=== PATIENT | female | born 1935 | race Caucasian/White ===

== ENCOUNTER 2016-05-07 09:40 | Outpatient (CLI) ==
[2012-09-27 08:19] VITALS: TEMP 97.2
[2016-03-22 15:18] VITALS: BMI 41.0
[2016-05-07 12:30] LABS: BASOPHILS % (AUTO) 0.7 % (0.0-3.0); EOSINOPHILS # (AUTO) 0.4 K/ul (0.0-0.7); EOSINOPHILS % (AUTO) 7.9 % (0.0-7.0); HEMATOCRIT 33.8 % (37.0-47.0); HEMOGLOBIN 10.6 g/dl (12.0-16.0); IMMATURE GRANULOCYTE % (AUTO) 0.4 % (0.0-5.0); LYMPHOCYTES # (AUTO) 1.4 K/uL (0.60-3.4); LYMPHOCYTES % (AUTO) 31.3 (10.0-50.0); MEAN CORPUSCULAR HEMOGLOBIN 28.8 pg (27.0-31.0); MEAN CORPUSCULAR HGB CONC 31.4 (31.8-35.4); MEAN CORPUSCULAR VOLUME 91.8 fl (81.0-99.0); MONOCYTES # (AUTO) 0.5 K/uL (0.4-2.0); MONOCYTES % (AUTO) 9.8 (0-10); NEUTROPHILS # (AUTO) 2.3 K/ul (2.0-6.9); NEUTROPHILS % (AUTO) 49.9; PLATELET COUNT 134 10^3/uL (140-440); RED BLOOD COUNT 3.68 10^6/ul (4.20-5.40); WHITE BLOOD COUNT 4.57 K/ul (4.6-10.2)
[2016-05-07 12:43] LABS: BILIRUBIN,URINE Negative (NEGATIVE); KETONES,URINE Negative (NEGATIVE); LEUKOCYTE ESTERASE ,URINE Trace (NEGATIVE); NITRITE,URINE Negative (NEGATIVE); PROTEIN,URINE 1+ (NEGATIVE)
[2016-05-07 12:47] LABS: ADD URINE MICROSCOPIC YES
[2016-05-07 12:51] LABS: URINE, BLOOD NEGATIVE (NEGATIVE)
[2016-05-07 13:46] LABS: ALBUMIN 3.7 g/dL (3.4-5.0); ALBUMIN/GLOBULIN RATIO 1.06; ANION GAP 13.6; BILIRUBIN,TOTAL 0.52 mg/dL (0.00-1.20); BUN/CREATININE RATIO 19.86; CALCIUM 9.1 mg/dL (8.2-10.2); CHOL/HDL RATIO 2.4 (4.5-5.5); CREATININE 1.46 mg/dL (0.60-1.30); POTASSIUM 4.6 mmol/L (3.5-5.10); TOTAL PROTEIN 7.2 g/dL (5.8-8.1)
== END 2016-05-07 09:41 | disposition home or self-care (01) ==
LOC: LAB 09:40
PROVIDERS: ATTEND General Practice
DX: E11.9 Type 2 diabetes mellitus without complications (principal); E61.1 Iron deficiency; N18.3 Chronic kidney disease, stage 3 (moderate); I95.1 Orthostatic hypotension; I10 Essential (primary) hypertension; I50.9 Heart failure, unspecified; I48.0 Paroxysmal atrial fibrillation; Z79.899 Other long term (current) drug therapy
CPT/HCPCS: 36415; 80053; 80061; 81001; 83036; 85025

== ENCOUNTER 2016-05-15 06:32 | Outpatient (CLI) ==
[2012-09-27 08:19] VITALS: TEMP 97.2
[2016-03-22 15:18] VITALS: BMI 41.0
--- NOTE | 2016-05-17 09:28 | ECHO2D ---
Date of Exam: 05/15/16 [facility] Reason for Echo: ATRIAL FIBRILLATION, SOB M-Mode Normal Adult Results LV Dimensions Normal Adult Results AoV Opening excursions >1.6 >1.6 LVEDD-base- 3.5-5.8 3.8 Ao root dimensions 2.0-3.7 3.0 LVESD-base- 3.1-4.6 L. Atrium dimensions 1.9-3.8 4.6 Post. Wall thickness 0.8-1.1 1.2 IV septum (thickness) 0.7-1.2 1.2 Post. Wall excursion 0.72-1.3 NORMAL Septal motion 0.8 Systolic motion R. Ventricular cavity 1.5-2.0 NORMAL LVEF 60% 68% Paradoxical septal wall motion NORMAL 2-D :ENLARGED LEFT ATRIAL CAVITY--NORMAL LEFT VENTRICLE CAVITY--NORMAL VALVES-- NORMAL VALVES--CALCIFIC MITRAL VALVE ANNULUS, NORMAL LEFT VENTRICULAR CONTRACTILITY M-MODE: MV: CALCIFIC MITRAL VALVE ANNULUS AV: NORMAL TV: NORMAL PV: CHAMBER SIZE: ENLARGED LEFT ATRIAL CAVITY WALL MOTION: NORMAL PERICARDIUM: NORMAL INTERPRETATION: 1. LEFT VENTRICULAR HYPERTROPHY WITH ENLARGED LEFT ATRIAL CAVITY 2. NORMAL LEFT VENTRICULAR CONTRACTILITY--LEFT VENTRICULAR EJECTION FRACTION 68% 3. NORMAL VALVES 4. CALCIFIC MITRAL VALVE ANNULUS MTDD
== END 2016-05-15 06:33 | disposition home or self-care (01) ==
LOC: CAR 06:32
PROVIDERS: ATTEND General Practice
DX: I48.0 Paroxysmal atrial fibrillation (principal); I50.9 Heart failure, unspecified; R06.02 Shortness of breath

== ENCOUNTER 2016-06-07 11:28 | Outpatient (CLI) | payer OTHER ==
[2012-09-27 08:19] VITALS: TEMP 97.2
[2016-03-22 15:18] VITALS: BMI 41.0
[2016-06-07 13:12] LABS: ALBUMIN 3.7 g/dL (3.4-5.0); ANION GAP 14.7; BUN/CREATININE RATIO 18.18; CALCIUM 9.3 mg/dL (8.2-10.2); CREATININE 1.43 mg/dL (0.60-1.30); POTASSIUM 4.7 mmol/L (3.5-5.10)
== END 2016-06-07 11:29 | disposition home or self-care (01) ==
LOC: LAB 11:28
PROVIDERS: ATTEND General Practice
DX: I50.9 Heart failure, unspecified (principal)
CPT/HCPCS: 36415; 80069; 83880

== ENCOUNTER 2016-06-24 15:12 | Outpatient (CLI) ==
[2012-09-27 08:19] VITALS: TEMP 97.2
[2016-03-22 15:18] VITALS: BMI 41.0
--- NOTE | 2016-06-24 15:58 | DI ---
EXAM: Two views of the chest. History: Cough. Comparison: Chest radiograph 03/26/2016 Findings: Heart is enlarged. No focal consolidation. No appreciable pleural fluid and no pneumoth orax. Atherosclerotic vascular calcifications. No acute osseous abnormalities. Impression: Cardiomegaly without acute disease in the chest.
--- NOTE | 2016-06-24 16:01 | DI ---
EXAM: Four views of the mandible. History: Jaw pain. Findings: Evaluation is difficult due to overlapping osseous and soft tissue structures. Incidenta l hyperostosis frontalis. No grossly displaced fractures identified. There may be mucosal thickeni ng within the bilateral maxillary sinuses. Impression: 1. No acute fractures. 2. Suspect bilateral maxillary sinus disease.
[2016-06-24 16:45] LABS: ERYTHROCYTE SEDIMENTATION RATE 27 mm/hr (0-20); ESR INTERNAL QC INTERNAL QC VALID
== END 2016-06-24 15:13 | disposition home or self-care (01) ==
LOC: RAD 15:12
PROVIDERS: ATTEND General Practice
DX: R68.84 Jaw pain (principal); R05 Cough; I50.22 Chronic systolic (congestive) heart failure
CPT/HCPCS: 36415; 83880; 84145; 85651

== ENCOUNTER 2016-07-30 10:27 | Outpatient (CLI) ==
[2012-09-27 08:19] VITALS: TEMP 97.2
[2016-03-22 15:18] VITALS: BMI 41.0
--- NOTE | 2016-07-30 10:49 | DI ---
EXAM: Two views of the chest. History: Cough. Comparison: Chest radiograph 06/24/2016 Findings: Heart is enlarged. No focal consolidation. No appreciable pleural fluid and no pneumoth orax. No acute osseous abnormalities. Atherosclerotic vascular calcifications. Impression: Cardiomegaly without acute disease in the chest. No change compared to the prior study .
[2016-07-30 10:54] LABS: BASOPHILS % (AUTO) 0.6 % (0.0-3.0); EOSINOPHILS # (AUTO) 0.3 K/ul (0.0-0.7); EOSINOPHILS % (AUTO) 6.5 % (0.0-7.0); HEMATOCRIT 35.4 % (37.0-47.0); HEMOGLOBIN 11.8 g/dl (12.0-16.0); IMMATURE GRANULOCYTE % (AUTO) 0.4 % (0.0-5.0); LYMPHOCYTES # (AUTO) 0.6 K/uL (0.60-3.4); LYMPHOCYTES % (AUTO) 10.6 (10.0-50.0); MEAN CORPUSCULAR HEMOGLOBIN 28.2 pg (27.0-31.0); MEAN CORPUSCULAR HGB CONC 33.3 (31.8-35.4); MEAN CORPUSCULAR VOLUME 84.7 fl (81.0-99.0); MONOCYTES # (AUTO) 0.4 K/uL (0.4-2.0); MONOCYTES % (AUTO) 7.8 (0-10); NEUTROPHILS # (AUTO) 3.9 K/ul (2.0-6.9); NEUTROPHILS % (AUTO) 74.1; PLATELET COUNT 125 10^3/uL (140-440); RED BLOOD COUNT 4.18 10^6/ul (4.20-5.40); WHITE BLOOD COUNT 5.27 K/ul (4.6-10.2)
[2016-07-30 11:13] LABS: ALBUMIN 3.7 g/dL (3.4-5.0); ANION GAP 12.8; BUN/CREATININE RATIO 16.8; CALCIUM 8.9 mg/dL (8.2-10.2); CREATININE 1.19 mg/dL (0.60-1.30); PHOSPHORUS 3.7 mg/dL (2.8-4.1); POTASSIUM 4.8 mmol/L (3.5-5.10)
== END 2016-07-30 10:28 | disposition home or self-care (01) ==
LOC: LAB 10:27
PROVIDERS: ATTEND General Practice
DX: R05 Cough (principal); R06.02 Shortness of breath
CPT/HCPCS: 36415; 80069; 83880; 85025

== ENCOUNTER 2016-10-03 13:00 | Inpatient (IN) ==
--- NOTE | 2016-10-03 14:19 | CT ---
EXAM: CT scan of the abdomen and pelvis without contrast HISTORY: Pain TECHNIQUE: Imaging of the abdomen and pelvis was performed without contrast. 5 mm thin axial image s and coronal and sagittal reconstructions were provided for interpretation. Comparison none. FINDINGS: The liver, spleen, pancreas, adrenal glands appear normal. The patient has had previous cholecystectomy. There is atrophy of the left kidney. The small bowel loops caliber. There is m ild dilatation of the ascending colon, transverse colon and descending colon by fecal material. The re is no free air. No acute abnormalities are seen within the anterior abdominal wall. The helical images obtained through the pelvis demonstrate a normal appearance of the rectum, urinar y bladder. There is no free fluid seen within the pelvis. The appendix appears normal. Lung bases are clear. No lytic or blastic lesions are seen within the osseous structures. IMPRESSION: There is no bowel obstruction or acute inflammatory change seen within the abdomen and pelvis. There is no ureteral obstruction. There is mild dilatation of the colon by fecal material suggesting a degree of constipation. There has been previous cholecystectomy.
--- NOTE | 2016-10-03 14:25 | CT ---
EXAM: CT lumbar spine without contrast HISTORY: Pain, weakness in both legs COMPARISON: 01/01/2015 TECHNIQUE: CT lumbar spine performed without intravenous contrast. Coronal and sagittal reformatte d images obtained. FINDINGS: Bones appear demineralized. Mild leftward curvature lumbar spine. Vertebral bodies janel l height. Multilevel marginal osteophyte formation. Multilevel intervertebral disc space narrowing with severe intervertebral disc space narrowing T12-L1, L1-L2, L5-S1. 2 mm retrolisthesis L1 on L2 and 2 mm anterolisthesis of L4 on L5. Multilevel facet arthrosis. No fracture. Sacroiliac joints i ntact with mild degenerative change. Aorta normal in caliber. Extensive atherosclerosis. Mild pos terior the subcutaneous edema. T11-T12: Posterior disc osteophyte complex causing mild central canal canal and mild bilateral neur al foraminal narrowing. T12-L1: Posterior disc osteophyte complex causing mild central canal narrowing. L1-L2: Posterior disc osteophyte complex and facet arthrosis causing mild to moderate central canal , severe right and mild to moderate left neural foraminal narrowing. L2-L3: Posterior disc osteophyte complex and facet arthrosis causing causing mild central canal cady rowing and mild bilateral neural foraminal narrowing. L3-L4: Posterior disc osteophyte complex and facet arthrosis causing moderate central canal narrowi ng and moderate to severe bilateral neural foraminal narrowing. L4-L5: Posterior disc osteophyte complex and facet arthrosis and anterolisthesis causing severe blanche tral canal narrowing and severe bilateral neural foraminal narrowing. L5-S1: Posterior disc osteophyte complex and facet arthrosis causing severe bilateral neural forami nal narrowing IMPRESSION: 1. No fracture. 2. Advanced chronic discogenic degenerative disease. Please see segmental analysis, noting severe areas of central canal and neural foraminal narrowing, greatest L4-L5, L5-S1. MRI can be performed f or further evaluation. 3. Bones appear demineralized
[2016-10-03 14:29] LABS: BASOPHILS % (AUTO) 0.5 % (0.0-3.0); EOSINOPHILS # (AUTO) 0.4 K/ul (0.0-0.7); EOSINOPHILS % (AUTO) 5.5 % (0.0-7.0); HEMATOCRIT 31.4 % (37.0-47.0); HEMOGLOBIN 10.8 g/dl (12.0-16.0); IMMATURE GRANULOCYTE % (AUTO) 0.5 % (0.0-5.0); LYMPHOCYTES # (AUTO) 1.8 K/uL (0.60-3.4); LYMPHOCYTES % (AUTO) 27.8 (10.0-50.0); MEAN CORPUSCULAR HGB CONC 34.4 (31.8-35.4); MEAN CORPUSCULAR VOLUME 84.4 fl (81.0-99.0); MONOCYTES # (AUTO) 0.6 K/uL (0.4-2.0); MONOCYTES % (AUTO) 9.3 (0-10); NEUTROPHILS # (AUTO) 3.6 K/ul (2.0-6.9); NEUTROPHILS % (AUTO) 56.4; PLATELET COUNT 145 10^3/uL (140-440); RED BLOOD COUNT 3.72 10^6/ul (4.20-5.40); WHITE BLOOD COUNT 6.34 K/ul (4.6-10.2)
[2016-10-03 14:48] LABS: ALANINE AMINOTRANSFERASE 22 U/L (12-78); ALBUMIN 3.9 g/dL (3.4-5.0); ALBUMIN/GLOBULIN RATIO 1.26; ALKALINE PHOSPHATASE 80 U/L (53-141); ANION GAP 17.2; ASPARTATE AMINO TRANSFERASE 22 U/L (15-37); BILIRUBIN,TOTAL 0.58 mg/dL (0.00-1.20); BLOOD UREA NITROGEN 51 mg/dL (7-18); BUN/CREATININE RATIO 21.25; CALCIUM 8.6 mg/dL (8.2-10.2); CARBON DIOXIDE 23 mmol/L (23-31); CHLORIDE 94 mmol/L (98-107); CREATINE KINASE 84 U/L; GLUCOSE 120 mg/dL (82-115); POTASSIUM 4.2 mmol/L (3.5-5.10); SODIUM 130 mmol/L (136-145)
--- NOTE | 2016-10-03 15:24 | ED.PDOC ---
General ED Provider: Dr. GOMEZ RONDON Chief Complaint: Weakness Stated Complaint: weakness unable to walk Time Seen by Physician: 13:00 (seen with staffat all times) Mode of Arrival: Wheelchair Information Source: Patient Exam Limitations: No limitations [facility] Nursing and Triage Documentation Reviewed and Agree: Yes Neurological Complaint Exam - Weakness Complaint/Exam Last Known Well: 2 days ago Onset: Gradual Duration: 2 days today worse cant ambulate very weak legs give out per pt Symptoms Are: Still present Timing: Constant Episodes Lasting: Hours Initial Severity: Moderate Current Severity: Moderate Character: Reports: Lightheaded, Weak Aggravating: Reports: None Alleviating: Reports: None Associated Signs and Symptoms: Denies: Nausea, Vomiting, Diaphoresis, Tinnitus, Chest pain, Short of air, Palpitations, Unsteady gait, GI blood loss, Visual changes, Decreased oral intake, Change in medication, Change in diet, OTC meds, Loss of balance Cardiac Risk Factors: Reports: Hypertension CVA Risk Factors: Reports: Hypertension Related Surgical History: Reports: None JVD Present: No Carotid Bruit Present: No Rectal Heme Positive: No Glascow Coma Scale (see protocol): 15 Nystagmus Present: No Gag Reflex Present: Yes Meningeal Signs Positive: No Focal Weakness: Present: None Focal Sensory Loss: Present: None Gait: Unable Babinski Sign: Negative Right, Negative Left Differential Diagnoses: Dysrhythmia, Hypovolemia, Metabolic abnormalities, Vasovagal reaction Quality Indicators for Cardiac Chest Pain: EKG in 10min. Quality Indicators for AMI: EKG in 10min. Quality Indicator For Non-Traumatic Chest Pain/Syncope: EKG Performed Review of Systems - Review Of Systems Constitutional: Reports: Malaise, Weakness Eyes: Reports: No symptoms Ears, Nose, Mouth, Throat: Reports: No symptoms Respiratory: Reports: No symptoms Cardiac: Reports: No symptoms GI: Reports: No symptoms : Reports: No symptoms Musculoskeletal: Reports: No symptoms Skin: Reports: No symptoms Neurological: Reports: No symptoms Endocrine: Reports: No symptoms Hematologic/Lymphatic: Reports: No symptoms All Other Systems: Reviewed and Negative Past Medical History - Past Medical History Previously Healthy: Yes Endocrine: Reports: DM 2 Cardiovascular: Reports: Hypertension Respiratory: Reports: None Hematological: Reports: None Gastrointestinal: Reports: Unknown Genitourinary: Reports: Unknown Neuro/Psych: Reports: Unknown Musculoskeletal: Reports: Arthritis Cancer: Reports: Unknown Last Menstrual Period: N/A Other Pertinent Past Medical History: bilat. knee replacement. [ End ]htn dm - Surgical History General Surgical History: Reports: Cholecystectomy, Orthopedic ( knee replacement bilat.), Other (mastoid surgeries x2, carpal tunnel) - Family History Family History: Reports: Unknown - Social History Smoking Status: Former smoker Hx Substance Use: No Alcohol Screening: None - Immunizations Tetanus Shot up to Date: Yes Physical Exam - Physical Exam Appearance: Ill-appearing, Thin Pain Distress: Moderate Eyes: ALEJANDRO, EOMI, Conjunctiva clear ENT: Ears normal, Nose normal, Oropharynx normal Respiratory: Airway patent, Breath sounds clear, Breath sounds equal, Respirations nonlabored Cardiovascular: RRR, Pulses normal, No rub, No murmur GI/: Soft, Nontender, No masses, Bowel sounds normal, No Organomegaly Musculoskeletal: Normal strength, ROM intact, No edema, No calf tenderness Skin: Warm, Dry, Normal color Neurological: Sensation intact, Motor intact, Reflexes intact, Cranial nerves intact, Alert, Oriented Psychiatric: Affect appropriate, Mood appropriate Interpretation - Radiology Interpretation Radiology Interpretation By: Radiologist Radiology Results: No acute changes Physician Notification - Case Discussed Physician Notified: pmd Time of Notification: 15:25 Critical Care Note - Critical Care Note Total Time (mins): 0 Course - Course Hematology/Chemistry: 10/03/16 14:15 10/03/16 14:15 Orders, Labs, Meds: Lab Review 10/03/16 14:15 WBC 6.34 RBC 3.72 L Hgb 10.8 L Hct 31.4 L MCV 84.4 MCH 29.0 MCHC 34.4 RDW Coeff of Danae 16.8 H Plt Count 145 Immature Gran % (Auto) 0.5 Neut % (Auto) 56.4 Lymph % (Auto) 27.8 [place] % (Auto) 9.3 Eos % (Auto) 5.5 Baso % (Auto) 0.5 Immature Gran # (Auto) 0.0 Neut # 3.6 Lymph # 1.8 [place] # 0.6 Eos # 0.4 Baso # 0.0 Sodium 130 L Potassium 4.2 Chloride 94 L Carbon Dioxide 23 Anion Gap 17.2 BUN 51 H Creatinine 2.40 H Estimated GFR (MDRD) 19.00 BUN/Creatinine Ratio 21.25 Glucose 120 H Lactic Acid 8.4 Calcium 8.6 Total Bilirubin 0.58 AST 22 ALT 22 Alkaline Phosphatase 80 Total Creatine Kinase 84 Troponin I < 0.0100 Total Protein 7.0 Albumin 3.9 Globulin 3.1 Albumin/Globulin Ratio 1.26 Procalcitonin 0.32 Orders Category Date Time Status EKG-(ED ONLY) Stat CARDIO 10/03/16 13:40 Completed BLOOD CULTURE Stat LAB 10/03/16 14:15 Received CBC W/ AUTO DIFF Stat LAB 10/03/16 14:15 Completed COMPREHENSIVE METABOLIC PANEL Stat LAB 10/03/16 14:15 Completed CREATINE KINASE Stat LAB 10/03/16 14:15 Completed LACTIC ACID Stat LAB 10/03/16 14:15 Completed PROCALCITONIN Stat LAB 10/03/16 14:15 Completed TROPONIN I Stat LAB 10/03/16 14:15 Completed URINALYSIS C & S IF INDICATED Stat LAB 10/03/16 13:[address] ABDOMEN/PELVIS WO CONTRAST Stat RADS 10/03/16 13:[address] LUMBAR SPINE W/O CONTRAST Stat RADS 10/03/16 13:39 Completed Vital Signs: Temp Pulse Resp BP Pulse Ox 10/03/16 13:00 98 F 64 22 154/80 H 98 Departure - Departure Time of Disposition: 15:25 Disposition: ADMITTED INPATIENT Discharge Problem: Acute on chronic renal failure Qualifiers: Acute renal failure type: unspecified Chronic kidney disease stage: stage 4 ( severe) Qualifier Code: (N17.9) Acute kidney failure, unspecified Instructions: Chronic Kidney Disease (ED) Condition: Good Pt referred to PMD for follow-up: Yes Additional Instructions: Please call your Family Physician as soon as possible to schedule a follow-up appointment. Allergies/Adverse Reactions: Allergies quinine Allergy (Unverified 08/07/16 10:57) BEEN SO LONG AGO, CANT REMEMBER REACTION Home Medications: Ambulatory Orders Carvedilol 25 mg PO BID 09/27/12 Aspirin [Aspir 81] 81 mg PO DAILY tab-cap 06/07/15 Disposition Discussed With: Patient, Family
[2016-10-03] MEDS ORDERED: SODIUM CHLORIDE 1,000 ML IV SCH (16:30)
[2016-10-03 16:59] LABS: BILIRUBIN,URINE Negative (NEGATIVE); KETONES,URINE Negative (NEGATIVE); LEUKOCYTE ESTERASE ,URINE 1+ (NEGATIVE); NITRITE,URINE Negative (NEGATIVE); PH,URINE 5.5 (5-9); PROTEIN,URINE Negative (NEGATIVE); URINE, BLOOD Negative (NEGATIVE)
[2016-10-03 17:03] LABS: ADD URINE MICROSCOPIC YES
[2016-10-03 18:04] VITALS: BMI 40.1
[2016-10-03] MEDS: PEPCID PO SCH (18:36)
[2016-10-03] MEDS: COREG PO SCH (18:36)
[2016-10-03] MEDS ORDERED: NON-FORMULARY MEDICATION (Oxcarbazepine 150 MG) PO SCH ×2 (20:30→21:00)
[2016-10-03] MEDS ORDERED: INFUVITE ADULT IV ONE (20:51)
[2016-10-03] MEDS ORDERED: NON-FORMULARY MEDICATION (Carvedilol [Carvedilol] 25 MG) PO SCH ×22 (21:00)
[2016-10-03] MEDS ORDERED: NON-FORMULARY MEDICATION (Losartan Potassium [Losartan Potassium] 50 MG) PO SCH (21:00)
[2016-10-03] MEDS ORDERED: NON-FORMULARY MEDICATION (Ferrous Sulfate [Ferrous Sulfate] 325 MG) PO SCH ×22 (21:00)
[2016-10-03] MEDS: INFUVITE ADULT 10 ML in D5%-1/2NS-KCL 20 MEQ/L IV SOL 1,000 ML IV SCH (21:19)
--- NOTE | 2016-10-03 21:32 | CT ---
EXAM: CT of the head without contrast. HISTORY: Weakness.. COMPARISON: CT of the head dated 06/16/2014 TECHNIQUE: Contiguous axial images at 5 mm intervals were obtained from the base of the skull to th e vertex the calvarium. No contrast was given. FINDINGS: The CSF containing spaces are diffusely enlarged consistent with atrophy. There are no e xtraaxial fluid collections. There is no evidence of an acute intracranial hemorrhage. There are n o masses or mass effect. Hypodensities are seen in the periventricular white matter consistent with chronic ischemic changes from small vessel disease. Asymmetric hypodensity is seen in the left fro ntal lobe comparison to the right side. There is no significant mass effect. Carotid artery and ve rtebral artery calcifications are seen. The osseous structures are normal. The extracranial soft tissues are otherwise unremarkable. IMPRESSION: 1. No acute intracranial hemorrhage. 2. Asymmetric hypodensity in the left lobe which has appearance of ischemic infarct. No significan t mass effect is seen. Correlate with history and symptoms. Acute infarct cannot be excluded. Corre late with symptoms and history.
[2016-10-03] MEDS: SYMBICORT 80-4.5 MCG INHALER IH SCH (21:34)
--- NOTE | 2016-10-03 21:34 | DI ---
EXAM: Two-view chest. HISTORY: Weakness and cough. COMPARISON: 07/30/2016 FINDINGS: Frontal and lateral views of the chest. The lung volumes are lower than on the prior s tudy. There is no lobar consolidation or effusion. The heart is enlarged. Pulmonary vasculature i s normal. There are no suspicious pulmonary nodules. The pulmonary interstitium is normal. The aorta is tortuous and calcified. The osseous structures show mild degenerative changes consistent w ith age. IMPRESSION: No acute pulmonary disease.
[2016-10-03] MEDS: LIPITOR PO SCH (21:35)
[2016-10-03] MEDS: COZAAR PO SCH (21:35)
[2016-10-03] MEDS: FERROUS SULFATE PO SCH (21:41)
[2016-10-03 22:49] LABS: TROPONIN I 0.015 ng/ml (0.0000-0.4000)
[2016-10-04] MEDS: XANAX PO PRN ×2 (01:25→09:56)
[2016-10-04] MEDS: LASIX TAB PO SCH (05:31)
[2016-10-04] MEDS: PEPCID PO SCH ×2 (05:31→17:09)
[2016-10-04 07:26] LABS: BASOPHILS % (AUTO) 0.5 % (0.0-3.0); EOSINOPHILS # (AUTO) 0.2 K/ul (0.0-0.7); EOSINOPHILS % (AUTO) 3.7 % (0.0-7.0); HEMATOCRIT 31.2 % (37.0-47.0); HEMOGLOBIN 10.7 g/dl (12.0-16.0); IMMATURE GRANULOCYTE % (AUTO) 0.5 % (0.0-5.0); LYMPHOCYTES # (AUTO) 1.5 K/uL (0.60-3.4); LYMPHOCYTES % (AUTO) 26.5 (10.0-50.0); MEAN CORPUSCULAR HEMOGLOBIN 28.8 pg (27.0-31.0); MEAN CORPUSCULAR HGB CONC 34.3 (31.8-35.4); MEAN CORPUSCULAR VOLUME 84.1 fl (81.0-99.0); MONOCYTES # (AUTO) 0.7 K/uL (0.4-2.0); NEUTROPHILS # (AUTO) 3.2 K/ul (2.0-6.9); NEUTROPHILS % (AUTO) 56.8; PLATELET COUNT 143 10^3/uL (140-440); RED BLOOD COUNT 3.71 10^6/ul (4.20-5.40); WHITE BLOOD COUNT 5.66 K/ul (4.6-10.2)
[2016-10-04 07:42] LABS: ANION GAP 16.3; BUN/CREATININE RATIO 21.46; CALCIUM 8.7 mg/dL (8.2-10.2); CREATININE 2.05 mg/dL (0.60-1.30); POTASSIUM 4.3 mmol/L (3.5-5.10)
[2016-10-04 07:49] LABS: TROPONIN I 0.015 ng/ml (0.0000-0.4000)
[2016-10-04] MEDS ORDERED: NON-FORMULARY MEDICATION (Oxcarbazepine 150 MG) PO SCH ×2 (09:00)
[2016-10-04] MEDS ORDERED: NON-FORMULARY MEDICATION (Amlodipine Besylate [Amlodipine Besylate] 2.5 MG) PO SCH ×22 (09:00)
[2016-10-04] MEDS: INFUVITE ADULT 10 ML in D5%-1/2NS-KCL 20 MEQ/L IV SOL 1,000 ML IV SCH (09:38)
[2016-10-04] MEDS: COREG PO SCH ×2 (09:48→17:09)
[2016-10-04] MEDS: FERROUS SULFATE PO SCH ×2 (09:48→22:23)
[2016-10-04] MEDS: NORVASC PO SCH (09:49)
[2016-10-04] MEDS: COZAAR PO SCH ×2 (09:50→22:23)
[2016-10-04] MEDS: SYMBICORT 80-4.5 MCG INHALER IH SCH ×2 (09:50→22:24)
[2016-10-04] MEDS: CORDARONE PO SCH (09:50)
[2016-10-04] MEDS: ASPIRIN EC PO SCH (09:50)
[2016-10-04] MEDS ORDERED: TRILEPTAL PO SCH (12:00)
--- NOTE | 2016-10-04 14:53 | US ---
Exam: García-scale and color Doppler ultrasonographic evaluation of the carotid arteries. Comparison: 06/24/2014. Reason for exam: Weakness right upper extremity more than left. FINDINGS: There is a moderate amount of heterogeneous and dense plaque in the proximal portion of t he right internal carotid artery. The right external carotid artery measures 150 cm/sec. The right common carotid artery measures 80 / 10 cm/sec. The right internal carotid artery peak systolic velocity measures 140 cm/sec. The right internal carotid artery/CCA PSV ratio was 1.8. The right internal carotid artery end-diastolic velocity measures 20 cm/sec. There is normal antegrade right vertebral artery flow. There is a moderate amount of dense plaque seen in the proximal left internal carotid artery. There is shadowing in the left internal carotid artery at the level of the bulb which limits evaluation o f the plaque burden in this region. The left external carotid artery measures 130 cm/sec. The left common carotid artery measures 120 / 10 cm/sec. The left internal carotid artery peak systolic velocity measures 120 cm/sec. The left internal carotid artery/CCA PSV ratio was 1.0. The left internal carotid artery end-diastolic velocity measures 10 cm/sec. The left vertebral artery was not visualized on today's exam. Technologist note reports tortuosity of the vessels bilaterally. Impression: 1. The right internal carotid artery peak systolic velocity suggests moderate (50 - 69%) stenotic d isease. 2. The left internal carotid artery peak systolic velocity suggests no significant stenosis. Evalu ation of the left internal carotid artery level of the bulb is limited by shadowing artifact. 3. The left vertebral artery was not seen.
--- NOTE | 2016-10-04 17:34 | MRI ---
EXAM: Brain MRI without contrast. HISTORY: Right upper and lower extremity weakness. COMPARISON: Head CT 10/03/2016, brain MRI 06/27/2014 and cervical spine MRI 03/02/2008. TECHNIQUE: Multiplanar, multisequence MR images were acquired of the brain without contrast. FINDINGS: The midline structures are central and there is no cerebellar tonsillar ectopia. There i s mild prominence of the lateral ventricle and some sulci which is considered within normal variatio n for the patient's age. There are no abnormal extra-axial fluid collections. The brain parenchyma has no diffusion restriction to suggest acute hypoperfusion or infarction. The re is a thin rim of periventricular T2 hyperintensity and small patchy T2 hyperintensities are prese nt in the supratentorial white matter compatible with mild leukomalacia. There is a prominent sulcu s in the anterior superior left frontal lobe with faint hyperintense FLAIR signal and this may repre sent small chronic peripheral left frontal lobe infarct or volume averaging artifact. Pulsation art ifact is noted in the posterior fossa. There is a punctate old lacuna or artifact in the right para midline zuleika. The corpus callosum has a normal configuration. The pituitary gland is unremarkable. There are no intraorbital masses. Hyperostosis frontalis interna is present. Mild mucosal thickening and a small effusion is present in the sphenoid sinus. There is mild rightw jeyson nasal septal deviation. Mild mucosal thickening is present. The left maxillary sinus. Middle ears and mastoids are unremarkable. Flow voids are present in the major intracranial arteries and dural venous sinuses. There is pannus formation at the transverse ligament which was present on the previous cervical spin e MRI. This effaces the anterior subarachnoid space and causes mild spinal stenosis at the C1-2 lev el. AP diameter of the thecal sac is 7.7 mm. There is irregularity and sclerosis of the odontoid p rocess with a linear T1 hypointensity that extends from the anterior cortex to the posterior cortex. This may represent chronic fracture or volume averaging artifact. Cervical spine CT is advised to better define the anatomy. There is hypertrophic facet arthropathy in the upper cervical spine and mild to moderate spinal stenosis at C2-3. AP diameter of the thecal sac is 6 mm. IMPRESSION: 1. No intracranial mass or acute cerebral infarct. 2. Mild chronic ischemic small vessel disease. 3. There is irregularity and sclerosis of the odontoid process with a linear T1 hypointensity that may represent volume averaging artifact or a sclerotic fracture. Cervical spine CT is advised to fu rther define the anatomy. 4. Mild spinal stenosis C1-2 and mild to moderate stenosis C2-3. Gregory nurse caring for the patient was telephoned with these results at 5:27 p.m
--- NOTE | 2016-10-04 21:02 | CT ---
EXAM: CT of the cervical spine without contrast. HISTORY: Follow-up abnormal MRI. MRI of the brain from the same date demonstrated possible healing fracture of the odontoid process. COMPARISON: MRI dated 10/04/[address] of the cervical spine dated 11/06/2009 TECHNIQUE: Contiguous axial images were obtained from the base of skull to the upper chest. Sagitt al and coronal reformats reviewed. FINDINGS: There is sclerosis of the tip of the odontoid process which is similar to the previous st udy. This likely corresponds to the MRI findings. No significant change is seen in comparison to t he previous study. No definite acute fractures identified. There is slight anterolisthesis of C2 a nd C3, measuring approximately 2.5 mm. There is straightening of the normal lordosis. The vertebral heights are well maintained. C2-3: Disc narrowing. Posterior osteophytes. Bilateral facet hypertrophy. Bilateral neural alexis en narrowing. C3-4: Disc narrowing. Posterior osteophytes. Bilateral neural foramen narrowing. Uncovertebral h ypertrophy, right greater than left. C4-5: Severe disc narrowing. Posterior osteophytes. Bilateral neural foramen narrowing and spinal canal narrowing. Spinal canal measures approximately 8 mm. C5-6: Disc narrowing. Posterior osteophyte disc complex. Bilateral uncovertebral hypertrophy. Bi lateral neural foramen narrowing and spinal canal narrowing. C6-7: Disc narrowing. Post osteophytes. Severe right neural foramen narrowing. Moderate spinal c anal narrowing. IMPRESSION: 1. Sclerosis of the tip of the odontoid is stable in comparison to the prior study . No significan t change. No acute fractures identified. 2. Severe degenerative disc disease of the cervical spine and extensive facet hypertrophy. Spinal canal and neural foramen narrowing is seen, most pronounced at C4-5 and C5-6.
[2016-10-04] MEDS: REQUIP PO SCH ×2 (22:22→22:24)
[2016-10-04] MEDS: LIPITOR PO SCH (22:22)
[2016-10-04] MEDS: TRILEPTAL PO SCH (22:23)
[2016-10-05] MEDS ORDERED: INFUVITE ADULT IV ONE ×2 (00:51→14:51)
[2016-10-05] MEDS ORDERED: POTASSIUM CHLORIDE 10 MEQ VIAL-ADDITIVE ONLY IV ONE (01:00)
[2016-10-05] MEDS: INFUVITE ADULT 10 ML in D5%-1/2NS-KCL 20 MEQ/L IV SOL 1,000 ML IV SCH ×3 (01:23→15:16)
[2016-10-05 04:25] LABS: BASOPHILS % (AUTO) 0.5 % (0.0-3.0); EOSINOPHILS # (AUTO) 0.2 K/ul (0.0-0.7); EOSINOPHILS % (AUTO) 3.8 % (0.0-7.0); HEMATOCRIT 30.6 % (37.0-47.0); HEMOGLOBIN 10.4 g/dl (12.0-16.0); IMMATURE GRANULOCYTE % (AUTO) 0.5 % (0.0-5.0); LYMPHOCYTES # (AUTO) 1.6 K/uL (0.60-3.4); LYMPHOCYTES % (AUTO) 25.5 (10.0-50.0); MEAN CORPUSCULAR HEMOGLOBIN 28.7 pg (27.0-31.0); MEAN CORPUSCULAR VOLUME 84.5 fl (81.0-99.0); MONOCYTES # (AUTO) 0.7 K/uL (0.4-2.0); MONOCYTES % (AUTO) 10.8 (0-10); NEUTROPHILS # (AUTO) 3.6 K/ul (2.0-6.9); NEUTROPHILS % (AUTO) 58.9; PLATELET COUNT 144 10^3/uL (140-440); RED BLOOD COUNT 3.62 10^6/ul (4.20-5.40); WHITE BLOOD COUNT 6.12 K/ul (4.6-10.2)
[2016-10-05 04:46] LABS: ANION GAP 14.5; BUN/CREATININE RATIO 22.97; CALCIUM 8.7 mg/dL (8.2-10.2); CREATININE 1.48 mg/dL (0.60-1.30); POTASSIUM 4.5 mmol/L (3.5-5.10)
[2016-10-05] MEDS ORDERED: TYLENOL PO PRN (05:37)
[2016-10-05] MEDS: PEPCID PO SCH ×2 (05:49→16:38)
[2016-10-05] MEDS: LASIX TAB PO SCH (05:50)
[2016-10-05] MEDS: COREG PO SCH ×2 (08:35→16:38)
[2016-10-05] MEDS: ASPIRIN EC PO SCH (08:35)
[2016-10-05] MEDS: ALDACTONE PO SCH (08:35)
[2016-10-05] MEDS: COZAAR PO SCH ×2 (08:35→21:39)
[2016-10-05] MEDS: CORDARONE PO SCH (08:36)
[2016-10-05] MEDS: NORVASC PO SCH (08:36)
[2016-10-05] MEDS: TRILEPTAL PO SCH ×3 (08:36→21:38)
[2016-10-05] MEDS: FERROUS SULFATE PO SCH ×2 (08:36→21:39)
[2016-10-05] MEDS: REQUIP PO SCH ×2 (08:40→21:38)
[2016-10-05] MEDS: XANAX PO PRN (08:42)
[2016-10-05] MEDS: SYMBICORT 80-4.5 MCG INHALER IH SCH ×2 (10:09→21:38)
[2016-10-05] MEDS ORDERED: LOVENOX SUBCUT SCH (19:00)
[2016-10-05] MEDS: LIPITOR PO SCH (21:39)
[2016-10-06] MEDS ORDERED: LOVENOX ONE (00:43)
[2016-10-06] MEDS ORDERED: INFUVITE ADULT IV ONE (02:32)
[2016-10-06] MEDS: INFUVITE ADULT 10 ML in D5%-1/2NS-KCL 20 MEQ/L IV SOL 1,000 ML IV SCH ×2 (02:44→14:08)
[2016-10-06 04:19] LABS: BASOPHILS % (AUTO) 0.6 % (0.0-3.0); EOSINOPHILS # (AUTO) 0.2 K/ul (0.0-0.7); EOSINOPHILS % (AUTO) 2.6 % (0.0-7.0); HEMATOCRIT 32.4 % (37.0-47.0); HEMOGLOBIN 10.9 g/dl (12.0-16.0); IMMATURE GRANULOCYTE % (AUTO) 0.6 % (0.0-5.0); LYMPHOCYTES # (AUTO) 1.6 K/uL (0.60-3.4); LYMPHOCYTES % (AUTO) 24.6 (10.0-50.0); MEAN CORPUSCULAR HEMOGLOBIN 28.6 pg (27.0-31.0); MEAN CORPUSCULAR HGB CONC 33.6 (31.8-35.4); MONOCYTES # (AUTO) 0.8 K/uL (0.4-2.0); MONOCYTES % (AUTO) 11.8 (0-10); NEUTROPHILS # (AUTO) 3.9 K/ul (2.0-6.9); NEUTROPHILS % (AUTO) 59.8; PLATELET COUNT 148 10^3/uL (140-440); RED BLOOD COUNT 3.81 10^6/ul (4.20-5.40)
[2016-10-06 04:40] LABS: ANION GAP 14.7; BUN/CREATININE RATIO 18.36; CALCIUM 8.8 mg/dL (8.2-10.2); CREATININE 1.47 mg/dL (0.60-1.30); POTASSIUM 4.7 mmol/L (3.5-5.10)
[2016-10-06] MEDS: PEPCID PO SCH ×2 (05:48→16:38)
[2016-10-06] MEDS: LASIX TAB PO SCH (05:49)
[2016-10-06] MEDS: CORDARONE PO SCH (08:54)
[2016-10-06] MEDS: ASPIRIN EC PO SCH (08:54)
[2016-10-06] MEDS: COZAAR PO SCH ×2 (08:54→21:49)
[2016-10-06] MEDS: COREG PO SCH ×2 (08:54→16:38)
[2016-10-06] MEDS: REQUIP PO SCH ×2 (08:55→21:49)
[2016-10-06] MEDS: TRILEPTAL PO SCH ×3 (08:55→21:49)
[2016-10-06] MEDS: SYMBICORT 80-4.5 MCG INHALER IH SCH ×2 (08:55→21:48)
[2016-10-06] MEDS: FERROUS SULFATE PO SCH ×2 (08:55→21:49)
[2016-10-06] MEDS: NORVASC PO SCH (08:55)
[2016-10-06] MEDS: INFUVITE ADULT IV ONE ×2 (14:08→14:10)
[2016-10-06] MEDS: LIPITOR PO SCH (21:49)
[2016-10-06] MEDS: LOVENOX SUBCUT SCH (21:50)
[2016-10-06] MEDS: XANAX PO PRN (23:07)
[2016-10-07] MEDS ORDERED: INFUVITE ADULT IV ONE ×2 (00:27→10:32)
[2016-10-07] MEDS: INFUVITE ADULT 10 ML in D5%-1/2NS-KCL 20 MEQ/L IV SOL 1,000 ML IV SCH ×2 (00:37→12:44)
[2016-10-07] MEDS ORDERED: COREG PO ONE (05:22)
[2016-10-07 05:38] LABS: BASOPHILS % (AUTO) 0.5 % (0.0-3.0); EOSINOPHILS # (AUTO) 0.1 K/ul (0.0-0.7); EOSINOPHILS % (AUTO) 1.7 % (0.0-7.0); HEMATOCRIT 33.1 % (37.0-47.0); HEMOGLOBIN 11.3 g/dl (12.0-16.0); IMMATURE GRANULOCYTE % (AUTO) 0.9 % (0.0-5.0); LYMPHOCYTES # (AUTO) 1.9 K/uL (0.60-3.4); LYMPHOCYTES % (AUTO) 24.9 (10.0-50.0); MEAN CORPUSCULAR HEMOGLOBIN 28.6 pg (27.0-31.0); MEAN CORPUSCULAR HGB CONC 34.1 (31.8-35.4); MEAN CORPUSCULAR VOLUME 83.8 fl (81.0-99.0); MONOCYTES # (AUTO) 0.9 K/uL (0.4-2.0); MONOCYTES % (AUTO) 11.7 (0-10); NEUTROPHILS # (AUTO) 4.6 K/ul (2.0-6.9); NEUTROPHILS % (AUTO) 60.3; PLATELET COUNT 174 10^3/uL (140-440); RED BLOOD COUNT 3.95 10^6/ul (4.20-5.40); WHITE BLOOD COUNT 7.66 K/ul (4.6-10.2)
[2016-10-07 06:03] LABS: ANION GAP 15.4; BUN/CREATININE RATIO 16.54; CALCIUM 9.4 mg/dL (8.2-10.2); CREATININE 1.33 mg/dL (0.60-1.30); POTASSIUM 4.4 mmol/L (3.5-5.10)
[2016-10-07] MEDS: LASIX TAB PO SCH (06:06)
[2016-10-07] MEDS: PEPCID PO SCH ×2 (06:07→16:34)
[2016-10-07] MEDS: TRILEPTAL PO SCH ×3 (08:15→20:19)
[2016-10-07] MEDS: ASPIRIN EC PO SCH (08:16)
[2016-10-07] MEDS: FERROUS SULFATE PO SCH ×2 (08:16→20:20)
[2016-10-07] MEDS: COZAAR PO SCH ×2 (08:16→20:20)
[2016-10-07] MEDS: NORVASC PO SCH ×2 (08:16→12:51)
[2016-10-07] MEDS: ALDACTONE PO SCH (08:16)
[2016-10-07] MEDS: CORDARONE PO SCH (08:16)
[2016-10-07] MEDS: SYMBICORT 80-4.5 MCG INHALER IH SCH ×2 (08:17→20:19)
[2016-10-07] MEDS: REQUIP PO SCH ×2 (08:17→20:19)
[2016-10-07] MEDS: COREG PO SCH ×2 (08:17→16:34)
[2016-10-07] MEDS: XANAX PO PRN (18:40)
[2016-10-07] MEDS: LIPITOR PO SCH (20:19)
[2016-10-07] MEDS: LOVENOX SUBCUT SCH (20:19)
[2016-10-07] MEDS ORDERED: LASIX IVP STA (21:03)
[2016-10-08 05:00] LABS: BASOPHILS % (AUTO) 0.4 % (0.0-3.0); EOSINOPHILS # (AUTO) 0.1 K/ul (0.0-0.7); EOSINOPHILS % (AUTO) 1.2 % (0.0-7.0); HEMATOCRIT 34.5 % (37.0-47.0); HEMOGLOBIN 12.3 g/dl (12.0-16.0); IMMATURE GRANULOCYTE % (AUTO) 0.8 % (0.0-5.0); LYMPHOCYTES # (AUTO) 1.8 K/uL (0.60-3.4); LYMPHOCYTES % (AUTO) 19.6 (10.0-50.0); MEAN CORPUSCULAR HEMOGLOBIN 29.1 pg (27.0-31.0); MEAN CORPUSCULAR HGB CONC 35.7 (31.8-35.4); MEAN CORPUSCULAR VOLUME 81.6 fl (81.0-99.0); MONOCYTES # (AUTO) 1.1 K/uL (0.4-2.0); MONOCYTES % (AUTO) 11.6 (0-10); NEUTROPHILS # (AUTO) 6.1 K/ul (2.0-6.9); NEUTROPHILS % (AUTO) 66.4; PLATELET COUNT 184 10^3/uL (140-440); RED BLOOD COUNT 4.23 10^6/ul (4.20-5.40)
[2016-10-08 05:13] LABS: BUN/CREATININE RATIO 16.41; CALCIUM 9.7 mg/dL (8.2-10.2); CREATININE 1.34 mg/dL (0.60-1.30)
[2016-10-08] MEDS: PEPCID PO SCH ×2 (06:05→17:28)
[2016-10-08] MEDS: LASIX TAB PO SCH (06:05)
[2016-10-08] MEDS: TRILEPTAL PO SCH ×3 (08:29→20:31)
[2016-10-08] MEDS: SYMBICORT 80-4.5 MCG INHALER IH SCH ×2 (08:29→20:30)
[2016-10-08] MEDS: COZAAR PO SCH ×2 (08:29→20:31)
[2016-10-08] MEDS: COREG PO SCH ×2 (08:30→17:46)
[2016-10-08] MEDS: CORDARONE PO SCH (08:30)
[2016-10-08] MEDS: FERROUS SULFATE PO SCH ×2 (08:30→20:31)
[2016-10-08] MEDS: NORVASC PO SCH (08:30)
[2016-10-08] MEDS: REQUIP PO SCH ×2 (08:30→20:31)
[2016-10-08] MEDS: ASPIRIN EC PO SCH (08:30)
[2016-10-08] MEDS ORDERED: ZOFRAN 4 MG/2 ML IVP STA (15:14)
[2016-10-08 15:28] LABS: OCCULT BLOOD INTERNAL QC 1 INTERNAL QC VALID; OCCULT BLOOD SAMPLE 1 POSITIVE (NEGATIVE)
[2016-10-08] MEDS: XANAX PO PRN ×2 (16:15→20:31)
[2016-10-08] MEDS ORDERED: TORADOL IVP PRN (20:07)
[2016-10-08] MEDS ORDERED: DECADRON 4 MG/ML SDV IM STA (20:09)
[2016-10-08] MEDS ORDERED: SODIUM CHLORIDE 1,000 ML IV SCH (20:30)
[2016-10-09 04:46] LABS: BASOPHILS % (AUTO) 0.4 % (0.0-3.0); EOSINOPHILS # (AUTO) 0.2 K/ul (0.0-0.7); EOSINOPHILS % (AUTO) 1.9 % (0.0-7.0); HEMATOCRIT 31.8 % (37.0-47.0); HEMOGLOBIN 11.1 g/dl (12.0-16.0); IMMATURE GRANULOCYTE % (AUTO) 0.8 % (0.0-5.0); LYMPHOCYTES # (AUTO) 2.2 K/uL (0.60-3.4); LYMPHOCYTES % (AUTO) 21.9 (10.0-50.0); MEAN CORPUSCULAR HEMOGLOBIN 28.8 pg (27.0-31.0); MEAN CORPUSCULAR HGB CONC 34.9 (31.8-35.4); MEAN CORPUSCULAR VOLUME 82.6 fl (81.0-99.0); MONOCYTES # (AUTO) 1.3 K/uL (0.4-2.0); MONOCYTES % (AUTO) 13.2 (0-10); NEUTROPHILS # (AUTO) 6.2 K/ul (2.0-6.9); NEUTROPHILS % (AUTO) 61.8; PLATELET COUNT 165 10^3/uL (140-440); RED BLOOD COUNT 3.85 10^6/ul (4.20-5.40); WHITE BLOOD COUNT 9.97 K/ul (4.6-10.2)
[2016-10-09 05:05] LABS: ALBUMIN 3.5 g/dL (3.4-5.0); ALBUMIN/GLOBULIN RATIO 1.09; ANION GAP 17.1; BILIRUBIN,TOTAL 0.89 mg/dL (0.00-1.20); BUN/CREATININE RATIO 17.17; CALCIUM 9.1 mg/dL (8.2-10.2); CREATININE 2.62 mg/dL (0.60-1.30); POTASSIUM 4.1 mmol/L (3.5-5.10); TOTAL PROTEIN 6.7 g/dL (5.8-8.1)
[2016-10-09] MEDS: LASIX TAB PO SCH (05:52)
[2016-10-09] MEDS: PEPCID PO SCH ×2 (05:52→17:32)
[2016-10-09] MEDS: PROTONIX IV IVP SCH (05:52)
[2016-10-09] MEDS: ASPIRIN EC PO SCH (09:19)
[2016-10-09] MEDS: CORDARONE PO SCH (09:20)
[2016-10-09] MEDS: COREG PO SCH ×3 (09:20→17:32)
[2016-10-09] MEDS: COZAAR PO SCH ×3 (09:21→20:36)
[2016-10-09] MEDS: FERROUS SULFATE PO SCH ×2 (09:21→20:36)
[2016-10-09] MEDS: NORVASC PO SCH ×3 (09:21→17:31)
[2016-10-09] MEDS: REQUIP PO SCH ×2 (09:21→20:36)
[2016-10-09] MEDS: SYNTHROID PO SCH (09:22)
[2016-10-09] MEDS: TRILEPTAL PO SCH ×3 (09:22→20:36)
[2016-10-09] MEDS: SYMBICORT 80-4.5 MCG INHALER IH SCH ×2 (09:23→20:35)
--- NOTE | 2016-10-09 10:10 | PCM.CONS ---
CONSULTING PROVIDER: Dr. PAU WILSON ATTENDING PROVIDER: Dr. ALESHA [facility] DATE OF SERVICE: 10/09/16 SUBJECTIVE: This 81 year old WHITE/ F was hospitalized 10/03/16. The patient was seen in consultation because of labile blood pressure problems fluctuating from hypotension to hypertension. The patient had dry heaves yesterday for 12 hours , which has subsided. The patient is resting and in no distress. She has no complaints. REVIEW OF SYSTEMS: CONSTITUTIONAL: Sleepiness. No night sweats. No fatigue, malaise, lethargy. No fever or chills. HEENT: Eyes: No visual changes. No eye pain. No eye discharge. ENT: No runny nose. No epistaxis. No sinus pain. No odynophagia. No congestion. RESPIRATORY: No cough, no congestion. No hemoptysis. CARDIOVASCULAR: No angina symptoms. No CHF symptoms. No atypical chest pain for CAD. No palpitations. No shortness of breath. GASTROINTESTINAL: No abdominal pain. No nausea or vomiting. No diarrhea or constipation. No hematemesis. No hematochezia. GENITOURINARY: No urgency. No frequency. No dysuria. No hematuria. No obstructive symptoms. No discharge. No pain. No significant abnormal bleeding. MUSCULOSKELETAL: No musculoskeletal pain; no joint swelling. NEUROLOGICAL: Sleepy, alert, oriented to person. No headache. No neck pain. No syncope. No seizures. No dizziness. PSYCHIATRIC: Not anxious. No depression. No suicidal thoughts. No homicidal thoughts. SKIN: No rash. No lesions. No wounds. ENDOCRINE: No unexplained weight loss. No weight gain. HEMATOLOGIC/LYMPHATIC: No anemia. No purpura. No petechiae. No prolonged or excessive bleeding. No palpable lymph nodes. PHYSICAL EXAMINATION: GENERAL: The patient is awake, alert and oriented, lying/sitting in bed in no distress. VITAL SIGNS: Temperature 97.5 F, Pulse 70, Respiratory Rate 16, BP 102/58, Pulse Ox 94% HEENT: Head normocephalic, atraumatic. Eyes: Extraocular muscles are intact. Pupils are equal, round and reactive to light and accommodation. Ears: No lesions. Nose appeared normal. Throat: No exudate or erythema. NECK: Supple. No JVD, no carotid bruit. No lymphadenopathy or thyromegaly. LUNGS: Decreased breath sounds. Clear to auscultation. Percussion note normal. Chest symmetrical. HEART: S1, S2, no S3. No murmurs. No cyanosis or clubbing. No ascites. Pulses: Dorsalis pedis and posterior tibial pulses +1 to +2 both sides. ABDOMEN: Soft. Non-tender. Bowel sounds active. No CVA tenderness. No mass felt. EXTREMITIES: No edema. Full range of motion of all extremities, equal. NEUROLOGIC: No focal deficit. Cranial nerves II through XII are grossly intact. No headache, no double vision or headache. SKIN: Not dry. Intact. Turgor-normal. LYMPHATIC: No palpable lymph nodes/no lymphedema. MUSCULOSKELETAL: Normal joints with no swelling. Muscle tone is normal. LAB REVIEW: 10/09/16 04:40 10/09/16 04:40 10/09/16 04:40: WBC 9.97, RBC 3.85 L, Hgb 11.1 L, Hct 31.8 L, MCV 82.6, MCH 28.8 , MCHC 34.9, RDW Coeff of Danae 16.4 H, Plt Count 165, Immature Gran % (Auto) 0.8 , Neut % (Auto) 61.8, Lymph % (Auto) 21.9, Rogers % (Auto) 13.2 H, Eos % (Auto) 1.9, Baso % (Auto) 0.4, Immature Gran # (Auto) 0.1, Neut # 6.2, Lymph # 2.2, Rogers # 1.3, Eos # 0.2, Baso # 0.0, Sodium 122 L, Potassium 4.1, Chloride 86 L, Carbon Dioxide 23, Anion Gap 17.1, BUN 45 H, Creatinine 2.62 H D, Estimated GFR (MDRD) 18.00, BUN/Creatinine Ratio 17.17, Glucose 114, Calcium 9.1, Total Bilirubin 0.89, AST 17, ALT 14, Alkaline Phosphatase 65, B-Natriuretic Peptide 81, Total Protein 6.7, Albumin 3.5, Globulin 3.2, Albumin/Globulin Ratio 1.09, TSH 20.546 H 10/08/16 15:15: Stl Occult Blood (IFOB) Positive, Stool Occult Blood #2 Not Reportable, Stool Occult Blood #3 Not Reportable ASSESSMENT: 1. Dry heaves/gastritis, etiology unknown. 2. Labile blood pressure problems could be from medical conditions; could be normal for her for the timebeing, will monitor blood pressure. 3. History of cardiac arrhythmias on Amiodarone. 4. CHF. 5. Hypothyroidism, TSH 20. 6. Hypertension. 7. Hyponatremia. 8. Chronic kidney disease with renal azotemia. RECOMMENDATIONS/PLAN: 1. IV fluids with Normal Saline. 2. Start Synthroid. 3. Monitor CBC and CMP. 4. Continue Protonix. 5. Cardiovascular status seems to be stable. No evidence of CHF or coronary insufficiency at the present time. 6. I will review last echo report from May. Plan and coordination of the patient's care discussed in the presence of Foundry Patternmaker and Nurse. CONDITION: Stable SCRIBED BY: DIXON DEL VALLE, Crm Specialist scribed while in presence of service performed by Dr. PAU WILSON on 10/09/16 (0802)
[2016-10-09] MEDS: SODIUM CHLORIDE 1,000 ML IV SCH ×2 (12:29→16:03)
[2016-10-09 13:54] LABS: OCCULT BLOOD INTERNAL QC 1 INTERNAL QC VALID; OCCULT BLOOD SAMPLE 1 POSITIVE (NEGATIVE)
[2016-10-10 04:47] LABS: BASOPHILS % (AUTO) 0.5 % (0.0-3.0); EOSINOPHILS # (AUTO) 0.3 K/ul (0.0-0.7); EOSINOPHILS % (AUTO) 3.5 % (0.0-7.0); HEMATOCRIT 31.7 % (37.0-47.0); HEMOGLOBIN 11.3 g/dl (12.0-16.0); LYMPHOCYTES # (AUTO) 1.5 K/uL (0.60-3.4); MEAN CORPUSCULAR HEMOGLOBIN 29.2 pg (27.0-31.0); MEAN CORPUSCULAR HGB CONC 35.6 (31.8-35.4); MEAN CORPUSCULAR VOLUME 81.9 fl (81.0-99.0); MONOCYTES % (AUTO) 11.3 (0-10); NEUTROPHILS # (AUTO) 5.9 K/ul (2.0-6.9); NEUTROPHILS % (AUTO) 66.7; PLATELET COUNT 162 10^3/uL (140-440); RED BLOOD COUNT 3.87 10^6/ul (4.20-5.40); WHITE BLOOD COUNT 8.82 K/ul (4.6-10.2)
[2016-10-10] MEDS: PEPCID PO SCH ×2 (05:58→17:47)
[2016-10-10] MEDS: LASIX TAB PO SCH (05:58)
[2016-10-10] MEDS: PROTONIX IV IVP SCH (05:58)
[2016-10-10] MEDS: SYNTHROID PO SCH (05:58)
[2016-10-10] MEDS: SODIUM CHLORIDE 1,000 ML IV SCH ×2 (05:59→18:08)
[2016-10-10] MEDS: REQUIP PO SCH ×3 (07:13→20:17)
[2016-10-10 08:11] LABS: ALBUMIN 3.5 g/dL (3.4-5.0); ALBUMIN/GLOBULIN RATIO 1.09; ANION GAP 16.8; BILIRUBIN,TOTAL 0.93 mg/dL (0.00-1.20); BUN/CREATININE RATIO 21.69; CALCIUM 8.7 mg/dL (8.2-10.2); CREATININE 1.89 mg/dL (0.60-1.30); POTASSIUM 3.8 mmol/L (3.5-5.10); TOTAL PROTEIN 6.7 g/dL (5.8-8.1)
--- NOTE | 2016-10-10 08:21 | CONS ---
DATE OF CONSULTATION: 10/08/16 REASON FOR CONSULTATION: Labile blood pressure with periods of hypertension HISTORY OF PRESENT ILLNESS: The patient is an 81 year old white female hospitalized on 10/03/16 with weakness and dehydration with renal azotemia. The patient's creatinine was 2.4 and BUN 51. The patient's kidney functions have improved but today the patient has been having nausea with dry heaves and feeling weak. REVIEW OF SYSTEMS: CONSTITUTIONAL: No night sweats. Weakness and fatigue but feels better than before. No fever or chills. HEENT: Eyes: No visual changes. No eye pain. No eye discharge. ENT: No runny nose. No epistaxis. No sinus pain. No sore throat. No odynophagia. No ear pain. No congestion. RESPIRATORY: No cough, no congestion. No hemoptysis. CARDIOVASCULAR: No angina symptoms. No CHF symptoms. No atypical chest pain for CAD. No palpitations. Mild shortness of breath. No PND. No Orthopnea. GASTROINTESTINAL: No abdominal pain. No diarrhea or constipation. No hematemesis. No hematochezia. Nausea with dry heaves. No Melena. GENITOURINARY: No urgency. No frequency. No dysuria. No hematuria. No obstructive symptoms. No discharge. No pain. No significant abnormal bleeding. MUSCULOSKELETAL: No musculoskeletal pain. No joint swelling. Weakness. NEUROLOGICAL: No headache. No neck pain. No syncope. No seizures. No dizziness. PSYCHIATRIC: Not anxious. No depression. No suicidal thoughts. No homicidal thoughts. SKIN: No rash. No lesions. No wounds. ENDOCRINE: No unexplained weight loss. No weight gain. HEMATOLOGIC/LYMPHATIC: No anemia. No purpura. No petechiae. No prolonged or excessive bleeding. No palpable lymph nodes. MEDICATIONS: Xanax 0.25mg three times a day Amiodarone 200mg PO Daily Amlodipine 5mg PO daily Aspirin 81mg PO daily Atorvastatin 10mg PO at bedtime Symbicort 80-4.5mcg inhaler one puff twice a day Carvedilol 25mg PO twice a day Pepcid 20mg PO daily Ferrous Sulfate 325mg PO twice a day Lasix 40mg PO daily Losartan 50mg PO twice a day Zofran 4mg IV Trileptal 50mg three times day Requip 1mg Po twice a day Spironolactone 25mg every other day ALLERGIES: Quinine PAST MEDICAL HISTORY/SURGICAL HISTORY: History of cardiac arrhythmias Hypertension Dyslipidemia Chronic lung disease Anemia Chronic kidney disease SOCIAL/PERSONAL/FAMILY HISTORY: The patient is . Non-smoker and no alcohol abuse. Family history is significant for cardiac disorders, diabetes and stomach cancer. PHYSICAL EXAMINATION: GENERAL: The patient is oriented to time, place and person. VITAL SIGNS: Temperature 97.9, pulse 70, respiratory rate 18, blood pressure 120 /60 and pulse ox 96%. HEENT: Head normocephalic, atraumatic. Eyes: Extraocular muscles are intact. Pupils are equal, round and reactive to light and accommodation. Ears: No lesions. Nose appeared normal. Throat: No exudate or erythema. Looks somewhat pale. NECK: Supple. No JVP, no carotid bruit. No lymphadenopathy or thyromegaly. LUNGS: Clear to auscultation. Percussion note normal. Chest symmetrical. HEART: S1, S2, no S3. No murmurs. No cyanosis or clubbing. No ascites. Pulses: Dorsalis pedis and posterior tibial pulses +1 bilaterally. ABDOMEN: Soft. Nontender. Bowel sounds active. No CVA tenderness. No mass felt. EXTREMITIES: No edema. Full range of motion of all extremities, equal. NEUROLOGIC: No focal deficit. Cranial nerves II through XII are grossly intact. No headache, no double vision or headache. SKIN: Not dry. Intact. Turgor - normal. LYMPHATIC: No palpable lymph nodes/no lymphedema. MUSCULOSKELETAL: Normal joints with no swelling. Muscle tone is normal. LABS: Hgb 12.3, hct 34, WBC 9,200 normal differential, creatinine 1.3, BUN 22, potassium 4. Telemetry sinus rhythm no acute changes. ASSESSMENT: 1. Labile hypertension 2. Chronic kidney disease 3. History of renal failure 4. Dry Heaves with nausea could be gastritis 5. Dyslipidemia 6. History of hypertension 7. Chronic lung disease RECOMMENDATIONS: 1. 1cc Decadron today 2. Protonix 40mg IV daily 3. Continue Zofran for dry heaves 4. Toradol 30mg IV now for pain 5 BNP tomorrow morning 6. 1,000cc normal saline 50cc an hour for hyponatremia and dehydration 7. Hold Lipitor 8. Echocardiogram 2D Mode to evaluate LV function 9. Daily CBC and CMP Thanks for referral will follow. [facility]
[2016-10-10] MEDS: FERROUS SULFATE PO SCH ×2 (08:32→20:17)
[2016-10-10] MEDS: TRILEPTAL PO SCH ×3 (08:32→20:16)
[2016-10-10] MEDS: COZAAR PO SCH ×2 (08:32→20:17)
[2016-10-10] MEDS: ASPIRIN EC PO SCH (08:32)
[2016-10-10] MEDS: SYMBICORT 80-4.5 MCG INHALER IH SCH ×2 (08:32→20:16)
[2016-10-10] MEDS: COREG PO SCH ×2 (08:32→17:47)
[2016-10-10] MEDS: CORDARONE PO SCH (08:33)
--- NOTE | 2016-10-10 08:56 | HP ---
CHIEF COMPLAINT: Weakness, more of lower extremity and more right. HISTORY OF PRESENT ILLNESS: The patient was noted to have weakness this morning , more on the right side than the left. It was also more on the lower extremities. The patient was taken for a ride by her daughter to get her out of the house and hopefully she would improve. However, upon coming back the patient was unable to get her back to the house because of inability to stand with her walker because of progressive weakness. The patient was then brought to the emergency room. The patient did not complain of any pain. The patient had a CT scan of the abdomen and pelvis 10/03/16 while in the emergency room and CT of the lumbar spine because of weakness of both lower extremities. CT of the lumbar spine showed no fracture, advanced chronic discogenic degenerative disease. Some central canal and neural foraminal stenosis. The bones appeared demineralized. Abdomen and pelvis CT with no contrast showed no bowel obstruction or acute inflammation. No ureteral obstruction. Mild dilation of the colon with fecal material and previous cholecystectomy. The patient was admitted with acute renal failure superimposed on a chronic kidney disease. PAST PERSONAL HISTORY: Hypertension, diabetes mellitus, congestive heart failure , osteoarthritis, coronary artery disease. The patient had carpal tunnel surgery, cholecystectomy and bilateral knee replacements and mastoid surgery times two. TIA 09/27/2014. History of deep vein thrombosis 2009. Previous pneumonia six months ago. Previous tubal ligation. FAMILY HISTORY: Father had heart disease, mother was hypertensive with diabetes. Brother had carcinoma of the stomach and sister had heart disease. SOCIAL HISTORY: The patient is a and retired from working in a alf. All of her children are grown. She did smoke years ago, light and had stopped some years ago. No alcoholic beverages. MEDICATIONS: At home prior to this admission. Carvedilol 25 mg twice daily Alprazolam 0.25 mg three times a day Aspirin 81 mg daily Ferrous sulfate 325 mg twice a day Symbicort 80/4.5, one inhalation twice a day Pepcid 20 mg twice a day Amiodarone 200 mg daily Lasix 40 mg daily Aldactone 25 mg every other day Amlodipine 2.5 mg daily Pregabalin 100 mg daily Ropinirole 1 mg twice a day Losartan 50 mg twice a day Lipitor 10 mg daily Trileptal 150 mg three times a day ALLERGIES: Quinine. REVIEW OF SYSTEMS: CONSTITUTIONAL: The patient had no chills and no fever, but is fatigued and in fact drowsy. SITE SAFETY COORDINATOR: The patient seemed to be drowsy and has weakness on lower extremities, as well as the upper, but more right. Speech was not clear at the beginning. VISUAL: The patient denies any blurred vision, double vision or transient loss of vision. AUDITORY: The patient's hearing is decreased. She denies any pain or tinnitus or drainage. RESPIRATORY: No significant cough and no history of hemoptysis. CARDIOVASCULAR: Denies any chest pain or oppression. GASTROINTESTINAL: The patient had no abdominal pain, no nausea or diarrhea or vomiting. GENITOURINARY: Denies any pain on urination. The patient is incontinent of urine. MUSCULOSKELETAL: The patient did have some weakness of the upper extremities, a bit more on the right. She is also unable to stand up, weakness of both lower extremities, right slightly more. INTEGUMENT: No rash or pruritus. ENDOCRINE: Negative. HEMATOLOGIC: No history of prolonged bleeding. PSYCHIATRIC: The patient appears to be somewhat lethargic and affect is down. PHYSICAL EXAMINATION: GENERAL: 81 year old female admitted to the hospital 10/03/16 because of weakness of the extremities or generalized weakness slightly more on the right. The patient is unable to stand up even with assistance. VITAL SIGNS: Temperature 96.8, pulse 64, blood pressure 119/70, respiratory rate 20, oxygen saturation 94 on room air. HEAD: Unremarkable. FACE: Symmetrical and equal with no facial weakness and no significant tenderness to palpation in the frontal or maxillary sinus areas. EYES: Pupils equal/reactive to light. Conjunctivae slightly pale. Sclerae not icteric. MOUTH: Unremarkable. THROAT: No inflammation, tumors or exudate. NECK: No masses. No bruit. No tenderness. No rigidity. CHEST: Essentially symmetrical and equal with good expansion. LUNGS: Breath sounds are heard in both sides, diminished with rales at both bases and no wheezing. HEART: Audible and regular with good tones. No murmurs. ABDOMEN: Protuberant, soft with no remarkable tenderness. No guarding. Bowel sounds are active. No masses palpable. EXTERNAL GENITALIA: Not examined. PELVIC AND RECTAL: Not performed. LOWER EXTREMITIES: Edematous leg and ankle. UPPER EXTREMITIES: Symmetrical and equal. The hand marine transport professionals at the time of examination in the room was essentially symmetrical and equal. The patient also is able to move the right and left legs and able to raise her right leg above the mattress. ASSESSMENT: 1. GENERALIZED WEAKNESS, SLIGHTLY MORE ON THE RIGHT 2. LETHARGY 3. HISTORY OF HYPERTENSION 4. HISTORY OF CONGESTIVE HEART FAILURE, REDUCED EJECTION FRACTION 5. HISTORY OF ANEMIA 6. HISTORY OF LEFT CAROTID BRUIT 7. HISTORY OF HEARING LOSS 8. HISTORY OF DIABETIC NEUROPATHY 9. TYPE II DIABETES MELLITUS 10. PERIPHERAL ARTERIAL DISEASE 11. CHRONIC KIDNEY DISEASE STAGE III MTDD
--- NOTE | 2016-10-10 09:09 | PN ---
DATE OF VISIT: 10/05/16 The patient is alert feeling better. She denies any pain and much more awake and responsive and oriented. She has good movement of all extremities and no weakness. Her MRI done 10/04/2016 showed no acute intracranial mass or acute cerebral infarct. Mild chronic ischemic small vessel disease. Irregularity and sclerosis of the odontoid process with a linear T1 hypointensity that may represent volume averaging artifact or sclerotic fracture. was noted and the radiologist recommended a Ct of the cervical spine which will be accomplished. Mild spinal s stenosis C1-2 and mild to moderate stenosis C2-3. Cervical spine CT was performed 10/04/2016 which showed sclerosis of the tip of the odontoid process is stable in comparison to prior study and no significant change. No fractures identified. Severe degenerative disc disease of the cervical spine and narrowing of the foramen, more so at C4-C5 and C5-C6. Caroid studies done yesterday, 10/04/2016, showed right internal carotid artery velocity suggest moderate stenosis between 50-69%. The left has no significant stenosis. The left vertebral artery was not visible. I had discussed this with the patient, as well as relative. I did tell them that from these studies done, I do not have any explanation of what happened. The patient is now able to get to the bathroom with help. VITAL SIGNS: 10/05/16 at 5:44 p.m. showed a temperature of 97.8, pulse 67, blood pressure is rising to 174/68, respiratory rate 16, oxygen saturation 96 at room air. LUNGS: Clear. HEART: Normal sinus rhythm. The speech is clear and no weakness of either left or right upper or lower extremities. She has no significant headaches and no visual disturbances. CONDITION: Stable. This patient probably will be referred as an outpatient to a neurologist for further examination. DIANA
--- NOTE | 2016-10-10 09:17 | PN ---
DATE OF VISIT: 10/06/16 The patient is alert, responsive and cheerful today without any distress and her color is good. Her blood pressure seemed to have risen more so in the early childhood hours. VITAL SIGNS: The patient at 5:31 p.m. 10/06/2016 showed a temperature of 98.2, pulse 73, blood pressure 158/69, respiratory rate 20, oxygen saturation 99. LUNGS: Still has some rales, but no wheezing. Breath sounds are diminished moderately. HEART: Audible with good tones. ABDOMEN: Unremarkable. MUSCULOSKELETAL: The patient does have back pain. Her daughter was in the room. I did try again to explain that I could not find any explanation for what we have done to this day. The MRI of the brain does not indicate any acute infarct and the carotid is narrow on the right side, but not very significant. If it was the right side that had compromised her problem that she would be weaker on the left rather than the right. The Pregabalin had been discontinued. I don't think I would reintroduce Pregabalin. This patient also has chronic kidney disease stage III and she will be referred to a urologist. I had discussed that with the patient in the presence of her daughter. I also advised them that I would ask for a physical therapy evaluation to see if she would qualify for home physical therapy. She already has a home health nurse. The home health could possibly provide the physical therapy that the patient would need if indeed she does it after evaluation tomorrow. DIANA
--- NOTE | 2016-10-10 09:27 | PN ---
DATE OF VISIT: 10/07/2016 The patient's blood pressure had been spiking in the early childhood director hours and reading of 200/82 and 200/80. No changes of medications were given or made during this hospital stay. Blood pressure at 9:51 a.m. is 133/66 and by 1:34 p.m. the blood pressure did start to rise to 155/68. It continued to rise and again in the late evening hours the blood pressure was 200/100. Amlodipine was increased to 5 mg and given at 1 p.m. 10/07/2016. The patient's hypertension maybe secondary to hypovolemia. The patient is alert with no distress and denies any significant headaches or any visual disturbances. Her blood pressure had been rising. I did take the blood pressure on the right side manually and indeed it is about the same as what the nurses had told me. NECK: The neck has a bruit on the right side and none on the left. LUNGS: There are some rales scattered, but few and no wheezing. Breath sounds are diminished. HEART: Audible and regular with good tones. ABDOMEN: Soft and nontender. LOWER EXTREMITIES: No significant edema. Pedal pulses are present. PLAN: 1. We will discontinue IV. The patient may be overloaded somewhat with fluids. 2. She will be given Lasix 40 mg IV and see if this would decrease the blood pressure. Once the blood pressure has returned towards normal or near normal that this patient will be discharged. 3. BNP was requested. 4. She will be referred to a neurologist and because of the questionable history of right sided weakness and weakness of both lower extremities that the patient was unable to stand. There was some question about speech problems also. I know that when I first saw the patient that the patient was more or less drowsy or lethargic. She had been alert since the second hospital day. The two daughters are present. DIANA
--- NOTE | 2016-10-10 09:36 | PN ---
DATE OF VISIT: 10/03/16 Initial examination The patient was examined after admission to the floor. The patient appears to lethargic, but responsive. The hand concrete curer has more or less symmetrical strength and the patient is able to raise her legs above the mattress. ABDOMEN: No remarkable tenderness. Because of the history of weakness of the right upper extremity and both lower extremities, CT scan of the head was ordered and also a chest x-ray because of history of congestive heart failure with rales. This patient had a previous MRI /MRA on June 27, 2014. DIANA
--- NOTE | 2016-10-10 09:55 | PN ---
DATE OF VISIT: 10/04/16 The patient, today, is much more alert than yesterday. VITAL SIGNS: At 6 p.m. 10/04/2016 showed a temperature of 97, pulse 66, blood pressure 112/70, respiratory rate 18, oxygen saturation 98 on room air. She had good movement of both upper and lower extremities. Chest x-ray last night showed no acute pulmonary disease. Head CT showed no acute intracranial hemorrhage. Asymmetric hypodensity in the left lobe which has an appearance of ischemic infarct. No significant mass effect is seen. We will order carotid Doppler studies, as well as MRI to categorize better the findings. CEDD
--- NOTE | 2016-10-10 10:36 | PN ---
DATE OF VISIT: 10/08/16 The patient's blood pressure is now down in the sugar boiler at 8 o'clock 10/08 at 106/53. Before that the blood pressures were ranging up to 200 systolic and diastolic at high as100. The patient had lunch and had asked the nurse to take her blood pressure after she is done eating in sitting posture and then try to ambulate after that to see what the blood pressure is. The blood pressure was below 100 systolic and after walking the blood pressure did rise to 128 systolic. The patient, however, had vomited after coming back to the room and had dry heaves. She was then given Zofran and instead of discharging the patient, she was kept in the hospital for further observation. A referral to a shirt trimmer for general screening because of the fluctuations of blood pressure, as well as the right transient hemiparesis. The patient's blood pressure throughout 10/08/2016 seemed to be maintained at good control between 113 systolic to 122. Respiratory rate 16, oxygen saturation 94 at room air. LUNGS: Still has rales, but less. No wheezing. This patient was given Decadron 4 mg at the order of Dr. Bustos, the consulting shirt trimmer. DIANA
--- NOTE | 2016-10-10 10:45 | PN ---
DATE OF VISIT: 10/09/16 The patient, today, is alert, oriented times four, not dyspneic, nor tachypneic. VITAL SIGNS: Blood pressure is fluctuating between 102 to 127. At 5:23 p.m., the vital signs are temperature 97.3, pulse 70, blood pressure 127/53, respiratory rate 24, oxygen saturation 94 at room air. I am not sure about the respiratory rate. This patient did eat 75% of her meals. She did have an echocardiogram done by the consulting associate consulting engineer today. CBC showed moderate anemia 11.1 grams hemoglobin, 31.8 hematocrit, RDW elevated and always had been 16.4. Electrolytes showed sodium as lower at 121 and chloride is at 86, potassium 4.1. The creatinine has risen to 2.62 and the BUN at 45, GFR is now 18. This is secondary to dehydration. We will probably have to discontinue the Lasix. MTDD
[2016-10-10] MEDS: NORVASC PO SCH (17:47)
[2016-10-10] MEDS ORDERED: LIPITOR ONE (20:09)
[2016-10-11 04:59] LABS: BASOPHILS % (AUTO) 0.3 % (0.0-3.0); EOSINOPHILS # (AUTO) 0.3 K/ul (0.0-0.7); EOSINOPHILS % (AUTO) 2.6 % (0.0-7.0); HEMATOCRIT 31.1 % (37.0-47.0); HEMOGLOBIN 11.1 g/dl (12.0-16.0); IMMATURE GRANULOCYTE % (AUTO) 0.5 % (0.0-5.0); LYMPHOCYTES # (AUTO) 1.5 K/uL (0.60-3.4); LYMPHOCYTES % (AUTO) 14.2 (10.0-50.0); MEAN CORPUSCULAR HEMOGLOBIN 29.3 pg (27.0-31.0); MEAN CORPUSCULAR HGB CONC 35.7 (31.8-35.4); MEAN CORPUSCULAR VOLUME 82.1 fl (81.0-99.0); MONOCYTES % (AUTO) 9.1 (0-10); NEUTROPHILS # (AUTO) 7.8 K/ul (2.0-6.9); NEUTROPHILS % (AUTO) 73.3; PLATELET COUNT 182 10^3/uL (140-440); RED BLOOD COUNT 3.79 10^6/ul (4.20-5.40); WHITE BLOOD COUNT 10.59 K/ul (4.6-10.2)
[2016-10-11 05:25] LABS: ALBUMIN 3.6 g/dL (3.4-5.0); ALBUMIN/GLOBULIN RATIO 1.13; ANION GAP 17.6; BILIRUBIN,TOTAL 0.82 mg/dL (0.00-1.20); BUN/CREATININE RATIO 25.3; CREATININE 1.66 mg/dL (0.60-1.30); POTASSIUM 3.6 mmol/L (3.5-5.10); TOTAL PROTEIN 6.8 g/dL (5.8-8.1)
[2016-10-11] MEDS: LASIX TAB PO SCH (05:36)
[2016-10-11] MEDS: PEPCID PO SCH ×2 (05:36→16:28)
[2016-10-11] MEDS: SYNTHROID PO SCH (05:36)
[2016-10-11] MEDS: PROTONIX IV IVP SCH (07:00)
[2016-10-11] MEDS ORDERED: PROTONIX PO STA (07:43)
--- NOTE | 2016-10-11 07:48 | ECHO2D ---
Date of Exam: 10/09/16 [facility] Reason for Echo: TIA'S, HYPERTENSION, RIGHT SIDE WEAKNESS, CARDIAC ARRHYTHMIA M-Mode Normal Adult Results LV Dimensions Normal Adult Results AoV Opening excursions >1.6 >1.6 LVEDD-base- 3.5-5.8 4.2 Ao root dimensions 2.0-3.7 3.3 LVESD-base- 3.1-4.6 L. Atrium dimensions 1.9-3.8 4.1 Post. Wall thickness 0.8-1.1 1.3 IV septum (thickness) 0.7-1.2 1.4 Post. Wall excursion 0.72-1.3 NORMAL Septal motion NORMAL Systolic motion R. Ventricular cavity 1.5-2.0 NORMAL LVEF 60% 71% Paradoxical septal wall motion NORMAL 2-D : 2-D M Mode Echocardiogram was performed using apical four chamber and left parasternal long and short axis views. Mitral, tricuspid and aortic valves appear to be normal. Contractility of the left ventricle seems to be normal, so is the cavity size. ENLARGED LEFT ATRIAL CAVITY. Aortic root appears to be normal. There is no pericardial effusion. There is no thrombus noted in the left ventricular or left aortic cavity. No mitral valve prolapse noted. CALCIFIC MITRAL VALVE ANNULUS. M-MODE: MV: CALCIFIC MITRAL VALVE ANNULUS AV: NORMAL TV: NORMAL PV: CHAMBER SIZE: ENLARGED LEFT ATRIAL CAVITY WALL MOTION: NORMAL PERICARDIUM: NORMAL INTERPRETATION: 1. LEFT VENTRICULAR HYPERTROPHY WITH ENLARGED LEFT ATRIAL CAVITY 2. CALCIFIC MITRAL VALVE ANNULUS 3. NORMAL LEFT VENTRICULAR CONTRACTILITY MTDD
[2016-10-11] MEDS: COREG PO SCH ×2 (08:33→16:30)
[2016-10-11] MEDS: TRILEPTAL PO SCH ×2 (08:33→15:35)
[2016-10-11] MEDS: REQUIP PO SCH (08:33)
[2016-10-11] MEDS: COZAAR PO SCH (08:33)
[2016-10-11] MEDS: FERROUS SULFATE PO SCH (08:33)
[2016-10-11] MEDS: CORDARONE PO SCH (08:33)
[2016-10-11] MEDS: ASPIRIN EC PO SCH (08:33)
[2016-10-11] MEDS: SYMBICORT 80-4.5 MCG INHALER IH SCH (08:36)
--- NOTE | 2016-10-11 09:39 | CONS ---
DATE OF SERVICE: 10/10/16 CONSULT FOLLOWUP SUBJECTIVE: The patient is an 81 year old white female seen general evaluation especially fluctuations of the blood pressure and weakness of the right upper and lower extremity on admission. The patient does not have any neurological deficit. She is feeling much better. The extreme weakness has subsided and her blood pressures seems to be under control. Her kidney functions continue to be upper level. REVIEW OF SYSTEMS: CONSTITUTIONAL: No night sweats. No fatigue, malaise, lethargy. No fever or chills. HEENT: Eyes: No visual changes. No eye pain. No eye discharge. ENT: No runny nose. No epistaxis. No sinus pain. No sore throat. No odynophagia. No ear pain. No congestion. RESPIRATORY: No cough, no congestion. No hemoptysis. CARDIOVASCULAR: No angina symptoms. No CHF symptoms. No atypical chest pain for CAD. No palpitations. No shortness of breath. No PND. No Orthopnea. GASTROINTESTINAL: No abdominal pain. No nausea or vomiting. No diarrhea or constipation. No hematemesis. No hematochezia. Appetite is improving. GENITOURINARY: No urgency. No frequency. No dysuria. No hematuria. No obstructive symptoms. No discharge. No pain. No significant abnormal bleeding. MUSCULOSKELETAL: No musculoskeletal pain. No joint swelling. No arthritis. NEUROLOGICAL: No headache. No neck pain. No syncope. No seizures. No dizziness. PSYCHIATRIC: Not anxious. No depression. No suicidal thoughts. No homicidal thoughts. SKIN: No rash. No lesions. No wounds. ENDOCRINE: No unexplained weight loss. No weight gain. HEMATOLOGIC/LYMPHATIC: No anemia. No purpura. No petechiae. No prolonged or excessive bleeding. No palpable lymph nodes. PHYSICAL EXAMINATION: GENERAL: The patient is oriented to place and person. VITAL SIGNS: Temperature 98.5, pulse 80, respiratory rate 15, blood pressure 110 /70 and pulse 96%. HEENT: Head normocephalic, atraumatic. Eyes: Extraocular muscles are intact. Pupils are equal, round and reactive to light and accommodation. Ears: No lesions. Nose appeared normal. Throat: No exudate or erythema. NECK: Supple. No JVD, no carotid bruit. No lymphadenopathy or thyromegaly. LUNGS: Decreased breath sounds but clear to auscultation. Percussion note normal. Chest symmetrical. HEART: S1, S2, no S3. No murmurs. No cyanosis or clubbing. No ascites. Pulses: Dorsalis pedis and posterior tibial pulses +1 to +2 both sides. ABDOMEN: Soft. Nontender. Bowel sounds active. No CVA tenderness. No mass felt. EXTREMITIES: No edema. Full range of motion of all extremities, equal. NEUROLOGIC: No focal deficit. Cranial nerves II through XII are grossly intact. No headache, no double vision or headache. SKIN: Not dry. Intact. Turgor - normal. LYMPHATIC: No palpable lymph nodes/no lymphedema. MUSCULOSKELETAL: Normal joints with no swelling. Muscle tone is normal. ASSESSMENT: 1. Weakness, no evidence of neurological deficit or speech problem 2. Hyponatremia 3. Chronic kidney disease 4. Hypothyroidism 5. Neuropathy 6. Dyslipidemia RECOMMENDATION: 1.The patient was already started on Synthroid 50mcg PO daily which was increased to 75mcg daily after three days. 2.Hyponatremia seems to be better today with sodium of 126. Kidney functions needs to be monitored. Aldactone was taken off because with the higher kidney function with low GFR Aldactone is not going to work and it may contribute towards Hyponatremia. 3.The patient's cardiovascular status is stable. Already discussed the case with Dr. Aiken yesterday. DIANA
--- NOTE | 2016-10-11 09:40 | CONS ---
The patient was seen on consultation three times 10/08/16: Initial Level 5 10/09/16: Intermediate 10/10/16: Intermediate MTDD
[2016-10-11 15:03] VITALS: BP 154/59; TEMP 97.7
[2016-10-11] MEDS: NORVASC PO SCH (16:28)
[2016-10-12] MEDS ORDERED: SYNTHROID PO SCH (06:30)
--- NOTE | 2016-10-16 15:28 | DS ---
PATIENT IDENTIFICATION: 81 year old female admitted to the hospital via the emergency room because of weakness of the right upper extremity and then increasing weakness of both lower extremities that the patient was not able to stand even with assistance. The patient was previously able to be self sufficient and able to get up from a sitting position to the walker. She did have some lumbar pain. 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 She also had good strength of both lower extremities. The patient at the emergency room had a CT scan of the lumbar spine because of the pain in the back and also abdomen and pelvis, which was done because of the weakness of the lower extremities but without any fever. There were no findings to explain the weakness. CT scan of the abdomen and pelvis because of some pain showed no remarkable abnormalities. This patient had some weakness of the right upper extremity, as well as some speech problems, which had resolved. I do believe that the patient had a TIA. Other studies were done after admission consisting of CT of the head showing no acute intracranial hemorrhage, asymmetric hypodensity in the left lobe which has an appearance of ischemia infarct. No significant mass effect is seen. Correlate with history and symptoms. Acute infarct cannot be excluded. These findings seem to explain the right sided weakness and so further studies consisting of an MRI of the brain was requested to hopefully clarify the problem. The MRI was read as no intracranial mass or acute cerebral infarct. Mild chronic ischemic small vessel disease. There is irregularity and sclerosis of the odontoid process which is linear T1 hypodensity that may represent volume averaging artifact or sclerotic fracture. Cervical CT was recommended for further clarification. Mild spinal stenosis. No mention of an infarct in the left side of the brain. CT of the cervical spine showed no fracture of the odontoid process. Severe degenerative disc disease of the cervical spine and extensive facet hypertrophy. Chest x-ray showed no acute pulmonary disease. The patient had gradually regained strength and was able to walk with a walker with assistance. Physical and Rehab department was requested to evaluate the patient's strength and possible PT, as well as Occupational Therapy. 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 Blood pressure during the day goes down to normal. Amlodipine was changed to 5 mg and given at 11 o'clock and the blood pressure seemed to respond to the medication. The blood pressure beginning 10/08/2016 had returned to normal with occasional spike of about 160. The patient was feeling much better by early afternoon on 10/08/16 and the patient had an episode of vomiting after lunch and walking. As a result, the patient was then kept in the hospital instead of discharged. Cardiology consultation was requested and the patient was seen by Dr. Bustos, Senior Compensation Consultant. The patient's TSH on 10/09/2016 was 20.546. The patient was initiated with Levothyroxine 50 mg daily 10/09, 10/10 and 10/11. This would be increased to 75 by 10/12/16. The patient, the day before discharge was feeling better and has no specific complaints. She denied any weakness of either the upper or lower extremities and had been walking with a walker without any assistance, but the nurses are just following her. Today the patient is alert, oriented times four, not dyspneic, nor tachypneic and claims that she is ready to go home. She has no specific complaints. LUNGS: The lungs has a few rales of the left base. No wheezing. HEART: Audible and regular. ABDOMEN: Protuberant and nontender. Bowel sounds are active. LOWER EXTREMITIES: No significant edema and no tenderness in the calf muscles. The patient was advised that she would have one added medication for her thyroid. She has to take her blood pressure medication of Amlodipine 200 mg in the evening. She is further instructed to see me this coming Friday or at the office and referral to a neurologist will be initiated then. This patient had an MRI/MRA 2014 which showed nonvisualization of the anterior and posterior communicating. FINAL DIAGNOSES: 1. TIA WITH RIGHT HEMIPARESIS RESOLVED-SHORT DURATION 2. HYPERTENSION, UNCONTROLLED 3. HYPOTHYROIDISM, NEW DIAGNOSIS 4. RESTLESS LEG SYNDROME 5. HISTORY OF HYPERTENSION 6. HISTORY OF CONGESTIVE HEART FAILURE WITH REDUCED EJECTION FRACTION 7. HISTORY OF ANEMIA 8. HISTORY OF LEFT CAROTID STENOSIS 50 TO 69% 9. HEARING LOSS, BILATERAL 10. DIABETIC NEUROPATHY 11. TYPE II DIABETES MELLITUS 12. PERIPHERAL ARTERIAL DISEASE 13. CHRONIC KIDNEY DISEASE STAGE III 14. LETHARGY ON ADMISSION PROGNOSIS: Guarded. This patient will be referred to a neurologist when she comes to the office this coming Friday or . DIANA
== END 2016-10-11 18:20 | disposition home or self-care (01) | DRG 69 ==
LOC: ED 13:00 → MEDSURG A 16:50
PROVIDERS: ADMIT General Practice; ATTEND General Practice
DX: G45.9 Transient cerebral ischemic attack, unspecified (principal); N17.9 Acute kidney failure, unspecified; N18.4 Chronic kidney disease, stage 4 (severe); E87.1 Hypo-osmolality and hyponatremia; I51.7 Cardiomegaly; I50.9 Heart failure, unspecified; E11.40 Type 2 diabetes mellitus with diabetic neuropathy, unspecified; I12.9 Hypertensive chronic kidney disease with stage 1 through stage 4 chronic kidney disease, or unspecified chronic kidney disease; E11.22 Type 2 diabetes mellitus with diabetic chronic kidney disease; I10 Essential (primary) hypertension; M62.81 Muscle weakness (generalized); R32 Unspecified urinary incontinence; R53.83 Other fatigue; E03.9 Hypothyroidism, unspecified; D64.9 Anemia, unspecified; I73.9 Peripheral vascular disease, unspecified; G25.81 Restless legs syndrome; R11.10 Vomiting, unspecified; M48.02 Spinal stenosis, cervical region; I95.9 Hypotension, unspecified; Z96.653 Presence of artificial knee joint, bilateral; Z79.82 Long term (current) use of aspirin; Z79.899 Other long term (current) drug therapy
CPT/HCPCS: 36415; 80048; 80053; 81001; 82272; 82550; 83525; 83605; 83880; 84145; 84436; 84443; 84484; 85025; 87040; 87086; 93005; 93010; 99284

== ENCOUNTER 2016-11-13 10:42 | Inpatient (IN) ==
[2016-11-13] MEDS ORDERED: SODIUM CHLORIDE 300 ML IV STA (10:52)
[2016-11-13] MEDS ORDERED: SODIUM CHLORIDE 1,000 ML IV STA (10:57)
[2016-11-13 11:11] LABS: ABG BASE EXCESS 2 (-2.0-2.0); ABG HCO3 26.8 (22.0-26.0); ABG PCO2 43.3 mmHg (35-45); ABG TCO2 28 (22.0-28.0)
--- NOTE | 2016-11-13 11:18 | ED.PDOC ---
General ED Provider: Dr. CIERRA CASTELLANOS JR Chief Complaint: Non-specific Complaint Stated Complaint: ok this AM, became pale, lethargic 45 min ago, unable to get her blood pressure, fell yesterday but able to walk after fall. Struck back of head on foot of bed. last week fell struck her head[ End ]cpr only 98.0 62 20 97% 162/84 04/16 Time Seen by Physician: 11:18 Mode of Arrival: Ambulance Information Source: Family Exam Limitations: No limitations [facility] T[facility] Documentation Reviewed and Agree: No Review of Systems - Review Of Systems Constitutional: Reports: Malaise, Weakness Eyes: Reports: No symptoms Ears, Nose, Mouth, Throat: Reports: No symptoms Respiratory: Reports: No symptoms Cardiac: Reports: Lightheadedness, Syncope GI: Reports: No symptoms : Reports: No symptoms Musculoskeletal: Reports: Muscle pain (left hip). Denies: Neck pain (back of head painful) Neurological: Reports: Other Endocrine: Reports: No symptoms Hematologic/Lymphatic: Reports: Other All Other Systems: Other Past Medical History - Past Medical History Previously Healthy: Yes Endocrine: Reports: DM 2, Hypothyroid (meds) Cardiovascular: Reports: CAD, Hypertension, CHF Respiratory: Reports: None Hematological: Reports: None Gastrointestinal: Reports: GERD (meds) Genitourinary: Reports: CKD Neuro/Psych: Reports: Unknown Musculoskeletal: Reports: Arthritis Cancer: Reports: Unknown Last Menstrual Period: unknown - Surgical History General Surgical History: Reports: Cholecystectomy, Orthopedic ( knee replacement bilateral; carpal tunnel ), Other (mastoid surgeries x2, carpal tunnel) - Family History Family History: Reports: Unknown - Social History Smoking Status: Former smoker Hx Substance Use: No Alcohol Screening: None Physical Exam - Physical Exam Appearance: Ill-appearing, Obese Ill-appearing: Mild Pain Distress: Mild Eyes: ALEJANDRO, EOMI, Conjunctiva clear ENT: Ears normal, Nose normal, Oropharynx normal Neck: Supple Respiratory: Airway patent Cardiovascular: RRR GI/: Soft, Nontender Musculoskeletal: Normal strength (tender left hip) Skin: Pale Neurological: Alert to verbal Critical Care Note - Critical Care Note Total Time (mins): 15 Course - Course Hematology/Chemistry: 11/13/16 11:15 11/13/16 11:15 Orders, Labs, Meds: Lab Review 11/13/16 11/13/16 10:52 11:15 WBC 5.62 RBC 3.30 L Hgb 10.0 L Hct 27.5 L MCV 83.3 MCH 30.3 MCHC 36.4 H RDW Coeff of Danae 14.8 Plt Count 128 L Immature Gran % (Auto) 0.7 Neut % (Auto) 63.8 Lymph % (Auto) 23.3 [place] % (Auto) 8.9 Eos % (Auto) 2.8 Baso % (Auto) 0.5 Immature Gran # (Auto) 0.0 Neut # 3.6 Lymph # 1.3 [place] # 0.5 Eos # 0.2 Baso # 0.0 D-Dimer (Manual) 856.36 Puncture Site Rr O2 Saturation 96.0 ABG pH 7.400 ABG pCO2 43.3 ABG pO2 82.0 L ABG HCO3 26.8 H ABG Total CO2 28 ABG Base Excess 2 Jimi Test + FiO2 % 21.0 Sodium 118 L* Potassium 4.7 Chloride 80 L Carbon Dioxide 26 Anion Gap 16.7 BUN 23 H Creatinine 1.43 H Estimated GFR (MDRD) 35.00 BUN/Creatinine Ratio 16.08 Glucose 137 H Lactic Acid 8.0 Calcium 8.8 Total Bilirubin 0.71 AST 17 ALT 18 Alkaline Phosphatase 78 Total Creatine Kinase 77 Troponin I 0.0150 B-Natriuretic Peptide 183 H Total Protein 6.8 Albumin 3.9 Globulin 2.9 Albumin/Globulin Ratio 1.34 Procalcitonin < 0.05 Orders Category Date Time Status ABG DRAW REQUEST Stat CARDIO 11/13/16 10:52 Completed EKG-(ED ONLY) Stat CARDIO 11/13/16 10:52 Completed NPO REMINDER: IMAGING ONCE CARE 11/13/16 12:47 Completed ED IMPLEMENTATION ARCHITECT APPLIED .ONCE EMERGENCY 11/13/16 10:52 Active ED IV/MEDIPORT/POWERPORT .ONCE EMERGENCY 11/13/16 10:52 Active ABG Stat LAB 11/13/16 10:52 Completed B-TYPE NATRIURETIC PEPTIDE Stat LAB 11/13/16 11:15 Completed BLOOD CULTURE Stat LAB 11/13/16 11:15 Received CBC W/ AUTO DIFF Stat LAB 11/13/16 11:15 Completed COMPREHENSIVE METABOLIC PANEL Stat LAB 11/13/16 11:15 Completed CREATINE KINASE Stat LAB 11/13/16 11:15 Completed D-DIMER Stat LAB 11/13/16 11:15 Completed LACTIC ACID Stat LAB 11/13/16 11:15 Completed PROCALCITONIN Stat LAB 11/13/16 11:15 Completed TROPONIN I Stat LAB 11/13/16 11:15 Completed 0.9 % Sodium Chloride [Saline Flush] MEDS 11/13/16 10:52 Active 1 syr IVF PRN PRN Sodium Chloride 0.9% [Sodium Chloride] 1,000 ml MEDS 11/13/16 10:57 Active IV BOLUS Sodium Chloride 0.9% [Sodium Chloride] 300 ml MEDS 11/13/16 10:52 Discontinued IV BOLUS CHEST, 1V AP ONLY Stat RADS 11/13/16 10:[address] CHEST PE PROTOCOL Stat RADS 11/13/16 12:[address] HEAD W/O CONTRAST Stat RADS 11/13/16 10:[address] HIP LEFT WITHOUT CONTRAST Stat RADS 11/13/16 12:46 Completed HIP, LEFT 2 VIEWS Stat RADS 11/13/16 10:54 Completed PELVIS 1 OR 2 VIEWS Stat RADS 11/13/16 10:54 Completed Medications Generic Name Dose Route Start Last Admin Trade Name Freq PRN Reason Stop Dose Admin Sodium Chloride 1,000 mls @ 75 mls/hr 11/13/16 10:57 11/13/16 11:24 Sodium Chloride IV 11/14/16 00:11 75 mls/hr BOLUS STA Administration Sodium Chloride 1 syr 11/13/16 10:52 Saline Flush IVF PRN PRN To flush IV Discontinued Medications Generic Name Dose Route Start Last Admin Trade Name Freq PRN Reason Stop Dose Admin Sodium Chloride 300 mls @ 1,000 mls/hr 11/13/16 10:52 Sodium Chloride IV 11/13/16 11:09 BOLUS STA Vital Signs: Temp Pulse Resp BP Pulse Ox 11/13/16 12:50 64 20 120/74 97 11/13/16 10:42 98.0 F 62 20 162/84 H 97 Departure - Departure Time of Disposition: 13:51 Disposition: HOME SELF-CARE Discharge Problem: Hyponatremia Head injury due to trauma Qualifiers: Encounter type: initial encounter Qualifier Code: (S09.90XA) Unspecified injury of head, initial encounter Condition: Fair Pt referred to PMD for follow-up: Yes Allergies/Adverse Reactions: Allergies quinine Allergy (Verified 11/13/16 11:06) BEEN SO LONG AGO, CANT REMEMBER REACTION Home Medications: Ambulatory Orders Aspirin [Aspir 81] 81 mg PO DAILY tab-cap 06/07/15 Oxcarbazepine [Trileptal] 150 mg PO DAILY 10/03/16 Levothyroxine Sodium [Levo-T] 75 mcg PO QDAC #30 tablet 10/11/16 Ropinirole HCl [Requip] 1 mg PO BID #30 tablet 10/11/16 Losartan Potassium 25 mg PO BID #60 tab-cap 10/22/16 Oxcarbazepine [Trileptal] 300 mg PO BEDTIME 11/13/16
[2016-11-13 11:39] LABS: BASOPHILS % (AUTO) 0.5 % (0.0-3.0); EOSINOPHILS # (AUTO) 0.2 K/ul (0.0-0.7); EOSINOPHILS % (AUTO) 2.8 % (0.0-7.0); HEMATOCRIT 27.5 % (37.0-47.0); IMMATURE GRANULOCYTE % (AUTO) 0.7 % (0.0-5.0); LYMPHOCYTES # (AUTO) 1.3 K/uL (0.60-3.4); LYMPHOCYTES % (AUTO) 23.3 (10.0-50.0); MEAN CORPUSCULAR HEMOGLOBIN 30.3 pg (27.0-31.0); MEAN CORPUSCULAR HGB CONC 36.4 (31.8-35.4); MEAN CORPUSCULAR VOLUME 83.3 fl (81.0-99.0); MONOCYTES # (AUTO) 0.5 K/uL (0.4-2.0); MONOCYTES % (AUTO) 8.9 (0-10); NEUTROPHILS # (AUTO) 3.6 K/ul (2.0-6.9); NEUTROPHILS % (AUTO) 63.8; PLATELET COUNT 128 10^3/uL (140-440); WHITE BLOOD COUNT 5.62 K/ul (4.6-10.2)
[2016-11-13 11:52] LABS: ALBUMIN 3.9 g/dL (3.4-5.0); ALBUMIN/GLOBULIN RATIO 1.34; ANION GAP 16.7; BILIRUBIN,TOTAL 0.71 mg/dL (0.00-1.20); BUN/CREATININE RATIO 16.08; CALCIUM 8.8 mg/dL (8.2-10.2); CREATININE 1.43 mg/dL (0.60-1.30); POTASSIUM 4.7 mmol/L (3.5-5.10); TOTAL PROTEIN 6.8 g/dL (5.8-8.1); TROPONIN I 0.015 ng/ml (0.0000-0.4000)
--- NOTE | 2016-11-13 12:26 | DI ---
EXAM: CHEST FRONTAL VIEW HISTORY: Chest pain. COMPARISON: 10/03/2016 FINDINGS: Mild cardiac enlargement is stable. Moderate atherosclerotic disease is again suggested. No acute infiltrates are seen. No vascular congestion. There is no consolidation, visible pleural fluid or pneumothorax. Bones reveal no acute fracture. IMPRESSION: No acute cardiopulmonary process.
--- NOTE | 2016-11-13 12:30 | DI ---
EXAM: Pelvis AP view HISTORY: Fall, left hip pain FINDINGS: Bones appear demineralized. Moderate osteoarthritis of the left hip, mild of the right. No displaced fracture or joint dislocation is identified. Sacroiliac joints are intact. IMPRESSION: No fracture or dislocation. Osteoarthritis.
--- NOTE | 2016-11-13 12:32 | CT ---
EXAM: CT Head HISTORY: Fall, struck fossa foot COMPARISON: 10/03/2016 TECHNIQUE: CT head performed without contrast FINDINGS: There is no mass effect, midline shift, or intracranial hemmorhage. Marie white different iation is preserved. There is no extra-axial collection. The ventricles, sulci, and basal cisterns are patent and symmetric. There is chronic ischemic disease of the white matter and cerebral volum e loss. There is no depressed calvarial fracture. Hyperostosis frontalis internus. Themastoid proc ess air cells are either poorly formed or sclerotic from previous inflammation or surgery. The visua lized paranasal sinuses are clear. There are intracranial atherosclerotic calcifications. Small left frontal scalp hematoma. IMPRESSION: 1. No acute intracranial abnormality. 2. Small frontal scalp hematoma. No depressed calvarial fracture. 3. Chronic ischemic disease of the white matter and cerebral volume loss.
--- NOTE | 2016-11-13 12:38 | DI ---
EXAM: Radiographs, left hip HISTORY: Initial presentation for left hip injury due to a fall. COMPARISON: None available. TECHNIQUE: Two views. FINDINGS: Bone mineralization is decreased. There is no fracture or dislocation. Moderate to juancarlos re left hip osteoarthritis noted. No focal soft tissue abnormality is seen. Atherosclerotic calcifi cations are present. IMPRESSION: No fracture or dislocation.
--- NOTE | 2016-11-13 13:38 | CT ---
EXAM: CT left hip without contrast HISTORY: Left hip pain following a fall. Negative radiographs. COMPARISON: Radiographs earlier the same day. TECHNIQUE: Multiple axial images of the left hip were obtained without intravenous contrast. Image s were reformatted in the sagittal and coronal planes. FINDINGS: Bone mineralization is decreased. There is no fracture or dislocation. Moderate to juancarlos re joint space narrowing with subchondral sclerosis and marginal osteophyte formation noted in the l eft hip. No erosive changes are seen. Lateral subcutaneous edema seen in the left thigh. Atherosc lerotic calcifications are present. IMPRESSION: No fracture or dislocation.
--- NOTE | 2016-11-13 13:43 | CT ---
EXAM: CTA CHEST (PE PROTOCOL) HISTORY: Syncope, positive D-dimer TECHNIQUE: CTA with intravenous contrast. Multiplanar images were provided with 3-D reconstruction s. 100 ml Visipaque 320 COMPARISON: 03/21/2016 FINDINGS: No obvious pulmonary arterial filling defect which would be suggestive of acute thromboembolism. He art size upper limit normal. No pericardial effusion. There is mild to moderate atherosclerotic di sease. There is mild discoid opacity above the right hemidiaphragm suggesting atelectasis. Correlate clini celena for any evidence of less likely pneumonia. There is no vascular congestion or central interst itial edema. No pleural fluid or pneumothorax. The bones again demonstrate multilevel severe degenerative disc and facet disease with endplate scle rosis, similar to that seen previously for the most part. Of note, at T12/L1 there is mild endplate erosion which is new since the 2015 exam. This may be related to the longstanding degenerative dis c disease. This appearance can also be seen in disc space infection/osteomyelitis and careful patie nt history and physical exam is recommended. If indicated, MRI or other procedural follow-up can be then initiated. No acute fracture is obvious. Slightly nodular appearing thyroid gland. There is a 2.2 cm fatty left adrenal nodule most consistent with a benign adenoma, stable. IMPRESSION: 1. No pulmonary arterial thromboembolism is identified. 2. Severe degenerative changes of the bones with new endplate erosions at T12/L1, see above for dif ferential diagnosis and recommendations. 3. Mild to moderate atherosclerotic disease.
[2016-11-13] MEDS ORDERED: NON-FORMULARY MEDICATION (Pregabalin [Lyrica] 100 MG) PO SCH (15:00)
[2016-11-13 16:15] VITALS: BMI 40.8
[2016-11-13] MEDS: PEPCID PO SCH (19:09)
[2016-11-13] MEDS: COREG PO SCH (19:10)
[2016-11-13] MEDS: LYRICA PO SCH ×2 (19:12→20:45)
[2016-11-13] MEDS: SODIUM CHLORIDE 1,000 ML IV SCH (19:15)
[2016-11-13 20:22] LABS: TROPONIN I 0.012 ng/ml (0.0000-0.4000)
[2016-11-13] MEDS: SYMBICORT 80-4.5 MCG INHALER IH SCH (20:45)
[2016-11-13] MEDS: COZAAR PO SCH (20:45)
[2016-11-13] MEDS: LIPITOR PO SCH (20:46)
[2016-11-13] MEDS: REQUIP PO SCH (20:46)
[2016-11-13] MEDS: TRILEPTAL PO SCH (20:46)
[2016-11-13] MEDS: FERROUS SULFATE PO SCH (20:46)
[2016-11-13] MEDS: XANAX PO PRN (20:47)
[2016-11-13] MEDS ORDERED: NON-FORMULARY MEDICATION (Carvedilol [Coreg] 25 MG) PO SCH ×22 (21:00)
[2016-11-13] MEDS ORDERED: NON-FORMULARY MEDICATION (Oxcarbazepine 300 MG) PO SCH (21:00)
[2016-11-13] MEDS ORDERED: NON-FORMULARY MEDICATION (Ferrous Sulfate [Ferrous Sulfate] 325 MG) PO SCH ×22 (21:00)
[2016-11-14 04:41] LABS: BASOPHILS % (AUTO) 0.4 % (0.0-3.0); EOSINOPHILS # (AUTO) 0.1 K/ul (0.0-0.7); EOSINOPHILS % (AUTO) 1.8 % (0.0-7.0); HEMATOCRIT 25.5 % (37.0-47.0); IMMATURE GRANULOCYTE % (AUTO) 0.5 % (0.0-5.0); LYMPHOCYTES # (AUTO) 1.4 K/uL (0.60-3.4); LYMPHOCYTES % (AUTO) 25.3 (10.0-50.0); MEAN CORPUSCULAR HEMOGLOBIN 29.8 pg (27.0-31.0); MEAN CORPUSCULAR HGB CONC 35.3 (31.8-35.4); MEAN CORPUSCULAR VOLUME 84.4 fl (81.0-99.0); MONOCYTES # (AUTO) 0.6 K/uL (0.4-2.0); NEUTROPHILS # (AUTO) 3.5 K/ul (2.0-6.9); PLATELET COUNT 130 10^3/uL (140-440); RED BLOOD COUNT 3.02 10^6/ul (4.20-5.40); WHITE BLOOD COUNT 5.66 K/ul (4.6-10.2)
[2016-11-14 04:59] LABS: ALBUMIN 3.3 g/dL (3.4-5.0); ALBUMIN/GLOBULIN RATIO 1.27; BILIRUBIN,TOTAL 0.46 mg/dL (0.00-1.20); BUN/CREATININE RATIO 21.05; CALCIUM 8.5 mg/dL (8.2-10.2); CREATININE 1.33 mg/dL (0.60-1.30); TOTAL PROTEIN 5.9 g/dL (5.8-8.1)
[2016-11-14 05:09] LABS: TROPONIN I 0.011 ng/ml (0.0000-0.4000)
[2016-11-14] MEDS: PEPCID PO SCH ×2 (05:29→16:19)
[2016-11-14] MEDS: LASIX TAB PO SCH (05:29)
[2016-11-14] MEDS ORDERED: SYNTHROID PO SCH (06:30)
[2016-11-14] MEDS ORDERED: NON-FORMULARY MEDICATION (Oxcarbazepine 150 MG) PO SCH (09:00)
[2016-11-14] MEDS ORDERED: NORVASC PO SCH (09:00)
[2016-11-14] MEDS ORDERED: NON-FORMULARY MEDICATION (Amlodipine Besylate [Amlodipine Besylate] 2.5 MG) PO SCH ×22 (09:00)
[2016-11-14] MEDS: ASPIRIN EC PO SCH (09:02)
[2016-11-14] MEDS: SODIUM CHLORIDE 1,000 ML IV SCH ×2 (09:02→21:29)
[2016-11-14] MEDS: TRILEPTAL PO SCH ×2 (09:02→21:30)
[2016-11-14] MEDS: REQUIP PO SCH ×2 (09:03→21:30)
[2016-11-14] MEDS: COZAAR PO SCH ×2 (09:03→21:30)
[2016-11-14] MEDS: COREG PO SCH ×2 (09:03→16:30)
[2016-11-14] MEDS: CORDARONE PO SCH (09:04)
[2016-11-14] MEDS: SYMBICORT 80-4.5 MCG INHALER IH SCH ×2 (09:04→21:29)
[2016-11-14] MEDS: FERROUS SULFATE PO SCH ×2 (09:04→21:30)
[2016-11-14] MEDS: LYRICA PO SCH ×3 (09:07→21:29)
[2016-11-14 10:37] LABS: OCCULT BLOOD INTERNAL QC 1 INTERNAL QC VALID; OCCULT BLOOD INTERNAL QC 2 INTERNAL QC VALID; OCCULT BLOOD INTERNAL QC 3 INTERNAL QC VALID; OCCULT BLOOD SAMPLE 1 NEGATIVE (NEGATIVE); OCCULT BLOOD SAMPLE 2 NO SPECIMEN RECEIVED (NEGATIVE); OCCULT BLOOD SAMPLE 3 NO SPECIMEN RECEIVED (NEGATIVE)
[2016-11-14 13:25] LABS: IMMATURE RETIC FRACTION 8.8; RETICULOCYTE % 3.27 %
[2016-11-14 14:55] LABS: FERRITIN 395.37 ng/mL (4.63-204.00); FOLATE 15.9 ng/mL (3.1-20.5)
[2016-11-14] MEDS: XANAX PO PRN (21:29)
[2016-11-14] MEDS: LIPITOR PO SCH (21:30)
[2016-11-15 04:42] LABS: BASOPHILS % (AUTO) 0.4 % (0.0-3.0); EOSINOPHILS # (AUTO) 0.1 K/ul (0.0-0.7); EOSINOPHILS % (AUTO) 1.8 % (0.0-7.0); HEMATOCRIT 26.4 % (37.0-47.0); HEMOGLOBIN 9.3 g/dl (12.0-16.0); IMMATURE GRANULOCYTE % (AUTO) 0.4 % (0.0-5.0); LYMPHOCYTES # (AUTO) 1.2 K/uL (0.60-3.4); LYMPHOCYTES % (AUTO) 15.7 (10.0-50.0); MEAN CORPUSCULAR HEMOGLOBIN 30.2 pg (27.0-31.0); MEAN CORPUSCULAR HGB CONC 35.2 (31.8-35.4); MEAN CORPUSCULAR VOLUME 85.7 fl (81.0-99.0); MONOCYTES # (AUTO) 0.6 K/uL (0.4-2.0); MONOCYTES % (AUTO) 8.2 (0-10); NEUTROPHILS # (AUTO) 5.4 K/ul (2.0-6.9); NEUTROPHILS % (AUTO) 73.5; PLATELET COUNT 131 10^3/uL (140-440); RED BLOOD COUNT 3.08 10^6/ul (4.20-5.40); WHITE BLOOD COUNT 7.33 K/ul (4.6-10.2)
[2016-11-15 05:25] LABS: ALBUMIN 3.5 g/dL (3.4-5.0); ALBUMIN/GLOBULIN RATIO 1.46; ANION GAP 12.1; BILIRUBIN,TOTAL 0.45 mg/dL (0.00-1.20); BUN/CREATININE RATIO 21.25; CALCIUM 8.6 mg/dL (8.2-10.2); CREATININE 1.27 mg/dL (0.60-1.30); POTASSIUM 4.1 mmol/L (3.5-5.10); TOTAL PROTEIN 5.9 g/dL (5.8-8.1)
[2016-11-15] MEDS: SODIUM CHLORIDE 1,000 ML IV SCH (05:51)
[2016-11-15] MEDS: PEPCID PO SCH ×2 (05:51→16:31)
[2016-11-15] MEDS: LASIX TAB PO SCH (05:52)
[2016-11-15] MEDS: SYNTHROID PO SCH (05:52)
[2016-11-15] MEDS ORDERED: VITAMIN B-12 IM STA (08:40)
[2016-11-15] MEDS: TRILEPTAL PO SCH ×2 (08:58→20:23)
[2016-11-15] MEDS: REQUIP PO SCH ×2 (08:58→20:23)
[2016-11-15] MEDS: SYMBICORT 80-4.5 MCG INHALER IH SCH ×2 (08:58→20:22)
[2016-11-15] MEDS: LYRICA PO SCH ×3 (08:58→20:23)
[2016-11-15] MEDS: COREG PO SCH ×2 (08:59→16:31)
[2016-11-15] MEDS: COZAAR PO SCH ×2 (08:59→20:23)
[2016-11-15] MEDS: ASPIRIN EC PO SCH (08:59)
[2016-11-15] MEDS: CORDARONE PO SCH (08:59)
[2016-11-15] MEDS: FERROUS SULFATE PO SCH ×2 (09:00→20:23)
[2016-11-15] MEDS: ALDACTONE PO SCH (09:00)
[2016-11-15] MEDS ORDERED: TYLENOL PO STA (09:47)
[2016-11-15] MEDS: XANAX PO PRN (09:53)
--- NOTE | 2016-11-15 11:35 | PCM.CONS ---
CONSULTING PROVIDER: Dr. PAU WILSON -- CONSULTATION FOLLOWUP ATTENDING PROVIDER: Dr. ALESHA [facility]SUNA-[facility] DATE OF SERVICE: 11/15/16 SUBJECTIVE: This 81 year old WHITE/ F was hospitalized 11/13/16. The patient is seen in general evaluation as the patient has ataxia with frequent falls, fatigue and weakness, multifactorial coming from aging process, anemia, morbid obesity, CAD and CHF. The patient's labs are reviewed - low B12 level and will give 2 cc B12 IM. No symptoms of congestive heart failure or coronary insufficiency. CT scan of head is negative. REVIEW OF SYSTEMS: CONSTITUTIONAL: No night sweats. No fatigue, malaise, lethargy. No fever or chills. HEENT: Eyes: No visual changes. No eye pain. No eye discharge. ENT: No runny nose. No epistaxis. No sinus pain. No odynophagia. No congestion. RESPIRATORY: No cough, no congestion. No hemoptysis. CARDIOVASCULAR: No angina symptoms. No CHF symptoms. No atypical chest pain for CAD. No palpitations. No shortness of breath. GASTROINTESTINAL: No abdominal pain. No nausea or vomiting. No diarrhea or constipation. No hematemesis. No hematochezia. GENITOURINARY: No urgency. No frequency. No dysuria. No hematuria. No obstructive symptoms. No discharge. No pain. No significant abnormal bleeding. MUSCULOSKELETAL: No musculoskeletal pain; no joint swelling. NEUROLOGICAL: Awake, alert, oriented to time, place and person. No headache. No neck pain. No syncope. No seizures. No dizziness. PSYCHIATRIC: Not anxious. No depression. No suicidal thoughts. No homicidal thoughts. SKIN: No rash. No lesions. No wounds. ENDOCRINE: No unexplained weight loss. No weight gain. HEMATOLOGIC/LYMPHATIC: No anemia. No purpura. No petechiae. No prolonged or excessive bleeding. No palpable lymph nodes. PHYSICAL EXAMINATION: GENERAL: The patient is awake, alert and oriented, lying in bed in no distress. VITAL SIGNS: Temperature 98.0 F, Pulse 68, Respiratory Rate 19, BP 153/76, Pulse Ox 98% HEENT: Head normocephalic, atraumatic. Eyes: Extraocular muscles are intact. Pupils are equal, round and reactive to light and accommodation. Ears: No lesions. Nose appeared normal. Throat: No exudate or erythema. NECK: Supple. No JVD, no carotid bruit. No lymphadenopathy or thyromegaly. LUNGS: Decreased breath sounds. Clear to auscultation. Percussion note normal. Chest symmetrical. HEART: S1, S2, no S3. No murmurs. No cyanosis or clubbing. No ascites. Pulses: Dorsalis pedis and posterior tibial pulses +1 to +2 both sides. ABDOMEN: Soft. Non-tender. Bowel sounds active. No CVA tenderness. No mass felt. EXTREMITIES: No edema. Full range of motion of all extremities, equal. NEUROLOGIC: No focal deficit. Cranial nerves II through XII are grossly intact. No headache, no double vision or headache. SKIN: Not dry. Intact. Turgor-normal. LYMPHATIC: No palpable lymph nodes/no lymphedema. MUSCULOSKELETAL: Normal joints with no swelling. Muscle tone is normal. LAB REVIEW: 11/15/16 04:35 11/15/16 04:35 11/15/16 04:35: WBC 7.33, RBC 3.08 L, Hgb 9.3 L, Hct 26.4 L, MCV 85.7, MCH 30.2 , MCHC 35.2, RDW Coeff of Danae 15.4 H, Plt Count 131 L, Immature Gran % (Auto) 0.4, Neut % (Auto) 73.5, Lymph % (Auto) 15.7, Fannin % (Auto) 8.2, Eos % (Auto) 1.8, Baso % (Auto) 0.4, Immature Gran # (Auto) 0.0, Neut # 5.4, Lymph # 1.2, Fannin # 0.6, Eos # 0.1, Baso # 0.0, Sodium 130 L, Potassium 4.1, Chloride 95 L, Carbon Dioxide 27, Anion Gap 12.1, BUN 27 H, Creatinine 1.27, Estimated GFR ( MDRD) 40.00, BUN/Creatinine Ratio 21.25, Glucose 91, Calcium 8.6, Total Bilirubin 0.45, AST 15, ALT 15, Alkaline Phosphatase 64, Total Protein 5.9, Albumin 3.5, Globulin 2.4, Albumin/Globulin Ratio 1.46 11/14/16 06:00: Stl Occult Blood (IFOB) Negative, Stool Occult Blood #2 No specimen received, Stool Occult Blood #3 No specimen received 08/10/17 04:15: Reticulocyte % (Auto) 3.27, Absolute Retic 0.0988, Retic Hgb Equivalent 34.5, Iron 86, TIBC 267, % Saturation 32, Unsat Iron Binding 181, Ferritin 395.37 H, Vitamin B12 170 L, Folate 15.9 ASSESSMENT: 1. Ataxia with history of frequent falls, multifactorial, as mentioned above 2. CAD 3. Morbid obesity 4. History of CHF 5. Anemia 6. Renal insufficiency 7. Hypothyroidism 8. B12 deficiency 9. Neurological status is stable with no new findings. No symptoms of CVS or RS problems. RECOMMENDATIONS/PLAN: 1. Synthroid dose has already been increased. 2. I agree with the present management. Plan and coordination of the patient's care discussed in the presence of Straightener Hand and Nurse. CONDITION: Stable SCRIBED BY: DIXON DEL VALLE Television Inspector scribed while in presence of service performed by Dr. PAU WILSON on 11/15/16 ([id number])
--- NOTE | 2016-11-15 11:58 | RS.PTINEVL ---
Subjective - Patient information Date of Evaluation: 11/15/16 Usual Living Arrangement: Daughter Living Arrangement Comments: Patient states she is at home alone when her daughter works. Medical History: Diabetes Medical History Comments:: Anxiety/Depression Surgical History: Cholecystectomy Surgical History Comments:: Bilateral TKA Subjective Information/ Patient Comments:: Patient states she is very weak. States prior to this hospitalization she was walking by herself with a rolling walker. States she knows she needs to get stronger before she goes home. Reports stiffness in her knees. States she is a little dizzy when first standing up. - Level of function Prior to this admission, the patient could do the following:: Independent Ambulation Current Level of Function: Partially Dependent Current Equipment Used at Home: Standard Walker, Rolling Walker; Bedside Commode ; Quad Cane Interventions - Objective Patient Orientation: Person, Place, Time, Situation Current Interventions: IV's, Oxygen, Telemetry Range of Motion - ROM Right Upper Extremity AROM: WFL's Left Upper Extremity AROM: WFL's Right Lower Extremity AROM: WFL's Left Lower Extremity AROM: WFL's Muscle Strength - Muscle Strength Comments:: LE strength generally 4/5. Balance - Sitting Balance and Reactions Static Sitting Balance: Good Dynamic Sitting Balance: Good - Standing Balance and Reactions Static Standing Balance: Fair Dynamic Standing Balance: Fair Functional Mobility - Transfers Sit to Stand: Min Assist, 1 person assist, Verbal Cues, Tactile Cues Stand to Sit: Min Assist, 1 person assist, Verbal Cues, Tactile Cues Stand Pivot Transfers: Min Assist, 1 person assist, Verbal Cues, Tactile Cues Comments:: Pt needs verbal cues to use UE's to push from chair, instead of pulling herself up with the walker. - Safety Awareness Safety Awareness: Fair Ambulation - Ambulation Weight Bearing Status: FWB Assistive Device Used: Rolling Walker Distance: 20 feet total Assistance needed with Ambulation: CGA, Min Assist, 1 person assist, Verbal Cues , Tactile Cues Gait Deviations: Narrow Based gait, Shuffling gait, Forward posture, Short stride, Lacks step continuity Factors Affecting Ambulation: Decreased Balance, Weakness, Limited Endurance Treatment time - Time with patient Total treatment time: 22 (mins) Assessment - Assessment Problem List:: Decreased level of function, Requires training/education, Decreased safety/Risk of falls, Weakness Rehab Potential: Good Further Therapy Indicated?: Yes Comments: Patient demonstrates need for strengthening and training to decrease her risk for falls before returning home. She appears to be a good candidate for Swing Bed. Short Term Goals GOAL #1: Pt will consistent use UE's to push from chair/bed for sit to stand. Goal to be met by: 11/18/16 GOAL #2: Sit to stand/stand to sit transfers with CGA X 1. Goal to be met by: 11/18/16 GOAL #3: Amb. with RW with CGA of one 80 feet with good base of support. Goal to be met by: 11/19/16 Long-Term Goals GOAL #1: All bed mobility independent. Goal to be met by: 11/22/16 GOAL #2: All transfers independent with good safety. Goal to be met by: 11/22/16 GOAL #3: Amb. with RW household distances with good safety. Goal to be met by: 11/22/16 Plan Plan of Care: Therapeutic EX, Neuromuscular Re-Educ, Therapeutic Activity, Self- Care/Home Management Frequency of Treatment: 1-2 X day, as tolerated Duration of Treatment: 1 Week Anticipated Discharge Destination: Home
--- NOTE | 2016-11-15 12:44 | CONS ---
DATE OF CONSULTATION: 11/14/16 REASON FOR CONSULTATION: General evaluation as patient is falling weak. HISTORY OF PRESENT ILLNESS: The patient is an 81 year old white female was brought to the emergency room on 11/13/16 as she has fallen twice in past two weeks. The patient on the morning of bringing her down to the emergency room became place, lethargic and blood pressure was also low according to the daughter. He struck the back of her head on the foot end of the bed. The patient was seen and examined in the emergency room by ER attending. Initial work up with CT of the chest, head and hip were all negative with no acute findings. Her cardiac work with Troponin was negative. The labs showed a hgb of 9 with hct 25 and the other problem was sodium of 120. According to the daughter the patient was advised to drink a lot water which he kept on doing it and very likely low sodium could be from excessive water drinking. The sodium is 125. REVIEW OF SYSTEMS: CONSTITUTIONAL: No night sweats. Weakness and fatigue. No fever or chills. HEENT: Eyes: No visual changes. No eye pain. No eye discharge. ENT: No runny nose. No epistaxis. No sinus pain. No sore throat. No odynophagia. No ear pain. No congestion. RESPIRATORY: Occasional mild cough, no congestion. No hemoptysis. CARDIOVASCULAR: No angina symptoms. No CHF symptoms. No atypical chest pain for CAD. No palpitations. Shortness of breath on exertion. No PND. No orthopnea. GASTROINTESTINAL: No abdominal pain. Occasional nausea. No vomiting. No diarrhea or constipation. No hematemesis. No hematochezia. Poor appetite. GENITOURINARY: No urgency. No frequency. No dysuria. No hematuria. No obstructive symptoms. No discharge. No pain. No significant abnormal bleeding. MUSCULOSKELETAL: No musculoskeletal pain. No joint swelling. Weakness. Joint aches at times. NEUROLOGICAL: No headache. No neck pain. No syncope. No seizures. No dizziness. PSYCHIATRIC: Not anxious. No depression. No suicidal thoughts. No homicidal thoughts. SKIN: No rash. No lesions. No wounds. ENDOCRINE: No unexplained weight loss. No weight gain. HEMATOLOGIC/LYMPHATIC: No anemia. No purpura. No petechiae. No prolonged or excessive bleeding. No palpable lymph nodes. MEDICATIONS: Amlodipine Amiodarone 200mg PO daily Aspirin one a day Atorvastatin 10mg Po daily Symbicort 80-4.5 twice a day Coreg 25 mg twice a day Pepcid 20mg PO daily Lasix 40mg PO daily Levothyroxine 75mcg PO daily Cozaar 25mg twice a day Trileptal 300mg PO daily Lyrica 100mg PO three times a day Requip 1mg PO twice a day Aldactone 25mg every other day Xanax 0.25mg three times a day ALLERGIES: Quinine PAST MEDICAL HISTORY/PAST SURGICAL HISTORY: Cholecystectomy Orthopedic surgery with bilateral knee replacement Carpal tunnel syndrome repair Mastoid surgeries Hypothyroidism History of coronary artery disease Hypertension Congestive heart failure Morbid obesity Anemia Chronic kidney disease SOCIAL/PERSONAL/FAMILY HISTORY: The patient lives with the daughter. Non-smoker and no alcohol abuse. . She does usual require help for most of the activity of daily living. PHYSICAL EXAMINATION: GENERAL: The patient is oriented to time,place and person sitting up in the chair and the daughter is present. VITAL SIGNS: Temperature 97.8, pulse 72, respiratory rate 22, blood pressure 120 /64 and pulse ox 95%. HEENT: Head normocephalic, atraumatic. Eyes: Extraocular muscles are intact. Pupils are equal, round and reactive to light and accommodation. Ears: No lesions. Nose appeared normal. Throat: No exudate or erythema. NECK: Supple. No JVP, no carotid bruit. No lymphadenopathy or thyromegaly. LUNGS: Decreased breath sounds but clear to auscultation. Percussion note normal. Chest symmetrical. HEART: S1, S2, no S3. No murmurs. No cyanosis or clubbing. No ascites. Pulses: Dorsalis pedis and posterior tibial pulses +1 to +2 both sides. ABDOMEN: Protuberant. Soft. Nontender. Bowel sounds active. No CVA tenderness. No mass felt. EXTREMITIES: +1 pitting edema. Full range of motion of all extremities, equal. NEUROLOGIC: No focal deficit. Cranial nerves II through XII are grossly intact. No headache, no double vision or headache. SKIN: Not dry. Intact. Turgor - normal. LYMPHATIC: No palpable lymph nodes/no lymphedema. MUSCULOSKELETAL: Normal joints with no swelling. Muscle tone is normal. LABS: hgb 9, hct 25, WBC 5,600 normal differential, creatinine 1.3, BUN 28, potassium 4, glucose 96, BNP 183 and TSH 8.4. EKG sinus rhythm old intraseptal wall FL. The other x-ray findings reviewed they are not significant. ASSESSMENT: 1. Fatigue/shortness of breath/lethargy could be combination of inactivity, morbid obesity, coronary artery disease, history of CHF with likely stage 3 and adding anemia to it. 2. History of coronary artery disease 3. CHF 4. Anemia 5. Chronic kidney disease 6. Frequent falls with ataxia likely combination of medical conditions that some are mentioned above. RECOMMENDATION: 1. Increase the thyroid dose to 75mcg PO daily 2. Will do anemia profile 3. Telemetry with sinus rhythm, no elier arrhythmias of any significance noted so far 4. The patient's combination of medications seem to be working well so we will not change anything for now. 5. Echocardiogram if not done in past 6 months to evaluate LV function 6. Agreed with sodium chloride 1,000cc normal saline with lower rate 7. Advised not to drink water for now. Thanks very much for referral, will follow CONDITION: Stable, case discussed with attending. DIANA
[2016-11-15] MEDS: LIPITOR PO SCH (20:23)
[2016-11-16] MEDS: SODIUM CHLORIDE 1,000 ML IV SCH (03:45)
[2016-11-16 05:16] LABS: BASOPHILS % (AUTO) 0.4 % (0.0-3.0); EOSINOPHILS # (AUTO) 0.3 K/ul (0.0-0.7); EOSINOPHILS % (AUTO) 3.4 % (0.0-7.0); HEMATOCRIT 26.8 % (37.0-47.0); HEMOGLOBIN 9.2 g/dl (12.0-16.0); IMMATURE GRANULOCYTE % (AUTO) 0.4 % (0.0-5.0); LYMPHOCYTES # (AUTO) 1.3 K/uL (0.60-3.4); LYMPHOCYTES % (AUTO) 16.5 (10.0-50.0); MEAN CORPUSCULAR HEMOGLOBIN 29.7 pg (27.0-31.0); MEAN CORPUSCULAR HGB CONC 34.3 (31.8-35.4); MEAN CORPUSCULAR VOLUME 86.5 fl (81.0-99.0); MONOCYTES # (AUTO) 0.7 K/uL (0.4-2.0); MONOCYTES % (AUTO) 8.7 (0-10); NEUTROPHILS # (AUTO) 5.5 K/ul (2.0-6.9); NEUTROPHILS % (AUTO) 70.6; PLATELET COUNT 134 10^3/uL (140-440); WHITE BLOOD COUNT 7.72 K/ul (4.6-10.2)
[2016-11-16] MEDS ORDERED: SYNTHROID ONE (05:28)
[2016-11-16] MEDS: PEPCID PO SCH ×2 (05:30→17:20)
[2016-11-16] MEDS: SYNTHROID PO SCH (05:30)
[2016-11-16] MEDS: LASIX TAB PO SCH (05:30)
[2016-11-16 05:36] LABS: ALBUMIN 3.5 g/dL (3.4-5.0); ALBUMIN/GLOBULIN RATIO 1.52; ANION GAP 16.3; BILIRUBIN,TOTAL 0.53 mg/dL (0.00-1.20); BUN/CREATININE RATIO 20.66; CALCIUM 8.9 mg/dL (8.2-10.2); CREATININE 1.21 mg/dL (0.60-1.30); POTASSIUM 4.3 mmol/L (3.5-5.10); TOTAL PROTEIN 5.8 g/dL (5.8-8.1)
[2016-11-16] MEDS: REQUIP PO SCH ×2 (09:12→21:45)
[2016-11-16] MEDS: SYMBICORT 80-4.5 MCG INHALER IH SCH ×2 (09:12→21:45)
[2016-11-16] MEDS: TRILEPTAL PO SCH ×2 (09:12→21:45)
[2016-11-16] MEDS: ASPIRIN EC PO SCH (09:12)
[2016-11-16] MEDS: LYRICA PO SCH ×3 (09:13→21:45)
[2016-11-16] MEDS: CORDARONE PO SCH (09:13)
[2016-11-16] MEDS: COREG PO SCH ×2 (09:13→17:21)
[2016-11-16] MEDS: FERROUS SULFATE PO SCH ×2 (09:13→21:45)
[2016-11-16] MEDS: COZAAR PO SCH ×2 (09:14→21:45)
[2016-11-16] MEDS: LIPITOR PO SCH (21:45)
[2016-11-17 04:57] LABS: BASOPHILS % (AUTO) 0.5 % (0.0-3.0); EOSINOPHILS # (AUTO) 0.3 K/ul (0.0-0.7); EOSINOPHILS % (AUTO) 4.2 % (0.0-7.0); HEMATOCRIT 26.5 % (37.0-47.0); HEMOGLOBIN 9.2 g/dl (12.0-16.0); IMMATURE GRANULOCYTE % (AUTO) 0.4 % (0.0-5.0); LYMPHOCYTES # (AUTO) 1.4 K/uL (0.60-3.4); LYMPHOCYTES % (AUTO) 19.1 (10.0-50.0); MEAN CORPUSCULAR HEMOGLOBIN 30.3 pg (27.0-31.0); MEAN CORPUSCULAR HGB CONC 34.7 (31.8-35.4); MEAN CORPUSCULAR VOLUME 87.2 fl (81.0-99.0); MONOCYTES # (AUTO) 0.6 K/uL (0.4-2.0); MONOCYTES % (AUTO) 8.3 (0-10); NEUTROPHILS % (AUTO) 67.5; PLATELET COUNT 124 10^3/uL (140-440); RED BLOOD COUNT 3.04 10^6/ul (4.20-5.40); WHITE BLOOD COUNT 7.37 K/ul (4.6-10.2)
[2016-11-17 05:26] LABS: ALBUMIN 3.4 g/dL (3.4-5.0); ALBUMIN/GLOBULIN RATIO 1.17; ANION GAP 15.4; BILIRUBIN,TOTAL 0.46 mg/dL (0.00-1.20); BUN/CREATININE RATIO 20.47; CALCIUM 8.8 mg/dL (8.2-10.2); CREATININE 1.27 mg/dL (0.60-1.30); POTASSIUM 4.4 mmol/L (3.5-5.10); TOTAL PROTEIN 6.3 g/dL (5.8-8.1)
[2016-11-17] MEDS: PEPCID PO SCH ×2 (05:33→17:25)
[2016-11-17] MEDS: LASIX TAB PO SCH (05:33)
[2016-11-17] MEDS ORDERED: SYNTHROID ONE (05:37)
[2016-11-17] MEDS: SYNTHROID PO SCH (05:38)
[2016-11-17] MEDS: FERROUS SULFATE PO SCH ×2 (08:18→20:39)
[2016-11-17] MEDS: SYMBICORT 80-4.5 MCG INHALER IH SCH ×2 (08:18→20:37)
[2016-11-17] MEDS: LYRICA PO SCH ×3 (08:18→20:39)
[2016-11-17] MEDS: REQUIP PO SCH ×2 (08:18→20:39)
[2016-11-17] MEDS: ASPIRIN EC PO SCH (08:19)
[2016-11-17] MEDS: TRILEPTAL PO SCH ×2 (08:19→20:39)
[2016-11-17] MEDS: ALDACTONE PO SCH (08:19)
[2016-11-17] MEDS: COREG PO SCH ×2 (08:19→17:25)
[2016-11-17] MEDS: CORDARONE PO SCH (08:19)
[2016-11-17] MEDS: COZAAR PO SCH ×2 (08:20→20:39)
[2016-11-17] MEDS: XANAX PO PRN (20:39)
[2016-11-17] MEDS: LIPITOR PO SCH (20:40)
[2016-11-18] MEDS: LASIX TAB PO SCH (05:57)
[2016-11-18] MEDS: PEPCID PO SCH (05:58)
[2016-11-18] MEDS ORDERED: SYNTHROID PO SCH (06:30)
[2016-11-18] MEDS: SYMBICORT 80-4.5 MCG INHALER IH SCH (08:10)
[2016-11-18] MEDS: REQUIP PO SCH (08:11)
[2016-11-18] MEDS: ASPIRIN EC PO SCH (08:11)
[2016-11-18] MEDS: FERROUS SULFATE PO SCH (08:11)
[2016-11-18] MEDS: LYRICA PO SCH (08:11)
[2016-11-18] MEDS: COZAAR PO SCH (08:11)
[2016-11-18] MEDS: CORDARONE PO SCH (08:11)
[2016-11-18] MEDS: COREG PO SCH (08:11)
[2016-11-18] MEDS: TRILEPTAL PO SCH (08:11)
[2016-11-18 09:50] VITALS: TEMP 98
[2016-11-18 11:34] VITALS: BP 102/50
--- NOTE | 2016-11-18 13:04 | HP ---
CHIEF COMPLAINT: Pallor, lethargy, not obtainable blood pressure by her daughter at home, inability to get up and had two falls in the last week. HISTORY OF PRESENT ILLNESS: The patient had a sudden episode of pallor and lethargy about 45 minutes prior to the emergency room visit. Daughter who is CLASP MACHINE OPERATOR was unable to get the blood pressure and the patient is no longer able to stand up even with assistance. The patient was brought to the emergency room because of the above. The patient had also fallen twice in the last week and the most recent was yesterday with a Hematoma on the left posterior parietal. The patient was evaluated in the emergency including a CAT scan of the head showing no acute intracranial abnormalities and no cranial fracture. The D-dimer was elevated and so a CTA was done showing no pulmonary emboli. The patient was admitted because of the lethargy, increased weakness and inability to stand up. PAST PERSONAL HISTORY: Hypertension Diabetes Mellitus Congestive heart failure by history Chronic kidney disease, stage 3 Coronary artery disease Osteoarthritis Carpal tunnel syndrome, operated Mastoiditis, operated times 2 Cholecystectomy Bilateral knee replacement History of TIA History of restless leg syndrome History of DVT, 2009 Tubal ligation Mammogram 2013 Pap smear 2013 FAMILY HISTORY: Sister had heart disease Brother had gastric carcinoma Mother was hypertensive with diabetes mellitus Father had cardiac disease SOCIAL HISTORY: The patient is a and retired from work for several years. She now resides with her daughter. She never did smoke and no alcoholic beverages. MEDICATIONS: Xanax 0.25 three times a day as needed Aspirin 81 mg daily Symbicort 80-4.5mcg one inhalation twice a day Lasix 40mg daily Aldactone 25mg every other day Amlodipine 2.5mg daily Lyrica 100mg three times a day Lipitor 10mg near bedtime Trileptal 150mg tablet daily Levothyroxine 75mcg tablet daily Ropinirole 1mg tablet twice a day Losartan 25mg twice a day Pepcid 20mg twice a day Amiodarone 200mg tablet daily Carvedilol 25mg twice a day Ferrous sulfate 325mg twice a day Trileptal 300mg near bedtime. ALLERGIES: Quinine REVIEW OF SYSTEMS: CONSTITUTIONAL: The patient has no fever or chills but has extreme weakness. No longer able to stand on her own and need one on each side to prop her up. DRUG AND ALCOHOL TREATMENT SPECIALIST: The patient became lethargic. No loss of consciousness. No seizures. VISUAL: Denies any blurred vision, double vision or transient loss of vision. AUDITORY: Hearing is decreased. She denies any tinnitus, ringing and no drainage. The patient had previous mastoidectomy times two. RESPIRATORY: No cough and no significant shortness of breath with just usual exertion. The patient however has a hard time getting out of bed with the hospital bed. No history of hemoptysis. She does use an inhaler, Symbicort 80- 4.5 one puff twice a day. The patient has never been a smoker. CARDIOVASCULAR: The patient denies any chest pain or chest tightness. GENITOURINARY: The patient denies any burning on urination. She has have incontinence intermittently MUSCULOSKELETAL: The patient had severe osteoarthritis in both knees and bilateral total knee replacement. She had some osteoarthritis in the fingers. ENDOCRINE: The patient has no polyuria or polydipsia. Does have hyperthyroidism and is partial replaced. She is taking Levothyroxine 75mcg. TSH was elevated and repeat showed still some elevation and not quite two normal target for replacement bringing the TSH to normal target for replacement may trigger some tachycardia or some arrhythmia. The patient at this time does not have any significant problem with regards to arrhythmia. This patient was on medication, antiarrhythmic. HEMATOLOGIC: No history of prolonged bleeding. PSYCHIATRIC: Affect is normal. PHYSICAL EXAMINATION: GENERAL: The patient is an 81 year old female admitted to the hospital from the emergency room because of sudden pallor, lethargy, hypertension, blood pressure not obtainable by her daughter who does her blood pressure measurements at home. VITAL SIGNS: Temperature 98, pulse 62, blood pressure 162/84, respiratory rate 20 and oxygen saturation 97% on 2 liters of oxygen. 5'1 weighting 216 pounds on the floor BMI 40.8 with the scale at the emergency room was 223 pounds 2.72 ounces. HEAD: Unremarkable FACE: Symmetrical and equal with no facial weakness and no significant tenderness in the front maxillary sinus areas to palpation under pressure. EYES: Pupils equal/reactive to light. Conjunctivae pale. Sclerae icteric. 3mm in size. MOUTH: Unremarkable. THROAT: No inflammation, tumors or exudate. NECK: No masses. No bruit. No tenderness. No rigidity. CHEST: Symmetrical and equal with good expansion with no significant tenderness. Small ecchymosis above the midthoracic area in the spine. There is no hematoma. LUNGS: Breath sounds are diminished in both sides with basal rales no wheezing HEART: Audible and regular with good tones. No murmurs. ABDOMEN: Protuberant. Soft with no remarkable tenderness. No guarding. Bowel sounds are active. No masses palpable. EXTERNAL GENITALIA: Not examined RECTAL: Not performed LOWER EXTREMITIES: Symmetrical and equal with leg and ankle edema. UPPER EXTREMITIES: Symmetrical and equal ASSESSMENT: 1. Hypertension, symptomatic cause undetermined 2. Posterior parietal hematoma secondary to fall 3. Moderate to severe anemia 4. History of cardiac arrhythmia, on medication 5. History of congestive heart failure 6. History of restless leg syndrome 7. History of DVT, 2009 8. Bilateral total knee replacement 9. Tubal ligation 10. Cholecystectomy 11. Carpal tunnel syndrome surgery MTDD
--- NOTE | 2016-11-18 14:29 | CONS ---
DATE OF SERVICE: 11/16/16 - GENERAL EVALUATION CONSULT FOLLOWUP SUBJECTIVE: 81-year-old white female was hospitalized with ataxia imbalance, frequent falls. The patient's condition seems to have improved some. She is still somewhat sleepy, gets short of breath on minimal exertion because of I think sedentary lifestyle and also multiple medical problems. REVIEW OF SYSTEMS: CONSTITUTIONAL: Weakness and fatigue. No night sweats. No fever or chills. HEENT: Eyes: No visual changes. No eye pain. No eye discharge. ENT: No runny nose. No epistaxis. No sinus pain. No sore throat. No odynophagia. No ear pain. No congestion. RESPIRATORY: No cough, no congestion. No hemoptysis. CARDIOVASCULAR: No angina symptoms. No CHF symptoms. No atypical chest pain for CAD. No palpitations. No shortness of breath. GASTROINTESTINAL: No abdominal pain. No nausea or vomiting. No diarrhea or constipation. No hematemesis. No hematochezia. GENITOURINARY: No urgency. No frequency. No dysuria. No hematuria. No obstructive symptoms. No discharge. No pain. No significant abnormal bleeding. MUSCULOSKELETAL: No musculoskeletal pain. No joint swelling. No arthritis. NEUROLOGICAL: No headache. No neck pain. No syncope. No seizures. No dizziness. PSYCHIATRIC: Not anxious. No depression. No suicidal thoughts. No homicidal thoughts. SKIN: No rash. No lesions. No wounds. ENDOCRINE: No unexplained weight loss. No weight gain. HEMATOLOGIC/LYMPHATIC: No anemia. No purpura. No petechiae. No prolonged or excessive bleeding. No palpable lymph nodes. PHYSICAL EXAMINATION: GENERAL: Seems to be oriented to oriented to person and place. VITAL SIGNS: Temperature 97.9, pulse 80, respiratory rate 18, BP 113/70, pulse ox 99%. HEENT: Head normocephalic, atraumatic. Eyes: Extraocular muscles are intact. Pupils are equal, round and reactive to light and accommodation. Ears: No lesions. Nose appeared normal. Throat: No exudate or erythema. NECK: Supple. No JVD, no carotid bruit. No lymphadenopathy or thyromegaly. LUNGS: Decreased breath sounds. Clear to auscultation. Percussion note normal. Chest symmetrical. HEART: S1, S2, no S3. No murmurs. No cyanosis or clubbing. No ascites. Pulses: Dorsalis pedis and posterior tibial pulses +1 to +2 both sides. ABDOMEN: Soft. Nontender. Bowel sounds active. No CVA tenderness. No mass felt. EXTREMITIES: No edema. Full range of motion of all extremities, equal. NEUROLOGIC: No focal deficit. Cranial nerves II through XII are grossly intact. No headache, no double vision or headache. SKIN: Not dry. Intact. Turgor - normal. LYMPHATIC: No palpable lymph nodes/no lymphedema. MUSCULOSKELETAL: Normal joints with no swelling. Muscle tone is normal. LABS: Hemoglobin 9.2, hematocrit 26, WBC 7,700, normal differential. Creatinine 1.2, BUN 25, potassium 4.3. TSH borderline high with mild hypothyroidism. The patient Singulair dose has been increased by 25 mcg. ASSESSMENT: 1. CORONARY ARTERY DISEASE 2. CHF 3. MORBID OBESITY 4. ANEMIA 5. CHRONIC KIDNEY DISEASE 6. HYPOTHYROIDISM PLAN: 1. Continue same treatment with low dose statin, Amiodarone, Cozaar, Trileptal , Lasix, Coreg. CONDITION: Stable MTDD
--- NOTE | 2016-11-18 14:32 | PN ---
The patient, Constanza Hernandez was seen on: 11/14/16 and 11/16/16 LEVEL 5 11/15/16 INTERMEDIATE 11/16/16 INTERMEDIATE MTDD
--- NOTE | 2016-11-21 08:18 | PN ---
DATE OF VISIT: 11/14/16 SUBJECTIVE: The patient is feeling better. Had clarified the history of this patient. The daughter was the one that clarified the history. The patient never did loose consciousness. The patient fell while trying to get to the bed. She miss calculated her distant and so she sat on the end of the bed and fell towards the right side. At that time she fell was she was getting to bed and trying to get to the kitchen. She was trying to hold onto something and missed and again made her fall. She never did loose any consciousness. The patient this morning early became pale and lethargic about 4-5 minutes prior to the emergency room visit. Daughter was unable to get the blood pressure and so she was brought to the emergency room. She was not able to ambulate after the fall the other day. She does have a hematoma in the posterior left parietal. The CT scan however does not indicate any skull fractures or any other abnormality in the brain. The patient's sodium was low as well as chloride in the emergency room. The reason for this is because the daughter is not giving her any sodium at all. She uses potassium chloride or sodium substitute for salt. Her medication Trileptal also causes sodium reduction as well as weight increase. This patient had been gaining weight instead of losing. BMI is 40.8. She is alert and oriented times four, not dyspneic or tachypneic with no cyanosis with two liters of nasal oxygen. HEART: Normal sinus rhythm LUNGS: Has rales in the bases a bit more on the left. No wheezing ABDOMEN: No tenderness PROGNOSIS: Guarded. MTDD
--- NOTE | 2016-11-21 08:28 | PN ---
DATE OF VISIT: 11/16/16 SUBJECTIVE: The patient is alert and responsive and oriented. She claims that she is sleepy all the time. She does that at home and also at the hospital. This patient had not had any sleep studies and will proceed with one. The patient's BMI is elevated 40.8. This patient needs to loose weight in order for her probably to be able to ambulate. I asked the nurse to ambulate her around the bed and asked somebody to help her most likely she would need two individuals to walk her around. EGF has improved and it is now at 43, admission 35, three or four days ago. TSH is down to 5.928 from 8.448. This patient is not placed on any replacement hormone and will not be. The patient had some cardiac arrhythmia and replacement therapy may aggravate the cardiac arrhythmia. At this time the numbers also does not require replacement therapy. The patient does not have any temperature recorded and the last blood pressure recorded is 06:10 this morning 113/70. No other vital reports. LUNGS: Few rales of the basis but no wheezing. Breath sounds are diminished HEART: Normal sinus rhythm LOWER EXTREMITIES: Some edema but no tenderness. CBC remained essentially the same since 11/14/16. Sodium is now 133, chloride 95 , potassium 2.3, BUN 25, creatinine 1.21, EGFR 43, BNP slightly higher from admission now 231 from 183. Stool specimen negative for blood. The IV had been discontinued since yesterday and placed on Hep Lock. The patient needs to be ambulated and she also needs to lose weight. The sugars have been normal with Accu-check. This had been discontinued. Accu-check once and before breakfast will be kept in place. I need to talk to the doctor who prescribed the Trileptal for the reason on why since I believe this may have contributed to the lower sodium as well as the weight increase. CEDD
--- NOTE | 2016-11-21 08:30 | PN ---
DATE OF VISIT: 11/15/16 The patient, today, is alert, oriented times four, not dyspneic, nor tachypneic. She has a hard time getting to the bedside commode even with two assists. VITAL SIGNS: At 6 p.m. showed a temperature of 97.6, pulse 62, blood pressure 131/68, respiratory rate 16, oxygen saturation 98 with 2 liters. LUNGS: Has a bit more rales today in the left lower half. Less on the right. HEART: Normal sinus rhythm. The IV of normal saline is discontinued and the patient is placed on Heparin lock. Her diet is reduced to 1500 calorie regular diet with no added salt. This patient is undergoing physical therapy and will continue and probably should go to the care home for continued physical therapy. I will try to get in touch with the doctor who has prescribed Trileptal initially. Labs today showed hemoglobin 9.3, sodium now 130 from 118 on admission, chloride 95 from 80. GFR is 40, BUN 27, creatinine 1.27. The anemia maybe mixed origin, plus chronic kidney disease. I has talked to her daughter. I told her that the sodium was low, as well as chlorides and could be due to the medications and she also told me that she had not been giving her any sodium at home. This patient probably should eat a regular diet with no added salt at home. This patient needs to lose weight. The patient is undergoing strengthening with physical therapy and hopefully she would be able to get up and move. These maneuvers would be much easier if she is able to lose weight. PLAN: Today, again has more rales and we will get a BNP tonight. Her TSH on admission was 8.448. The patient is not on any thyroid replacement and we will not initiate until the TSH gets to 10. This will be repeated tomorrow. MTDD
--- NOTE | 2016-11-21 08:37 | PN ---
DATE OF VISIT: 11/17/16 SUBJECTIVE: I saw the patient about 8:30pm. The patient was alert and oriented, not dyspneic or tachypneic without any cyanosis. The daughter was in the room. The daughter was wanting to know whether she will be changed to transition care at this hospital. I told her that I do not know and I will check with the clinically nurse whether she is qualified for transitional care and that depends mainly upon the recommendation of the physical therapist. We will know that by tomorrow. VITALS: Temperature 97.5, pulse 74, blood pressure 140/52, respiratory rate 16 and oxygen saturation 94% at room air. The patient had been ambulated with a help around the room. She had tolerated this very well. This patient again was advised that she needs to move as much as possible and as frequently as possible. It is also mandatory that she loses weight in order to make it easier for her to move. LUNGS: Still has slightly diminished breaths sounds with bilateral basal rales but no wheezing. HEART: Audible with good tones ABDOMEN: Protuberant and soft with no remarkable tenderness. Bowel sounds active LOWER EXTREMITIES: No tenderness to palpation in the calf muscles. CONDITION: Stable and improved The reason for the pallor and no obtainable blood pressure at home is still undetermined and I do believe that it is secondary to Orthostatic hypertension however that had not been documented while in the hospital with blood pressure supine and standing. MTDD
--- NOTE | 2016-11-21 13:32 | DS ---
PATIENT IDENTIFICATION: 89 year old female admitted to the hospital via the emergency room because of sudden pallor, lethargy, hypotension, blood pressure not obtainable by her daughter, who is a RETAIL WIRELESS ASSOCIATE. It is not hypertension, it is hypotension. HOSPITAL COURSE: The patient had fallen twice in the last week. CT scan of the head showed no acute intracranial processes and no skull fracture. She does have a hematoma on the posterior left parietal. The pupils were equal and reactive. The conjunctivae is pale. She has movement of all extremities and the strength is symmetrical and equal. Neck with no bruit. Breath sounds are diminished with bilateral basal rales. Her heart is audible and regular. Abdomen protuberant. Lower extremities edematous ankle and legs. She has hypotension and the blood pressure is not obtainable, etiology undetermined. Hematoma left posterior parietal. Moderate to severe anemia. Cardiac arrhythmia on medication, history of congestive heart failure. The patient was seen by Dr. Bustos, [employer], for further determination of any cardiac processed contributing to her sudden pallor and hypotension and generalized weakness. This patient had the following radiological studies; CT scan of the hip because of the fall, no fractures. CT scan of the chest- no pulmonary emboli because of elevated D Dimer. X-ray of pelvis, x-ray of hips, CT scan of the head because of the hematoma and fall and chest x-ray. The patient had no acute processes in all of these radiological studies. The patient was evaluated by Physical Therapy to determine the need for rehabilitation. The Physical Therapist felt that this patient would benefit from further rehabilitation. The patient had several CBC's showing normal WBC, persistent severe anemia at 9.2 grams of hemoglobin, hematocrit 26.5, RDW above 14.8, platelet count slightly lower ranging from 124 to 134. Reticulocyte count percent is 3.27, absolute reticulocyte 0.0988. D Dimer was 856.36. Arterial blood gases showed mild hypoxemia with a PO2 of 82, pH 7.400. Sodium and chlorides were low on admission 118 and 80 respectively. The sodium and chlorides have returned to normal. The chlorides and sodium 136, the day before discharge and chlorides 97. The serum ferritin level is elevated 395.37 and the transferrin is 222. Occult blood stool negative. The TSH on 11/13/16 was 8.448 and repeat was 5.928 on 11/16/16. This patient was on Levothyroxine 75 mcg daily. The mission manager, Dr. Bustos, recommended that the Levothyroxine be increased to 75 and she is already on 75. I felt that this patient should be on 75 rather than increasing the dose. I also told the daughter that the Trileptal should probably be decreased, if not discontinued. I don't know who prescribed this medication initially. I suspect it was initiated in [place], the reason I don' t know exactly. Trileptal can decrease the sodium, as well as can increase her weight. This probably was given as an anticonvulsant. I had not known that she had had a seizure at home or in the hospital at [facility]. Amlodipine for blood pressure was already discontinued during this hospitalization. The patient at the time of discharge was alert and oriented times four with movement of all extremities. She was able to move around with one assistant foreman. She is able to get to the bathroom and back to the chair with one nurse assisting her. She is discharged today to be admitted to Transitional Care to continue rehabilitation and occupational therapy. I did explain to her that hopefully that this would improve things, but she could not just lie down at home. She needed to exercise her upper, as well as lower extremities. No necessarily walking or standing, but lifting weights in a sitting posture or moving her legs in a sitting posture with a bungee cord. She also needs to lose weight in order to probably facilitate movement. She is 5'1" and 216 pounds. She is twice the expected weight. Her BMI is 40.8. FINAL DIAGNOSES: 1. SUDDEN EPISODE OF HYPOTENSION WITH LETHARGY, ETIOLOGY UNDETERMINED 2. RECURRENT FALLS WITH NO LOSS OF CONSCIOUSNESS 3. LEFT POSTERIOR PARIETAL HEMATOMA, SECONDARY TO FALL 4. SEVERE ANEMIA 5. HISTORY OF CARDIAC ARRHYTHMIA ON MEDICATION 6. HISTORY OF CONGESTIVE HEART FAILURE 7. HISTORY OF RESTLESS LEG SYNDROME 8. HISTORY OF DVT 2009 9. HISTORY OF BILATERAL TOTAL KNEE REPLACEMENT 10. HISTORY OF TUBAL LIGATION 11. HISTORY OF CHOLECYSTECTOMY 12. HISTORY OF CARPAL TUNNEL SYNDROME SURGERY 13. HYPOTHYROIDISM ON REPLACEMENT THERAPY 14. ELEVATED BMI, SEVERE 15. GENERALIZED WEAKNESS, CAUSE UNDETERMINED PROGNOSIS: Guarded. MTDD
== END 2016-11-18 10:15 | disposition swing bed (61) | DRG 315 ==
LOC: ED 10:42 → SCU 14:42
PROVIDERS: ADMIT General Practice; ATTEND General Practice
DX: I95.89 Other hypotension (principal); E87.1 Hypo-osmolality and hyponatremia; R27.0 Ataxia, unspecified; R53.83 Other fatigue; Z68.41 Body mass index [BMI] 40.0-44.9, adult; S00.03XA Contusion of scalp, initial encounter; R29.6 Repeated falls; D64.9 Anemia, unspecified; I50.9 Heart failure, unspecified; I49.9 Cardiac arrhythmia, unspecified; G25.81 Restless legs syndrome; E03.9 Hypothyroidism, unspecified; R53.1 Weakness; E53.8 Deficiency of other specified B group vitamins; E66.01 Morbid (severe) obesity due to excess calories; R55 Syncope and collapse; I10 Essential (primary) hypertension; S09.90XA Unspecified injury of head, initial encounter; S76.092A Other specified injury of muscle, fascia and tendon of left hip, initial encounter; S19.9XXA Unspecified injury of neck, initial encounter; W06.XXXA Fall from bed, initial encounter; Z79.899 Other long term (current) drug therapy; Z86.73 Personal history of transient ischemic attack (TIA), and cerebral infarction without residual deficits; Z86.718 Personal history of other venous thrombosis and embolism; Z91.81 History of falling
CPT/HCPCS: 36415; 80053; 82272; 82550; 82607; 82728; 82746; 82803; 82962; 83540; 83550; 83605; 83880; 83935; 84145; 84300; 84443; 84466; 84484; 85025; 85045; 85379; 87040; 93005; 93010; 96360; 96361; 97802; 99284

== ENCOUNTER 2016-11-28 12:27 | Outpatient (CLI) | payer OTHER ==
[2012-09-27 08:19] VITALS: TEMP 97.2
[2016-11-28 12:58] LABS: ALBUMIN 4.1 g/dL (3.4-5.0); ALBUMIN/GLOBULIN RATIO 1.52; ANION GAP 19.2; BILIRUBIN,TOTAL 0.74 mg/dL (0.00-1.20); BUN/CREATININE RATIO 25.85; CALCIUM 9.7 mg/dL (8.2-10.2); CREATININE 2.05 mg/dL (0.60-1.30); POTASSIUM 4.2 mmol/L (3.5-5.10); TOTAL PROTEIN 6.8 g/dL (5.8-8.1)
== END 2016-11-28 12:28 | disposition home or self-care (01) ==
LOC: NONPT 12:27
PROVIDERS: ATTEND Family Medicine
DX: E87.1 Hypo-osmolality and hyponatremia (principal)
CPT/HCPCS: 80053

== ENCOUNTER 2016-12-01 10:23 | Inpatient (IN) ==
--- NOTE | 2016-12-01 10:31 | ED.PDOC ---
General ED Provider: Dr. CIERRA CASTELLANOS JR Chief Complaint: Weakness Stated Complaint: weak pattyi feels like she is in a tunnel decreased hearing;. resident at [facility]--told ems that she became weak and felt like she was in a tunnel--"might pass out" [facility] staff reported that she was lethargic with slurred speech--on arrival has saline lock in left antecubit -keeps eyes closed but is able to converse when spoken to--sl pale--able to follow simple commands[End] 97.2 73 16 96% 176/82 Time Seen by Physician: 11:12 Mode of Arrival: Ambulance Information Source: [facility] Exam Limitations: Clinical condition, Language barrier (NIKOLSKI) [facility] Nursing and Triage Documentation Reviewed and Agree: No Review of Systems - Review Of Systems Constitutional: Reports: Malaise, Weakness Eyes: Reports: Vision change Ears, Nose, Mouth, Throat: Reports: No symptoms Respiratory: Reports: No symptoms Cardiac: Reports: Lightheadedness GI: Reports: No symptoms : Reports: No symptoms Musculoskeletal: Reports: No symptoms Skin: Reports: No symptoms Neurological: Reports: Weakness Endocrine: Reports: No symptoms Hematologic/Lymphatic: Reports: No symptoms All Other Systems: Other Past Medical History - Past Medical History Previously Healthy: Yes Endocrine: Reports: DM 2, Hypothyroid (meds) Cardiovascular: Reports: CAD, Hypertension, CHF Respiratory: Reports: None Hematological: Reports: None Gastrointestinal: Reports: GERD (meds) Genitourinary: Reports: CKD Neuro/Psych: Reports: Unknown Musculoskeletal: Reports: Arthritis Cancer: Reports: Unknown - Surgical History General Surgical History: Reports: Cholecystectomy, Orthopedic ( knee replacement bilateral; carpal tunnel ), Other (mastoid surgeries x2) - Family History Family History: Reports: Unknown - Social History Smoking Status: Never smoker Hx Substance Use: No Alcohol Screening: None Physical Exam - Physical Exam Appearance: Well-appearing, Obese Eyes: ALEJANDRO, EOMI, Conjunctiva clear ENT: Ears normal, Nose normal, Oropharynx normal Neck: Supple Respiratory: Airway patent, Breath sounds clear, Breath sounds equal, Respirations nonlabored Cardiovascular: RRR, Pulses normal, No rub, No murmur GI/: Soft, Nontender, No masses, Bowel sounds normal, No Organomegaly Musculoskeletal: ROM intact, Limited strength Skin: Warm, Dry, Normal color Neurological: Sensation intact, Motor intact, Reflexes intact, Cranial nerves intact, Alert, Disoriented (TO TIME) Psychiatric: Affect appropriate, Mood appropriate Critical Care Note - Critical Care Note Total Time (mins): 0 Course - Course Hematology/Chemistry: 12/01/16 10:48 12/01/16 10:48 Departure - Departure Time of Disposition: 12:16 Disposition: ADMITTED INPATIENT Discharge Problem: TIA (transient ischemic attack) Qualifiers: Transient cerebral ischemia type: unspecified Qualifier Code: (G45.9) Transient cerebral ischemic attack, unspecified Condition: Stable Pt referred to PMD for follow-up: No (HOSPITALIST) Allergies/Adverse Reactions: Allergies quinine Allergy (Verified 12/01/16 10:40) BEEN SO LONG AGO, CANT REMEMBER REACTION Home Medications: Ambulatory Orders Aspirin [Aspir 81] 81 mg PO DAILY tab-cap 06/07/15 Oxcarbazepine [Trileptal] 150 mg PO DAILY 10/03/16 Ropinirole HCl [Requip] 1 mg PO BID #30 tablet 10/11/16 Losartan Potassium 25 mg PO BID #60 tab-cap 10/22/16 Oxcarbazepine [Trileptal] 300 mg PO BEDTIME 11/13/16 Alprazolam [Xanax] 0.25 mg PO BID #60 tablet 11/25/16 Levothyroxine Sodium [Synthroid] 100 mcg PO QDAC #30 tablet 11/25/16
[2016-12-01 10:53] LABS: BASOPHILS % (AUTO) 0.6 % (0.0-3.0); EOSINOPHILS # (AUTO) 0.4 K/ul (0.0-0.7); EOSINOPHILS % (AUTO) 7.7 % (0.0-7.0); HEMATOCRIT 28.6 % (37.0-47.0); HEMOGLOBIN 9.9 g/dl (12.0-16.0); IMMATURE GRANULOCYTE % (AUTO) 0.4 % (0.0-5.0); LYMPHOCYTES # (AUTO) 1.3 K/uL (0.60-3.4); LYMPHOCYTES % (AUTO) 25.8 (10.0-50.0); MEAN CORPUSCULAR HEMOGLOBIN 30.7 pg (27.0-31.0); MEAN CORPUSCULAR HGB CONC 34.6 (31.8-35.4); MEAN CORPUSCULAR VOLUME 88.5 fl (81.0-99.0); MONOCYTES # (AUTO) 0.4 K/uL (0.4-2.0); MONOCYTES % (AUTO) 7.9 (0-10); NEUTROPHILS # (AUTO) 2.9 K/ul (2.0-6.9); NEUTROPHILS % (AUTO) 57.6; PLATELET COUNT 137 10^3/uL (140-440); RED BLOOD COUNT 3.23 10^6/ul (4.20-5.40); WHITE BLOOD COUNT 5.04 K/ul (4.6-10.2)
--- NOTE | 2016-12-01 10:57 | CT ---
EXAM: CT head without contrast HISTORY: Weakness and malaise COMPARISON: CT head 11/20/2016 and MRI brain 11/21/2016 with multiple priors. TECHNIQUE: Serial axial images of the brain were obtained from the skull base to the vertex without IV contrast. FINDINGS: The ventricles, cisterns and sulci demonstrate generalized volume loss. The ng-white m atter junction is maintained. There is scattered low attenuation in the periventricular white matte r.No midline shift or mass is identified. There is no abnormal intra or extra-axial fluid collectio n. The paranasal sinuses demonstrate chronic sphenoid sinus disease. The mastoid air cells are monserrat ar. The osseous calvarium is intact. There is hyperostosis frontalis. IMPRESSION: 1. No acute intracranial abnormality or hemorrhage. 2. Mild scattered microangiopathy and generalized volume loss. 3. Chronic sphenoid sinusitis. 4. Hyperostosis frontalis interna.
[2016-12-01 11:18] LABS: ALBUMIN 3.9 g/dL (3.4-5.0); ALBUMIN/GLOBULIN RATIO 1.26; ANION GAP 16.2; BILIRUBIN,TOTAL 0.67 mg/dL (0.00-1.20); BUN/CREATININE RATIO 23.29; CALCIUM 9.5 mg/dL (8.2-10.2); CREATININE 1.76 mg/dL (0.60-1.30); POTASSIUM 4.2 mmol/L (3.5-5.10); TROPONIN I 0.032 ng/ml (0.0000-0.4000)
[2016-12-01] MEDS ORDERED: SODIUM CHLORIDE 1,000 ML IV SCH (12:30)
[2016-12-01 14:04] VITALS: BMI 47.2
[2016-12-01] MEDS: SODIUM CHLORIDE 1,000 ML IV SCH (14:36)
[2016-12-01] MEDS ORDERED: LYRICA ONE ×2 (15:27→20:38)
[2016-12-01] MEDS: NON-FORMULARY MEDICATION (Pregabalin [Lyrica] 100 MG) PO SCH ×2 (15:29→20:51)
[2016-12-01 18:31] LABS: TROPONIN I 0.015 ng/ml (0.0000-0.4000)
[2016-12-01] MEDS ORDERED: COZAAR PO ONE (20:17)
[2016-12-01] MEDS ORDERED: FERROUS SULFATE ONE (20:38)
[2016-12-01] MEDS ORDERED: COREG ONE (20:46)
[2016-12-01] MEDS: LIPITOR PO SCH (20:49)
[2016-12-01] MEDS: REQUIP PO SCH (20:49)
[2016-12-01] MEDS: XANAX PO SCH (20:50)
[2016-12-01] MEDS: COZAAR PO SCH (20:50)
[2016-12-01] MEDS: PEPCID PO SCH (20:50)
[2016-12-01] MEDS: SYMBICORT 80-4.5 MCG INHALER IH SCH (20:51)
[2016-12-01] MEDS ORDERED: NON-FORMULARY MEDICATION (Oxcarbazepine 300 MG) PO SCH (21:00)
[2016-12-01] MEDS ORDERED: NON-FORMULARY MEDICATION (Ferrous Sulfate [Ferrous Sulfate] 325 MG) PO SCH ×22 (21:00)
[2016-12-01] MEDS ORDERED: NON-FORMULARY MEDICATION (Carvedilol [Coreg] 25 MG) PO SCH ×22 (21:00)
[2016-12-02 02:16] LABS: BASOPHILS % (AUTO) 0.6 % (0.0-3.0); EOSINOPHILS # (AUTO) 0.4 K/ul (0.0-0.7); HEMATOCRIT 26.5 % (37.0-47.0); HEMOGLOBIN 9.2 g/dl (12.0-16.0); IMMATURE GRANULOCYTE % (AUTO) 0.4 % (0.0-5.0); LYMPHOCYTES # (AUTO) 1.5 K/uL (0.60-3.4); LYMPHOCYTES % (AUTO) 28.4 (10.0-50.0); MEAN CORPUSCULAR HEMOGLOBIN 30.6 pg (27.0-31.0); MEAN CORPUSCULAR HGB CONC 34.7 (31.8-35.4); MONOCYTES # (AUTO) 0.6 K/uL (0.4-2.0); MONOCYTES % (AUTO) 10.4 (0-10); NEUTROPHILS # (AUTO) 2.8 K/ul (2.0-6.9); NEUTROPHILS % (AUTO) 53.2; PLATELET COUNT 121 10^3/uL (140-440); RED BLOOD COUNT 3.01 10^6/ul (4.20-5.40); WHITE BLOOD COUNT 5.29 K/ul (4.6-10.2)
[2016-12-02 02:36] LABS: ALBUMIN 3.5 g/dL (3.4-5.0); ALBUMIN/GLOBULIN RATIO 1.35; ANION GAP 15.1; BILIRUBIN,TOTAL 0.65 mg/dL (0.00-1.20); BUN/CREATININE RATIO 23.89; CALCIUM 8.7 mg/dL (8.2-10.2); CREATININE 1.59 mg/dL (0.60-1.30); POTASSIUM 4.1 mmol/L (3.5-5.10); TOTAL PROTEIN 6.1 g/dL (5.8-8.1)
[2016-12-02 02:42] LABS: TROPONIN I 0.01 ng/ml (0.0000-0.4000)
[2016-12-02] MEDS: SYNTHROID PO SCH (06:28)
[2016-12-02] MEDS ORDERED: NON-FORMULARY MEDICATION (Oxcarbazepine 150 MG) PO SCH (09:00)
[2016-12-02] MEDS: ASPIRIN EC PO SCH (09:08)
[2016-12-02] MEDS: PEPCID PO SCH ×2 (09:09→21:21)
[2016-12-02] MEDS: CORDARONE PO SCH (09:09)
[2016-12-02] MEDS: XANAX PO SCH ×2 (09:09→21:29)
[2016-12-02] MEDS: LYRICA PO SCH ×3 (09:09→21:29)
[2016-12-02] MEDS: COZAAR PO SCH ×2 (09:09→21:21)
[2016-12-02] MEDS: REQUIP PO SCH ×2 (09:09→21:21)
[2016-12-02] MEDS: LASIX TAB PO SCH (09:09)
[2016-12-02] MEDS: FERROUS SULFATE PO SCH ×2 (09:09→21:21)
[2016-12-02] MEDS: COREG PO SCH ×2 (09:10→18:25)
[2016-12-02] MEDS: TRILEPTAL PO SCH ×2 (09:10→21:20)
[2016-12-02] MEDS: SYMBICORT 80-4.5 MCG INHALER IH SCH ×2 (09:10→21:20)
[2016-12-02] MEDS: PLAVIX PO SCH (09:40)
[2016-12-02] MEDS: NORVASC PO SCH (12:45)
--- NOTE | 2016-12-02 15:19 | PN ---
DATE OF SERVICE: 12/01/16 CHIEF COMPLAINT: Near syncope, tunnel visioning. This is an 81 year old female who was recently discharged from the hospital after having extensive stay and was here for the frequent falls and correcting balance. She was seen by Dr. Aiken and Dr. Bustos on consultation. As the patient had a near syncope, tunnel vision and questionable TIA, the patient was sent from the long-term again. Ct of the head is negative for the stroke. In view of her risk factors for the stroke, the patient is admitted for the observation. REVIEW OF SYSTEMS: Weakness, tiredness. CONSTITUTIONAL: No fever, no chills. HEENT: Tunnel vision. ENDOCRINE: No weight gain, no weight loss. CVS: No angina symptoms. No CHF symptoms. No palpitations. No atypical chest pain for CAD. No shortness of breath. No PND, no orthopnea. RESPIRATORY: No cough, no hemoptysis. GI: No nausea, no vomiting. No abdominal pain. : No hematuria. No polyuria. MUSCULOSKELETAL:. No joint swelling. PSYCHIATRIC: Not anxious. No depression. No suicidal thoughts. No homicidal thoughts. SKIN: Intact. No rash. PHYSICAL EXAMINATION: V/S: Blood pressure is 176/82, respiratory rate 16, heart rate 72, temperature 97.2. HEENT: Normocephalic, atraumatic. Mucosa dry. Pallor positive. NECK: Supple. No JVD, no carotid bruit. No lymphadenopathy. LUNGS: Clear to auscultation. No rales or rhonchi. HEART: S1, S2 normal. No S3. No murmur, gallop or regurgitation. ABDOMEN: Soft, nontender. Bowel sounds active. No rigidity. No rebound or guarding. No CVA tenderness. EXTREMITIES: No clubbing, cyanosis or pedal edema. MUSCULOSKELETAL: No joint swelling. Grossly intact. NEUROLOGIC: Awake, alert, oriented times three. No focal deficit. Normal, except for weakness. LYMPHATIC: No lymph nodes palpable. SKIN: Intact. LABS: White count is 5.04, hemoglobin 9.9, hematocrit 28.6, platelet count 137. Sodium 134, potassium 4.2, chloride 93, bicarb 29, BUN 41, creatinine 1.76. ASSESSMENT: 1. NEAR SYNCOPE, QUESTIONABLE TIA. 2. HYPERTENSION UNCONTROLLED 3. CHRONIC KIDNEY DISEASE 4. ANEMIA 5. HYPERTENSION 6. DYSLIPIDEMIA 7. CONGESTIVE HEART FAILURE 8. ATRIAL FIBRILLATION 9. HISTORY OF DVT 2009. PLAN: 1. Admit the patient to observation. 2. Telemetry monitoring. 3. Three sets of cardiac enzymes. 4. Daily I & O's. 5. Will follow up with the patient in daily rounds. TIME SPENT: More than 30 minutes MTDD
[2016-12-02] MEDS: LIPITOR PO SCH (21:21)
[2016-12-03 05:05] LABS: BASOPHILS % (AUTO) 0.7 % (0.0-3.0); EOSINOPHILS # (AUTO) 0.4 K/ul (0.0-0.7); HEMATOCRIT 25.6 % (37.0-47.0); HEMOGLOBIN 8.8 g/dl (12.0-16.0); IMMATURE GRANULOCYTE % (AUTO) 0.5 % (0.0-5.0); LYMPHOCYTES # (AUTO) 1.6 K/uL (0.60-3.4); LYMPHOCYTES % (AUTO) 36.9 (10.0-50.0); MEAN CORPUSCULAR HEMOGLOBIN 30.3 pg (27.0-31.0); MEAN CORPUSCULAR HGB CONC 34.4 (31.8-35.4); MEAN CORPUSCULAR VOLUME 88.3 fl (81.0-99.0); MONOCYTES # (AUTO) 0.4 K/uL (0.4-2.0); MONOCYTES % (AUTO) 9.7 (0-10); NEUTROPHILS # (AUTO) 1.9 K/ul (2.0-6.9); NEUTROPHILS % (AUTO) 43.2; PLATELET COUNT 134 10^3/uL (140-440); WHITE BLOOD COUNT 4.34 K/ul (4.6-10.2)
[2016-12-03 05:32] LABS: ALBUMIN 3.3 g/dL (3.4-5.0); ALBUMIN/GLOBULIN RATIO 1.27; BILIRUBIN,TOTAL 0.53 mg/dL (0.00-1.20); BUN/CREATININE RATIO 21.21; CALCIUM 8.7 mg/dL (8.2-10.2); CREATININE 1.65 mg/dL (0.60-1.30); TOTAL PROTEIN 5.9 g/dL (5.8-8.1)
[2016-12-03] MEDS: SYNTHROID PO SCH (05:54)
[2016-12-03] MEDS: LASIX TAB PO SCH (05:54)
[2016-12-03] MEDS: SODIUM CHLORIDE 1,000 ML IV SCH (07:04)
[2016-12-03] MEDS: TRILEPTAL PO SCH ×2 (08:27→20:31)
[2016-12-03] MEDS: REQUIP PO SCH ×2 (08:27→20:32)
[2016-12-03] MEDS: COREG PO SCH ×2 (08:27→17:35)
[2016-12-03] MEDS: FERROUS SULFATE PO SCH ×2 (08:28→20:32)
[2016-12-03] MEDS: COZAAR PO SCH ×2 (08:28→20:32)
[2016-12-03] MEDS: ASPIRIN EC PO SCH (08:28)
[2016-12-03] MEDS: CORDARONE PO SCH (08:28)
[2016-12-03] MEDS: XANAX PO SCH ×2 (08:28→20:32)
[2016-12-03] MEDS: PLAVIX PO SCH (08:28)
[2016-12-03] MEDS: PEPCID PO SCH ×2 (08:28→20:32)
[2016-12-03] MEDS: NORVASC PO SCH (08:29)
[2016-12-03] MEDS: SYMBICORT 80-4.5 MCG INHALER IH SCH ×2 (08:32→20:31)
[2016-12-03] MEDS: LYRICA PO SCH ×3 (08:33→20:31)
[2016-12-03] MEDS ORDERED: ALDACTONE PO SCH (09:00)
--- NOTE | 2016-12-03 09:22 | HOLTER ---
PATIENT INFORMATION AND COMMENTS Indications: RECURRING NEUROLOGIC SYMPTOMS __ Patient Medications: SYMBICORT, ALDACTONE, TRILEPTAL, REQUIP, LYRICA, SYNTHROID , FUROSEMIDE, FERROUS SULFATE, FAMOTIDINE, COREG, ATORVASTATIN, ASA, AMIODARONE , XANAX __ Pre-procedure Summary: Protocol: Standard Heart Rate Started: 12/01/16 1342 Minimum: 58 BPM Weight: 221 LBS Ended: 12/02/16 1316 Maximum: 200 BPM Height: 61" Duration: 23 HRS 24 MIN Average: 67 BPM _ INTERPRETATIONS/OBSERVATIONS: 1. BASIC RHYTHM: SINUS, RATE 60 BPM TO 100 BPM, AVERAGE 70 BPM 2. INFREQUENT TO RARE PAC'S AND PVC'S 3. NO ST-T WAVE CHANGES FROM BASELINE 4. NO CORRELATION WITH ACTIVITY LOG MTDD
--- NOTE | 2016-12-03 11:07 | HOLTER ---
PATIENT INFORMATION AND COMMENTS Attending Physician: HOSPITALIST--ALESHA OSUNA Indications: PALPITATIONS __ Patient Medications: BLLALAL __ Pre-procedure Summary: Protocol: Standard Heart Rate Started: Minimum: Weight: Ended: Maximum: Height: Duration: Average: _ INTERPRETATIONS/OBSERVATIONS: 1. 2. 3. MTDD
[2016-12-03] MEDS: LIPITOR PO SCH (20:32)
[2016-12-04 05:14] LABS: BASOPHILS % (AUTO) 0.7 % (0.0-3.0); EOSINOPHILS # (AUTO) 0.4 K/ul (0.0-0.7); EOSINOPHILS % (AUTO) 7.2 % (0.0-7.0); HEMATOCRIT 26.1 % (37.0-47.0); IMMATURE GRANULOCYTE % (AUTO) 0.4 % (0.0-5.0); LYMPHOCYTES # (AUTO) 1.7 K/uL (0.60-3.4); LYMPHOCYTES % (AUTO) 31.7 (10.0-50.0); MEAN CORPUSCULAR HEMOGLOBIN 30.6 pg (27.0-31.0); MEAN CORPUSCULAR HGB CONC 34.5 (31.8-35.4); MEAN CORPUSCULAR VOLUME 88.8 fl (81.0-99.0); MONOCYTES # (AUTO) 0.5 K/uL (0.4-2.0); MONOCYTES % (AUTO) 9.6 (0-10); NEUTROPHILS # (AUTO) 2.7 K/ul (2.0-6.9); NEUTROPHILS % (AUTO) 50.4; PLATELET COUNT 140 10^3/uL (140-440); RED BLOOD COUNT 2.94 10^6/ul (4.20-5.40)
[2016-12-04 05:38] LABS: ALBUMIN 3.4 g/dL (3.4-5.0); ALBUMIN/GLOBULIN RATIO 1.26; BILIRUBIN,TOTAL 0.59 mg/dL (0.00-1.20); BUN/CREATININE RATIO 18.96; CALCIUM 8.8 mg/dL (8.2-10.2); CREATININE 1.74 mg/dL (0.60-1.30); TOTAL PROTEIN 6.1 g/dL (5.8-8.1)
[2016-12-04] MEDS: SYNTHROID PO SCH (05:43)
[2016-12-04] MEDS: LASIX TAB PO SCH (05:43)
[2016-12-04] MEDS: SYMBICORT 80-4.5 MCG INHALER IH SCH (08:22)
[2016-12-04] MEDS: XANAX PO SCH (08:22)
[2016-12-04] MEDS: REQUIP PO SCH (08:22)
[2016-12-04] MEDS: LYRICA PO SCH (08:22)
[2016-12-04] MEDS: COREG PO SCH (08:23)
[2016-12-04] MEDS: COZAAR PO SCH (08:23)
[2016-12-04] MEDS: PLAVIX PO SCH (08:23)
[2016-12-04] MEDS: NORVASC PO SCH (08:23)
[2016-12-04] MEDS: CORDARONE PO SCH (08:23)
[2016-12-04] MEDS: FERROUS SULFATE PO SCH (08:23)
[2016-12-04] MEDS: PEPCID PO SCH (08:23)
[2016-12-04] MEDS: TRILEPTAL PO SCH (08:23)
[2016-12-04] MEDS: ASPIRIN EC PO SCH (08:24)
[2016-12-04 09:42] VITALS: BP 115/60; TEMP 97.8
--- NOTE | 2016-12-17 09:36 | PN ---
DATE OF SERVICE: 12/02/16 SUBJECTIVE: The patient was admitted with tunnel vision and syncopal episode. The patient complains that the patient's blood pressure is up and down all of the time. Whenever the blood pressure goes up she feels like that. Otherwise, the carotid ultrasound did show 60 to 70% on the right side and left side was fine last time when she was admitted here. The patient's daughter is in the room. All of the findings were discussed. REVIEW OF SYSTEMS: CONSTITUTIONAL: No fever, no chills. HEENT: Normal. ENDOCRINE: No weight gain, no weight loss. CVS: No angina symptoms. No CHF symptoms. No palpitations. No atypical chest pain for CAD. No shortness of breath. No PND, no orthopnea. RESPIRATORY: No cough, no hemoptysis. GI: No nausea, no vomiting. No abdominal pain. : No hematuria. No polyuria. MUSCULOSKELETAL:. No joint swelling. PSYCHIATRIC: Not anxious. No depression. No suicidal thoughts. No homicidal thoughts. SKIN: Intact. No rash. PHYSICAL EXAMINATION: V/S: Blood pressure 140/65, respiratory rate 20, heart rate 69, temperature 97.0. HEENT: Normocephalic, atraumatic. Mucosa dry. Pallor positive. No icterus. NECK: Supple. No JVD, no carotid bruit. No lymphadenopathy. LUNGS: Decreased and clear. No rales or rhonchi. HEART: S1, S2 normal. No S3. No murmur, gallop or regurgitation. ABDOMEN: Soft, nontender. Bowel sounds active. No rigidity. No rebound or guarding. No CVA tenderness. EXTREMITIES: No clubbing, cyanosis or pedal edema. MUSCULOSKELETAL: No joint swelling. NEUROLOGIC: Awake, alert, oriented times three. No focal deficit. LYMPHATIC: No lymph nodes palpable. SKIN: Intact. LABS: White count 5.29, hemoglobin 9.2, hematocrit 26.5, platelet count 121, sodium 132, potassium 4.1, chloride 95, bicarb 27, BUN 39, creatinine 1.5. ASSESSMENT: 1. SYNCOPE, QUESTIONABLE TIA 2. CAROTID STENOSIS 3. HYPERTENSION 4. CHRONIC KIDNEY DISEASE 5. ANEMIA 6. DYSLIPIDEMIA PLAN: 1. Norvasc 5 mg p.o. daily. 2. Daily I & O's. 3. Keep the legs elevated. 4. IV fluids at 40 ml per hour. 5. Will follow up with the patient in daily rounds. TIME SPENT: More than 30 minutes DIANA
--- NOTE | 2016-12-17 09:44 | PN ---
DATE OF SERVICE: 12/03/16 SUBJECTIVE: The patient was admitted with near syncope and questionable TIA. CT scan did not show any stroke. Hemoglobin is steady and BUN and creatinine is stable. Blood pressure is better with Amlodipine. REVIEW OF SYSTEMS: CONSTITUTIONAL: No fever, no chills. HEENT: Normal. ENDOCRINE: No weight gain, no weight loss. CVS: No angina symptoms. No CHF symptoms. No palpitations. No atypical chest pain for CAD. No shortness of breath. No PND, no orthopnea. RESPIRATORY: No cough, no hemoptysis. GI: No nausea, no vomiting. No abdominal pain. : No hematuria. No polyuria. MUSCULOSKELETAL:. No joint swelling. PSYCHIATRIC: Not anxious. No depression. No suicidal thoughts. No homicidal thoughts. SKIN: Intact. No rash. PHYSICAL EXAMINATION: V/S: Blood pressure 115/71, respiratory rate 20, heart rate 71, temperature 97.7. HEENT: Normocephalic, atraumatic. Mucosa dry. Pallor positive. No icterus. NECK: Supple. No JVD, no carotid bruit. No lymphadenopathy. LUNGS: Decreased and clear. No rales or rhonchi. HEART: S1, S2 normal. No S3. No murmur, gallop or regurgitation. ABDOMEN: Soft, nontender. Bowel sounds active. No rigidity. No rebound or guarding. No CVA tenderness. EXTREMITIES: 1+ edema. No clubbing, cyanosis or pedal edema. MUSCULOSKELETAL: No joint swelling. NEUROLOGIC: Awake, alert, oriented times three. No focal deficit. LYMPHATIC: No lymph nodes palpable. SKIN: Intact. LABS: Sodium 134, potassium 4.0, chloride 94, bicarb 27, BUN 35, creatinine 1.65, glucose 99, white count 4.34, hemoglobin 8.8, hematocrit 25.6, platelet count 134. ASSESSMENT: 1. TIA 2. CAROTID STENOSIS, RIGHT INTERNAL CAROTID ARTERY 50-69% PER CAROTID ULTRASOUND 10/04/2016 3. CHRONIC KIDNEY DISEASE 4. ANEMIA 5. HYPERTENSION, LABILE 6. CONGESTIVE HEART FAILURE, STABLE 7. HISTORY OF DVT IN 2009 PLAN: 1. Out of bed to chair with help. 2. Activity. 3. Keep legs elevated. 4. Daily I & O's. 5. Will follow up with the patient in daily rounds. TIME SPENT: More than 30 minutes MTDD
--- NOTE | 2016-12-23 08:36 | DS ---
DATE OF SERVICE: 12/04/16 FINAL DIAGNOSIS: 1. Change in the mental status, most likely from TIA 2. Chronic kidney disease 3. Anemia 4. Hypertension 5. Diabetes 6. CHF 7. Osteoarthritis 8. Coronary artery disease 9. Dyslipidemia 10.Hypothyroidism 11.Restless leg syndrome 12.Right internal carotid artery moderate stenosis 13.Cholecystectomy 14.Bilateral knee replacement DISCHARGE INSTRUCTIONS: Discharge the patient back to the Nurse Home. Orthostatic blood pressure and pulse ever shift for one week then Q weekly. CBC and CMP in one week. Continue the rest of the home medication. Dr. Aiken to see the patient in the Long-Term rounds. MEDICATIONS AT DISCHARGE: Xanax Amiodarone Norvasc Atorvastatin Symbicort Coreg Plavix Famotidine Ferrous Sulfate Lasix Synthroid Losartan Trileptal Lyrica Aldactone Requip NEW PRESCRIPTIONS: Norvasc 5mg daily Plavix 75mg daily STOP ASPIRIN. DIET INSTRUCTIONS: Cardiac and Healthy diet ACTIVITY: Can participate in the Nurse Home activity. Up and about to the meals. May resume physical and occupational therapy SMOKING: Non-smoker DISEASE SPECIFIC EDUCATION: Carotid stenosis Risk of stroke Chronic kidney disease Been discussed. HOSPITAL COURSE: Seancampos Constanza who is an 81 year old female who was recently discharge from the hospital under the care of Dr. Aiken. The patient was in the Long-Term feeling funny and not by herself and almost passing out. She was brought back to the Emergency Room and was evaluated in the Emergency Room the patient was more awake and alert. CT scan was negative for the stroke. The patient did have a slight worsening of the kidney function and amenia which has been stable. Neurologically the patient was more awake and alert. CT head did not show any acute findings. Holter monitoring was ordered. Carotid ultrasound was done on recent admission showed the monitor internal carotid stenosis. In review of carotid stenosis and recurrent TIA's I stopped the aspirin and started the patient on the Plavix. She did fine. Blood pressure been high, Amlodipine 10mg been started. BUN and creatinine was gradually a little bit better from 41 BUN to 35 and creatinine 1.76 to 1.59. Hgb was steady 9.9 and 9.0. Gradually the patient was more awake and alert and did not have any more episode during the hospital stay. At that time she was discharged back to the Long-Term. TIME SPENT: MORE THAN 35 MINUTES MTDD
--- NOTE | 2016-12-23 09:04 | HP ---
DATE OF SERVICE: 11/18/16 CHIEF COMPLAINT: Confusion and weakness HISTORY OF PRESENT ILLNESS: This is an 81 year old female who was recently discharged to the Detention under the care of Dr. Aiken. The Detention nurse found that the she became weak and felt like she was in a tunnel,might pass out. She was lethargic, slurry speech. In the Emergency Room the patient was swaying towards to the left side, keeps eye closed and able to open and talk. She was seen by ER physician. CT of the head was negative for the stroke. In review of her age and history of stroke the patient was admitted to the hospital was TIA and change in mental status. REVIEW OF SYSTEMS: CONSTITUTIONAL: No fever, no chills. Weakness and tiredness. HEENT: Normal. ENDOCRINE: No weight gain; no weight loss. CVS: No chest pain. No PND, no orthopnea. No shortness of breath. No PND, no orthopnea. RESPIRATORY: No cough, no congestion. No hemoptysis. GI: No nausea, no vomiting. No abdominal pain. No melena. : No hematuria. No polyuria. MUSCULOSKELETAL: No joint swelling. Some aches and pains. PSYCHIATRIC: Not anxious. No depression. No suicidal thoughts. No homicidal thoughts. Change in mental status. SKIN: Intact, no open lesions. PAST MEDICAL HISTORY: Coronary artery disease Congestive heart failure Peripheral vascular disease Atrial fibrillation Hypertension DVT, 2002 History of TIA Restless leg syndrome History of pneumonia GERD Osteoarthritis Diabetes Depression Anxiety PAST SURGICAL HISTORY: Bilateral knee replacement Tubal ligation Gallbladder repair CTA Carpal tunnel surgery As a child mastoidectomy Cataract surgery PERSONAL HISTORY: Detention resident partially dependant upon the ADL's. No alcohol and no drugs. Family history is positive for the stomach cancer and diabetes MEDICATIONS: Aspirin Symbicort Spirolactone Lyrica Atorvastatin Trileptal Requip Losartan Famotidine Amiodarone Coreg Ferrous Sulfate Trileptal Xanax Synthroid Furosemide ALLERGIES: Quinine PHYSICAL EXAMINATION: V/S: Blood pressure 176/82, respiratory rate 16, heart rate 73, temperature 97.2. HEENT: Atraumatic, normocephalic. No scleral icterus. Pallor positive. Mucosa dry. NECK: Supple. No JVD, no bruit. No lymphadenopathy. No thyromegaly. HEART: S1, S2 normal. No murmur. No cyanosis or clubbing. No ascites. LUNGS: Decreased and clear to auscultation. No rales or rhonchi. ABDOMEN: Soft, nontender. Bowel sounds are active. No CVA tenderness. No rigidity or guarding. EXTREMITIES: No cyanosis, clubbing or pedal edema. MUSCULOSKELETAL: Normal joints, no swelling. NEUROLOGIC: The patient is awake and alert with some confusion but motor is normal. SKIN: Intact; no open lesions. LYMPHATIC: No lymph nodes palpable. LABS: WBC 5.04, hgb 9.9, hct 28.6, plt count 137, sodium 134, potassium 4.2, chloride 93, bicarb 29, BUN 14, creatinine 1.76, glucose 181. ASSESSMENT: 1. Change in mental status, rule out stroke 2. History of Anemia 3. Chronic kidney disease 4. Atrial fibrillation 5. Hypertension 6. Dyslipidemia 7. Osteoarthritis 8. DJD spine PLAN: 1. Admit patient to the regular floor 2. Neuro checks 3. Continue home medications 4. IV fluids 75ml per hour 5. Daily I&O's 6. Fall precaution 7. DNR Will follow the patient in daily rounds. TIME SPENT: MORE THAN 70 minutes [facility]
== END 2016-12-04 13:35 | DRG 948 ==
LOC: ED 10:23 → MEDSURG A 12:37
PROVIDERS: ADMIT Emergency Medicine; ATTEND Emergency Medicine
DX: R41.82 Altered mental status, unspecified (principal); I65.21 Occlusion and stenosis of right carotid artery; R53.1 Weakness; R47.81 Slurred speech; R42 Dizziness and giddiness; H53.489 Generalized contraction of visual field, unspecified eye; I12.9 Hypertensive chronic kidney disease with stage 1 through stage 4 chronic kidney disease, or unspecified chronic kidney disease; E11.22 Type 2 diabetes mellitus with diabetic chronic kidney disease; N18.9 Chronic kidney disease, unspecified; D64.9 Anemia, unspecified; I10 Essential (primary) hypertension; I50.9 Heart failure, unspecified; I25.10 Atherosclerotic heart disease of native coronary artery without angina pectoris; M19.90 Unspecified osteoarthritis, unspecified site; E78.5 Hyperlipidemia, unspecified; E03.9 Hypothyroidism, unspecified; G25.81 Restless legs syndrome; Z79.899 Other long term (current) drug therapy; Z86.73 Personal history of transient ischemic attack (TIA), and cerebral infarction without residual deficits; Z86.718 Personal history of other venous thrombosis and embolism
CPT/HCPCS: 36415; 80053; 82550; 82962; 84443; 84484; 85025; 87081; 93005; 93010; 93227; 99284

== ENCOUNTER 2017-01-04 10:48 | Emergency (ER) | payer OTHER ==
[2017-01-04 10:55] VITALS: BP 159/68; TEMP 98.7; BMI 37.4
--- NOTE | 2017-01-04 11:04 | ED.PDOC ---
General ED Provider: Dr. GEOFF RAMIREZ Chief Complaint: Cough Stated Complaint: Cough productive of greenish-yellow phlegm x 1 week. Cough is almost constant, keeps her awake at night. Time Seen by Physician: 10:57 Mode of Arrival: Walk-In Information Source: Patient Primary Care [facility] T[facility] Documentation Reviewed and Agree: Yes Respiratory Complaint Exam - Respiratory Complaint/Exam Onset/Duration: 1 week Symptoms Are: Still present Timing: Constant Initial Severity: Mild Current Severity: Severe Location: Throat, Chest Character: Reports: Productive cough (yellow-green sptum) Aggravating: Reports: None Alleviating: Reports: None Associated Signs and Symptoms: Reports: Dyspnea (occasional SOB with cough) History of Healthcare-Acquired Pneumonia: No Review of Systems - Review Of Systems Constitutional: Reports: Chills Eyes: Reports: No symptoms Ears, Nose, Mouth, Throat: Reports: No symptoms Respiratory: Reports: Cough (productive of yellow-green sputum) Cardiac: Reports: No symptoms GI: Reports: No symptoms : Reports: No symptoms Musculoskeletal: Reports: No symptoms Skin: Reports: No symptoms Neurological: Reports: No symptoms All Other Systems: Reviewed and Negative Past Medical History - Past Medical History Previously Healthy: Yes Endocrine: Reports: DM 2, Hypothyroid (meds) Cardiovascular: Reports: CAD, Hypertension, CHF Respiratory: Reports: None Hematological: Reports: None Gastrointestinal: Reports: GERD (meds) Genitourinary: Reports: CKD Neuro/Psych: Reports: CVA Musculoskeletal: Reports: Arthritis Cancer: Reports: None Last Menstrual Period: N/A Other Pertinent Past Medical History: bilat. knee replacement. [ End ]htn dm - Surgical History General Surgical History: Reports: Cholecystectomy, Orthopedic ( knee replacement bilateral; carpal tunnel ), Other (mastoid surgeries x2) - Family History Family History: Reports: Unknown - Social History Smoking Status: Never smoker Hx Substance Use: No Alcohol Screening: None Lives: Alone - Immunizations Tetanus Shot up to Date: No Influenza Vaccine within 12 Months: No Pneumococcal Vaccine up to Date: No Physical Exam - Physical Exam Appearance: Ill-appearing, Well-nourished, Obese Ill-appearing: Mild Pain Distress: None Eyes: ALEJANDRO, EOMI, Conjunctiva clear ENT: Nose normal, Oropharynx normal, TMs Occluded (TMs roa and dull) Neck: Supple Respiratory: Airway patent, Breath sounds equal, Respirations nonlabored, Rhonchi (scattered rhonchi in AF) Cardiovascular: RRR, Pulses normal, No rub, No murmur GI/: Soft, Nontender, No masses, Bowel sounds normal, No Organomegaly Musculoskeletal: Normal strength, ROM intact, No edema, No calf tenderness Skin: Warm, Dry, Normal color Neurological: Sensation intact, Motor intact, Reflexes intact, Cranial nerves intact, Alert, Oriented Psychiatric: Affect appropriate, Mood appropriate Re-Evaluation - Re-Evaluation Time of Re-Evaluation: 12:31 Status: Improved Vital Signs Stable: Yes Pain Level: 5/10 headache Appearance: NAD Lungs: Clear Skin: Warm and Dry Neuro: Alert and Oriented X3 CV: RRR Additional Comments: Patient notes she is breathing easier/coughing less frequently after neb Critical Care Note - Critical Care Note Total Time (mins): 0 Course - Course Hematology/Chemistry: 01/04/17 11:25 01/04/17 11:25 Orders, Labs, Meds: Lab Review 01/04/17 01/04/17 01/04/17 11:25 11:25 11:25 WBC 8.80 RBC 3.21 L Hgb 9.8 L Hct 28.3 L MCV 88.2 MCH 30.5 MCHC 34.6 RDW Coeff of Danae 13.5 Plt Count 161 Immature Gran % (Auto) 0.7 Neut % (Auto) 72.1 Lymph % (Auto) 14.8 Aurora % (Auto) 10.5 H Eos % (Auto) 1.6 Baso % (Auto) 0.3 Immature Gran # (Auto) 0.1 Neut # 6.4 Lymph # 1.3 Aurora # 0.9 Eos # 0.1 Baso # 0.0 Sodium 131 L Potassium 3.5 Chloride 92 L Carbon Dioxide 25 Anion Gap 17.5 BUN 25 H Creatinine 1.38 H Estimated GFR (MDRD) 37.00 BUN/Creatinine Ratio 18.11 Glucose 128 H Calcium 8.9 Total Bilirubin 0.64 AST 14 L ALT 15 Alkaline Phosphatase 74 B-Natriuretic Peptide 269 H Total Protein 6.9 Albumin 3.3 L Globulin 3.6 Albumin/Globulin Ratio 0.92 Procalcitonin 01/04/17 11:25 WBC RBC Hgb Hct MCV MCH MCHC RDW Coeff of Danae Plt Count Immature Gran % (Auto) Neut % (Auto) Lymph % (Auto) Aurora % (Auto) Eos % (Auto) Baso % (Auto) Immature Gran # (Auto) Neut # Lymph # Aurora # Eos # Baso # Sodium Potassium Chloride Carbon Dioxide Anion Gap BUN Creatinine Estimated GFR (MDRD) BUN/Creatinine Ratio Glucose Calcium Total Bilirubin AST ALT Alkaline Phosphatase B-Natriuretic Peptide Total Protein Albumin Globulin Albumin/Globulin Ratio Procalcitonin < 0.05 Orders Category Date Time Status NEBULIZER TREATMENT Stat CARDIO 01/04/17 11:05 Completed BNP [B-TYPE NATRIURETIC PEPTIDE] Stat LAB 01/04/17 11:25 Completed CBC W/ AUTO DIFF Stat LAB 01/04/17 11:25 Completed COMPREHENSIVE METABOLIC PANEL Stat LAB 01/04/17 11:25 Completed PROCALCITONIN Stat LAB 01/04/17 11:25 Completed SPUTUM CULTURE Stat LAB 01/04/17 11:30 Received URINALYSIS C & S IF INDICATED Stat LAB 01/04/17 11:05 Uncollected Albuterol Sulfate 0.083% Neb [Albuterol 0.083% Neb] MEDS 01/04/17 11:05 Discontinued 1 vial NEB ONCE STA Guaifenesin/Codeine Phosphate [Robitussin AC Syrup] MEDS 01/04/17 12:31 Discontinued 5 ml PO ONCE STA CHEST, 2 VIEWS PA & LAT Stat RADS 01/04/17 11:05 Taken Medications Discontinued Medications Generic Name Dose Route Start Last Admin Trade Name Freq PRN Reason Stop Dose Admin Albuterol Sulfate 1 vial 01/04/17 11:05 01/04/17 11:20 Albuterol 0.083% Neb NEB 01/04/17 11:06 1 vial ONCE STA Administration Guaifenesin/Codeine Phosphate 5 ml 01/04/17 12:31 01/04/17 12:35 Robitussin Ac Syrup PO 01/04/17 12:32 5 ml ONCE STA Administration Vital Signs: Temp Pulse Resp BP Pulse Ox 01/04/17 10:49 98.7 F 86 22 159/68 H 94 L Departure - Departure Time of Disposition: 13:08 Disposition: HOME SELF-CARE Discharge Problem: Asthmatic bronchitis Instructions: Acute Bronchitis (ED) Condition: Good Pt referred to PMD for follow-up: No (See doctor if worsens or no better in 3 days) Allergies/Adverse Reactions: Allergies quinine Allergy (Verified 12/01/16 10:40) BEEN SO LONG AGO, CANT REMEMBER REACTION Home Medications: Ambulatory Orders Oxcarbazepine [Trileptal] 150 mg PO DAILY 10/03/16 Ropinirole HCl [Requip] 1 mg PO BID #30 tablet 10/11/16 Losartan Potassium 25 mg PO BID #60 tab-cap 10/22/16 Oxcarbazepine [Trileptal] 300 mg PO BEDTIME 11/13/16 Alprazolam [Xanax] 0.25 mg PO BID #60 tablet 11/25/16 Levothyroxine Sodium [Synthroid] 100 mcg PO QDAC #30 tablet 11/25/16 Amlodipine Besylate 5 mg PO DAILY #30 tablet 12/04/16 Clopidogrel Bisulfate [Plavix] 75 mg PO DAILY #30 tablet 12/04/16 Acetaminophen with Codeine [Tylenol #3 Tab] 1 tab PO Q4H PRN #20 tablet Albuterol Sulfate [Proair Hfa] 2 puff IH Q4H PRN #1 inhaler 01/04/17 Amoxicillin/Potassium Clav [Augmentin 875-125 mg Tab] 1 tab PO BID #20 tablet Guaifenesin/Pseudoephedrne HCl [Mucinex D ER 1,200-120 mg Tab] 1 tab PO DAILY Disposition Discussed With: Patient
[2017-01-04] MEDS ORDERED: ALBUTEROL 0.083% NEB NEB STA (11:05)
[2017-01-04 11:31] LABS: BASOPHILS % (AUTO) 0.3 % (0.0-3.0); EOSINOPHILS # (AUTO) 0.1 K/ul (0.0-0.7); EOSINOPHILS % (AUTO) 1.6 % (0.0-7.0); HEMATOCRIT 28.3 % (37.0-47.0); HEMOGLOBIN 9.8 g/dl (12.0-16.0); IMMATURE GRANULOCYTE % (AUTO) 0.7 % (0.0-5.0); LYMPHOCYTES # (AUTO) 1.3 K/uL (0.60-3.4); LYMPHOCYTES % (AUTO) 14.8 (10.0-50.0); MEAN CORPUSCULAR HEMOGLOBIN 30.5 pg (27.0-31.0); MEAN CORPUSCULAR HGB CONC 34.6 (31.8-35.4); MEAN CORPUSCULAR VOLUME 88.2 fl (81.0-99.0); MONOCYTES # (AUTO) 0.9 K/uL (0.4-2.0); MONOCYTES % (AUTO) 10.5 (0-10); NEUTROPHILS # (AUTO) 6.4 K/ul (2.0-6.9); NEUTROPHILS % (AUTO) 72.1; PLATELET COUNT 161 10^3/uL (140-440); RED BLOOD COUNT 3.21 10^6/ul (4.20-5.40)
[2017-01-04 11:51] LABS: ALBUMIN 3.3 g/dL (3.4-5.0); ALBUMIN/GLOBULIN RATIO 0.92; ANION GAP 17.5; BILIRUBIN,TOTAL 0.64 mg/dL (0.00-1.20); BUN/CREATININE RATIO 18.11; CALCIUM 8.9 mg/dL (8.2-10.2); CREATININE 1.38 mg/dL (0.60-1.30); POTASSIUM 3.5 mmol/L (3.5-5.10); TOTAL PROTEIN 6.9 g/dL (5.8-8.1)
[2017-01-04] MEDS ORDERED: ROBITUSSIN AC SYRUP PO STA (12:31)
--- NOTE | 2017-01-04 14:52 | DI ---
EXAM: Chest two view. HISTORY: Cough COMPARISON: 11/13/2016 FINDINGS: There is minimal cardiac enlargement and aortic atherosclerosis without congestive heart f ailure. Some peribronchial thickening is seen in the lung bases. There is a small area of pulmonary opacity medially in the left lower lobe. Impression 1. Mild cardiomegaly without congestive heart failure. 2. Lungs are hyperinflated, probable chronic obstructive pulmonary disease. . 3. Mild peribronchial thickening, possible bronchitis. Small band of dense atelectasis or mild pneu monia medially left lower lobe.
== END 2017-01-04 13:10 | disposition home or self-care (01) ==
LOC: ED 10:48
DX: J45.909 Unspecified asthma, uncomplicated (principal); R06.02 Shortness of breath; R51 Headache; E11.9 Type 2 diabetes mellitus without complications; N18.9 Chronic kidney disease, unspecified; I10 Essential (primary) hypertension; I25.10 Atherosclerotic heart disease of native coronary artery without angina pectoris; E03.9 Hypothyroidism, unspecified; I50.9 Heart failure, unspecified; Z79.899 Other long term (current) drug therapy
CPT/HCPCS: 36415; 80053; 83880; 84145; 85025; 87070; 87077; 87186; 94640; 99283

== ENCOUNTER 2017-01-12 12:41 | Inpatient (IN) ==
[2017-01-12] MEDS ORDERED: ZOSYN 2.25 GM 2.25 GM in SODIUM CHLORIDE 100 ML IV STA (12:46)
[2017-01-12 13:10] LABS: BASOPHILS % (AUTO) 0.5 % (0.0-3.0); EOSINOPHILS # (AUTO) 0.2 K/ul (0.0-0.7); EOSINOPHILS % (AUTO) 3.6 % (0.0-7.0); IMMATURE GRANULOCYTE % (AUTO) 3.1 % (0.0-5.0); LYMPHOCYTES # (AUTO) 1.2 K/uL (0.60-3.4); LYMPHOCYTES % (AUTO) 21.2 (10.0-50.0); MEAN CORPUSCULAR HEMOGLOBIN 30.2 pg (27.0-31.0); MEAN CORPUSCULAR HGB CONC 35.7 (31.8-35.4); MEAN CORPUSCULAR VOLUME 84.6 fl (81.0-99.0); MONOCYTES # (AUTO) 0.4 K/uL (0.4-2.0); MONOCYTES % (AUTO) 7.4 (0-10); NEUTROPHILS # (AUTO) 3.8 K/ul (2.0-6.9); NEUTROPHILS % (AUTO) 64.2; PLATELET COUNT 207 10^3/uL (140-440); RED BLOOD COUNT 3.31 10^6/ul (4.20-5.40); WHITE BLOOD COUNT 5.84 K/ul (4.6-10.2)
[2017-01-12 13:13] LABS: ABG BASE EXCESS 5 (-2.0-2.0); ABG HCO3 29.4 (22.0-26.0); ABG PCO2 43.6 mmHg (35-45); ABG PH 7.447 (7.35-7.45); ABG TCO2 31 (22.0-28.0)
--- NOTE | 2017-01-12 13:36 | CT ---
EXAM: CT of the chest without contrast History: Cough. Comparison: Chest radiograph 01/04/2017, chest CT 11/13/2016 Technique: Multiplanar CT images through the thorax were obtained without the administration of IV c ontrast Findings: Heart is enlarged. Coronary calcifications and valvular calcifications of the heart. Grea t vessels are unremarkable on this noncontrast study. No pathologically enlarged axillary, mediastin al or hilar lymph nodes. No pneumothorax and no pleural fluid. No suspicious lung masses or lung nodules. Calcified granulom as again seen within the thorax. Mild left greater than right bibasilar lung infiltrates. Within the visualized upper abdomen, left kidney is atrophic. Stable benign appearing left adrenal n odule. Status post cholecystectomy. The visualized osseous structures unchanged with severe degener ative changes of the spine again noted. Impression: 1. Mild left greater than right bibasilar lung infiltrates suspicious for pneumonia. 2. Cardiomegaly and coronary artery disease.
[2017-01-12 13:40] LABS: FLU INTERNAL QC INTERNAL QC VALID; RAPID FLU A NEGATIVE (NEGATIVE); RAPID FLU B NEGATIVE (NEGATIVE)
[2017-01-12 13:41] LABS: ALANINE AMINOTRANSFERASE 16 U/L (12-78); ALBUMIN 3.3 g/dL (3.4-5.0); ALBUMIN/GLOBULIN RATIO 0.89; ALKALINE PHOSPHATASE 65 U/L (53-141); ANION GAP 15.6; ASPARTATE AMINO TRANSFERASE 19 U/L (15-37); BILIRUBIN,TOTAL 0.39 mg/dL (0.00-1.20); BLOOD UREA NITROGEN 30 mg/dL (7-18); BUN/CREATININE RATIO 20.97; CALCIUM 9.1 mg/dL (8.2-10.2); CARBON DIOXIDE 28 mmol/L (23-31); CHLORIDE 80 mmol/L (98-107); CREATINE KINASE 99 U/L; CREATININE 1.43 mg/dL (0.60-1.30); GLUCOSE 135 mg/dL (82-115); POTASSIUM 4.6 mmol/L (3.5-5.10)
[2017-01-12 13:45] LABS: SODIUM 119 mmol/L (136-145)
--- NOTE | 2017-01-12 14:19 | ED.PDOC ---
General ED Provider: Dr. OSMIN WALKER-ER Chief Complaint: Respiratory Complaint Stated Complaint: she has been coughing up green--yellow sputum and has been on augmentin and not getting better Time Seen by Physician: 13:10 Mode of Arrival: Walk-In Information Source: Patient, Snf, EMT Exam Limitations: No limitations Primary Care Provider[facility] Nursing and Triage Documentation Reviewed and Agree: Yes Respiratory Complaint Exam - Respiratory Complaint/Exam Onset/Duration: several days Symptoms Are: Still present Timing: Constant Initial Severity: Mild Current Severity: Moderate Location: Chest Character: Reports: Productive cough Aggravating: Reports: URI Alleviating: Reports: None Associated Signs and Symptoms: Reports: Dyspnea, URI, Decreased oral intake. Denies: Rapid breathing, Fever, Chills, Chest pain, Pleuritic chest pain, Wheezing, Hemoptysis, Dizziness, Calf pain, Calf swelling, Edema, Nasal congestion, Hoarseness, Sinus discomfort, Vomiting, Sore throat, Weight loss, Increased thirst, Increased appetite, Increased urination Related History: Reports: Similar episode History of Healthcare-Acquired Pneumonia: Lives at shelter Home Oxygen Use: No Recent Stress Test: No Recent Echo/LV Function: No Current Antibiotic Use: Yes Current Asthma Medication Use: No Respiratory Distress: None Inadequate Respiratory Effort: No Dysphagia Present: No Stridor Present: No JVD Present: No Accessory Muscle Use: No Retractions: Not Present Diminished Breath Sounds: No Prolonged Respiration: Inspiratory phase Sinus Tenderness: None Grunting Respirations: No Kussmaul Respirations: No Differential Diagnoses: Pneumonia, Bronchitis, Aspiration Non-Traumatic Chest Pain Syncope: EKG Performed Review of Systems - Review Of Systems Constitutional: Reports: No symptoms Eyes: Reports: No symptoms Ears, Nose, Mouth, Throat: Reports: No symptoms Respiratory: Reports: Cough Cardiac: Reports: No symptoms GI: Reports: No symptoms : Reports: No symptoms Musculoskeletal: Reports: No symptoms Skin: Reports: No symptoms Neurological: Reports: No symptoms Endocrine: Reports: No symptoms Hematologic/Lymphatic: Reports: No symptoms All Other Systems: Reviewed and Negative Past Medical History - Past Medical History Previously Healthy: Yes Endocrine: Reports: DM 2, Hypothyroid (meds) Cardiovascular: Reports: CAD, Hypertension, CHF Respiratory: Reports: None Hematological: Reports: None Gastrointestinal: Reports: GERD (meds) Genitourinary: Reports: CKD Neuro/Psych: Reports: CVA Musculoskeletal: Reports: Arthritis Cancer: Reports: None Last Menstrual Period: N/A Other Pertinent Past Medical History: bilat. knee replacement. [ End ]htn dm - Surgical History General Surgical History: Reports: Cholecystectomy, Orthopedic ( knee replacement bilateral; carpal tunnel ), Other (mastoid surgeries x2) - Family History Family History: Reports: Unknown - Social History Smoking Status: Never smoker Hx Substance Use: No Alcohol Screening: None Lives: In [place] - Immunizations Tetanus Shot up to Date: No Influenza Vaccine within 12 Months: No Pneumococcal Vaccine up to Date: No Physical Exam - Physical Exam Appearance: Ill-appearing Ill-appearing: Mild Eyes: ALEJANDRO ENT: Ears normal, Nose normal, Oropharynx normal Neck: Supple Respiratory: Crackles Cardiovascular: RRR GI/: Soft Musculoskeletal: Normal strength, ROM intact, No edema, No calf tenderness Skin: Warm, Dry, Normal color Neurological: Sensation intact, Motor intact, Reflexes intact, Cranial nerves intact, Alert, Oriented Psychiatric: Affect appropriate, Mood appropriate Interpretation - Radiology Interpretation Radiology Interpretation By: Radiologist Radiology Results: Positive Exam Interpreted: CT Scan - EKG Interpretation Time of EKG #1: 14:20 Rate: Normal Rhythm: Sinus Ectopy: None [place]: NL ST Segment: Normal Physician Notification - Case Discussed Physician Notified: we paged dr bianchi but he did not return cvall--so we called dr rao Time of Notification: 14:51 Critical Care Note - Critical Care Note Total Time (mins): 15 Course - Course Hematology/Chemistry: 01/12/17 12:50 01/12/17 12:50 Orders, Labs, Meds: Lab Review 01/12/17 01/12/17 01/12/17 12:43 12:50 12:50 WBC 5.84 RBC 3.31 L Hgb 10.0 L Hct 28.0 L MCV 84.6 MCH 30.2 MCHC 35.7 H RDW Coeff of Danae 13.2 Plt Count 207 Immature Gran % (Auto) 3.1 Neut % (Auto) 64.2 Lymph % (Auto) 21.2 [place] % (Auto) 7.4 Eos % (Auto) 3.6 Baso % (Auto) 0.5 Immature Gran # (Auto) 0.2 Neut # 3.8 Lymph # 1.2 [place] # 0.4 Eos # 0.2 Baso # 0.0 Puncture Site Rr O2 Saturation 93.0 L ABG pH 7.447 ABG pCO2 43.6 ABG pO2 65.0 L ABG HCO3 29.4 H ABG Total CO2 31 H ABG Base Excess 5 H Jimi Test + FiO2 % 21.0 Sodium Potassium Chloride Carbon Dioxide Anion Gap BUN Creatinine Estimated GFR (MDRD) BUN/Creatinine Ratio Glucose Lactic Acid 6.0 Calcium Total Bilirubin AST ALT Alkaline Phosphatase Total Creatine Kinase Troponin I B-Natriuretic Peptide Total Protein Albumin Globulin Albumin/Globulin Ratio Procalcitonin Influenza A (Rapid) Influenza B (Rapid) 01/12/17 01/12/17 01/12/17 12:50 12:50 12:50 WBC RBC Hgb Hct MCV MCH MCHC RDW Coeff of Danae Plt Count Immature Gran % (Auto) Neut % (Auto) Lymph % (Auto) [place] % (Auto) Eos % (Auto) Baso % (Auto) Immature Gran # (Auto) Neut # Lymph # [place] # Eos # Baso # Puncture Site O2 Saturation ABG pH ABG pCO2 ABG pO2 ABG HCO3 ABG Total CO2 ABG Base Excess Jimi Test FiO2 % Sodium 119 L* Potassium 4.6 Chloride 80 L Carbon Dioxide 28 Anion Gap 15.6 BUN 30 H Creatinine 1.43 H Estimated GFR (MDRD) 35.00 BUN/Creatinine Ratio 20.97 Glucose 135 H Lactic Acid Calcium 9.1 Total Bilirubin 0.39 AST 19 ALT 16 Alkaline Phosphatase 65 Total Creatine Kinase 99 Troponin I < 0.0100 B-Natriuretic Peptide 206 H Total Protein 7.0 Albumin 3.3 L Globulin 3.7 Albumin/Globulin Ratio 0.89 Procalcitonin < 0.05 Influenza A (Rapid) Influenza B (Rapid) 01/12/17 13:17 WBC RBC Hgb Hct MCV MCH MCHC RDW Coeff of Danae Plt Count Immature Gran % (Auto) Neut % (Auto) Lymph % (Auto) [place] % (Auto) Eos % (Auto) Baso % (Auto) Immature Gran # (Auto) Neut # Lymph # [place] # Eos # Baso # Puncture Site O2 Saturation ABG pH ABG pCO2 ABG pO2 ABG HCO3 ABG Total CO2 ABG Base Excess Jimi Test FiO2 % Sodium Potassium Chloride Carbon Dioxide Anion Gap BUN Creatinine Estimated GFR (MDRD) BUN/Creatinine Ratio Glucose Lactic Acid Calcium Total Bilirubin AST ALT Alkaline Phosphatase Total Creatine Kinase Troponin I B-Natriuretic Peptide Total Protein Albumin Globulin Albumin/Globulin Ratio Procalcitonin Influenza A (Rapid) Negative Influenza B (Rapid) Negative Orders Category Date Time Status ABG DRAW REQUEST Stat CARDIO 01/12/17 12:43 Completed EKG-(ED ONLY) Stat CARDIO 01/12/17 12:43 Completed IV [ED IV/MEDIPORT/POWERPORT] .ONCE EMERGENCY 01/12/17 12:45 Active ABG Stat LAB 01/12/17 12:43 Completed BLOOD CULTURE Stat LAB 01/12/17 12:50 Stop Req BLOOD CULTURE Stat LAB 01/12/17 13:00 Received BNP [B-TYPE NATRIURETIC PEPTIDE] Stat LAB 01/12/17 12:50 Completed CBC W/ AUTO DIFF Stat LAB 01/12/17 12:50 Completed COMPREHENSIVE METABOLIC PANEL Stat LAB 01/12/17 12:50 Completed CREATINE KINASE Stat LAB 01/12/17 12:50 Completed LACTIC ACID Stat LAB 01/12/17 12:50 Completed PROCALCITONIN Stat LAB 01/12/17 12:50 Completed RAPID FLU A/B Stat LAB 01/12/17 13:17 Completed TROPONIN I Stat LAB 01/12/17 12:50 Completed 0.9 % Sodium Chloride [Saline Flush] MEDS 01/12/17 12:45 Ordered 1 syr IVF PRN PRN Piperacillin Sodium/Tazobactam [Zosyn 2.25 gm] 2.25 gm MEDS 01/12/17 12:46 Discontinued 0.9 % Sodium Chloride [Sodium Chloride] [address] CHEST W/O CONTRAST Stat RADS 01/12/17 12:45 Completed Medications Generic Name Dose Route Start Last Admin Trade Name Freq PRN Reason Stop Dose Admin Sodium Chloride 1 syr 01/12/17 12:45 Saline Flush IVF PRN PRN To flush IV Discontinued Medications Generic Name Dose Route Start Last Admin Trade Name Freq PRN Reason Stop Dose Admin Piperacillin Sod/Tazobactam 100 mls @ 100 mls/hr 01/12/17 12:46 01/12/17 13: 52 Sod 2.25 gm/ Sodium Chloride IV 01/12/17 13:45 100 mls/hr ONCE STA Administration Vital Signs: Temp Pulse Resp BP Pulse Ox 01/12/17 13:06 98.6 F 72 22 131/111 H 96 Departure - Departure Time of Disposition: 14:51 Disposition: ADMITTED INPATIENT Discharge Problem: Hyponatremia Pneumonia Qualifiers: Pneumonia type: due to unspecified organism Laterality: bilateral Lung location : lower lobe of lung Qualified Code(s): J18.9 - Pneumonia, unspecified organism Acute respiratory failure Qualifiers: Respiratory failure complication: hypoxia Qualified Code(s): J96.01 - Acute respiratory failure with hypoxia Instructions: Pneumonitis (ED) Condition: Stable Pt referred to PMD for follow-up: Yes Allergies/Adverse Reactions: Allergies quinine Allergy (Verified 01/12/17 13:13) BEEN SO LONG AGO, CANT REMEMBER REACTION Home Medications: Ambulatory Orders Oxcarbazepine [Trileptal] 150 mg PO DAILY 10/03/16 Ropinirole HCl [Requip] 1 mg PO BID #30 tablet 10/11/16 Losartan Potassium 25 mg PO BID #60 tab-cap 10/22/16 Oxcarbazepine [Trileptal] 300 mg PO BEDTIME 11/13/16 Alprazolam [Xanax] 0.25 mg PO BID #60 tablet 11/25/16 Levothyroxine Sodium [Synthroid] 100 mcg PO QDAC #30 tablet 11/25/16 Amlodipine Besylate 5 mg PO DAILY #30 tablet 12/04/16 Clopidogrel Bisulfate [Plavix] 75 mg PO DAILY #30 tablet 12/04/16 Acetaminophen with Codeine [Tylenol #3 Tab] 1 tab PO Q4H PRN #20 tablet Albuterol Sulfate [Proair Hfa] 2 puff IH Q4H PRN #1 inhaler 01/04/17 Amoxicillin/Potassium Clav [Augmentin 875-125 mg Tab] 1 tab PO BID #20 tablet Disposition Discussed With: Patient, Family
[2017-01-12] MEDS ORDERED: BUMEX IVP STA (14:54)
[2017-01-12] MEDS ORDERED: PROAIR HFA IH PRN (14:55)
[2017-01-12] MEDS ORDERED: TYLENOL #3 TAB PO PRN (14:55)
[2017-01-12] MEDS ORDERED: LYRICA ONE ×2 (17:52→21:26)
[2017-01-12] MEDS: NON-FORMULARY MEDICATION (Pregabalin [Lyrica] 100 MG) PO SCH ×2 (18:10→21:38)
[2017-01-12 19:25] VITALS: BMI 41.4
[2017-01-12] MEDS ORDERED: NON-FORMULARY MEDICATION (Carvedilol [Coreg] 25 MG) PO SCH ×22 (21:00)
[2017-01-12] MEDS ORDERED: NON-FORMULARY MEDICATION (Ferrous Sulfate [Ferrous Sulfate] 325 MG) PO SCH ×22 (21:00)
[2017-01-12] MEDS ORDERED: NON-FORMULARY MEDICATION (Oxcarbazepine 300 MG) PO SCH (21:00)
[2017-01-12] MEDS ORDERED: ZOSYN 3.375 GM 3.375 GM in SODIUM CHLORIDE 100 ML IV SCH (21:00)
[2017-01-12] MEDS ORDERED: PEPCID PO SCH (21:00)
[2017-01-12] MEDS ORDERED: FERROUS SULFATE ONE (21:25)
[2017-01-12] MEDS ORDERED: COREG ONE (21:25)
[2017-01-12] MEDS: XANAX PO SCH (21:34)
[2017-01-12] MEDS: REQUIP PO SCH (21:34)
[2017-01-12] MEDS: COZAAR PO SCH (21:34)
[2017-01-12] MEDS: SYMBICORT 80-4.5 MCG INHALER IH SCH (21:34)
[2017-01-12] MEDS: LIPITOR PO SCH (21:34)
[2017-01-12] MEDS: XOPENEX 0.63 MG NEB SCH (22:45)
[2017-01-13 05:06] LABS: BASOPHILS % (AUTO) 0.5 % (0.0-3.0); EOSINOPHILS # (AUTO) 0.2 K/ul (0.0-0.7); EOSINOPHILS % (AUTO) 3.4 % (0.0-7.0); HEMATOCRIT 28.2 % (37.0-47.0); IMMATURE GRANULOCYTE % (AUTO) 2.4 % (0.0-5.0); LYMPHOCYTES # (AUTO) 1.3 K/uL (0.60-3.4); LYMPHOCYTES % (AUTO) 20.6 (10.0-50.0); MEAN CORPUSCULAR HEMOGLOBIN 29.9 pg (27.0-31.0); MEAN CORPUSCULAR HGB CONC 35.5 (31.8-35.4); MEAN CORPUSCULAR VOLUME 84.4 fl (81.0-99.0); MONOCYTES # (AUTO) 0.6 K/uL (0.4-2.0); MONOCYTES % (AUTO) 9.2 (0-10); NEUTROPHILS % (AUTO) 63.9; PLATELET COUNT 197 10^3/uL (140-440); RED BLOOD COUNT 3.34 10^6/ul (4.20-5.40); WHITE BLOOD COUNT 6.22 K/ul (4.6-10.2)
[2017-01-13] MEDS: XOPENEX 0.63 MG NEB SCH ×3 (05:09→22:51)
[2017-01-13 05:38] LABS: ALBUMIN 3.3 g/dL (3.4-5.0); ALBUMIN/GLOBULIN RATIO 0.94; ANION GAP 14.1; BILIRUBIN,TOTAL 0.41 mg/dL (0.00-1.20); BUN/CREATININE RATIO 19.69; CREATININE 1.32 mg/dL (0.60-1.30); POTASSIUM 4.1 mmol/L (3.5-5.10); TOTAL PROTEIN 6.8 g/dL (5.8-8.1)
[2017-01-13] MEDS: SYNTHROID PO SCH (06:15)
[2017-01-13] MEDS: SYMBICORT 80-4.5 MCG INHALER IH SCH ×2 (08:29→20:41)
[2017-01-13] MEDS: TRILEPTAL PO SCH ×2 (08:30→20:39)
[2017-01-13] MEDS: COREG PO SCH ×2 (08:30→16:49)
[2017-01-13] MEDS: NORVASC PO SCH (08:30)
[2017-01-13] MEDS: CORDARONE PO SCH (08:30)
[2017-01-13] MEDS: FERROUS SULFATE PO SCH ×2 (08:30→20:39)
[2017-01-13] MEDS: PLAVIX PO SCH (08:30)
[2017-01-13] MEDS: REQUIP PO SCH ×2 (08:30→20:39)
[2017-01-13] MEDS: COZAAR PO SCH ×2 (08:30→20:39)
[2017-01-13] MEDS: LYRICA PO SCH ×3 (08:42→20:37)
[2017-01-13] MEDS: XANAX PO SCH ×2 (08:42→20:39)
[2017-01-13] MEDS ORDERED: VANCOMYCIN 1 GM in SODIUM CHLORIDE 250 ML IV SCH (09:00)
[2017-01-13] MEDS ORDERED: LOVENOX SUBCUT SCH (09:00)
[2017-01-13] MEDS ORDERED: NON-FORMULARY MEDICATION (Oxcarbazepine 150 MG) PO SCH (09:00)
[2017-01-13] MEDS: DOXY-100 100 MG in SODIUM CHLORIDE 250 ML IV SCH ×2 (13:00→22:11)
[2017-01-13] MEDS: MUCINEX PO SCH ×2 (14:44→20:41)
[2017-01-13] MEDS: LIPITOR PO SCH (20:37)
[2017-01-13] MEDS: ROCEPHIN 1 GM in SODIUM CHLORIDE 50 ML IV SCH (20:41)
[2017-01-14 05:07] LABS: BASOPHILS % (AUTO) 0.4 % (0.0-3.0); EOSINOPHILS # (AUTO) 0.2 K/ul (0.0-0.7); EOSINOPHILS % (AUTO) 3.7 % (0.0-7.0); HEMATOCRIT 25.2 % (37.0-47.0); HEMOGLOBIN 8.7 g/dl (12.0-16.0); IMMATURE GRANULOCYTE % (AUTO) 2.6 % (0.0-5.0); LYMPHOCYTES # (AUTO) 1.4 K/uL (0.60-3.4); LYMPHOCYTES % (AUTO) 29.8 (10.0-50.0); MEAN CORPUSCULAR HEMOGLOBIN 29.9 pg (27.0-31.0); MEAN CORPUSCULAR HGB CONC 34.5 (31.8-35.4); MEAN CORPUSCULAR VOLUME 86.6 fl (81.0-99.0); MONOCYTES # (AUTO) 0.4 K/uL (0.4-2.0); MONOCYTES % (AUTO) 9.6 (0-10); NEUTROPHILS # (AUTO) 2.5 K/ul (2.0-6.9); NEUTROPHILS % (AUTO) 53.9; PLATELET COUNT 158 10^3/uL (140-440); RED BLOOD COUNT 2.91 10^6/ul (4.20-5.40); WHITE BLOOD COUNT 4.59 K/ul (4.6-10.2)
[2017-01-14] MEDS: XOPENEX 0.63 MG NEB SCH ×3 (05:30→22:43)
[2017-01-14 05:36] LABS: ALBUMIN 2.9 g/dL (3.4-5.0); ALBUMIN/GLOBULIN RATIO 0.97; ANION GAP 13.1; BILIRUBIN,TOTAL 0.25 mg/dL (0.00-1.20); BUN/CREATININE RATIO 21.55; CALCIUM 8.5 mg/dL (8.2-10.2); CREATININE 1.16 mg/dL (0.60-1.30); POTASSIUM 4.1 mmol/L (3.5-5.10); TOTAL PROTEIN 5.9 g/dL (5.8-8.1)
[2017-01-14] MEDS: SYNTHROID PO SCH (05:39)
[2017-01-14] MEDS: COREG PO SCH ×2 (08:33→17:12)
[2017-01-14] MEDS: PLAVIX PO SCH (08:33)
[2017-01-14] MEDS: REQUIP PO SCH ×2 (08:33→20:39)
[2017-01-14] MEDS: TRILEPTAL PO SCH ×2 (08:33→20:39)
[2017-01-14] MEDS: DOXY-100 100 MG in SODIUM CHLORIDE 250 ML IV SCH ×2 (08:33→21:28)
[2017-01-14] MEDS: FERROUS SULFATE PO SCH ×2 (08:33→20:40)
[2017-01-14] MEDS: MUCINEX PO SCH ×2 (08:33→20:39)
[2017-01-14] MEDS: XANAX PO SCH ×2 (08:33→20:39)
[2017-01-14] MEDS: LYRICA PO SCH ×3 (08:34→20:40)
[2017-01-14] MEDS: COZAAR PO SCH ×2 (08:34→20:40)
[2017-01-14] MEDS: NORVASC PO SCH (08:34)
[2017-01-14] MEDS: CORDARONE PO SCH (08:34)
[2017-01-14] MEDS: SYMBICORT 80-4.5 MCG INHALER IH SCH ×2 (08:37→20:40)
[2017-01-14] MEDS ORDERED: ALDACTONE PO SCH (09:00)
--- NOTE | 2017-01-14 13:08 | HP ---
CHIEF COMPLAINT: Cough persistent HISTORY OF PRESENT ILLNESS: The patient had been coughing but no chills or fever. The cough is productive and was seen at the emergency room 01/04/17 and was prescribed Augmentin twice a day. The daughter claimed that the patient is not any better although she was no cyanotic and brought the daughter to the emergency room. She was evaluated by Dr. Saul and the patient was subsequently admitted with the diagnosis of pneumonia. Her diagnosis was based upon the CT scan of the chest without contrast showing mild left greater than right bibasilar lung infiltrate suspicious of pneumonia. This patient had not felt chills or fever. The patient has cardiomegaly. Blood culture was obtained but no sputum culture. The patient received Vancomycin 1 gram in the emergency room as well as Zosyn. Both of these medications were ordered to continue. Initial CBC showed normal WBC of 5, 840, hgb 10, hct 28 and the atrial blood gasses at room air FiO2 21, oxygen saturation 93, pH 7.447, pCO2 43.6. pO2 65, bicarb 29.4 upper normal 26, sodium 119, chloride 80, potassium normal 4.6. BUN 30, creatinine 1.43 and EGFR 35. Blood sugar 135, lactic acid 6.0 and troponin normal. BNP slightly elevated 206 , procalcitonin less than 0.005. Influenza A rapid is negative and B negative. PAST PERSONAL HISTORY: The patient has mastoid surgery and has hearing loss. 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 History of restless leg syndrome. History of congestive heart failure and cardiomegaly. History of DVT. History of cholecystectomy and tubal ligation. History of osteoarthritis involving hands and knees. The patient also has hypothyroidism, cardiac arrhythmia on medication , carpel tunnel surgery bilateral, surgery to the knees bilateral. FAMILY HISTORY: Sister has heart disease Brother had gastric carcinoma Mother was hypertensive Father had heart disease SOCIAL HISTORY: The patient is and resides now at [facility]. She was residing with her daughter and she decided to stay in the residential after she was there for rehabilitation. She never did smoke and she does not drink any alcoholic beverages. MEDICATIONS: Symbicort 84/4.5 one puff twice a day Aldactone 25mg every other day Lyrica 100 mg capsule three times a day Lipitor 10mg tablet near bedtime Trileptal 150mg tablet daily Ropinirole 1mg PO twice a day Losartan 25mg twice a day Pepcid 20mg twice a day Amiodarone 200mg tablet daily Carvedilol 25mg twice a day Ferrous Sulfate 325mg twice a day Trileptal 300mg at bedtime Xanax 25mg twice a day Levothyroxine 100mcg daily Lasix 40mg daily Plavix 75mg daily Amlodipine 5mg tablet daily Amoxicillin/Potassium Clavulanate twice a day #20 Tylenol #3 one Q 4 hours for pain Albuterol hfa two puffs every four hours as needed ALLERGIES: Quinine REVIEW OF SYSTEMS: CONSTITUTIONAL: The patient is alert. No chills and no fever. Some fatigue. 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 No syncopal episode VISUAL: Denies any diplopia, blurred vision or transient loss of vision. AUDITORY: The patient is hard of hearing and had previous mastoid surgery when she was a child. RESPIRATORY: The patient has cough non-productive but no tachypnea or dyspnea and no cyanosis. CARDIOVASCULAR: Denies any chest pain or chest oppression. GASTROINTESTINAL: The patient has no nausea, anorexia or diarrhea. GENITOURINARY: The patient denies any burning on urination but does have incontinence MUSCULOSKELETAL: The patient does have pain but tolerable in the knees ENDOCRINE: The patient has hypothyroidism on replacement therapy INTEGUMENT: Denies any rash or pleuritis HEMATOLOGIC: No history of prolonged bleeding or easy bruising. PSYCHIATRIC: Affect is normal. PHYSICAL EXAMINATION: GENERAL: The patient is an 81 year old female admitted to the hospital because of cough that is persistent and productive in spite of Augmentin for the last week. CT scan of the chest without contrast showed some infiltrates less on the left than the right, possible pneumonia. The patient had never had a fever and no chills. CBC showed normal WBC and differential. HEAD: Unremarkable FACE: Symmetrical and equal with no facial weakness in the redness and no cyanosis. No tenderness in the frontal maxillary sinus areas to palpation under pressure. EYES: Pupils equal/reactive to light. Conjunctivae not pale. Sclerae not icteric. MOUTH: Unremarkable THROAT: No inflammation, tumors or exudate. NECK: No masses. No bruit. No tenderness. No rigidity. CHEST: Essentially symmetrical and equal with good expansion. LUNGS: Breath sounds are diminished on both sides. The patient has more on right compared to the left. HEART: Audible and regular with good tones. No murmurs. ABDOMEN: Protuberant, soft with no remarkable tenderness. No guarding. Bowel sounds are active and no masses palpable. EXTERNAL GENITALIA: Not examined RECTAL: Not performed LOWER EXTREMITIES: Essentially symmetrical and equal. Edematous UPPER EXTREMITIES: Symmetrical and equal. ASSESSMENT: 1. Pneumonitis, probably atypical 2. Chronic kidney disease stage 3 3. Moderate anemia 4. Cardiac arrhythmia on medication 5. Hypertension 6. History of restless leg syndrome 7. History of anxiety 8. Elevated BMI 41.5 9. Hypernatremia 10.Hyperchloremia PLAN: 1. Discontinue Zosyn. We will review the Vancomycin tomorrow and probably discontinue. Combination of Vancomycin plus Zosyn has increased incidence of acute kidney injury but this combination. 2. This patient could be given medications consisting of Avelox or Zithromax because of the arrhythmias in the presence of antiarrhythmic medication. 3. Another antibiotic will be considered tomorrow. MTDD
--- NOTE | 2017-01-14 13:29 | RS.PTINEVL ---
Subjective - Patient information Date of Evaluation: 01/14/17 Date of Arrival on Unit: 01/12/17 Admitted From:: Residential Usual Living Arrangement: Residential Living Arrangement Comments: pt currently in [place] for therapy. pt states she is staying at [place] for the winter and hopes in spring she will be strong enough to go home. Medical History: Hypertension, CVA/TIA, Diabetes, CHF, Arthritis Medical History Comments:: hypothyroid, CAD, Chronic kidney disease, LATEX ALLERGY?: No Surgical History: Knee Replacement Subjective Information/ Patient Comments:: pt states she is worried she won't be able to walk. pt states we should bring w/c behind him. - Level of function Prior to this admission, the patient could do the following:: Partially Dependent Ambulation Abilities prior to this admission: pt amb with assist at the detention with PT. Current Level of Function: Partially Dependent Current Equipment Used at Home: pt amb with rwx in the detention,also has w/c Interventions - Objective Patient Orientation: Person, Place, Time, Situation Current Interventions: IV's, Oxygen, Telemetry Range of Motion - ROM Right Upper Extremity AROM: WFL's Left Upper Extremity AROM: WFL's Right Lower Extremity AROM: WFL's Left Lower Extremity AROM: WFL's Muscle Strength - Muscle Strength Right Upper Extremity Strength: Mild Weakness (RUE shld flex 3+/5, elbow flex/ ext 4-/5) Left Upper Extremity Strength: Mild Weakness (shld flex 3+/5, elbow flex/ext 4-/ 5) Right Lower Extremity Strength: Mild Weakness (RLE hip flex 3+/5, knee flex/ext 4-/5, ankle DF/PF 4-/5) Left Lower Extremity Strength: Mild Weakness (hip flex 3+/5, knee flex/ext 4-/5 , ankle DF/PF 4-/5) Sensation - Sensation Right Upper Extremity Sensation: Intact/Normal Left Upper Extremity Sensation: Intact/Normal Right Lower Extremity Sensation: Intact/Normal Left Lower Extremity Sensation: Intact/Normal Balance - Sitting Balance and Reactions Static Sitting Balance: Good Dynamic Sitting Balance: Fair Sitting Equilibrium Reactions: Delayed Left, Delayed Right Sitting Protective Reactions: Delayed Left, Delayed Right - Standing Balance and Reactions Static Standing Balance: Fair Dynamic Standing Balance: Poor Standing Equilibrium Reactions: Delayed Left, Delayed Right Standing Protective Reactions: Delayed Left, Delayed Right - Comments Balance Assessment Comments: TUG > 50 secs Functional Mobility - Bed Mobility Comments:: pt seen up in recliner did not wish to go back to bed. - Transfers Sit to Stand: Min Assist Stand to Sit: Min Assist - Safety Awareness Safety Awareness: Fair Ambulation - Ambulation Assistive Device Used: Rolling Walker Orthotic/Prosthetic Device: No Distance: 25ft Assistance needed with Ambulation: Min Assist Gait Deviations: Forward posture, Short stride Ambulation Comments: pt amb with flexed posture, decreased step length Factors Affecting Ambulation: Decreased Balance, Weakness, Decreased Coordination, Decreased Safety, Limited Endurance Treatment time - Time with patient Total treatment time: 29 Patient Education - Education Patient Education: Home Safety, Education of Plan of Care Teaching Recipient: Patient Teaching Methods: Discussion, Demonstration Comments: Discussion regarding POC as well as fall safety. Assessment - Assessment Problem List:: Decreased level of function, Requires training/education, Decreased safety/Risk of falls, Weakness Rehab Potential: Good Further Therapy Indicated?: Yes Short Term Goals GOAL #1: pt transfer sup to/from sit to/from stand CGA Goal to be met by: 01/16/17 GOAL #2: pt amb with rwx 50ft with CGA with no LOB, with no rest periods. Goal to be met by: 01/16/17 GOAL #3: pt demonstrate ability to reposition self/bed for pressure relief/ comfort Goal to be met by: 01/16/17 Senior Care Goals GOAL #1: pt transfer sup to/from sit to/from stand with SBA Goal to be met by: 01/18/17 GOAL #2: pt amb 100ft with rwx with no LOB with SBA with no rest period. Goal to be met by: 01/18/17 GOAL #3: pt demonstrate improved dyn stand balance as noted by TUG <45 secs Goal to be met by: 01/18/17 Plan Plan of Care: Therapeutic EX, Therapeutic Activity, Self-Care/Home Management Other:: gait training Frequency of Treatment: 1-2 X day, as tolerated Duration of Treatment: 4 days Anticipated Discharge Destination: [facility]
[2017-01-14] MEDS: ROCEPHIN 1 GM in SODIUM CHLORIDE 50 ML IV SCH (20:36)
[2017-01-14] MEDS: LIPITOR PO SCH (20:40)
[2017-01-15] MEDS: XOPENEX 0.63 MG NEB SCH ×2 (05:19→14:06)
[2017-01-15 05:25] LABS: BASOPHILS % (AUTO) 0.4 % (0.0-3.0); EOSINOPHILS # (AUTO) 0.2 K/ul (0.0-0.7); EOSINOPHILS % (AUTO) 2.8 % (0.0-7.0); HEMATOCRIT 26.7 % (37.0-47.0); HEMOGLOBIN 9.2 g/dl (12.0-16.0); IMMATURE GRANULOCYTE % (AUTO) 2.1 % (0.0-5.0); LYMPHOCYTES # (AUTO) 1.2 K/uL (0.60-3.4); LYMPHOCYTES % (AUTO) 21.8 (10.0-50.0); MEAN CORPUSCULAR HEMOGLOBIN 29.7 pg (27.0-31.0); MEAN CORPUSCULAR HGB CONC 34.5 (31.8-35.4); MEAN CORPUSCULAR VOLUME 86.1 fl (81.0-99.0); MONOCYTES # (AUTO) 0.4 K/uL (0.4-2.0); MONOCYTES % (AUTO) 7.3 (0-10); NEUTROPHILS # (AUTO) 3.7 K/ul (2.0-6.9); NEUTROPHILS % (AUTO) 65.6; PLATELET COUNT 177 10^3/uL (140-440); WHITE BLOOD COUNT 5.65 K/ul (4.6-10.2)
[2017-01-15 06:05] LABS: ALBUMIN 2.9 g/dL (3.4-5.0); ALBUMIN/GLOBULIN RATIO 0.94; ANION GAP 13.8; BILIRUBIN,TOTAL 0.21 mg/dL (0.00-1.20); BUN/CREATININE RATIO 19.6; CALCIUM 8.8 mg/dL (8.2-10.2); CREATININE 1.02 mg/dL (0.60-1.30); POTASSIUM 4.8 mmol/L (3.5-5.10)
[2017-01-15] MEDS: SYNTHROID PO SCH (06:07)
[2017-01-15] MEDS: SYMBICORT 80-4.5 MCG INHALER IH SCH (08:53)
[2017-01-15] MEDS: DOXY-100 100 MG in SODIUM CHLORIDE 250 ML IV SCH (08:53)
[2017-01-15] MEDS: COZAAR PO SCH (08:54)
[2017-01-15] MEDS: COREG PO SCH (08:54)
[2017-01-15] MEDS: TRILEPTAL PO SCH (08:54)
[2017-01-15] MEDS: NORVASC PO SCH (08:54)
[2017-01-15] MEDS: CORDARONE PO SCH (08:54)
[2017-01-15] MEDS: FERROUS SULFATE PO SCH (08:54)
[2017-01-15] MEDS: XANAX PO SCH (08:54)
[2017-01-15] MEDS: MUCINEX PO SCH (08:54)
[2017-01-15] MEDS: REQUIP PO SCH (08:55)
[2017-01-15] MEDS: PLAVIX PO SCH (08:55)
[2017-01-15] MEDS: LYRICA PO SCH ×2 (09:04→15:12)
[2017-01-15 09:42] VITALS: TEMP 97.4
--- NOTE | 2017-01-15 09:53 | DI ---
EXAM: CHEST FRONTAL AND LATERAL VIEWS HISTORY: Cough and shortness of breath. COMPARISON: 01/04/2017 FINDINGS: Mild cardiomegaly is stable. Moderate atherosclerotic disease. There is diffuse, chronic appearing interstitial accentuation. No acute infiltrates are seen. No vascular congestion. There is no consolidation, visible pleural fluid or pneumothorax. Bones reveal no acute fracture. IMPRESSION: No acute cardiopulmonary process.
[2017-01-15 14:59] VITALS: BP 135/58
[2017-01-15 19:14] LABS: CHLAMYDIA PNEUMONIAE IGG <1:16 (Neg:<1:16); CHLAMYDIA PNEUMONIAE IGM <1:10 (Neg:<1:10)
--- NOTE | 2017-03-18 13:06 | PN ---
DATE OF SERVICE: 01/13/17 SUBJECTIVE: The patient is still weak and tired with some coughing. Otherwise, no fever, chills, PND or orthopnea. REVIEW OF SYSTEMS: CONSTITUTIONAL: Weak and tired. No fever, no chills. HEENT: Normal. ENDOCRINE: No weight gain, no weight loss. CVS: No angina symptoms. No CHF symptoms. No palpitations. No atypical chest pain for CAD. No shortness of breath. No PND, no orthopnea. RESPIRATORY: Cough, no hemoptysis. GI: No nausea, no vomiting. No abdominal pain. : No hematuria. No polyuria. MUSCULOSKELETAL:. No joint swelling. PSYCHIATRIC: Not anxious. No depression. No suicidal thoughts. No homicidal thoughts. SKIN: Intact. No rash. PHYSICAL EXAMINATION: V/S: Blood pressure 150/71, respiratory rate 20, heart rate 88, temperature is 97.5, saturation 98. HEENT: Normocephalic, atraumatic. Mucosa dry. Pallor positive. No icterus. NECK: Supple. No JVD, no carotid bruit. No lymphadenopathy. LUNGS: Decreased basilar crackles. No rales or rhonchi. HEART: S1, S2 normal. No S3. No murmur, gallop or regurgitation. ABDOMEN: Soft, nontender. Bowel sounds active. No rigidity. No rebound or guarding. No CVA tenderness. EXTREMITIES: No clubbing, cyanosis or 1+ pedal edema. MUSCULOSKELETAL: No joint swelling. NEUROLOGIC: Awake, alert, oriented times three. No focal deficit. LYMPHATIC: No lymph nodes palpable. SKIN: Intact and dry. LABS: White count 6.2, hemoglobin 10.1, hematocrit 28.2, platelet count 197, sodium 121, potassium 4.1, chloride 82, bicarb 29, BUN 26, creatinine 1.32, glucose 108. ASSESSMENT: 1. PNEUMONIA 2. HYPONATREMIA 3. CORONARY ARTERY DISEASE 4. HYPERTENSION 5. CONGESTIVE HEART FAILURE 6. CHRONIC KIDNEY DISEASE 7. ANEMIA 8. HISTORY OF TIA 9. RESTLESS LEG SYNDROME 10. HYPOTHYROIDISM 11. ARTHRITIS 12. BILATERAL TKR PLAN: 1. Continue Vancomycin treatment for the health care facility acquired pneumonia. 2. Xopenex. 3. Fluid restriction. 4. Zosyn. 5. Bumex. 6. Quantitative influenza A and B. Time spent on the patient is more than 35 minutes today. [facility]
--- NOTE | 2017-03-18 13:23 | PN ---
DATE OF SERVICE: 01/14/17 SUBJECTIVE: The patient was admitted with pneumonia and severe hyponatremia mostly from the diuretic use. The patient is weak, tired and coughing. It looks like she is a little bit more weaker than when she came to the hospital. She is still having cough. Sputum cultures have been done. REVIEW OF SYSTEMS: CONSTITUTIONAL: Weak. No fever, no chills. HEENT: Normal. ENDOCRINE: No weight gain, no weight loss. CVS: No angina symptoms. No CHF symptoms. No palpitations. No atypical chest pain for CAD. No shortness of breath. No PND, no orthopnea. RESPIRATORY: NCough, no hemoptysis. GI: No nausea, no vomiting. No abdominal pain. : No hematuria. No polyuria. MUSCULOSKELETAL:. No joint swelling. PSYCHIATRIC: Not anxious. No depression. No suicidal thoughts. No homicidal thoughts. SKIN: Intact. No rash. PHYSICAL EXAMINATION: V/S: Blood pressure 152/74, respiratory rate 17, heart rate 60, temperature 97.4 , saturation 97. HEENT: Normocephalic, atraumatic. Mucosa dry. Pallor positive. No icterus. NECK: Supple. No JVD, no carotid bruit. No lymphadenopathy. LUNGS: Decreased basilar crackles. No rales or rhonchi. HEART: S1, S2 normal. No S3. No murmur, gallop or regurgitation. ABDOMEN: Soft, nontender. Bowel sounds active. No rigidity. No rebound or guarding. No CVA tenderness. EXTREMITIES: No clubbing, cyanosis or pedal edema. MUSCULOSKELETAL: No joint swelling. NEUROLOGIC: Awake, alert, oriented times three. No focal deficit. LYMPHATIC: No lymph nodes palpable. SKIN: Intact. LABS: White count is 4.59, hemoglobin 8.7, hematocrit 25.2, platelet count 158 , sodium 124, potassium 4.1, chloride 85, bicarb 30, BUN 25, creatinine 1.16, glucose 87. ASSESSMENT: 1. HEALTH CARE FACILITY ACQUIRED PNEUMONIA 2. HYPONATREMIA, MOST LIKELY FROM DIURETIC USE. 3. CORONARY ARTERY DISEASE 4. CONGESTIVE HEART FAILURE. 5. CHRONIC KIDNEY DISEASE 6. HISTORY OF TIA 7. RESTLESS LEG SYNDROME 8. HYPOTHYROIDISM 9. BILATERAL TKR PLAN: 1. Continue the Zofran. 2. Zosyn has been stopped and the Rocephin is started. 3. Breathing treatment. 4. IV fluids. 5. Daily I & O's. Time spent on the patient is more than 35 minutes today. MTDD
--- NOTE | 2017-03-18 14:11 | DS ---
DATE OF SERVICE: 01/15/17 FINAL DIAGNOSIS: 1. HEALTH CARE FACILITY ACQUIRED PNEUMONIA 2. CONGESTIVE HEART FAILURE 3. ACUTE ON CHRONIC HEART FAILURE 4. DEPENDENT EDEMA 5. CHRONIC KIDNEY DISEASE 6. CORONARY ARTERY DISEASE 7. HISTORY OF RESTLESS LEG SYNDROME 8. HYPOTHYROIDISM 9. ARTHRITIS 10. BILATERAL TKR 11. HYPONATREMIA FROM THE DIURETICS PLAN: 1. Discharge the patient home. 2. Continue all home medications of Tylenol #3, ProAir, Xanax, Albuterol, Amlodipine,Atorvastatin, Symbicort, Coreg, Plavix, Famotidine, Ferrous Sulfate, Synthroid, Losartan, Trileptal,Lyrica, Aldactone. 3. New medications: Omnicef 300 mg twice a day for five days. Doxycycline 100 mg twice a day for seven days. 4. Continue fluid restriction. 5. Continue with activity as tolerated. Can participate in long-term activities. 6. Follow up with the long-term rounds with Dr. Aiken. 7. Follow up with Dr. Alegria for the out patient follow up. 8. Diet: Cardiac and healthy. DISEASE SPECIFIC EDUCATION: About the diuretic use, hyponatremia, congestive heart failure, chronic kidney disease has been discussed. She verbalized understanding. HOSPITAL COURSE: Constanza Ellison, who is Dr. Aiken's patient, was recently discharged from the hospital after an extensive stay and was under Dr. Aiken and also seen by Dr. Bustos. The patient had a Holter and echocardiograms. The patient went home and started having some coughing and feeling weak, tiredness, coughing and was sent back for evaluation at the emergency room. In the emergency room, the patient's hemoglobin was 10, sodium 119, BUN 30, creatinine 1.43. At that time, the patient is admitted to the hospital with symptomatic hyponatremia, pneumonia-health care facility acquired. She was started on Zosyn , IV fluids and breathing treatments. Gradually, the sodium came up to 119, 121 , 124, 126. Extremity edema was getting better. BUN and creatinine was increasing. BUN came down from 32 to 20. Creatinine came down from the 1.432 to 1.02. She still has some leg edema. Breathing treatments were helping her. BNP was 206. No echocardiogram was done on this admission as the patient recently had an echocardiogram with Dr. Bustos. As the patient was more awake and alert and was not having any problems at the time, the patient is being discharged to home. Time spent on the patient is more than 65 minutes today. DIANA
== END 2017-01-15 14:25 | disposition home or self-care (01) | DRG 193 ==
LOC: ED 12:41 → MEDSURG A 14:56
PROVIDERS: ADMIT General Practice; ATTEND General Practice
DX: J18.9 Pneumonia, unspecified organism (principal); J96.01 Acute respiratory failure with hypoxia; E87.1 Hypo-osmolality and hyponatremia; R06.2 Wheezing; I50.9 Heart failure, unspecified; R60.0 Localized edema; N18.9 Chronic kidney disease, unspecified; I25.10 Atherosclerotic heart disease of native coronary artery without angina pectoris; G25.81 Restless legs syndrome; E03.9 Hypothyroidism, unspecified; M19.90 Unspecified osteoarthritis, unspecified site; Y95 Nosocomial condition; Z79.02 Long term (current) use of antithrombotics/antiplatelets; Z79.899 Other long term (current) drug therapy; Z86.73 Personal history of transient ischemic attack (TIA), and cerebral infarction without residual deficits; Z96.653 Presence of artificial knee joint, bilateral
CPT/HCPCS: 36415; 80053; 82550; 82803; 83605; 83880; 84145; 84443; 84484; 85025; 86631; 86632; 86710; 86738; 87040; 87070; 87804; 93005; 93010; 94640; 96365; 99285

== ENCOUNTER → 2017-01-22 | Outpatient (POV) ==
[2012-09-27 08:19] VITALS: TEMP 97.2
[2017-01-12 19:25] VITALS: BMI 41.4
== END ==
LOC: OUTPT 00:01
PROVIDERS: ATTEND Otolaryngology
DX: H69.90 Unspecified Eustachian tube disorder, unspecified ear (principal)

== ENCOUNTER 2017-02-05 12:30 | Outpatient (CLI) | payer OTHER ==
[2012-09-27 08:19] VITALS: TEMP 97.2
== END 2017-02-05 12:31 | disposition home or self-care (01) ==
LOC: LAB 12:30
PROVIDERS: ATTEND General Practice
DX: L02.511 Cutaneous abscess of right hand (principal)
CPT/HCPCS: 87070

== ENCOUNTER → 2017-02-05 | Outpatient (POV) ==
[2012-09-27 08:19] VITALS: TEMP 97.2
[2017-01-12 19:25] VITALS: BMI 41.4
== END ==
LOC: OUTPT 00:01
PROVIDERS: ATTEND Otolaryngology
DX: H91.90 Unspecified hearing loss, unspecified ear (principal)
CPT/HCPCS: 92552; 92567

== ENCOUNTER 2017-03-18 17:55 | Emergency (ER) ==
[2017-03-18 18:00] VITALS: BP 173/92; TEMP 97.6; BMI 42.1
[2017-03-18 18:25] LABS: BASOPHILS % (AUTO) 0.7 % (0.0-3.0); EOSINOPHILS # (AUTO) 0.3 K/ul (0.0-0.7); EOSINOPHILS % (AUTO) 4.4 % (0.0-7.0); HEMATOCRIT 31.6 % (37.0-47.0); HEMOGLOBIN 10.8 g/dl (12.0-16.0); IMMATURE GRANULOCYTE % (AUTO) 0.7 % (0.0-5.0); LYMPHOCYTES # (AUTO) 1.5 K/uL (0.60-3.4); LYMPHOCYTES % (AUTO) 25.5 (10.0-50.0); MEAN CORPUSCULAR HEMOGLOBIN 29.6 pg (27.0-31.0); MEAN CORPUSCULAR HGB CONC 34.2 (31.8-35.4); MEAN CORPUSCULAR VOLUME 86.6 fl (81.0-99.0); MONOCYTES # (AUTO) 0.7 K/uL (0.4-2.0); MONOCYTES % (AUTO) 11.6 (0-10); NEUTROPHILS # (AUTO) 3.4 K/ul (2.0-6.9); NEUTROPHILS % (AUTO) 57.1; PLATELET COUNT 131 10^3/uL (140-440); RED BLOOD COUNT 3.65 10^6/ul (4.20-5.40); WHITE BLOOD COUNT 5.95 K/ul (4.6-10.2)
--- NOTE | 2017-03-18 18:28 | ED.PDOC ---
General Stated Complaint: cough Time Seen by Physician: 18:00 Mode of Arrival: Wheelchair Information Source: Patient, [facility] Exam Limitations: No limitations Nursing and Triage Documentation Reviewed and Agree: Yes (norespiratory distress ) <GOMEZ RONDON - Last Filed: 03/18/17 18:25> <KIM ARGUETA - Last Filed: 03/18/17 20:22> ED Provider: Dr. KIM ARGUETA Chief Complaint: Respiratory Complaint [facility] Respiratory Complaint Exam - Respiratory Complaint/Exam Onset/Duration: 2 days of cough/congestion Symptoms Are: Resolved Timing: Intermittent Initial Severity: Moderate Current Severity: Mild Location: Throat, Chest Character: Reports: Non-productive cough Aggravating: Reports: None Alleviating: Reports: None Associated Signs and Symptoms: Denies: Rapid breathing, Dyspnea, Fever, Chills, Chest pain, Pleuritic chest pain, Wheezing, Hemoptysis, Dizziness, Calf pain, Calf swelling, Edema, URI, Nasal congestion, Hoarseness, Sinus discomfort, Vomiting, Sore throat, Weight loss, Decreased oral intake, Increased thirst, Increased appetite, Increased urination Related History: Reports: Similar episode History of Healthcare-Acquired Pneumonia: Lives at long term Related Surgical History: Reports: None Pulmonary Embolism Risk Factors: Bedrest Cardiac Risk Factors: Reports: CAD, Hypertension, CHF Pseudomonas Risk Factors: Reports: None Tuberculosis Risk Factors: Reports: Communal living Status Asthmaticus Risk Factors: Reports: None Home Oxygen Use: No Recent Stress Test: No Recent Echo/LV Function: No Current Antibiotic Use: No Current Asthma Medication Use: No Respiratory Distress: None Inadequate Respiratory Effort: No Dysphagia Present: No Stridor Present: No JVD Present: No Accessory Muscle Use: No Retractions: Not Present Diminished Breath Sounds: No Sinus Tenderness: None Grunting Respirations: No Kussmaul Respirations: No Differential Diagnoses: CHF, Pneumonia, Bronchitis, Lower Resp. Infection <GOMEZ RONDON - Last Filed: 03/18/17 18:25> Review of Systems - Review Of Systems Constitutional: Reports: Malaise Eyes: Reports: No symptoms Ears, Nose, Mouth, Throat: Reports: No symptoms Respiratory: Reports: Cough Cardiac: Reports: No symptoms GI: Reports: No symptoms : Reports: No symptoms Musculoskeletal: Reports: No symptoms Skin: Reports: No symptoms Neurological: Reports: No symptoms Endocrine: Reports: No symptoms Hematologic/Lymphatic: Reports: No symptoms All Other Systems: Reviewed and Negative <GOMEZ RONDON - Last Filed: 03/18/17 18:25> Past Medical History - Past Medical History Previously Healthy: Yes Endocrine: Reports: DM 2, Hypothyroid (meds) Cardiovascular: Reports: CAD, Hypertension, CHF Respiratory: Reports: None Hematological: Reports: None Gastrointestinal: Reports: GERD (meds) Genitourinary: Reports: CKD Neuro/Psych: Reports: CVA Musculoskeletal: Reports: Arthritis Cancer: Reports: None Last Menstrual Period: n/a Other Pertinent Past Medical History: bilat. knee replacement. [ End ]htn dm - Surgical History General Surgical History: Reports: Cholecystectomy, Orthopedic ( knee replacement bilateral; carpal tunnel ), Other (mastoid surgeries x2) - Family History Family History: Reports: Unknown - Social History Smoking Status: Former smoker Hx Substance Use: No Alcohol Screening: None - Immunizations Influenza Vaccine within 12 Months: No Pneumococcal Vaccine up to Date: No <GOMEZ RONDON - Last Filed: 03/18/17 18:25> Physical Exam - Physical Exam Appearance: Ill-appearing Ill-appearing: Mild Pain Distress: Mild Eyes: ALEJANDRO, EOMI, Conjunctiva clear ENT: Ears normal, Nose normal, Oropharynx normal Respiratory: Rhonchi Cardiovascular: RRR, Pulses normal, No rub, No murmur GI/: Soft, Nontender, No masses, Bowel sounds normal, No Organomegaly Musculoskeletal: Normal strength, ROM intact, No edema, No calf tenderness Skin: Warm, Dry, Normal color Neurological: Sensation intact, Motor intact, Reflexes intact, Cranial nerves intact, Alert, Oriented Psychiatric: Affect appropriate, Mood appropriate <GOMEZ RONDON - Last Filed: 03/18/17 18:25> Interpretation - Radiology Interpretation Radiology Interpretation By: Radiologist Radiology Results: Positive Exam Interpreted: CT Scan <KIM ARGUETA - Last Filed: 03/18/17 20:22> Critical Care Note - Critical Care Note Total Time (mins): 0 <GOMEZ RONDON - Last Filed: 03/18/17 18:25> Course - Course Hematology/Chemistry: 03/18/17 18:21 03/18/17 18:21 <KIM ARGUETA - Last Filed: 03/18/17 20:22> - Course Orders, Labs, Meds: Lab Review 03/18/17 03/18/17 18:21 18:21 WBC 5.95 RBC 3.65 L Hgb 10.8 L Hct 31.6 L MCV 86.6 MCH 29.6 MCHC 34.2 RDW Coeff of Danae 14.7 Plt Count 131 L Immature Gran % (Auto) 0.7 Neut % (Auto) 57.1 Lymph % (Auto) 25.5 [place] % (Auto) 11.6 H Eos % (Auto) 4.4 Baso % (Auto) 0.7 Immature Gran # (Auto) 0.0 Neut # 3.4 Lymph # 1.5 [place]eman # 0.7 Eos # 0.3 Baso # 0.0 Sodium 129 L Potassium 4.5 Chloride 92 L Carbon Dioxide 25 Anion Gap 16.5 BUN 39 H Creatinine 2.02 H Estimated GFR (MDRD) 24.00 BUN/Creatinine Ratio 19.30 Glucose 108 Calcium 8.8 Total Bilirubin 0.49 AST 16 ALT 16 Alkaline Phosphatase 88 Total Protein 7.7 Albumin 3.8 Globulin 3.9 Albumin/Globulin Ratio 0.97 Orders Category Date Time Status BLOOD CULTURE (ED ONLY) Stat LAB 03/18/17 18:21 Received CBC W/ AUTO DIFF Stat LAB 03/18/17 18:21 Completed COMPREHENSIVE METABOLIC PANEL Stat LAB 03/18/17 18:[address] CHEST W/O CONTRAST Stat RADS 03/18/17 18:06 Completed Vital Signs: Temp Pulse Resp BP Pulse Ox 03/18/17 17:56 97.6 F 69 20 173/92 H 95 Departure - Departure Pt referred to PMD for follow-up: Yes Disposition Discussed With: Patient, Family <GOMEZ RONDON - Last Filed: 03/18/17 18:25> - Departure Time of Disposition: 20:22 <KIM ARGUETA - Last Filed: 03/18/17 20:22> - Departure Disposition: TSF OTHER Discharge Problem: Pneumonitis Instructions: Pneumonitis (ED) Condition: Good Additional Instructions: Please call your Family Physician as soon as possible to schedule a follow-up appointment. Keflex 500 po bid x 7 days Prednisone 10 po bid x 7 days Duonebs tid x 1 month Allergies/Adverse Reactions: Allergies quinine Allergy (Verified 03/18/17 18:06) BEEN SO LONG AGO, CANT REMEMBER REACTION Home Medications: Ambulatory Orders Oxcarbazepine [Trileptal] 150 mg PO DAILY 10/03/16 Ropinirole HCl [Requip] 1 mg PO BID #30 tablet 10/11/16 Losartan Potassium 25 mg PO BID #60 tab-cap 10/22/16 Oxcarbazepine [Trileptal] 300 mg PO BEDTIME 11/13/16 Levothyroxine Sodium [Synthroid] 100 mcg PO QDAC #30 tablet 11/25/16 Amlodipine Besylate 5 mg PO DAILY #30 tablet 12/04/16 Clopidogrel Bisulfate [Plavix] 75 mg PO DAILY #30 tablet 12/04/16 Acetaminophen with Codeine [Tylenol #3 Tab] 1 tab PO Q4H PRN #20 tablet Albuterol Sulfate [Proair Hfa] 2 puff IH Q4H PRN #1 inhaler 01/04/17
[2017-03-18 18:42] LABS: ALBUMIN 3.8 g/dL (3.4-5.0); ALBUMIN/GLOBULIN RATIO 0.97; ANION GAP 16.5; BILIRUBIN,TOTAL 0.49 mg/dL (0.00-1.20); BUN/CREATININE RATIO 19.3; CALCIUM 8.8 mg/dL (8.2-10.2); CREATININE 2.02 mg/dL (0.60-1.30); POTASSIUM 4.5 mmol/L (3.5-5.10); TOTAL PROTEIN 7.7 g/dL (5.8-8.1)
--- NOTE | 2017-03-18 18:59 | CT ---
Exam: CT of the chest without contrast History: Cough Technique: [address] of the chest without intravascular contrast FINDINGS: The lung windows show patchy right upper lobe ground-glass infiltrate. No consolidative o pacities. Atherosclerotic calcification of the aorta without aneurysm. Atherosclerotic calcificatio n of the coronary arteries. No pathologic lymph node enlargement or abundance. No acute findings of the chest wall soft tissues or bony thorax. No acute findings of the upper abdomen. Stable left ad renal nodule compared with 01/12/2017. Impression: 1. Right upper lobe patchy ground-glass infiltrates are nonspecific but most likely represent infect ious pneumonitis. 2. No acute findings of the chest otherwise.
== END 2017-03-18 20:30 | disposition short-term general hospital (02) ==
LOC: ED 17:55
DX: J18.9 Pneumonia, unspecified organism (principal); I10 Essential (primary) hypertension; I25.10 Atherosclerotic heart disease of native coronary artery without angina pectoris; E11.9 Type 2 diabetes mellitus without complications; I50.9 Heart failure, unspecified; E03.9 Hypothyroidism, unspecified; N18.9 Chronic kidney disease, unspecified; K21.9 Gastro-esophageal reflux disease without esophagitis; Z79.899 Other long term (current) drug therapy; Z86.73 Personal history of transient ischemic attack (TIA), and cerebral infarction without residual deficits
CPT/HCPCS: 36415; 80053; 85025; 87040; 99283

== ENCOUNTER 2017-04-01 11:51 | Outpatient (CLI) ==
[2012-09-27 08:19] VITALS: TEMP 97.2
== END 2017-04-01 11:52 | disposition home or self-care (01) ==
LOC: AMBL 11:51
PROVIDERS: ATTEND Internal Medicine
DX: R05 Cough (principal); R09.89 Other specified symptoms and signs involving the circulatory and respiratory systems; J44.9 Chronic obstructive pulmonary disease, unspecified; Z87.01 Personal history of pneumonia (recurrent)

== ENCOUNTER 2017-04-08 17:43 | Outpatient (CLI) ==
[2012-09-27 08:19] VITALS: TEMP 97.2
== END 2017-04-08 17:44 | disposition home or self-care (01) ==
LOC: NONPT 17:43
PROVIDERS: ATTEND General Practice
DX: N39.0 Urinary tract infection, site not specified (principal)
CPT/HCPCS: 81001

== ENCOUNTER 2017-04-29 17:23 | Emergency (ER) ==
[2017-04-29 17:36] VITALS: BP 132/87; TEMP 96.7; BMI 42.7
--- NOTE | 2017-04-29 17:44 | ED.PDOC ---
General ED Provider: Dr. GOMEZ RONDON Chief Complaint: Extremity Swelling/Pain Mode of Arrival: Wheelchair Information Source: Patient, Assisted [facility] Sepsis Protocol: For patient's 13 years and over: Temp is 96.8 and below OR 101 and greater Pulse >90 BPM Resp >20/minute Acutely Altered Mental Status Are patient's symptoms suggestive of a new infection, such as: -Pneumonia -Skin, Soft Tissue -Endocarditis -UTI -Bone, Joint Infection -Implantable Device -Acute Abdominal Infection -Wound Infection -Meningitis -Blood Stream Catheter Infection -Unknown Past Medical History - Past Medical History Previously Healthy: Yes Endocrine: Reports: DM 2, Hypothyroid (meds) Cardiovascular: Reports: CAD, Hypertension, CHF Respiratory: Reports: None Hematological: Reports: None Gastrointestinal: Reports: GERD (meds) Genitourinary: Reports: CKD Neuro/Psych: Reports: CVA Musculoskeletal: Reports: Arthritis Cancer: Reports: None Last Menstrual Period: n/a Other Pertinent Past Medical History: bilat. knee replacement. [ End ]htn dm - Surgical History General Surgical History: Reports: Cholecystectomy, Orthopedic ( knee replacement bilateral; carpal tunnel ), Other (mastoid surgeries x2) - Family History Family History: Reports: Unknown - Social History Smoking Status: Former smoker Hx Substance Use: No Alcohol Screening: None - Immunizations Influenza Vaccine within 12 Months: No Pneumococcal Vaccine up to Date: No Course - Course Vital Signs: Temp Pulse Resp BP Pulse Ox 04/29/17 17:31 96.7 F L 63 20 132/87 94 L Departure - Departure Allergies/Adverse Reactions: Allergies quinine Allergy (Verified 03/18/17 18:06) BEEN SO LONG AGO, CANT REMEMBER REACTION Home Medications: Ambulatory Orders Oxcarbazepine [Trileptal] 150 mg PO DAILY 10/03/16 Ropinirole HCl [Requip] 1 mg PO BID #30 tablet 10/11/16 Losartan Potassium 25 mg PO BID #60 tab-cap 10/22/16 Oxcarbazepine [Trileptal] 300 mg PO BEDTIME 11/13/16 Levothyroxine Sodium [Synthroid] 100 mcg PO QDAC #30 tablet 11/25/16 Amlodipine Besylate 5 mg PO DAILY #30 tablet 12/04/16 Clopidogrel Bisulfate [Plavix] 75 mg PO DAILY #30 tablet 12/04/16 Acetaminophen with Codeine [Tylenol #3 Tab] 1 tab PO Q4H PRN #20 tablet Albuterol Sulfate [Proair Hfa] 2 puff IH Q4H PRN #1 inhaler 01/04/17
--- NOTE | 2017-04-29 18:27 | ED.PDOC ---
General ED Provider: Dr. GOMEZ RONDON Chief Complaint: Extremity Swelling/Pain Stated Complaint: leg edema bilateral Time Seen by Physician: 17:33 ( denied any pain) Mode of Arrival: Wheelchair Information Source: Patient, [facility] Exam Limitations: No limitations [facility] Nursing and Triage Documentation Reviewed and Agree: Yes Reviewed sepsis parameters & appropriate labs ordered?: Yes System Inflammatory Response Syndrome: Not Applicable Sepsis Protocol: For patient's 13 years and over: Temp is 96.8 and below OR 101 and greater Pulse >90 BPM Resp >20/minute Acutely Altered Mental Status Are patient's symptoms suggestive of a new infection, such as: -Pneumonia -Skin, Soft Tissue -Endocarditis -UTI -Bone, Joint Infection -Implantable Device -Acute Abdominal Infection -Wound Infection -Meningitis -Blood Stream Catheter Infection -Unknown System Inflammatory Response Syndrome: Not Applicable Musculoskeletal Complaint Exam - Lower Extremity Complaint/Exam Location of Pain: Reports: Left, Leg Mechanism of Injury: Reports: No known trauma Onset/Duration: chronic issue worse today Symptoms Are: Still present Onset of Pain: Reports: Days Initial Severity: Mild Current Severity: Mild Location: Reports: Discrete Alleviating: Reports: None Aggravating: Reports: None Able to Bear Weight: Yes Associated Signs and Symptoms: Reports: Swelling. Denies: Redness, Bruising, Fever, Weakness, Numbness, Tingling DVT Risk Factors: Reports: Recent bedrest Septic Arthritis Risk Factors: Reports: None Related Surgical History: Reports: None Lower Extremity Findings: Present: Swelling NV Bundle Intact Distal to Injury: No Differential Diagnoses: Arthritis, DVT, Strain, Sprain Review of Systems - Review Of Systems Constitutional: Reports: No symptoms Eyes: Reports: No symptoms Ears, Nose, Mouth, Throat: Reports: No symptoms Respiratory: Reports: No symptoms Cardiac: Reports: No symptoms GI: Reports: No symptoms : Reports: No symptoms Musculoskeletal: Reports: Other (leg edema with out pain) Skin: Reports: No symptoms Neurological: Reports: No symptoms Endocrine: Reports: No symptoms Hematologic/Lymphatic: Reports: No symptoms All Other Systems: Reviewed and Negative Past Medical History - Past Medical History Previously Healthy: Yes Endocrine: Reports: DM 2, Hypothyroid (meds) Cardiovascular: Reports: CAD, Hypertension, CHF Respiratory: Reports: None Hematological: Reports: None Gastrointestinal: Reports: GERD (meds) Genitourinary: Reports: CKD Neuro/Psych: Reports: CVA Musculoskeletal: Reports: Arthritis Cancer: Reports: None Last Menstrual Period: n/a Other Pertinent Past Medical History: bilat. knee replacement. [ End ]htn dm - Surgical History General Surgical History: Reports: Cholecystectomy, Orthopedic ( knee replacement bilateral; carpal tunnel ), Other (mastoid surgeries x2) - Family History Family History: Reports: Unknown - Social History Smoking Status: Former smoker Hx Substance Use: No Alcohol Screening: None - Immunizations Influenza Vaccine within 12 Months: No Pneumococcal Vaccine up to Date: No Physical Exam - Physical Exam Appearance: Well-appearing, No pain distress, Well-nourished Eyes: ALEJANDRO, EOMI, Conjunctiva clear ENT: Ears normal, Nose normal, Oropharynx normal Respiratory: Airway patent, Breath sounds clear, Breath sounds equal, Respirations nonlabored Cardiovascular: RRR, Pulses normal, No rub, No murmur GI/: Soft, Nontender, No masses, Bowel sounds normal, No Organomegaly Musculoskeletal: Edema (bilateral lower leg) Skin: Warm, Dry, Normal color Neurological: Sensation intact, Motor intact, Reflexes intact, Cranial nerves intact, Alert, Oriented Psychiatric: Affect appropriate, Mood appropriate Interpretation - [employer] Rate: Normal Rhythm: Sinus - EKG Interpretation Rate: Normal Rhythm: Sinus Critical Care Note - Critical Care Note Total Time (mins): 0 Course - Course Hematology/Chemistry: 04/29/17 18:10 Orders, Labs, Meds: Lab Review 04/29/17 18:10 WBC 3.95 L RBC 3.64 L Hgb 10.8 L Hct 31.9 L MCV 87.6 MCH 29.7 MCHC 33.9 RDW Coeff of Danae 16.3 H Plt Count 138 L Immature Gran % (Auto) 0.8 Neut % (Auto) 48.8 Lymph % (Auto) 33.9 [place] % (Auto) 13.2 H Eos % (Auto) 2.5 Baso % (Auto) 0.8 Immature Gran # (Auto) 0.0 Neut # 1.9 L Lymph # 1.3 [place] # 0.5 Eos # 0.1 Baso # 0.0 Orders Category Date Time Status EKG-(ED ONLY) Stat CARDIO 04/29/17 17:56 Ordered CBC W/ AUTO DIFF Stat LAB 04/29/17 18:10 Completed COMPREHENSIVE METABOLIC PANEL Stat LAB 01/23/18 18:10 Received CREATINE KINASE Stat LAB 04/29/17 18:10 Received FREE T4 (FREE THYROXINE) Stat LAB 04/29/17 18:10 Received THYROID STIMULATING HORMONE Stat LAB 04/29/17 18:10 Received TROPONIN I Stat LAB 04/29/17 18:10 Received Vital Signs: Temp Pulse Resp BP Pulse Ox 04/29/17 17:31 96.7 F L 63 20 132/87 94 L Departure - Departure Time of Disposition: 19:00 (will under go venous [place] in am of lower legs ) Disposition: HOME SELF-CARE Discharge Problem: Edema of lower extremity Instructions: Leg Edema (ED) Condition: Good Pt referred to PMD for follow-up: Yes IPMP verified?: Yes Additional Instructions: Please call your Family Physician as soon as possible to schedule a follow-up appointment. Allergies/Adverse Reactions: Allergies quinine Allergy (Verified 03/18/17 18:06) BEEN SO LONG AGO, CANT REMEMBER REACTION Home Medications: Ambulatory Orders Levothyroxine Sodium [Synthroid] 100 mcg PO QDAC #30 tablet 11/25/16 Acetaminophen [Pain & Fever] 650 mg PO Q4HR PRN 04/29/17 Amlodipine Besylate 10 mg PO DAILY 04/29/17 Aspirin 81 mg PO DAILY 04/29/17 Budesonide/Formoterol Fumarate [Symbicort 80-4.5 Mcg Inhaler] 1 puff IH BID Calcium Carbonate/Vitamin D3 [Calcium 500-Vit D3 200 Tablet] 1 each PO BID 04/29 Docusate Sodium [Colace] 100 mg PO BID 04/29/17 Ergocalciferol (Vitamin D2) [Vitamin D2] 50,000 unit PO DAILY 04/29/17 Hydrocodone/Acetaminophen [Hydrocodon-Acetaminophen 5-325] 1 each PO Q8H PRN Magnesium Hydroxide [Milk of Magnesia] 30 ml PO DAILY 04/29/17 Metformin HCl 500 mg PO BID 04/29/17 Oxcarbazepine [Trileptal] 150 mg PO BEDTIME 04/29/17 Pregabalin [Lyrica] 50 mg PO BID 04/29/17 Ropinirole HCl [Requip] 1 mg PO BEDTIME 04/29/17 Sacubitril/Valsartan [Entresto 24 mg-26 mg Tablet] 1 each PO BID 04/29/17 Sitagliptin Phosphate [Januvia] 50 mg PO DAILY 04/29/17 Disposition Discussed With: Patient
== END 2017-04-29 19:41 | disposition home or self-care (01) ==
LOC: ED 17:23
DX: R60.0 Localized edema (principal); E11.9 Type 2 diabetes mellitus without complications; E03.9 Hypothyroidism, unspecified; I25.10 Atherosclerotic heart disease of native coronary artery without angina pectoris; I10 Essential (primary) hypertension; I50.9 Heart failure, unspecified; N18.9 Chronic kidney disease, unspecified; M19.90 Unspecified osteoarthritis, unspecified site; Z79.899 Other long term (current) drug therapy; Z86.73 Personal history of transient ischemic attack (TIA), and cerebral infarction without residual deficits; Z96.653 Presence of artificial knee joint, bilateral
CPT/HCPCS: 36415; 80053; 82550; 84439; 84443; 84484; 85025; 93005; 93010; 99283

== ENCOUNTER 2017-04-30 12:52 | Outpatient (CLI) ==
[2012-09-27 08:19] VITALS: TEMP 97.2
[2017-04-29 17:36] VITALS: BMI 42.7
--- NOTE | 2017-04-30 14:16 | US ---
EXAM: ULTRASOUND LOWER EXTREMITY VENOUS DOPPLER EXAM HISTORY: Bilateral leg swelling. FINDINGS: Bilateral lower extremity venous Doppler exam. Real time ng-scale, Doppler spectral anal ysis and color-flow Doppler imaging performed. The veins targeted for evaluation include the common femoral, greater saphenous, profundus, femoral, popliteal, peroneal, anterior tibial and posterior ti bial. The evaluated veins demonstrated normal spontaneous flow and compression without evidence of thrombosis. There is subcutaneous edema noted at the level of the legs. IMPRESSION: No venous thrombosis identified within the areas evaluated.
== END 2017-04-30 12:53 | disposition home or self-care (01) ==
LOC: RAD 12:52
PROVIDERS: ATTEND General Practice
DX: R60.0 Localized edema (principal)

== ENCOUNTER 2017-05-29 15:59 | Outpatient (CLI) ==
[2012-09-27 08:19] VITALS: TEMP 97.2
--- NOTE | 2017-05-29 16:38 | DI ---
Exam: Chest two-view. HISTORY: Cough. Comparison: 01/15/2017. Findings: Anterior lateral images of the chest are submitted, the left costophrenic angle has been e xcluded from the anterior view. The lungs are mildly expanded without pneumothorax, edema or consoli dation. Cardiac silhouette is diffusely enlarged. The thoracic aorta is partially calcified. There are degenerative findings throughout the spine. Impressions: No acute cardiopulmonary disease. Cardiomegaly. Atherosclerosis. Atherosclerosis.
== END 2017-05-29 16:00 | disposition home or self-care (01) ==
LOC: LAB 15:59 → RAD 16:00
PROVIDERS: ATTEND General Practice
DX: R05 Cough (principal); I50.9 Heart failure, unspecified; E11.9 Type 2 diabetes mellitus without complications
CPT/HCPCS: 36415; 80053; 83880; 85025; 86710; 87651; 87804

== ENCOUNTER 2017-06-01 15:59 | Outpatient (CLI) ==
[2012-09-27 08:19] VITALS: TEMP 97.2
== END 2017-06-01 16:00 | disposition home or self-care (01) ==
LOC: NONPT 15:59
PROVIDERS: ATTEND General Practice
DX: R68.89 Other general symptoms and signs (principal)
CPT/HCPCS: 87502

== ENCOUNTER 2017-07-09 12:00 | Outpatient (CLI) | payer OTHER ==
[2012-09-27 08:19] VITALS: TEMP 97.2
== END 2017-07-09 12:01 | disposition home or self-care (01) ==
LOC: NONPT 12:00
PROVIDERS: ATTEND General Practice
DX: J02.9 Acute pharyngitis, unspecified (principal); R05 Cough
CPT/HCPCS: 87651

== ENCOUNTER 2017-07-16 13:35 | Inpatient (IN) | payer OTHER ==
[2017-07-16] MEDS ORDERED: TYLENOL PO PRN (14:02)
[2017-07-16] MEDS ORDERED: MILK OF MAGNESIA PO PRN (14:37)
[2017-07-16] MEDS: DUONEB NEB SCH ×2 (14:52→22:32)
[2017-07-16 15:05] VITALS: BMI 41.7
[2017-07-16] MEDS: REQUIP PO SCH (20:19)
[2017-07-16] MEDS: TRILEPTAL PO SCH (20:19)
[2017-07-16] MEDS: ENTRESTO 24 MG-26 MG TABLET PO SCH (20:19)
[2017-07-16] MEDS: TUSSIONEX PO PRN (20:19)
[2017-07-16] MEDS: LOVENOX SUBCUT SCH (20:19)
[2017-07-16] MEDS: COZAAR PO SCH (20:20)
[2017-07-16] MEDS: LOPRESSOR PO SCH (20:20)
[2017-07-16] MEDS: XANAX PO SCH (20:20)
[2017-07-16] MEDS: MUCINEX PO SCH (20:20)
[2017-07-16] MEDS ORDERED: NON-FORMULARY MEDICATION (Oxcarbazepine 150 MG) PO SCH (21:00)
[2017-07-16] MEDS ORDERED: NON-FORMULARY MEDICATION (Ropinirole Hcl [Requip] 0.5 MG) PO SCH ×2 (21:00)
[2017-07-16] MEDS ORDERED: NON-FORMULARY MEDICATION (Guaifenesin [Mucinex] 1,200 MG) PO SCH (21:00)
[2017-07-17] MEDS: DUONEB NEB SCH ×3 (05:12→13:52)
[2017-07-17] MEDS: SYNTHROID PO SCH (06:17)
[2017-07-17] MEDS: LASIX TAB PO SCH (06:17)
[2017-07-17] MEDS: FLONASE NAS SCH (08:12)
[2017-07-17] MEDS: ASPIRIN CHEWABLE PO SCH (08:12)
[2017-07-17] MEDS: CORDARONE PO SCH (08:12)
[2017-07-17] MEDS: COZAAR PO SCH ×2 (08:12→20:35)
[2017-07-17] MEDS: ENTRESTO 24 MG-26 MG TABLET PO SCH ×2 (08:13→20:34)
[2017-07-17] MEDS: TUSSIONEX PO PRN (08:13)
[2017-07-17] MEDS: ROCEPHIN 2 GM in SODIUM CHLORIDE 50 ML IV SCH (08:13)
[2017-07-17] MEDS: NORVASC PO SCH (08:13)
[2017-07-17] MEDS: MUCINEX PO SCH ×2 (08:13→20:35)
[2017-07-17] MEDS: XANAX PO SCH ×2 (08:15→20:35)
[2017-07-17] MEDS: LOPRESSOR PO SCH ×2 (08:15→20:35)
--- NOTE | 2017-07-17 13:01 | RS.OTINEVL ---
Subjective - Patient information Date of Evaluation: 07/17/17 Date of Arrival on Unit: 07/16/17 Admitted From:: In-House Transfer Usual Living Arrangement: Longterm Living Arrangement Comments: [facility] Medical History: CVA/TIA, CHF, Arthritis Medical History Comments:: Anemia, tobacco use, cough, B TKA, OA, PVD, HTN, deep vein Thrombosis. Surgical History: Knee Replacement, Cholecystectomy Surgical History Comments:: gall bladder, B TKA, Cholecystectomy, Tubal Subjective Information/ Patient Comments:: "I will try." - Level of function Prior to this admission, the patient could do the following:: Partially Dependent Ambulation Abilities prior to this admission: Pt was walking with a rolling walker. Pt requires assist for LE dressing. Pt independent with UB dressing, and self feeding. Current Level of Function: Partially Dependent Current Equipment Used at Home: RW, Shower chair Pain Assessment - Pain Pain Score: 0 Interventions - Objective Patient Orientation: Person, Place, Time, Situation Current Interventions: IV's, Oxygen, Telemetry Observation: Pt coughing and wheezing with activity and self care tasks. Pt fatigues quickly. Interventions - ROM Right Upper Extremity AROM: WFL's Left Upper Extremity AROM: WFL's - Strength Right Upper Extremity Strength: Mild Weakness Left Upper Extremity Strength: Mild Weakness - Sensation Right Upper Extremity Sensation: Intact/Normal Left Upper Extremity Sensation: Intact/Normal Balance - Sitting Balance Static Sitting Balance: Fair Dynamic Sitting Balance: Fair - Standing Balance Static Standing Balance: Poor Dynamic Standing Balance: Poor ADL Skills - Self Feeding Self Feeding: Independent - Bathing Bathing UE: Independent Bathing LE: Min Assist - Dressing Dressing UE: Independent Dressing LE: Max Assist - Toilet Management Toileting Management: Min Assist Functional Mobility - Bed Mobility Rolling R/L: Independent Scooting: Supervision Supine to Sit: Supervision Sit to Supine: Supervision - Transfers Sit to Stand: CGA Stand to Sit: CGA Stand Pivot Transfers: CGA - Ambulation Weight Bearing Status: FWB Assistive Device Used: Rolling Walker Assistance needed with Ambulation: Min Assist, 1 person assist - Safety Awareness Safety Awareness: Good VIN INDEX SCORE: 9 Additional Treatment Performed - Time with patient Total treatment time: 30 Activities Patient Interests:: Reading Books/Magazines, Visiting/Socializing Comments:: Pt found reading her Bible Patient Education Patient Education: Education of diagnosis, Education of Plan of Care Teaching Recipient: Patient Teaching Methods: Discussion Assessment Problem List:: Decreased level of function, Requires training/education, Decreased safety/Risk of falls, Weakness Rehab Potential: Good Further Therapy Indicated?: Yes Evaluation Complexity: HISTORY: Medium, EXAM OF BODY SYSTEMS: Medium, CLINICAL DECISION MAKING: Medium Short Term Goals - Goals GOAL 1: Pt to increase BUE strength to 4/5. Goal to be met by: 07/31/17 Progress towards goal: Progressing GOAL 2: Pt to increase toilet transfer to [place] Goal to be met by: 07/31/17 Progress towards goal: Progressing GOAL 3: Pt to tolerate sink level ADLS for 15 minutes with rests PRN. 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 Goal to be met by: 07/29/17 Progress towards goal: Progressing GOAL 2: Pt to increase toilet transfer to [place] Goal to be met by: 07/29/17 Progress towards goal: Progressing GOAL 3: Pt to tolerate sink level ADLS for 15 minutes with rests PRN. Goal to be met by: 07/29/17 Progress towards goal: Progressing Plan Plan of Care: Therapeutic EX, Neuromuscular Re-Educ, Therapeutic Activity, Self- Care/Home Management Frequency of Treatment: 1-2 X day, as tolerated Duration of Treatment: 2 Weeks Anticipated [facility]charge Dest[facility] Has the Physician been added for Co-signature?: Yes
--- NOTE | 2017-07-17 15:28 | RS.PTINEVL ---
Subjective - Patient information Date of Evaluation: 07/17/17 Date of Arrival on Unit: 07/16/17 Admitted From:: In-House Transfer (transfer to swing bed) Diagnosis: pneumonia Usual Living Arrangement: Intermediate Living Arrangement Comments: [place] Home Environment: Level/No stairs Medical History: Hypertension, Diabetes, CHF Medical History Comments:: chronic kidney disease, RLS, anemia LATEX ALLERGY?: No Surgical History: Knee Replacement (bilateral), Cholecystectomy Medications: see chart Subjective Information/ Patient Comments:: pt states she is doing better today - Level of function Prior to this admission, the patient could do the following:: Partially Dependent Ambulation Current Level of Function: Partially Dependent Current Equipment Used at Home: rwx Interventions - Objective Patient Orientation: Person, Place, Time, Situation Current Interventions: IV's, Oxygen Observation: pt with non pitting edema BLE Range of Motion - ROM Right Upper Extremity AROM: WFL's Left Upper Extremity AROM: WFL's Right Lower Extremity AROM: WFL's Left Lower Extremity AROM: WFL's Muscle Strength - Muscle Strength Right Upper Extremity Strength: Mild Weakness (grossly 4/5) Left Upper Extremity Strength: Mild Weakness (grossly 4/5) Right Lower Extremity Strength: Mild Weakness (hip flex 4-/5, knee flex/ext 4/5 , ankle DF/PF 4/5) Left Lower Extremity Strength: Mild Weakness (hip flex 4-/5, knee flex/ext 4/5, ankle DF/PF 4/5) Sensation - Sensation Right Upper Extremity Sensation: Intact/Normal Left Upper Extremity Sensation: Intact/Normal Right Lower Extremity Sensation: Intact/Normal Left Lower Extremity Sensation: Impaired (area of n/t L ant lower leg) Palpation Palpation Findings: None/Normal Balance - Sitting Balance and Reactions Static Sitting Balance: Good Dynamic Sitting Balance: Good - Standing Balance and Reactions Static Standing Balance: Fair Dynamic Standing Balance: Poor Standing Equilibrium Reactions: Delayed Left, Delayed Right Standing Protective Reactions: Delayed Left, Delayed Right Functional Mobility - Bed Mobility Comments:: pt seen sitting up in chair - Transfers Sit to Stand: CGA Stand to Sit: CGA - Safety Awareness Safety Awareness: Good VIN INDEX SCORE: 9 Ambulation - Ambulation Assistive Device Used: Rolling Walker Orthotic/Prosthetic Device: No Distance: 50ft x 2 Assistance needed with Ambulation: CGA Gait Deviations: Forward posture, Short stride Ambulation Comments: pt amb with decreased step length, flexed posture, requires cues for PLB. pt amb with O2, O2 sat 98 prior amb, after amb 95% Factors Affecting Ambulation: Decreased Balance, Decreased Safety Treatment time - Time with patient Total treatment time: 30 Patient Education - Education Patient Education: Activity Modification, Education of Plan of Care Teaching Recipient: Patient Teaching Methods: Discussion (discussion/demonstration of PLB, discussion regarding POC and safety with amb), Demonstration Assessment - Assessment Problem List:: Decreased level of function, Requires training/education, Decreased safety/Risk of falls, Weakness Rehab Potential: Good Further Therapy Indicated?: Yes Evaluation Complexity: HISTORY: Medium (CHF, HTN, DM, CKD, OA, SOA), EXAM OF BODY SYSTEMS: Medium (SOA, age, strength, balance, gait), CLINICAL PRESENTATION : Medium (evolving), CLINICAL DECISION MAKING: Medium Short Term Goals GOAL #1: pt transfer sup to/from sit to/from stand CGA Goal to be met by: 07/22/17 GOAL #2: pt amb with rwx 125ft with CGA with no LOB, with no rest periods. Goal to be met by: 07/22/17 GOAL #3: pt demonstrate independence with bed mobility Goal to be met by: 07/22/17 GOAL #4: Improve BLE strength to 4 to 4+/5 Goal to be met by: 07/22/17 Half-Way Goals GOAL #1: pt transfer sup to/from sit to/from stand with SBA Goal to be met by: 07/27/17 GOAL #2: pt amb 150ft with rwx with no LOB with SBA with no rest period. Goal to be met by: 07/27/17 GOAL #3: pt with improved strength BLE 4 to 4+/5 Goal to be met by: 07/27/17 Plan Plan of Care: Therapeutic EX, Neuromuscular Re-Educ, Therapeutic Activity Other:: gait training Frequency of Treatment: 1-2 X day, as tolerated Duration of Treatment: 10 days Anticipated Discharge Destination: [facility] Has the Physician been added for Co-signature?: Yes
[2017-07-17] MEDS: REQUIP PO SCH (20:34)
[2017-07-17] MEDS: TRILEPTAL PO SCH (20:35)
[2017-07-17] MEDS: LOVENOX SUBCUT SCH (20:35)
[2017-07-18] MEDS: DUONEB NEB SCH ×5 (00:58→19:50)
[2017-07-18] MEDS: LASIX TAB PO SCH (05:41)
[2017-07-18] MEDS: SYNTHROID PO SCH (05:41)
[2017-07-18] MEDS: ROCEPHIN 2 GM in SODIUM CHLORIDE 50 ML IV SCH (08:32)
[2017-07-18] MEDS: COZAAR PO SCH ×2 (08:33→20:15)
[2017-07-18] MEDS: FLONASE NAS SCH (08:33)
[2017-07-18] MEDS: CORDARONE PO SCH (08:33)
[2017-07-18] MEDS: XANAX PO SCH ×2 (08:33→20:15)
[2017-07-18] MEDS: NORVASC PO SCH (08:34)
[2017-07-18] MEDS: ASPIRIN CHEWABLE PO SCH (08:34)
[2017-07-18] MEDS: MUCINEX PO SCH ×2 (08:34→20:14)
[2017-07-18] MEDS: LOPRESSOR PO SCH ×2 (08:34→20:15)
[2017-07-18] MEDS: ENTRESTO 24 MG-26 MG TABLET PO SCH ×2 (08:34→20:15)
[2017-07-18] MEDS: REQUIP PO SCH (20:14)
[2017-07-18] MEDS: LOVENOX SUBCUT SCH (20:15)
[2017-07-18] MEDS: TRILEPTAL PO SCH (20:15)
[2017-07-18] MEDS: TUSSIONEX PO PRN (21:45)
[2017-07-19] MEDS: DUONEB NEB SCH ×4 (05:08→19:40)
[2017-07-19] MEDS: SYNTHROID PO SCH (05:38)
[2017-07-19] MEDS: LASIX TAB PO SCH (05:38)
[2017-07-19] MEDS: FLONASE NAS SCH (08:22)
[2017-07-19] MEDS: ASPIRIN CHEWABLE PO SCH (08:22)
[2017-07-19] MEDS: ROCEPHIN 2 GM in SODIUM CHLORIDE 50 ML IV SCH (08:22)
[2017-07-19] MEDS: MUCINEX PO SCH ×2 (08:23→21:00)
[2017-07-19] MEDS: LOPRESSOR PO SCH ×2 (08:23→20:59)
[2017-07-19] MEDS: COZAAR PO SCH ×2 (08:23→20:58)
[2017-07-19] MEDS: XANAX PO SCH ×2 (08:23→20:57)
[2017-07-19] MEDS: ENTRESTO 24 MG-26 MG TABLET PO SCH ×2 (08:23→20:58)
[2017-07-19] MEDS: NORVASC PO SCH (08:23)
[2017-07-19] MEDS: CORDARONE PO SCH (08:23)
[2017-07-19] MEDS: TUSSIONEX PO PRN (20:57)
[2017-07-19] MEDS: LOVENOX SUBCUT SCH (20:57)
[2017-07-19] MEDS: REQUIP PO SCH (21:00)
[2017-07-19] MEDS: TRILEPTAL PO SCH (21:01)
[2017-07-20] MEDS: DUONEB NEB SCH ×4 (04:35→20:28)
[2017-07-20] MEDS: LASIX TAB PO SCH (06:11)
[2017-07-20] MEDS: SYNTHROID PO SCH (06:11)
[2017-07-20] MEDS: FLONASE NAS SCH (09:14)
[2017-07-20] MEDS: ASPIRIN CHEWABLE PO SCH (09:14)
[2017-07-20] MEDS: ROCEPHIN 2 GM in SODIUM CHLORIDE 50 ML IV SCH (09:14)
[2017-07-20] MEDS: NORVASC PO SCH (09:14)
[2017-07-20] MEDS: LOPRESSOR PO SCH ×2 (09:15→20:36)
[2017-07-20] MEDS: XANAX PO SCH ×2 (09:15→20:37)
[2017-07-20] MEDS: ENTRESTO 24 MG-26 MG TABLET PO SCH ×2 (09:15→20:36)
[2017-07-20] MEDS: COZAAR PO SCH ×2 (09:15→20:36)
[2017-07-20] MEDS: MUCINEX PO SCH ×2 (09:15→20:36)
[2017-07-20] MEDS: CORDARONE PO SCH (09:15)
[2017-07-20] MEDS: LOVENOX SUBCUT SCH (20:36)
[2017-07-20] MEDS: TRILEPTAL PO SCH (20:36)
[2017-07-20] MEDS: REQUIP PO SCH (20:36)
[2017-07-20] MEDS: TUSSIONEX PO PRN (20:37)
[2017-07-21] MEDS: DUONEB NEB SCH ×4 (04:38→19:26)
[2017-07-21] MEDS: LASIX TAB PO SCH (06:01)
[2017-07-21] MEDS: SYNTHROID PO SCH (06:01)
[2017-07-21] MEDS: XANAX PO SCH ×2 (08:46→20:36)
[2017-07-21] MEDS: CORDARONE PO SCH (08:46)
[2017-07-21] MEDS: ENTRESTO 24 MG-26 MG TABLET PO SCH ×2 (08:46→20:35)
[2017-07-21] MEDS: ASPIRIN CHEWABLE PO SCH (08:46)
[2017-07-21] MEDS: LOPRESSOR PO SCH ×2 (08:46→20:35)
[2017-07-21] MEDS: COZAAR PO SCH ×2 (08:46→20:35)
[2017-07-21] MEDS: MUCINEX PO SCH ×2 (08:46→20:36)
[2017-07-21] MEDS: FLONASE NAS SCH (08:46)
[2017-07-21] MEDS: NORVASC PO SCH (08:46)
[2017-07-21] MEDS: ROCEPHIN 2 GM in SODIUM CHLORIDE 50 ML IV SCH (08:46)
--- NOTE | 2017-07-21 10:19 | PN ---
DATE OF VISIT: 07/20/17 SUBJECTIVE: The patient is alert, oriented times four. The patient had ambulated in the hallway with the nurse beside her. The patient had tolerated the ambulation. The patient's appetite had been improving and is more or less consuming 100% of snack. OBJECTIVE: V/S: This afternoon 5:36 p.m. showed a temperature 98.1, pulse 78, BP 134/65, respiratory rate 20, oxygen saturation 99% on 2L. Oxygen should be stopped and see how she does tomorrow without oxygen. LUNGS: Coarse breath sounds. No rales now and no wheezing. This is an improvement from yesterday. HEART: Audible and regular with good tones. MTDD
[2017-07-21] MEDS: TRILEPTAL PO SCH (20:35)
[2017-07-21] MEDS: REQUIP PO SCH (20:35)
[2017-07-21] MEDS: LOVENOX SUBCUT SCH (20:36)
[2017-07-22] MEDS: DUONEB NEB SCH ×3 (05:00→14:11)
[2017-07-22 05:03] VITALS: BP 138/67; TEMP 97.8
[2017-07-22] MEDS: SYNTHROID PO SCH (05:33)
[2017-07-22] MEDS: LASIX TAB PO SCH (05:33)
[2017-07-22] MEDS: ASPIRIN CHEWABLE PO SCH (08:21)
[2017-07-22] MEDS: ROCEPHIN 2 GM in SODIUM CHLORIDE 50 ML IV SCH (09:24)
[2017-07-22] MEDS: XANAX PO SCH (09:25)
[2017-07-22] MEDS: ENTRESTO 24 MG-26 MG TABLET PO SCH (09:25)
[2017-07-22] MEDS: MUCINEX PO SCH (09:25)
[2017-07-22] MEDS: FLONASE NAS SCH (09:25)
[2017-07-22] MEDS: NORVASC PO SCH (09:25)
[2017-07-22] MEDS: CORDARONE PO SCH (09:26)
[2017-07-22] MEDS: LOPRESSOR PO SCH (09:26)
[2017-07-22] MEDS: COZAAR PO SCH (09:26)
--- NOTE | 2017-10-09 14:52 | HP ---
DATE OF SERVICE: 07/16/17 - TRANSITIONAL CARE HISTORY OF PRESENT ILLNESS: This patient was admitted to Acute Care on 07/11/17 and was discharged 07/16/17 to Transitional Care. The patient's diagnosis on admission was pneumonitis. The pneumonia is probably viral pneumonia since the Influenza A titer is 1:64 and B is 1:256. The patient had coughed since about one week prior to admission on 09/22 with increasing shortness of breath. The chest CT did show some findings compatible with atelectasis and/or pneumonitis. This patient had been on Rocephin 1 gm intravenously and then admitted to Transitional Care for continued antibiotic therapy. She also developed an increasing BNP which probably is congestive heart failure. This patient is known to have congestive heart failure and is on Sacubitril. The patient was given Lasix intravneously on top of his previous medications. PAST PERSONAL HISTORY: The patient had hearing loss and mastoid surgery years ago. Previous cerebral infarct by MRI, restless leg syndrome, congestive heart failure and cardiomegaly , DVT by history. The patient also had cholecystectomy and tubal ligation. She does have osteoarthritis involving the hands and knees as well as cardiac arrhythmia on medication and hypothyroidism. She did have carpal tunnel surgery in both wrists and surgery to both knees. FAMILY HISTORY: Sister had heart disease, brother had gastric carcinoma, mother was hypertensive , father had heart disease. Mother had diabetes history in the family as well as heart disease. SOCIAL HISTORY: The patient is a and resides at the [facility]. She did reside with her daughter but after she had been in the snf she decided to stay in the snf and had been there for some time. The patient did smoke but had stopped three years ago. No alcoholic beverages. MEDICATIONS: Famotidine 20 mg p.o. b.i.d. Amiodarone 200 mg p.o. daily Coreg 25 mg p.o. b.i.d. Synthroid 100 mcg p.o. q.d a.c. Furosemide 40 mg p.o. daily Alprazolam 0.25 mg p.o. b.i.d. Trileptal 150 mg p.o. bedtime Lyrica 50 mg p.o. b.i.d. Symbicort 80-4.5 mc inhaler one puff IH b.i.d. Calcium/Vitamin D3 one each p.o. b.i.d. Milk of Magnesia 30 mL p.o. daily Metformin 500 mg p.o. b.i.d. Januvia 50 mg p.o. daily Ergocalciferol 50,000 unit p.o. daily Entresto 24 mg - 26 mg one each p.o. b.i.d. Colace 100 mg p.o. b.i.d. Aspirin 81 mg p.o. daily Acetaminophen 650 mg p.o. q.4hr p.r.n. Requip 1 mg p.o. bedtime Amlodipine 10 mg p.o. daily Mucinex 1,200 mg p.o. q.12hr Ropinirole 0.5 mg p.o. daily ALLERGIES: QUININE REVIEW OF SYSTEMS: CONSTITUTIONAL: The patient had no fever or chills. She does have fatigue since she had been coughing, unable to sleep. [employer]: No seizures. No syncopal episode. Denies any headaches. VISUAL: Denies any double vision, blurred vision or transient loss of vision. AUDITORY: The patient is hard of hearing and has a hearing aid. She had previous mastoid surgery as a child. She is being followed by Dr. Alegria. RESPIRATORY: The patient has cough with gurgling, harsh for about one week. She does complain of some shortness of breath. CARDIOVASCULAR: Denies any chest pain or chest tightness. GASTROINTESTINAL: The patient has a fairly good appetite. No abdominal pain. No diarrhea. No nausea. GENITOURINARY: Denies any burning on urination although she is incontinent of urine. MUSCULOSKELETAL: The patient has pain in the knees. She had previous surgery on both knees. She does have osteoarthritis. ENDOCRINE: The patient has hypothyroidism on replacement therapy. The patient at one time had been on Januvia as well as Metformin but her sugar had reverted to normal as well as the A1C. INTEGUMENT: Denies any rash or pruritus. HEMATOLOGIC: No history of prolonged bleeding or easy bruising. PSYCHIATRIC: Affect is normal. PHYSICAL EXAMINATION: GENERAL: 82-year-old female admitted to Transitional Care for continued antibiotic therapy. VITAL SIGNS: Temperature 98, pulse 78, BP 120/60, respiratory rate 20, oxygen saturation 98 on 2L. Height: 5'1"; Weight 221 lbs. HEAD: Unremarkable. Scalp: No active dermatitis. Face symmetrical and equal with no facial weakness. No cyanosis. She denies any tenderness to palpation in the frontal or maxillary sinus areas under pressure. EYES: Pupils equal/reactive to light. Conjunctivae slightly pale. Sclerae not icteric. THROAT: No inflammation, tumors or exudate. NECK: No masses. No bruit. No tenderness. No rigidity. CHEST: Symmetrical and equal with good expansion. LUNGS: Breath sounds are diminished bilaterally. There are coarse breath sounds at the bases with minimal expiratory wheezing. HEART: Audible and regular with good tones. No murmurs. ABDOMEN: Soft with no remarkable tenderness. No guarding. Bowel sounds are active. No masses palpable. EXTERNAL GENITALIA: Not performed. PELVIC/RECTAL: Not performed. LOWER EXTREMITIES: Essentially symmetrical and equal with some edema. Motor function is 5/5 in both lower extremities. UPPER EXTREMITIES: Symmetrical and equal. Motor function 5/5. ASSESSMENT: 1. PNEUMONITIS, PROBABLY VIRAL 2. INFLUENZA A AND B, ANTIBODY TITERS ELEVATED 1:64 AND 1:256 RESPECTIVELY 3. HYPERTENSION 4. CONGESTIVE HEART FAILURE 5. ANEMIA 6. CHRONIC KIDNEY DISEASE, STAGE 3 7. CARDIAC ARRHYTHMIA ON MEDICATION 8. RESTLESS LEG SYNDROME ON MEDICATION 9. ANEMIA 10. HYPOTHYROIDISM ON REPLACEMENT THERAPY 11. ELEVATED BMI 12. HISTORY OF ANXIETY 13. HISTORY OF CARPAL TUNNEL SURGERY 14. HISTORY OF CHOLECYSTECTOMY 15. TUBAL LIGATION 16. HISTORY OF SURGERY TO BOTH KNEES MTDD
--- NOTE | 2017-10-10 11:46 | DS ---
DATE OF SERVICE: 07/22/17 PATIENT IDENTIFICATION: 82 year old female was admitted to the hospital initially because of pneumonitis. She did complain of cough and nasal congestion as well as pulmonary congestion with some purulent sputum. Rapid A and B by nuclear amplification was negative however the quantitative titer were higher; A was 1: 64 and B 1:256. HOSPITAL COURSE: The patient was felt that at time of her discharge to transitional care was pneumonia probably viral. The patient on the second day 07/17/17 was seen by physical therapy as well as occupational therapy. It was felt that the patient needed treatment. The duration that the they projected was two weeks. The patient had been ambulating and seemed to be doing better at least she is stable. She is receiving two grams of Rocephin instead of 1. LUNGS: Still diminished breath sounds with some course breath sounds at the bases with some wheezing, minimal. She did not take any of the snacks today. Her sugar was 167 on Accu-check. Her temperature remained normal and her blood pressure had been controlled better and is now mostly within normal range. Oxygen at room air was anywhere between 93-94. It did get up to 95 at room air. The patient's lungs had cleared fairly well on 07/20/17. She remained much better with lungs better on 07/21/17 as well as 07/22/17 the day of discharge. VITAL SIGNS: Temperature 97.8, pulse 76, blood pressure 138/67, respiratory rate 24 and oxygen saturation 95. The oxygen saturation at 2:00 in the afternoon was 96 and the Vital signs were taken at 5:02 in the morning. The Carvedilol was discontinued since it is nonselective and replaced with Metoprolol. The patient medications at discharge consistent of DUO NEBS twice a day for one week, Losartan was added but discontinued. This patient is already on Entresto. She may need a higher dose if her blood pressure is still elevated. She is already on Amlodipine and the Lopressor maybe increased to 50mg twice a day if the blood pressure is still elevated above 140. FINAL DIAGNOSES: 1. Pneumonitis probably viral, Influenza B likely 2. Elevated Influenza A titer 1:64 and B 1:256 3. Hypoxemia, improved 4. Hypertension, mostly controlled 5. History of congestive heart failure, improved 6. History of restless less syndrome PLAN: 1. Continue Metformin 500mg twice a day and Januvia 50mg daily. This may need to be discontinued when the blood sugar returns to the normal. The blood sugar may have been elevated because of the steroids that had jayce given. 2. The patient is continue physical therapy as well as occupational therapy that needs to evaluated. 3. The patient should have a CBC and CMP and BNP July 28, 2017 4. Vital signs daily for the next week. 5. O2 saturation at room air for one week 6. Oxygen 2 liters per cannula for saturation below 90. PROGNOSIS: Guarded to Poor MTDD
== END 2017-07-22 17:20 | DRG 204 ==
LOC: MEDSURG A 13:35 → UNDOADMIN 13:45 → MEDSURG A 13:45
PROVIDERS: ADMIT General Practice; ATTEND General Practice
DX: R06.02 Shortness of breath (principal); J18.9 Pneumonia, unspecified organism; R53.1 Weakness; R06.2 Wheezing; G25.81 Restless legs syndrome; R76.0 Raised antibody titer; I10 Essential (primary) hypertension; E03.9 Hypothyroidism, unspecified; I50.9 Heart failure, unspecified; I49.9 Cardiac arrhythmia, unspecified; I51.7 Cardiomegaly; M17.0 Bilateral primary osteoarthritis of knee; M19.042 Primary osteoarthritis, left hand; M19.041 Primary osteoarthritis, right hand; E11.9 Type 2 diabetes mellitus without complications; Z87.01 Personal history of pneumonia (recurrent); Z86.718 Personal history of other venous thrombosis and embolism
CPT/HCPCS: 36415; 80053; 82962; 83880; 85025; 94640; 97802

== ENCOUNTER 2017-07-30 14:30 | Outpatient (POV) ==
[2012-09-27 08:19] VITALS: TEMP 97.2
== END 2017-07-30 17:00 ==
LOC: OUTPT 14:30
PROVIDERS: ATTEND Otolaryngology
DX: H91.90 Unspecified hearing loss, unspecified ear (principal)

== ENCOUNTER 2017-07-31 10:38 | Outpatient (CLI) | payer OTHER ==
[2012-09-27 08:19] VITALS: TEMP 97.2
== END 2017-07-31 10:39 | disposition home or self-care (01) ==
LOC: NONPT 10:38
PROVIDERS: ATTEND General Practice
DX: I50.9 Heart failure, unspecified (principal); R63.5 Abnormal weight gain; Z51.81 Encounter for therapeutic drug level monitoring
CPT/HCPCS: 80053; 83880; 84100; 85025

== ENCOUNTER 2017-09-18 09:02 | Outpatient (CLI) ==
[2012-09-27 08:19] VITALS: TEMP 97.2
== END 2017-09-18 09:03 | disposition home or self-care (01) ==
LOC: NONPT 09:02
PROVIDERS: ATTEND General Practice
DX: R30.0 Dysuria (principal); R35.0 Frequency of micturition
CPT/HCPCS: 81001

== ENCOUNTER 2017-09-21 16:32 | Emergency (ER) ==
[2017-09-21 16:36] VITALS: BP 148/89; TEMP 98.2; BMI 42.7
--- NOTE | 2017-09-21 17:22 | CT ---
EXAM: CT chest without contrast TECHNIQUE: Helical axial CT of the chest was performed without contrast with coronal and sagittal rec onstructions. COMPARISON: Chest CT from 07/11/2017 HISTORY: Short of breath FINDINGS: There is no change compared to earlier. Lung parenchyma: There is no mass or nodule or large effusion or infiltrate. There is some minimal at electasis in the lung bases. Mediastinum: No pathologic hilar or mediastinal adenopathy. There are advanced coronary calcification s. There is no pericardial effusion. There is advanced calcification of the aorta. There is no eviden ce for aneurysm. There is old granulomatous disease. Upper Abdomen: No focal or acute abnormality. There is old granulomatous disease. There is a stable left adrenal adenoma. There has been prior cholecystectomy the left kidney is atrophic. Osseous structures: Nothing acute. There is advanced degenerative change in the thoracic spine. Surrounding soft tissues including the thyroid gland are normal. No supraclavicular or axillary adeno osmany. IMPRESSION: 1. No acute intervening abnormality. 2. Minimal atelectasis in the bilateral lung bases. 3. Other miscellaneous nonacute findings as above.
--- NOTE | 2017-09-21 17:58 | ED.PDOC ---
General ED Provider: Dr. GOMEZ RONDON Chief Complaint: Shortness of Air Stated Complaint: SHORTNESS OF BREATH Time Seen by Physician: 16:33 (NO RESP DISTRESS UPON ARRIVAL) Mode of Arrival: Ambulance Information Source: Patient Exam Limitations: No limitations [facility] and Triage Documentation Reviewed and Agree: Yes Reviewed sepsis parameters & appropriate labs ordered?: Yes (SEEN WITH HER NURSING STAFF , DENIED CHEST PAIN ) System Inflammatory Response Syndrome: Not Applicable Sepsis Protocol: For patient's 13 years and over: Temp is 96.8 and below OR 101 and greater Pulse >90 BPM Resp >20/minute Acutely Altered Mental Status Are patient's symptoms suggestive of a new infection, such as: -Pneumonia -Skin, Soft Tissue -Endocarditis -UTI -Bone, Joint Infection -Implantable Device -Acute Abdominal Infection -Wound Infection -Meningitis -Blood Stream Catheter Infection -Unknown Respiratory Complaint Exam - Shortness of Air Complaint/Exam Onset/Duration: 2 DAYS Symptoms Are: Resolved Timing: Intermittent Initial Severity: Mild Current Severity: None Character: Reports: Dyspnea at rest, Dyspnea on exertion, Orthopnea Aggravating: Reports: Recumbent position, URI, Weather Alleviating: Reports: Spontaneous resolution Associated Signs and Symptoms: Reports: Cough. Denies: Wheezing, Chest pain with cough, Chest pain, Fever, Chills, Diaphoresis, Nasal congestion, Dizziness , Calf pain, Calf swelling, Edema, Rapid breathing, Labored breathing, Decreased intake Related History: Reports: Similar episode History of Healthcare-Acquired Pneumonia: Lives at long term Pulmonary Embolism Risk Factors: Reports: Bedrest Cardiac Risk Factors: Reports: CAD, Elevated lipids, Diabetes, Hypertension Pseudomonas Risk Factors: Reports: None Tuberculosis Risk Factors: Reports: Communal living Home Oxygen Use: No Recent Stress Test: No Recent Echo/LV Function: No Respiratory Distress: None Stridor Present: No Tracheal Deviation: No Subcutaneous Emphysema: No Accessory Muscle Use: No Retractions: Not Present Diminished Breath Sounds: No Prolonged Expiratory Phase: No Unable to Speak Full Sentences: No Fatigue: No Leg Swelling: No Nury's Sign Present: No Grunting Respirations: No Kussmaul Respirations: No Differential Diagnoses: CHF, COPD Exacerbation, Pneumonia, Pulmonary Embolism, Bronchitis, URI Quality Indicators for AMI: EKG in 10min. Quality Indicators for Cardiac Chest Pain: EKG in 10min. Quality Indicator For Non-Traumatic Chest Pain/Syncope: EKG Performed Related Surgical History: Reports: None Review of Systems - Review Of Systems Constitutional: Reports: Malaise Eyes: Reports: No symptoms Ears, Nose, Mouth, Throat: Reports: No symptoms Respiratory: Reports: Cough, Short of air Cardiac: Reports: No symptoms GI: Reports: No symptoms : Reports: No symptoms Musculoskeletal: Reports: No symptoms Skin: Reports: No symptoms Neurological: Reports: No symptoms Endocrine: Reports: No symptoms Hematologic/Lymphatic: Reports: No symptoms All Other Systems: Reviewed and Negative Past Medical History - Past Medical History Previously Healthy: Yes Endocrine: Reports: DM 2, Hypothyroid (meds) Cardiovascular: Reports: CAD, Hypertension, CHF Respiratory: Reports: None Hematological: Reports: None Gastrointestinal: Reports: GERD (meds) Genitourinary: Reports: CKD Neuro/Psych: Reports: CVA Musculoskeletal: Reports: Arthritis Cancer: Reports: None Last Menstrual Period: none Other Pertinent Past Medical History: bilat. knee replacement. [ End ]htn dm - Surgical History General Surgical History: Reports: Cholecystectomy, Orthopedic ( knee replacement bilateral; carpal tunnel ), Other (mastoid surgeries x2) - Family History Family History: Reports: Unknown - Social History Smoking Status: Former smoker Hx Substance Use: No Alcohol Screening: None - Immunizations Influenza Vaccine within 12 Months: No Pneumococcal Vaccine up to Date: No Physical Exam - Physical Exam Appearance: Well-appearing, No pain distress, Well-nourished Eyes: ALEJANDRO, EOMI, Conjunctiva clear ENT: Ears normal, Nose normal, Oropharynx normal Respiratory: Rhonchi Cardiovascular: RRR, Pulses normal, No rub, No murmur GI/: Soft, Nontender, No masses, Bowel sounds normal, No Organomegaly Musculoskeletal: Normal strength, ROM intact, No edema, No calf tenderness Skin: Warm, Dry, Normal color Neurological: Sensation intact, Motor intact, Reflexes intact, Cranial nerves intact, Alert, Oriented Psychiatric: Affect appropriate, Mood appropriate Interpretation - Radiology Interpretation Radiology Interpretation By: Radiologist Radiology Results: No acute changes - Sleeve Tailor Rate: Normal Rhythm: Sinus Ectopy: None - EKG Interpretation Rate: Normal Rhythm: Sinus (FIRST DEGREE BLOCK) Critical Care Note - Critical Care Note Total Time (mins): 0 Course - Course Hematology/Chemistry: 09/21/17 17:05 09/21/17 17:05 Orders, Labs, Meds: Lab Review 09/21/17 09/21/17 09/21/17 17:05 17:05 17:05 WBC 7.24 RBC 3.91 L Hgb 11.2 L Hct 34.3 L MCV 87.7 MCH 28.6 MCHC 32.7 RDW Coeff of Danae 16.3 H Plt Count 182 Immature Gran % (Auto) 0.4 Neut % (Auto) 66.5 Lymph % (Auto) 22.8 [place] % (Auto) 8.0 Eos % (Auto) 1.9 Baso % (Auto) 0.4 Immature Gran # (Auto) 0.0 Neut # (Auto) 4.8 Lymph # (Auto) 1.7 [place] # (Auto) 0.6 Eos # (Auto) 0.1 Baso # (Auto) 0.0 D-Dimer (Manual) 1242.32 Puncture Site O2 Saturation ABG pH ABG pCO2 ABG pO2 ABG HCO3 ABG Total CO2 ABG Base Excess Jimi Test FiO2 % Sodium 131 L Potassium 4.7 Chloride 94 L Carbon Dioxide 26 Anion Gap 15.7 BUN 33 H Creatinine 1.48 H Estimated GFR (MDRD) 34.00 BUN/Creatinine Ratio 22.29 Glucose 123 H Calcium 8.8 Total Bilirubin 0.4 AST 32 ALT 31 Alkaline Phosphatase 112 Total Creatine Kinase 54 Troponin I < 0.0100 B-Natriuretic Peptide Total Protein 7.4 Albumin 3.6 Globulin 3.8 Albumin/Globulin Ratio 0.95 09/21/17 09/21/17 17:05 17:10 WBC RBC Hgb Hct MCV MCH MCHC RDW Coeff of Danae Plt Count Immature Gran % (Auto) Neut % (Auto) Lymph % (Auto) [place] % (Auto) Eos % (Auto) Baso % (Auto) Immature Gran # (Auto) Neut # (Auto) Lymph # (Auto) [place] # (Auto) Eos # (Auto) Baso # (Auto) D-Dimer (Manual) Puncture Site R rad O2 Saturation 98.0 ABG pH 7.437 ABG pCO2 37.2 ABG pO2 102.0 H ABG HCO3 25.1 ABG Total CO2 26 ABG Base Excess 1 Jimi Test + FiO2 % 21.0 Sodium Potassium Chloride Carbon Dioxide Anion Gap BUN Creatinine Estimated GFR (MDRD) BUN/Creatinine Ratio Glucose Calcium Total Bilirubin AST ALT Alkaline Phosphatase Total Creatine Kinase Troponin I B-Natriuretic Peptide 280 H Total Protein Albumin Globulin Albumin/Globulin Ratio Orders Category Date Time Status ABG DRAW REQUEST Stat CARDIO 09/21/17 16:47 Completed EKG-(ED ONLY) Stat CARDIO 09/21/17 16:46 Completed NPO REMINDER: IMAGING ONCE CARE 09/21/17 17:56 Completed IV [ED IV/MEDIPORT/POWERPORT] .ONCE EMERGENCY 09/21/17 18:14 Active ABG Stat LAB 09/21/17 17:10 Completed B-TYPE NATRIURETIC PEPTIDE Stat LAB 09/21/17 17:05 Completed CBC W/ AUTO DIFF Stat LAB 09/21/17 17:05 Completed COMPREHENSIVE METABOLIC PANEL Stat LAB 09/21/17 17:05 Completed CREATINE KINASE Stat LAB 09/21/17 17:05 Completed D-DIMER Stat LAB 09/21/17 17:05 Completed TROPONIN I Stat LAB 09/21/17 17:05 Completed 0.9 % Sodium Chloride [Saline Flush] MEDS 09/21/17 18:14 Ordered 1 syr IVF PRN PRN CT CHEST PE PROTOCOL Stat RADS 09/21/17 17:[address] CHEST W/O CONTRAST Stat RADS 09/21/17 16:45 Completed Medications Generic Name Dose Route Start Last Admin Trade Name Freq PRN Reason Stop Dose Admin Sodium Chloride 1 syr 09/21/17 18:14 Saline Flush IVF PRN PRN To flush IV Vital Signs: Temp Pulse Resp BP Pulse Ox 09/21/17 16:33 98.2 F 98 H 20 148/89 H 98 Departure - Departure Time of Disposition: 19:17 Disposition: HOME SELF-CARE Discharge Problem: Anemia Qualifiers: Anemia type: unspecified type Qualified Code(s): D64.9 - Anemia, unspecified Instructions: Anemia (ED) Condition: Good Pt referred to PMD for follow-up: Yes IPMP verified?: No Additional Instructions: Please call your Family Physician as soon as possible to schedule a follow-up appointment. CONTACT YOUR DOCTOR FOR ULTRA SOUND LEGS TOMAKE SURE YOU DO NOT HAVE A BLOOD CLOT OR COME TO ER IN AM WE WILL CHECK IT FOR YOU Allergies/Adverse Reactions: Allergies quinine Allergy (Verified 09/21/17 16:37) BEEN SO LONG AGO, CANT REMEMBER REACTION Home Medications: Ambulatory Orders Levothyroxine Sodium [Synthroid] 100 mcg PO QDAC #30 tablet 11/25/16 Acetaminophen [Pain & Fever] 650 mg PO Q4HR PRN 04/29/17 Amlodipine Besylate 10 mg PO DAILY 04/29/17 Aspirin 81 mg PO DAILY 04/29/17 Budesonide/Formoterol Fumarate [Symbicort 80-4.5 Mcg Inhaler] 2 puff IH BID Calcium Carbonate/Vitamin D3 [Calcium 500-Vit D3 200 Tablet] 1 each PO BID 04/29 Docusate Sodium [Colace] 100 mg PO BID 04/29/17 Magnesium Hydroxide [Milk of Magnesia] 30 ml PO DAILY 04/29/17 Metformin HCl 500 mg PO BID 04/29/17 Oxcarbazepine [Trileptal] 150 mg PO BEDTIME 04/29/17 Pregabalin [Lyrica] 50 mg PO BID 04/29/17 Ropinirole HCl [Requip] 1 mg PO BEDTIME 04/29/17 Sacubitril/Valsartan [Entresto 24 mg-26 mg Tablet] 1 each PO BID 04/29/17 Sitagliptin Phosphate [Januvia] 50 mg PO DAILY 04/29/17 Guaifenesin [Mucinex] 1,200 mg PO Q12HR 07/11/17 Ropinirole HCl [Requip] 0.5 mg PO DAILY 07/11/17 Metoprolol Tartrate [Lopressor] 25 mg PO BID #1 tablet 07/22/17 Ergocalciferol (Vitamin D2) [Vitamin D2] 50,000 unit PO CARR 09/21/17 Sennosides [Senna] 8.6 mg PO BID 09/21/17 Disposition Discussed With: Patient
[2017-09-21] MEDS ORDERED: SODIUM CHLORIDE 500 ML IV STA (18:25)
--- NOTE | 2017-09-21 18:46 | CT ---
EXAM: CTA chest with contrast HISTORY: Short of air TECHNIQUE: Multi-slice transaxial helical PE protocol. Multiplanar MIP and 3-D volume rendered imag es are provided. CONTRAST: Intravenous COMPARISON: CT chest from 09/21/2017 at 16 48 FINDINGS: The pulmonary arteries are poorly opacified. No main pulmonary artery emboli are detected. Lobar to subsegmental emboli cannot be excluded. The heart is mildly enlarged. The aorta has norm al caliber. No suspicious lymphadenopathy is detected. No pericardial or pleural effusions are evid ent. The minimal dependent atelectasis is noted. No pulmonary nodules or masses. There is mild nodular thickening of the left adrenal gland up to 1.5 cm with low attenuation. The so lid organs otherwise normal and the visualized portions of the upper abdomen. The gallbladder surgic ally absent without biliary dilatation. The bones are free of suspicious osteolytic or osteoblastic lesions. IMPRESSION: 1. Poor contrast bolus timing. No main pulmonary emboli. Lobar to subsegmental emboli cannot be ex cluded. 2. Mild cardiomegaly. 3. Dependent atelectasis. 4. Left adrenal adenoma.
== END 2017-09-21 19:30 | disposition home or self-care (01) ==
LOC: ED 16:32
DX: D64.9 Anemia, unspecified (principal); R06.02 Shortness of breath; R05 Cough; I25.10 Atherosclerotic heart disease of native coronary artery without angina pectoris; E78.5 Hyperlipidemia, unspecified; E11.9 Type 2 diabetes mellitus without complications; I10 Essential (primary) hypertension; E03.9 Hypothyroidism, unspecified; I50.9 Heart failure, unspecified; N18.9 Chronic kidney disease, unspecified; K21.9 Gastro-esophageal reflux disease without esophagitis; M19.90 Unspecified osteoarthritis, unspecified site; Z79.899 Other long term (current) drug therapy; Z86.73 Personal history of transient ischemic attack (TIA), and cerebral infarction without residual deficits; R60.0 Localized edema; R68.84 Jaw pain; R53.83 Other fatigue
CPT/HCPCS: 36415; 80053; 82550; 82803; 83880; 84484; 85025; 85379; 93005; 93010; 96360; 99283

== ENCOUNTER 2017-09-22 12:20 | Observation (INO) ==
[2017-09-22 13:01] VITALS: BMI 42.0
[2017-09-22] MEDS ORDERED: TYLENOL PO PRN (15:02)
--- NOTE | 2017-09-22 15:50 | US ---
EXAM: Bilateral lower extremity venous Doppler History: Bilateral lower extremity pain and swelling. Technique: Multiple sonographic images through the bilateral lower extremities were obtained. Color duplex Doppler was used to interrogate vascular flow. Findings: The bilateral common femoral, greater saphenous, profunda, superficial femoral, popliteal, peroneal, posterior tibial and anterior tibial veins demonstrate spontaneous flow with normal compre ssion and normal augmentation. Bilateral lower extremity subcutaneous edema Impression: 1. No sonographic evidence for deep venous thrombosis. 2. Bilateral lower extremity subcutaneous edema
[2017-09-22] MEDS: DEXTROSE 5%-1/2NS IV SOLUTION 1,000 ML IV SCH (17:51)
[2017-09-22] MEDS: GLUCOPHAGE PO SCH (17:58)
[2017-09-22] MEDS: NORCO 5-325 PO SCH (17:58)
--- NOTE | 2017-09-22 19:46 | DI ---
EXAM: PA and lateral views of the chest HISTORY: Short of breath COMPARISON: Chest Xray from 05/29/2017 FINDINGS: There is some patchy increased lung markings in the left base most consistent with atelect asis. There is no large effusion or lobar consolidation. Cardiac and mediastinal silhouettes show n o acute abnormality. There is calcific atherosclerosis. No acute osseous or soft tissue abnormalities . IMPRESSION: Left basilar atelectasis.
[2017-09-22] MEDS ORDERED: NON-FORMULARY MEDICATION (Oxcarbazepine 150 MG) PO SCH (21:00)
[2017-09-22] MEDS ORDERED: REQUIP PO SCH (21:00)
[2017-09-22] MEDS: CALCIUM 500 + VIT D 200 MG TABLET PO SCH (22:51)
[2017-09-22] MEDS: ENTRESTO 24 MG-26 MG TABLET PO SCH (22:52)
[2017-09-22] MEDS: COLACE PO SCH (22:52)
[2017-09-22] MEDS: LOPRESSOR PO SCH (22:53)
[2017-09-22] MEDS: NON-FORMULARY MEDICATION (Guaifenesin [Mucinex] 1,200 MG) PO SCH (22:53)
[2017-09-22] MEDS: LYRICA PO SCH (22:54)
[2017-09-22] MEDS: PEPCID PO SCH (22:55)
[2017-09-22] MEDS: SENNA PO SCH (22:55)
[2017-09-22] MEDS: XANAX PO SCH (22:56)
[2017-09-22] MEDS: SYMBICORT 80-4.5 MCG INHALER IH SCH (22:56)
[2017-09-23] MEDS: DEXTROSE 5%-1/2NS IV SOLUTION 1,000 ML IV SCH (04:59)
[2017-09-23] MEDS: NORCO 5-325 PO SCH ×2 (05:41→11:07)
[2017-09-23] MEDS ORDERED: LASIX TAB PO SCH (06:30)
[2017-09-23] MEDS ORDERED: SYNTHROID PO SCH (06:30)
[2017-09-23] MEDS ORDERED: ASPIRIN CHEWABLE PO SCH (08:00)
[2017-09-23] MEDS ORDERED: NON-FORMULARY MEDICATION (Ropinirole Hcl [Requip] 0.5 MG) PO SCH (09:00)
[2017-09-23] MEDS ORDERED: CORDARONE PO SCH (09:00)
[2017-09-23] MEDS ORDERED: NORVASC PO SCH ×3 (09:00→15:15)
[2017-09-23] MEDS ORDERED: JANUVIA PO SCH (09:00)
[2017-09-23] MEDS ORDERED: MILK OF MAGNESIA PO SCH (09:00)
[2017-09-23] MEDS: ENTRESTO 24 MG-26 MG TABLET PO SCH (09:18)
[2017-09-23] MEDS: NON-FORMULARY MEDICATION (Guaifenesin [Mucinex] 1,200 MG) PO SCH (09:18)
[2017-09-23] MEDS: GLUCOPHAGE PO SCH (09:18)
[2017-09-23] MEDS: LYRICA PO SCH (09:19)
[2017-09-23] MEDS: PEPCID PO SCH (09:19)
[2017-09-23] MEDS: LOPRESSOR PO SCH (09:19)
[2017-09-23] MEDS: XANAX PO SCH (09:20)
[2017-09-23] MEDS: SYMBICORT 80-4.5 MCG INHALER IH SCH (09:20)
[2017-09-23] MEDS: SENNA PO SCH (09:29)
[2017-09-23] MEDS: CALCIUM 500 + VIT D 200 MG TABLET PO SCH (09:29)
[2017-09-23] MEDS: COLACE PO SCH (09:29)
[2017-09-23] MEDS ORDERED: NON-FORMULARY MEDICATION (Amlodipine Besylate [Norvasc] 5 MG) PO SCH (15:30)
[2017-09-23 15:36] VITALS: BP 154/70; TEMP 97.8
[2017-09-23] MEDS ORDERED: NORVASC ONE (15:46)
[2017-09-23] MEDS ORDERED: NORCO 5-325 PO SCH (17:30)
[2017-09-23] MEDS ORDERED: SENNA PO SCH (21:00)
[2017-09-23] MEDS ORDERED: CALCIUM 500 + VIT D 200 MG TABLET PO SCH (21:00)
[2017-09-23] MEDS ORDERED: COLACE PO SCH (21:00)
[2017-09-24] MEDS ORDERED: ASPIRIN CHEWABLE PO SCH (08:00)
[2017-09-24] MEDS ORDERED: MILK OF MAGNESIA PO SCH (09:00)
[2017-09-28] MEDS ORDERED: DRISDOL PO SCH (09:00)
--- NOTE | 2017-10-21 12:05 | SSS ---
DATE OF SERVICE: 09/22/17 (ADMIT) 09/23/17 (DISCHARGE) HISTORY OF PRESENT ILLNESS: The patient was seen at the emergency room at [place] 09/21/17 because of shortness of breath in the last two days. The patient in the emergency room was found to be alert, oriented, not dyspneic or tachypneic. Arterial blood gases showed an oxygen saturation 98, partial pressure oxygen 102 on room air. The patient had a chest CT times two (one without) and later on with contrast. The reading was no main pulmonary emboli noted. Lobar to subsegmental emboli cannot be excluded. Mild cardiomegaly. Dependent atelectasis. Left adrenal adenoma. The comment was made for contrast bolus timing. The patient had chronic kidney disease and none during and post contrast hydration. The patient was seen at the office on 09/22/17 and the daughter was concerned that the patient had gained some more weight. She gained 4 pounds at the care home scale. Electrolytes on the day of contrast study showed essentially unremarkable. The estimated EGFR is 34, BUN 33, creatinine 1.48. The patient on examination at the office was alert, oriented and responsive, follows verbal commands. BP 130/56, oxygen saturation 96 on room air, respiratory rate 16. She still complained of pain and swelling on both legs. PAST PERSONAL HISTORY: The patient had mastoid surgery and has hearing loss. She is very hard of hearing. Previous infarct of the brain based from the MRI findings, history of restless leg syndrome, history of congestive heart failure and cardiomegaly. History of DVT, history of cholecystectomy and tubal ligation. History of osteoarthritis involving both hands and knees. History of hypothyroidism, cardiac arrhythmia on medication. Carpal tunnel surgery bilateral. Surgery to the knees bilaterally. The patient had paroxysmal atrial fibrillation by history , diabetes mellitus type 2, chronic kidney disease, Stage 3. PERSONAL/FAMILY HISTORY/SOCIAL HISTORY: Family History: Sister had heart disease; brother had gastric carcinoma. Mother was hypertensive and father had heart disease. Social History: The patient is and resides now at [facility]. She has good support from her daughter. She decided to stay in the care home after a trial of staying instead of her daughter. Old/present records reviewed Office records reviewed. ALLERGIES: QUININE MEDICATIONS: (prior to this admission) Pepcid 20 mg b.i.d. Amiodarone 200 mg daily Levothyroxine 100 mcg daily Lasix 40 mg daily Alprazolam 0.25 mg twice a day Trileptal 150 mg at bedtime Lyrica 50 mg b.i.d. Symbicort 80/4.5 two puffs twice a day Calcium plus Vitamin D3 500/200 one b.i.d. Magnesium Hydroxide Milk of Magnesia 30 cc at bedtime as needed Metformin 500 mg twice a day Januvia 50 mg tablet daily Entresto one tablet daily Colace 100 mg twice a day Aspirin 81 mg daily Tylenol 650 mg q.4hr p.r.n. pain Ropinirole 1 mg at bedtime Mucinex 1200 mg twice a day Ropinirole 0.5 mg during the day Metoprolol Tartrate 25 mg twice a day Hydrocodone/APAP 5/325 mg one tablet before meals Vitamin D3 50,000 international units monthly Senna twice a day Amlodipine 10 mg daily REVIEW OF SYSTEMS: CONSTITUTIONAL: The patient had no fever, no chills. No significant fatigue. [employer]: Denies any headaches or seizure disorder. No syncopal episode. She has difficulty walking and uses a walker. She denies staggering. VISUAL: Denies any blurred vision, double vision or loss of vision. AUDITORY: The patient is hard of hearing and had previous mastoid surgery on the right when she was a child. RESPIRATORY: The patient has shortness of breath for the last three days or so. She has an occasional cough, nonproductive. No history of hemoptysis. CARDIOVASCULAR: Denies any chest pain or chest oppression, nausea, anorexia, diaphoresis or weakness. GENITALIA: The patient denies any burning on urination. She does have incontinence but no urgency. MUSCULOSKELETAL: The patient has pain in the knees in spite of the bilateral total knee replacement. She has pain in all the joints. There is no swelling and no deformities and no warm sensation. INTEGUMENT: No rash, pruritus or any redness in the skin. ENDOCRINE: No polyuria or polydipsia. The patient has hypothyroidism on replacement therapy. The patient is obese. HEMATOLOGY: Denies any history of prolonged bleeding or easy bruising or ecchymosis, spontaneous. PSYCHIATRIC: The patient denies any depression or some anxiety with minimal medication. Her affect is normal. PHYSICAL EXAMINATION: GENERAL/APPEARANCE/VITALS: 82-year-old female , a resident of [facility], is admitted to the hospital because of: 1) Pain and swelling both legs; 2) History of shortness of breath; 3) Weight gain 4 lbs since yesterday; 4) History of chronic kidney disease, Stage 3 with contrast studies without prior hydration and during the course of this studies as well as after. GENERAL: The patient is alert, without any distress. No cyanosis. V/S: Temperature 98.1, pulse 74, BP 130/68, RR 18, oxygen saturation on room air 94%. HEENT: Head unremarkable. Scalp: No active dermatitis. FACE: Symmetrical and equal with no facial weakness, no redness, no cyanosis. The patient denies any tendernessin the frontal or maxillary sinus areas to palpation and/or pressure. EYES: Pupils are equal and reactive to light, about 3 mm in size and round. Conjunctivae are somewhat pale. Sclerae nonicteric. MOUTH: Unremarkable. THROAT : No inflammation, no exudates, no tumors. NECK: No masses, no remarkable tenderness. No bruit. No rigidity. CHEST: Symmetrical and equal with good expansion. LUNGS: Breath sounds are diminished in both sides. No rales or wheezing. HEART: Audible and regular with good tones. No murmurs. ABDOMEN: Protuberant and soft with no remarkable tenderness. No guarding. Bowel sounds are active. No masses palpable. EXTERNAL GENITALIA: Not examined. RECTAL: Not performed. LOWER EXTREMITIES: Bilaterally edematous but appears to be equal. Some tenderness in the legs to palpation. Nury's sign is negative. PROGRESS NOTES: See EMR DIAGNOSES: 1. SHORTNESS OF BREATH, ETIOLOGY UNDETERMINED 2. WEIGHT GAIN, 4 LBS IN ONE DAY 3. BILATERAL LEG EDEMA AND PAIN, CAUSE UNDETERMINED 4. CHRONIC KIDNEY DISEASE, STAGE 3 WITH CONTRAST INJECTED YESTERDAY, NO PRIOR HYDRATION AND NONE DURING WELL AFTER. 5. TYPE 2 DIABETES MELLITUS. 6. HYPERTENSION. HOSPITAL COURSE: The patient while in the hospital, CBC showing normal WBC, moderate anemia, 10.3 hemoglobin, hematocrit 31.5, RDW 16.4. CMP slightly lower sodium 132, potassium 4.3, chloride 96, c02 25, BUN 30, creatinine 1.38, EGFR 37, blood sugar 114. Albumin 3.3 below normal. The patient was given intravenous Dextrose 5% with 1/2 Saline 1000 cc to run at 83 cc/hr. She was continued on her medications. The patient the next day was alert with movement of all extremities and feeling better. She denies any shortness of breath. Auscultation revealed lungs that are clear although the breath sounds are somewhat diminished, right more than left. Heart is normal sinus rhythm. Pain and swelling both legs showed negative Doppler studies both lower extremities for thrombosis. Chest x-ray showed left basilar atelectasis. This patient had a MRSA positive nasal. Her temperature remained normal. Blood pressure was upper limits of normal or slightly higher. The pulse fluctuated between 73 to 77. Respiratory rate between 18 to 20, oxygen saturation from 94 to 99 on room air. Pro BNP was requested instead of BNP because the patient is on Sacubitril. The Pro BNP is slightly elevated 1,046. Optimal cut off point for this patient for 75 years and above is 1,800 picograms per mL. Exclusion rule of heart failure is independent and is 350 gm and less. Again, diagnosed with heart failure for people or patients 75 years and above is 1,800 picograms per mL. New prescription of Amlodipine 5 mg daily. The patient is to resume her previous medications. The patient should be weighed at the care home the same time of day, same amount of clothes and the same scale. Amlodipine was reduced to 5 hoping to reduce the swelling of the lower extremities. ASSESSMENT: 1. BILATERAL LEG EDEMA, SECONDARY TO DEPENDENCY. 2. HISTORY OF CHRONIC KIDNEY DISEASE, STAGE 3 WITH INTRAVENOUS CONTRAST WITHOUT ANY ADVERSE EFFECTS 3. HISTORY OF CONGESTIVE HEART FAILURE COMPENSATED 4. HISTORY OF DIABETES MELLITUS, CONTROLLED 5. HISTORY OF HYPERTENSION SLIGHTLY UNCONTROLLED 6. ELEVATED BMI PERSISTENT 7. HISTORY OF CARDIAC ARRHYTHMIA ON MEDICATION 8. HISTORY OF RESTLESS LEG SYNDROME 9. DIABETES MELLITUS. TYPE 2 10. HISTORY OF ANXIETY PROGNOSIS: Guarded MTDD
== END 2017-09-23 05:10 ==
LOC: MEDSURG A 12:20
PROVIDERS: ADMIT General Practice; ATTEND General Practice
DX: R60.0 Localized edema (principal); R06.02 Shortness of breath; R63.5 Abnormal weight gain; Z68.41 Body mass index [BMI] 40.0-44.9, adult; N18.3 Chronic kidney disease, stage 3 (moderate); E11.9 Type 2 diabetes mellitus without complications; I10 Essential (primary) hypertension
CPT/HCPCS: 36415; 80053; 84443; 85025; 87081; 96360; 96361

== ENCOUNTER 2018-03-19 10:07 | Inpatient (IN) ==
[2018-03-19 10:09] VITALS: BMI 41.8
[2018-03-19] MEDS ORDERED: SODIUM CHLORIDE 1,000 ML IV STA (10:30)
[2018-03-19] MEDS ORDERED: DUONEB NEB STA (10:31)
[2018-03-19] MEDS ORDERED: ROCEPHIN 1 GM in SODIUM CHLORIDE 50 ML IV STA (10:32)
[2018-03-19] MEDS ORDERED: TYLENOL PO PRN ×3 (10:36→12:40)
--- NOTE | 2018-03-19 10:39 | ED.PDOC ---
General ED Provider: Dr. OSMIN HOLDER Chief Complaint: Respiratory Complaint Stated Complaint: Cough, congestion and fever. Does not feel well. Weak, congested with associated chills.Denies n-v-d. Daughter brings her in from dc Time Seen by Physician: 10:15 Mode of Arrival: Wheelchair Information Source: Patient, Family Exam Limitations: No limitations [facility] Nursing and Triage Documentation Reviewed and Agree: Yes Does patient meet sepsis criteria?: Yes If yes, has appropriate treatment been initiated?: Yes System Inflammatory Response Syndrome: Temp 101F or Greater, Pulse >90 BPM Sepsis Protocol: For patient's 13 years and over: Temp is 96.8 and below OR 101 and greater Pulse >90 BPM Resp >20/minute Acutely Altered Mental Status Are patient's symptoms suggestive of a new infection, such as: -Pneumonia -Skin, Soft Tissue -Endocarditis -UTI -Bone, Joint Infection -Implantable Device -Acute Abdominal Infection -Wound Infection -Meningitis -Blood Stream Catheter Infection -Unknown Respiratory Complaint Exam - Respiratory Complaint/Exam Symptoms Are: Still present Timing: Constant Initial Severity: Moderate Current Severity: Moderate Location: Throat, Chest Character: Reports: Productive cough Aggravating: Reports: None Alleviating: Reports: None Associated Signs and Symptoms: Reports: Dyspnea, Fever, Chills Related History: Denies: Similar episode History of Healthcare-Acquired Pneumonia: [facility] at [facility] Related Surgical History: Reports: None Pulmonary Embolism Risk Factors: None Cardiac Risk Factors: Reports: None Home Oxygen Use: No Recent Stress Test: No Recent Echo/LV Function: No Current Antibiotic Use: No Current Asthma Medication Use: No Respiratory Distress: Mild Inadequate Respiratory Effort: No Dysphagia Present: No Stridor Present: No JVD Present: No Retractions: Not Present Diminished Breath Sounds: No Sinus Tenderness: None Grunting Respirations: No Kussmaul Respirations: No Differential Diagnoses: Pneumonia, URI Quality Indicators For Pneumonia: Blood Cultures-SCU admit, Antibiotics in 6hr- admit, Empiric Antibiotic Rx, Mental status assessed Review of Systems - Review Of Systems Constitutional: Reports: Chills, Fever Eyes: Reports: No symptoms Ears, Nose, Mouth, Throat: Reports: No symptoms Respiratory: Reports: Cough Cardiac: Reports: No symptoms GI: Reports: No symptoms : Reports: No symptoms Musculoskeletal: Reports: No symptoms Skin: Reports: No symptoms Neurological: Reports: No symptoms Endocrine: Reports: No symptoms Hematologic/Lymphatic: Reports: No symptoms All Other Systems: Reviewed and Negative Past Medical History - Past Medical History Previously Healthy: Yes Endocrine: Reports: DM 2, Hypothyroid (meds) Cardiovascular: Reports: CAD, Hypertension, CHF Respiratory: Reports: None Hematological: Reports: None Gastrointestinal: Reports: GERD (meds) Genitourinary: Reports: CKD Neuro/Psych: Reports: CVA Musculoskeletal: Reports: Arthritis Cancer: Reports: None Last Menstrual Period: N/A Other Pertinent Past Medical History: bilat. knee replacement. [ End ]htn dm - Surgical History General Surgical History: Reports: Cholecystectomy, Orthopedic ( knee replacement bilateral; carpal tunnel ), Other (mastoid surgeries x2) - Family History Family History: Reports: Unknown - Social History Smoking Status: Former smoker Hx Substance Use: No Alcohol Screening: None - Immunizations Tetanus Shot up to Date: No Influenza Vaccine within 12 Months: No Pneumococcal Vaccine up to Date: No Physical Exam - Physical Exam Appearance: Ill-appearing, No pain distress, Well-nourished, Obese Ill-appearing: Mild Pain Distress: None Eyes: ALEJANDRO, EOMI, Conjunctiva clear ENT: Ears normal, Nose normal, Oropharynx normal Respiratory: Airway patent, Breath sounds clear, Breath sounds equal, Respirations nonlabored Cardiovascular: RRR, Pulses normal, No rub, No murmur GI/: Soft, Nontender, No masses, Bowel sounds normal, No Organomegaly Musculoskeletal: Normal strength, ROM intact, No edema, No calf tenderness Skin: Warm, Dry, Normal color Neurological: Sensation intact, Motor intact, Reflexes intact, Cranial nerves intact, Alert, Oriented Psychiatric: Affect appropriate, Mood appropriate Interpretation - Radiology Interpretation Radiology Interpretation By: Radiologist Radiology Results: Negative Exam Interpreted: CXR Re-Evaluation - Re-Evaluation Time of Re-Evaluation: 11:55 Status: Unchanged, Improved Appearance: NAD Lungs: Clear Skin: Warm and Dry Neuro: Alert and Oriented X3 CV: RRR Physician Notification - Case Discussed Physician Notified: Dr Aiken Time of Notification: 12:15 (Admit/get Viral Flu quanitative levels) Critical Care Note - Critical Care Note Total Time (mins): 60 Course - Course Orders, Labs, Meds: Orders Category Date Time Status EKG-(ED ONLY) Stat CARDIO 03/19/18 10:28 Ordered NEBULIZER TREATMENT Stat CARDIO 03/19/18 10:31 Ordered OXYGEN Routine CARDIO 03/19/18 10:28 Ordered VITAL SIGNS Q30MIN CARE 03/19/18 10:28 Active IV [ED IV/MEDIPORT/POWERPORT] .ONCE EMERGENCY 03/19/18 10:28 Active BLOOD CULTURE (ED ONLY) Stat LAB 03/19/18 10:29 Ordered CBC W/ AUTO DIFF Stat LAB 03/19/18 10:29 Ordered CMP [COMPREHENSIVE METABOLIC PANEL] Stat LAB 03/19/18 10:29 Ordered FLU A & B MOLECULAR [FLU A/B MOLECULAR] Stat LAB 03/19/18 10:47 Ordered LACTIC ACID Stat LAB 03/19/18 10:29 Ordered MAGNESIUM Stat LAB 03/19/18 10:29 Ordered NT-PROBNP Stat LAB 03/19/18 10:30 Ordered PT WITH INR Stat LAB 03/19/18 10:30 Ordered RAPID STREP SCREEN [MOLECULAR GROUP A STREP] Stat LAB 03/19/18 10:47 Ordered SPUTUM CULTURE Stat LAB 03/19/18 10:29 Uncollected TROPONIN I Stat LAB 03/19/18 10:29 Ordered URIC ACID Stat LAB 03/19/18 10:29 Ordered 0.9 % Sodium Chloride [Saline Flush] MEDS 03/19/18 10:28 Active 1 syr IVF PRN PRN Acetaminophen [Tylenol] MEDS 03/19/18 10:36 Active 650 mg PO Q4H PRN Ceftriaxone Sodium [Rocephin] 1 gm MEDS 03/19/18 10:32 Active 0.9 % Sodium Chloride [Sodium Chloride] 50 ml IV ONCE Ipratropium/Albuterol Neb [Duoneb] MEDS 03/19/18 10:31 Discontinued 1 vial NEB ONCE STA Sodium Chloride 0.9% [Sodium Chloride] 1,000 ml MEDS 03/19/18 10:30 Active IV BOLUS RESUSCITATION STATUS Routine OTHERS 03/19/18 10:28 Ordered CHEST, 1V AP ONLY Stat RADS 03/19/18 10:28 Ordered Medications Generic Name Dose Route Start Last Admin Trade Name Freq PRN Reason Stop Dose Admin Acetaminophen 650 mg 03/19/18 10:36 Tylenol PO Q4H PRN Temperature greater than 101 Sodium Chloride 1,000 mls @ 1,000 mls/hr 03/19/18 10:30 Sodium Chloride IV 03/19/18 11:29 BOLUS STA Ceftriaxone Sodium 1 gm/ 50 mls @ 75 mls/hr 03/19/18 10:32 Sodium Chloride IV 03/19/18 11:11 ONCE STA Sodium Chloride 1 syr 03/19/18 10:28 Saline Flush IVF PRN PRN To flush IV Discontinued Medications Generic Name Dose Route Start Last Admin Trade Name Shubham PRN Reason Stop Dose Admin Albuterol/Ipratropium 1 vial 03/19/18 10:31 Duoneb NEB 03/19/18 10:32 ONCE STA Vital Signs: Temp Pulse Resp BP Pulse Ox 03/19/18 10:07 102.8 F H 105 H 18 171/83 H 94 L Departure - Departure Time of Disposition: 12:15 (discussed with Dr Aiken/ admit for definitive therapy) Disposition: PLACED OBSERVATION Discharge Problem: Febrile illness, acute, Viral upper respiratory infection, CHF, chronic, Hyponatremia syndrome Condition: Stable Pt referred to PMD for follow-up: Yes (PCP) IPMP verified?: No Allergies/Adverse Reactions: Allergies quinine Allergy (Verified 03/19/18 10:09) BEEN SO LONG AGO, CANT REMEMBER REACTION Home Medications: Ambulatory Orders Levothyroxine Sodium [Synthroid] 100 mcg PO QDAC #30 tablet 11/25/16 Acetaminophen [Pain & Fever] 650 mg PO Q4HR PRN 04/29/17 Aspirin 81 mg PO DAILY 04/29/17 Budesonide/Formoterol Fumarate [Symbicort 80-4.5 Mcg Inhaler] 2 puff IH BID Calcium Carbonate/Vitamin D3 [Calcium 500-Vit D3 200 Tablet] 1 each PO BID 04/29 Docusate Sodium [Colace] 100 mg PO BID 04/29/17 Magnesium Hydroxide [Milk of Magnesia] 30 ml PO DAILY 04/29/17 Metformin HCl 500 mg PO BID 04/29/17 Oxcarbazepine [Trileptal] 150 mg PO BEDTIME 04/29/17 Pregabalin [Lyrica] 50 mg PO BID 04/29/17 Ropinirole HCl [Requip] 1 mg PO BEDTIME 04/29/17 Sacubitril/Valsartan [Entresto 24 mg-26 mg Tablet] 1 each PO BID 04/29/17 Sitagliptin Phosphate [Januvia] 50 mg PO DAILY 04/29/17 Guaifenesin [Mucinex] 1,200 mg PO Q12HR 07/11/17 Ropinirole HCl [Requip] 0.5 mg PO DAILY 07/11/17 Metoprolol Tartrate [Lopressor] 25 mg PO BID #1 tablet 07/22/17 Ergocalciferol (Vitamin D2) [Vitamin D2] 50,000 unit PO CARR 09/21/17 Sennosides [Senna] 8.6 mg PO BID 09/21/17 Amlodipine Besylate [Norvasc] 5 mg PO DAILY #30 tablet 09/23/17 Disposition Discussed With: Patient, Family
--- NOTE | 2018-03-19 11:10 | DI ---
EXAM: Chest one view, frontal view only. HISTORY: Cough, chest congestion. COMPARISON: 09/12/2017. FINDINGS: The heart size is mildly enlarged but atherosclerotic calcifications present. There is no pulmonary vascular congestion. The lungs are clear. No pleural effusion or pneumothorax is seen. No acute osseous abnormality is identified. Since the prior study, there has been no significant int erval change. IMPRESSION: No acute cardiopulmonary process.
[2018-03-19] MEDS ORDERED: ROCEPHIN ONE (11:15)
[2018-03-19] MEDS ORDERED: DUONEB NEB PRN (12:32)
[2018-03-19] MEDS ORDERED: NON-FORMULARY MEDICATION (Guaifenesin [Mucinex] 1,200 MG) PO SCH (12:45)
[2018-03-19] MEDS: SODIUM CHLORIDE 1,000 ML IV SCH (13:42)
[2018-03-19] MEDS: LASIX TAB PO SCH (14:07)
[2018-03-19] MEDS: LOVENOX SUBCUT SCH (15:00)
[2018-03-19] MEDS: PEPCID PO SCH (16:53)
[2018-03-19] MEDS: LOPRESSOR PO SCH (16:53)
[2018-03-19] MEDS ORDERED: ACETAMINOPHEN PO SCH (17:00)
[2018-03-19] MEDS ORDERED: HYDROCODONE PO SCH (17:00)
[2018-03-19] MEDS ORDERED: [UNRECOGNIZED DRUG - OTHER] PO SCH (17:00)
[2018-03-19] MEDS ORDERED: GLUCOPHAGE PO SCH (17:30)
[2018-03-19] MEDS: CALCIUM 500 + VIT D 200 MG TABLET PO SCH (20:31)
[2018-03-19] MEDS: SYMBICORT 80-4.5 MCG INHALER IH SCH (20:31)
[2018-03-19] MEDS: COLACE PO SCH (20:31)
[2018-03-19] MEDS: ENTRESTO 24 MG-26 MG TABLET PO SCH (20:32)
[2018-03-19] MEDS: REQUIP PO SCH (20:32)
[2018-03-19] MEDS: XANAX PO SCH (20:32)
[2018-03-19] MEDS: TRILEPTAL PO SCH (20:32)
[2018-03-19] MEDS: MUCINEX PO SCH (20:32)
[2018-03-19] MEDS ORDERED: NON-FORMULARY MEDICATION (Oxcarbazepine 150 MG) PO SCH (21:00)
[2018-03-19] MEDS: TAMIFLU PO SCH (21:27)
--- NOTE | 2018-03-19 21:39 | CT ---
Exam: CT of the chest without contrast History: Respiratory distress Technique: [address] of the chest without intravascular contrast FINDINGS: Consolidative pneumonia of the left lower lobe. Atelectasis in the right base. The upper lungs are clear. Atherosclerotic calcification of the aorta and coronary arteries. Calcification o f the mitral annulus also present. No pathologic lymph node enlargement mediastinum. No acute chest wall abnormalities are seen. No acute findings of the upper abdomen. Left adrenal adenoma measurin g 2.4 cm. Impression: 1. Dense consolidative pneumonia of the left lower lobe.
[2018-03-20] MEDS: PEPCID PO SCH ×2 (06:05→16:27)
[2018-03-20] MEDS: LASIX TAB PO SCH (06:05)
[2018-03-20] MEDS: SYNTHROID PO SCH (06:05)
[2018-03-20] MEDS ORDERED: LASIX IVP STA (06:49)
[2018-03-20] MEDS: MUCINEX PO SCH ×2 (08:33→20:52)
[2018-03-20] MEDS: SYMBICORT 80-4.5 MCG INHALER IH SCH ×2 (08:33→20:51)
[2018-03-20] MEDS: ASPIRIN CHEWABLE PO SCH (08:33)
[2018-03-20] MEDS: COLACE PO SCH ×2 (08:34→20:52)
[2018-03-20] MEDS: LOPRESSOR PO SCH ×2 (08:34→16:29)
[2018-03-20] MEDS: XANAX PO SCH ×2 (08:34→20:52)
[2018-03-20] MEDS: ENTRESTO 24 MG-26 MG TABLET PO SCH ×2 (08:34→20:51)
[2018-03-20] MEDS: CALCIUM 500 + VIT D 200 MG TABLET PO SCH ×2 (08:35→20:52)
[2018-03-20] MEDS: TAMIFLU PO SCH ×2 (08:35→20:52)
[2018-03-20] MEDS: ROCEPHIN 1 GM in SODIUM CHLORIDE 50 ML IV SCH (08:36)
[2018-03-20] MEDS: CORDARONE PO SCH (08:39)
[2018-03-20] MEDS: REQUIP PO SCH ×2 (08:39→20:52)
[2018-03-20] MEDS: NORVASC PO SCH (08:39)
[2018-03-20] MEDS: BACTROBAN TP SCH (08:40)
[2018-03-20] MEDS: MILK OF MAGNESIA PO SCH (08:40)
[2018-03-20] MEDS: SODIUM CHLORIDE 1,000 ML IV SCH ×2 (08:43→10:27)
[2018-03-20] MEDS: LOVENOX SUBCUT SCH (08:44)
[2018-03-20] MEDS ORDERED: MUPIROCIN CALCIUM TP SCH (09:00)
[2018-03-20] MEDS ORDERED: JANUVIA PO SCH (09:00)
[2018-03-20] MEDS ORDERED: NON-FORMULARY MEDICATION (Ropinirole Hcl [Requip] 0.5 MG) PO SCH (09:00)
[2018-03-20] MEDS: TRILEPTAL PO SCH (20:52)
[2018-03-21] MEDS: PEPCID PO SCH ×2 (05:51→16:55)
[2018-03-21] MEDS: SYNTHROID PO SCH (05:51)
[2018-03-21] MEDS: LASIX TAB PO SCH (05:51)
[2018-03-21] MEDS: ROCEPHIN 1 GM in SODIUM CHLORIDE 50 ML IV SCH (09:21)
[2018-03-21] MEDS: CALCIUM 500 + VIT D 200 MG TABLET PO SCH ×2 (09:21→21:18)
[2018-03-21] MEDS: SYMBICORT 80-4.5 MCG INHALER IH SCH ×2 (09:21→23:37)
[2018-03-21] MEDS: NORVASC PO SCH (09:22)
[2018-03-21] MEDS: CORDARONE PO SCH (09:22)
[2018-03-21] MEDS: MUCINEX PO SCH ×2 (09:22→21:19)
[2018-03-21] MEDS: XANAX PO SCH ×2 (09:22→21:19)
[2018-03-21] MEDS: COLACE PO SCH ×2 (09:22→21:18)
[2018-03-21] MEDS: TAMIFLU PO SCH ×2 (09:22→21:19)
[2018-03-21] MEDS: ENTRESTO 24 MG-26 MG TABLET PO SCH ×2 (09:22→21:18)
[2018-03-21] MEDS: REQUIP PO SCH ×2 (09:22→21:19)
[2018-03-21] MEDS: LOVENOX SUBCUT SCH (09:23)
[2018-03-21] MEDS: MILK OF MAGNESIA PO SCH (09:23)
[2018-03-21] MEDS: LOPRESSOR PO SCH ×2 (09:23→16:55)
[2018-03-21] MEDS: ASPIRIN CHEWABLE PO SCH (09:23)
[2018-03-21] MEDS: BACTROBAN TP SCH (11:42)
[2018-03-21] MEDS: SODIUM CHLORIDE 1,000 ML IV SCH ×2 (18:47→21:20)
[2018-03-21] MEDS: TRILEPTAL PO SCH (21:18)
[2018-03-21] MEDS: OXYCODONE PO PRN (23:40)
[2018-03-22] MEDS: PEPCID PO SCH ×3 (06:15→17:06)
[2018-03-22] MEDS: SYNTHROID PO SCH (06:15)
[2018-03-22] MEDS: LASIX TAB PO SCH (06:15)
[2018-03-22] MEDS: REQUIP PO SCH ×2 (09:22→20:35)
[2018-03-22] MEDS: MILK OF MAGNESIA PO SCH (09:22)
[2018-03-22] MEDS: MUCINEX PO SCH ×2 (09:22→20:35)
[2018-03-22] MEDS: ROCEPHIN 1 GM in SODIUM CHLORIDE 50 ML IV SCH (09:22)
[2018-03-22] MEDS: ENTRESTO 24 MG-26 MG TABLET PO SCH ×2 (09:23→20:36)
[2018-03-22] MEDS: NORVASC PO SCH (09:23)
[2018-03-22] MEDS: CORDARONE PO SCH (09:23)
[2018-03-22] MEDS: XANAX PO SCH ×2 (09:23→20:34)
[2018-03-22] MEDS: COLACE PO SCH ×2 (09:23→20:34)
[2018-03-22] MEDS: ASPIRIN CHEWABLE PO SCH (09:23)
[2018-03-22] MEDS: TAMIFLU PO SCH ×2 (09:23→20:36)
[2018-03-22] MEDS: CALCIUM 500 + VIT D 200 MG TABLET PO SCH ×2 (09:23→20:32)
[2018-03-22] MEDS: LOPRESSOR PO SCH ×2 (09:23→17:01)
[2018-03-22] MEDS: LOVENOX SUBCUT SCH (09:24)
[2018-03-22] MEDS: OXYCODONE PO PRN (09:24)
[2018-03-22] MEDS: SYMBICORT 80-4.5 MCG INHALER IH SCH ×2 (09:30→20:31)
[2018-03-22] MEDS ORDERED: ENTRESTO 24 MG-26 MG TABLET PO ONE (15:00)
[2018-03-22] MEDS: TRILEPTAL PO SCH (20:32)
[2018-03-23] MEDS: SODIUM CHLORIDE 1,000 ML IV SCH (06:24)
[2018-03-23] MEDS: PEPCID PO SCH ×2 (06:25→16:43)
[2018-03-23] MEDS: SYNTHROID PO SCH (06:25)
[2018-03-23] MEDS: LASIX TAB PO SCH (06:25)
[2018-03-23] MEDS: SYMBICORT 80-4.5 MCG INHALER IH SCH ×2 (08:17→20:50)
[2018-03-23] MEDS: LOVENOX SUBCUT SCH (08:18)
[2018-03-23] MEDS: MILK OF MAGNESIA PO SCH (08:19)
[2018-03-23] MEDS: CORDARONE PO SCH (08:19)
[2018-03-23] MEDS: XANAX PO SCH ×2 (08:20→20:51)
[2018-03-23] MEDS: MUCINEX PO SCH ×2 (08:20→20:51)
[2018-03-23] MEDS: CALCIUM 500 + VIT D 200 MG TABLET PO SCH ×2 (08:20→20:51)
[2018-03-23] MEDS: LOPRESSOR PO SCH ×2 (08:21→16:44)
[2018-03-23] MEDS: TAMIFLU PO SCH ×2 (08:21→20:51)
[2018-03-23] MEDS: REQUIP PO SCH ×2 (08:21→20:51)
[2018-03-23] MEDS: COLACE PO SCH ×2 (08:21→20:51)
[2018-03-23] MEDS: NORVASC PO SCH (08:21)
[2018-03-23] MEDS: ASPIRIN CHEWABLE PO SCH (08:21)
[2018-03-23] MEDS: ROCEPHIN 1 GM in SODIUM CHLORIDE 50 ML IV SCH (08:22)
[2018-03-23] MEDS: ENTRESTO 24 MG-26 MG TABLET PO SCH ×2 (08:25→20:51)
--- NOTE | 2018-03-23 15:56 | DI ---
EXAM: Two views of the chest. History: Follow-up pneumonia Comparison: Chest radiograph 03/19/2018, chest CT 03/19/2018 Findings: Heart is mildly enlarged. Atherosclerotic vascular calcifications. Mostly resolved left basilar consolidation with minimal residual subsegmental atelectasis. No pleural fluid and no pneumo thorax. No acute osseous abnormalities. Impression: Mostly resolved left basilar pneumonia with minimal residual subsegmental atelectasis.
[2018-03-23] MEDS: TRILEPTAL PO SCH (20:51)
[2018-03-24] MEDS: LASIX TAB PO SCH (05:52)
[2018-03-24] MEDS: PEPCID PO SCH (05:52)
[2018-03-24] MEDS: SYNTHROID PO SCH (05:52)
[2018-03-24] MEDS: ROCEPHIN 1 GM in SODIUM CHLORIDE 50 ML IV SCH (08:50)
[2018-03-24] MEDS: MILK OF MAGNESIA PO SCH (08:50)
[2018-03-24] MEDS: NORVASC PO SCH (08:51)
[2018-03-24] MEDS: ASPIRIN CHEWABLE PO SCH (08:51)
[2018-03-24] MEDS: ENTRESTO 24 MG-26 MG TABLET PO SCH (08:52)
[2018-03-24] MEDS: REQUIP PO SCH (08:52)
[2018-03-24] MEDS: LOPRESSOR PO SCH (08:52)
[2018-03-24] MEDS: TAMIFLU PO SCH (08:52)
[2018-03-24] MEDS: MUCINEX PO SCH (08:52)
[2018-03-24] MEDS: CALCIUM 500 + VIT D 200 MG TABLET PO SCH (08:52)
[2018-03-24] MEDS: SYMBICORT 80-4.5 MCG INHALER IH SCH (08:53)
[2018-03-24] MEDS: CORDARONE PO SCH (08:53)
[2018-03-24] MEDS: COLACE PO SCH (08:54)
[2018-03-24] MEDS: XANAX PO SCH (08:54)
[2018-03-24] MEDS: LOVENOX SUBCUT SCH (08:59)
[2018-03-24 13:42] VITALS: BP 161/69; TEMP 98.2
[2018-03-24] MEDS: SODIUM CHLORIDE 1,000 ML IV SCH (14:53)
--- NOTE | 2018-05-12 08:49 | HP ---
DATE OF SERVICE: 03/19/18 CHIEF COMPLAINT: Cough, fever and fatigue. HISTORY OF PRESENT ILLNESS: The patient experiencing cough the day before presentation to the emergency room with low grade temperature. The patient also felt sluggish. The patient in the emergency room had a temperature of 102.8, pulse 105, respiratory rate 18, oxygen saturation 94 on room air. Blood pressure 171/83. The patient denies any pain. The patient during the course of the workup showed left lower lobe pneumonitis on CT but not on chest x-ray. Labs showed normal WBC, slightly lower hemoglobin/hematocrit and normal platelet count. The patient's potassium and chloride were lower 125.9 and 88 respectively. BUN is elevated 29.1, creatinine 1.59, EGFR 31. Blood sugar 123. AST and ALT elevated. NT-proBNP slightly elevated 777, procalcitonin 0.16, range should be less than 0.09 ng/ ml. PAST PERSONAL HISTORY: The patient had congestive heart failure and did improve after hospitalization. The patient has hearing loss because of chronic ear infection and did have a mastoid surgery several years ago. 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 History of arthritis involving hands, knees. Carpal tunnel surgery on both hands. History of cardiac arrhythmia as well as hypothyroidism. FAMILY HISTORY: Sister had heart disease, brother had gastric carcinoma. Mother was hypertensive. Father had heart disease. Mother also has diabetes mellitus in her family. Disease also involves some of the members of the maternal family. SOCIAL HISTORY: The patient is a and resides at [facility]. The patient decided to stay in the residential permanently. She use to reside with her daughter. She stopped smoking about 3.5 years ago and no alcoholic beverages. MEDICATIONS: (Prior to this admission) Pepcid 20 mg twice a day Amiodarone 200 mg daily Levothyroxine 100 mcg daily Lasix 40 mg daily on empty stomach in the morning Alprazolam 0.25 mg twice a day Trileptal 150 mg b.i.d. Lyrica 50 mg b.i.d. Symbicort 80/4.5 mcg two puffs twice a day Calcium plus Vitamin D one twice a day Magnesium Hydroxide Milk of Magnesia 30 cc daily p.o. Metformin 500 mg twice a day Januvia 50 mg daily Sacubitril/Valsartan (Entresto) one twice a day Colace 100 mg twice a day Aspirin 81 mg daily Tylenol 650 mg q.4hr p.r.n. pain Ropinirole 1 mg at bedtime for restless leg syndrome Mucinex 1200 mg twice a day Metoprolol Tartrate 21 mg twice a day Vitamin D2 50,000 weekly for 12 weeks Amlodipine 5 mg tablet daily Bactroban apply once daily externally ALLERGIES: QUININE REVIEW OF SYSTEMS: CONSTITUTIONAL: Positive for fatigue and fever; no chills. CYTOTECHNOLOGIST: No significant headaches. No ataxia although she walks with a walker. No syncopal episode, no seizure events. VISUAL: Denies any double vision, blurred vision or loss of vision. AUDITORY: The patient has hearing loss and has hearing aid. Denies any pain or drainage. RESPIRATORY: Cough since yesterday. It is only slightly productive. Some shortness of breath on exertion but no hemoptysis. CARDIOVASCULAR: Denies any chest pain or diaphoresis. She does have weakness but is probably from the febrile condition. GASTROINTESTINAL: Appetite has decreased. No dysphagia. No abdominal pain. No diarrhea. GENITOURINARY: Patient is incontinent of urine, has stress incontinence. Denies any burning on urination. She does have some frequency. MUSCULOSKELETAL: The patient does have pain in both knees. She had bilateral total knee replacement. She also has some problems with hips. INTEGUMENT: Denies any rash, pruritus or redness of the skin. ENDOCRINE: The patient has no polydipsia. She does have frequency of urination. The patient has hypothyroidism on replacement therapy. She is also obese. HEMATOLOGIC: Negative. PSYCHIATRIC: Affect is normal. PHYSICAL EXAMINATION: GENERAL: 82-year-old female admitted to the hospital because of cough , fever and left lower lobe pneumonitis. VITAL SIGNS: Temperature on admission 102.8 in the emergency room, pulse 105, blood pressure 171/83, respiratory rate 18, oxygen saturation 94 on room air. HEAD: Unremarkable. Scalp - no active dermatitis. Face is symmetrical and equal with no facial weakness and no tenderness to palpation and/or pressure in the frontal or maxillary sinus areas. EYES: Pupils equal/reactive to light about 3 mm in size and round. Palpebral conjunctivae slightly pale. Sclerae not icteric. MOUTH: Unremarkable. THROAT: No inflammation, tumors or exudate. NECK: No masses. No bruit. No tenderness. No rigidity. CHEST: Symmetrical and equal with good expansion with no remarkable tenderness. LUNGS: Breath sounds are heard on both sides with bilateral basilar rales. HEART: Audible and regular with good tones. No murmurs. ABDOMEN: Protuberant, soft with no remarkable tenderness. No guarding. Bowel sounds are active. No masses palpable. EXTERNAL GENITALIA: Not examined. PELVIC/RECTAL: Not performed. LOWER EXTREMITIES: Symmetrical and equal with edematous ankle and leg. Anterior tibials present. UPPER EXTREMITIES: Symmetrical and equal. ASSESSMENT: 1. ACUTE FEBRILE ILLNESS - BACTERIAL PNEUMONITIS PROBABLE. 2. CONGESTIVE HEART FAILURE, IMPROVED. 3. CHRONIC KIDNEY DISEASE, STAGE 3. 4. HISTORY OF CORONARY ARTERY DISEASE. 5. HISTORY OF RESTLESS LEG SYNDROME. 6. HYPOTHYROIDISM REPLACED. 7. BILATERAL OSTEOARTHRITIS, KNEES, OPERATED BILATERALLY. 8. ELECTROLYTE IMBALANCE/HYPONATREMIA/HYPOCHLOREMIA - NO SYMPTOMS. TIME SPENT: GREATER THAN 65 MINUTES MTDD
--- NOTE | 2018-05-12 09:27 | PN ---
DATE OF SERVICE: 03/20/18 SUBJECTIVE: The patient is alert and feels slightly better. She doesn't appear to be in distress. She is not dyspneic or tachypneic and no cyanosis. OBJECTIVE: Temperature at 6 p.m. 03/20/18 98.6, pulse rate 81, blood pressure 142/71, respiratory rate 20, oxygen saturation 98 on 2L nasal oxygen. He did eat 75% of dinner. LUNGS: Lungs still have rales in both lung barrios. No wheezing. HEART: Audible with good tones. ABDOMEN: Soft and nontender. LABS: Rapid influenza A and B by nuclear amplification were negative. Quantitative A and B antibody titers were requested. No results at this time. The NT-proBNP did rise to 3,500 from 770, probably because of 1,000 cc bolus in the emergency room of . Condition is stable. MTDD
--- NOTE | 2018-05-12 09:48 | PN ---
DATE OF SERVICE: 03/21/18 SUBJECTIVE: The patient is alert and seems to be doing better, not dyspneic or tachypneic. The patient had remained afebrile since yesterday until today at 6 p.m. . OBJECTIVE: V/S: Temperature 98.1, pulse 72, blood pressure 145/67, respiratory rate 14, oxygen saturation 99 on 2L nasal oxygen. LUNGS: Still has rales in both lung barrios, a bit more in the left. HEART: Audible with good tones. The patient weighs less today than yesterday. She did consume 75% of dinner. She had movement of all extremities and no weakness of the left or right. No tenderness in the calf muscles. CBC showed normal WBC 9,370, hemoglobin 9.8, hematocrit 30.3, MCV and MCH about the same. RDW slightly elevated. Neutrophils elevated. Electrolytes showed improvement of the sodium and chloride rising to 130.9 from 125.9. The chloride is now 96.3 from 88.0. Renal panel showed decreased creatinine 1.30 and EGFR is now 39 from 31. The AST has returned to normal. ALT still slightly elevated but minimal. Sputum culture light growth, normal saul and also light growth gram positive cocci. Legs are still edematous. This patient is encouraged not to sit very long at any time. If she is up she should be walking. The patient is receiving Ceftriaxone 1 gm intravenously daily. Abdomen is unremarkable. Lower extremities about the same and no tenderness in the calf muscles. MTDD
--- NOTE | 2018-05-12 13:12 | PN ---
DATE OF SERVICE: 03/22/18 SUBJECTIVE: The patient today is alert and feeling better. OBJECTIVE: Vital Signs at 6 p.m. 03/22/18: Temperature 98.6, pulse rate 77, blood pressure elevated 172 to 173. Blood pressure earlier at 2 p.m. was 126/61. Respiratory rate 16, oxygen saturation 99 @ 2L/NC. Lungs still have rales, slightly more on the left base, no expiratory wheezing. Heart is audible with good tones. Abdomen is protuberant, soft and nontender. Condition improved. PLAN: Will continue the antibiotic and get a chest x-ray tomorrow as part of the followup and see if the chest x-ray has improved then it is reasonable to discharge this patient back to the [facility] and continue the antibiotics orally. CBC normal WBC, hemoglobin, hematocrit down about same as yesterday. Sodium chlorides are near normal. Pro-bnp has risen to 5,580 from 3,500 the other day. The patient is taking Lasix 40 mg daily. She was given Lasix 40 mg March 20. Sacubitril was increased to 48/52, two tablets twice a day 24 mg-26 mg. MTDD
--- NOTE | 2018-05-12 13:39 | PN ---
DATE OF SERVICE: 03/23/18 SUBJECTIVE: The patient today is alert, feeling better. She weighs 215 lbs and 9.7 ozs. She was as high as 224. She has effectively lost 9 lbs. She did eat 75% of her dinner. Her blood sugar, Accu-Check was 136, acceptable. Her oral intake is good. She is also urinating quite well and has a balance of about 300+. OBJECTIVE: Vital signs: 03/23/18 at 6 p.m. showed a temperature of 98.1, pulse 80, BP 166/ 83, respiratory rate 16, oxygen saturation 96 on 2L. Chest x-ray done today showed mostly resolved left basilar pneumonia with minimal residual subsegmental atelectasis. Chest x-ray on the did not indicate any pneumonic process. However, the chest x-ray today showed the difference from 03/19 to now. Rales - still has a few on the left base. The patient has rales on both bases slightly more on the left, audible with good tones. CBC normal WBC, hemoglobin and hematocrit did rise slightly. BUN 18.2 from 29.1 on admission, creatinine 1.18 and EGFR is 44. NT-pro-BNP is down to 3, 330 from 5,580. Influenza A antibody is 1:32 and B is 1:16. Both were negative with nucleic ampflication. MRSA screen is positive. Sputum gram stain showed gram positive cocci and light growth of gram positive cocci on culture. Blood culture negative after five days and Group A beta strep negative. The patient will be continued on the same medication and I discussed with the patient and daughter about going home tomorrow. DIANA
--- NOTE | 2018-05-13 08:50 | DS ---
DATE OF SERVICE: 03/24/18 PATIENT IDENTIFICATION: 82 year old female a resident of [facility] had been experiencing cough. The cough had continued and the daughter did bring her to the emergency room. The patient was noted to have a temperature of 102.8 at presentation. The chest x-ray does not show any acute processes however the CAT scan done after that does show left lower lobe consolidation. CBC showed slight leukocytosis. The patient had rales in both lung barrios. The initial NT Pro-BNP was slightly elevated at 777. This patient however was given a bolus of normal saline 1,000cc in the emergency room. HOSPITAL COURSE: This patient has a history of congestive heart failure and is on Entresto. A gram stain showed gram positive cocci and culture showed very slight growth of gram positive cocci in the sputum. The blood cultures were negative after 5 days. The NT Pro-BNP did climb 3,500 on the next day and on the 4th day climbed to 5,580 and did go back down to 3,330 the day before discharge. The patient's Sodium and Chlorides were low but that has risen towards normal level. The last electrolyte showed sodium 133.9 from 125.9 and Chloride 94.3 from 88. The Estimated GFR had risen from 31 to 44 the day before discharge. The patient had rales on both lung barrios slightly more on the left side. The rales gradually decreased. A repeat chest x-ray done 03/23/18 showed almost completely resolved left lower lobe pneumonitis. This patient was given Rocephin intervenous 1gram daily. The patient remained afebrile except for the time of present to the emergency room. The blood pressure had fluctuated and sometimes a little bit higher than normal. The patient's Entresto was increased from 24-26 from 48-52. The patient does not have a combination of 49-51 in the hospital. The patient's appetite also had improved. VITAL SIGNS: Temperature 98.2, pulse 82, blood pressure 161/69, respiratory rate 16 and oxygen saturation 96 at room air. It had been done so early and the oxygen saturation again was 96 at room air. LUNGS: Few rales in the left base HEART: Audible with good tones ABDOMEN: Unremarkable FINAL DIAGNOSES: 1. Left lower lobe pneumonitis, resolving 2. Congestive heart failure probably triggered by Bolus of normal saline in the emergency room 3. Hypothyroidism, replaced 4. Cardiac arrhythmia on Amiodarone 5. Diabetes Mellitus on Metformin and Januvia 6. Congestive heart failure on Entresto increased to 48-52 and will be down to 49-51. 7. History of restless leg syndrome on medication 8. History of degenerative joint disease in both knees, status post bilateral TKR still with pain 9. Influenza A antibody 1:32 and Influenza B 1:16. TIME SPENT: GREATER THAN 30 MINUTES MTDD
== END 2018-03-24 14:35 | DRG 194 ==
LOC: ED 10:07 → MEDSURG B 12:30
PROVIDERS: ADMIT General Practice; ATTEND General Practice
DX: J18.9 Pneumonia, unspecified organism (principal); E87.1 Hypo-osmolality and hyponatremia; N18.3 Chronic kidney disease, stage 3 (moderate); E03.9 Hypothyroidism, unspecified; E11.9 Type 2 diabetes mellitus without complications; J06.9 Acute upper respiratory infection, unspecified; J11.1 Influenza due to unidentified influenza virus with other respiratory manifestations; I50.9 Heart failure, unspecified; I49.9 Cardiac arrhythmia, unspecified; R05 Cough; R50.9 Fever, unspecified; R53.1 Weakness; R06.00 Dyspnea, unspecified; M17.0 Bilateral primary osteoarthritis of knee
CPT/HCPCS: 36415; 80053; 81001; 82962; 83605; 83735; 83880; 84145; 84484; 84550; 85007; 85025; 85610; 86710; 87040; 87070; 87081; 87205; 87502; 87651; 93005; 93010; 94640; 96361; 96365; 99223; 99231; 99232; 99239; 99284

== ENCOUNTER 2018-04-28 08:26 | Outpatient (POV) ==
[2012-09-27 08:19] VITALS: TEMP 97.2
== END 2018-04-28 17:00 ==
LOC: OUTPT 08:26
PROVIDERS: ATTEND Otolaryngology
DX: H91.90 Unspecified hearing loss, unspecified ear (principal)
CPT/HCPCS: 92557

== ENCOUNTER 2018-04-29 15:29 | Outpatient (CLI) | payer OTHER ==
[2012-09-27 08:19] VITALS: TEMP 97.2
== END 2018-04-29 15:30 | disposition home or self-care (01) ==
LOC: NONPT 15:29
PROVIDERS: ATTEND General Practice
DX: N39.0 Urinary tract infection, site not specified (principal)
CPT/HCPCS: 81001; 87086

== ENCOUNTER 2018-12-10 11:50 | Outpatient (CLI) ==
[2012-09-27 08:19] VITALS: TEMP 97.2
== END 2018-12-10 11:51 | disposition home or self-care (01) ==
LOC: NONPT 11:50
PROVIDERS: ATTEND General Practice
DX: Z79.899 Other long term (current) drug therapy (principal)
CPT/HCPCS: 80053; 80061; 83036; 84439; 84443; 85025

== ENCOUNTER 2022-03-01 14:19 | Inpatient (IN) ==
--- NOTE | 2022-03-01 14:25 | ED.PDOC ---
General ED Provider: Dr. CIERRA MONTE MD Chief Complaint: Shortness of Air Stated Complaint: Patient is a residential resident who presents with generalized weakness and a 7lb weight gain over the past 2 days. She does have a history of CHF. Denies fever, chills, malaise, poor appetite, headache, chest pain, palpitations, syncope, cough, nausea, emesis, abdominal pain, diarrhea or urinary tract symptoms. Time Seen by Provider: 03/01/22 14:23 Primary Care Provider: PAU WILSON Nursing and Triage Documentation Reviewed and Agree: Yes Does patient meet sepsis criteria?: No System Inflammatory Response Syndrome: Not Applicable Sepsis Protocol: For patient's 13 years and over: Temp is 96.8 and below OR 101 and greater Pulse >90 BPM Resp >20/minute Acutely Altered Mental Status Are patient's symptoms suggestive of a new infection, such as: -Pneumonia -Skin, Soft Tissue -Endocarditis -UTI -Bone, Joint Infection -Implantable Device -Acute Abdominal Infection -Wound Infection -Meningitis -Blood Stream Catheter Infection -Unknown Miscellaneous Complaint Exam Complex/Multi-System Complaint/Exam Onset/Duration: two day history of weakness and weight gain Symptoms Are: Still present Initial Severity: Mild Current Severity: Moderate Associated Signs and Symptoms: Reports Weakness, Short of air and Edema Respiratory Distress: None JVD Present: No Tachypnea Present: Yes Stridor Present: No Abdominal Findings: Present Normal findings Meningeal Signs Positive: No Focal Weakness: Present None Focal Sensory Loss: Present None Gait: Unable Gag Reflex Present: Yes Joint Swelling Present: No In-Dwelling Device Present: No Review of Systems Review Of Systems Constitutional: Reports Weakness Eyes: Reports No symptoms Ears, Nose, Mouth, Throat: Reports No symptoms Respiratory: Reports Short of air Cardiac: Reports Edema GI: Reports No symptoms : Reports No symptoms Musculoskeletal: Reports No symptoms Skin: Reports No symptoms Neurological: Reports No symptoms Endocrine: Reports No symptoms Hematologic/Lymphatic: Reports No symptoms All Other Systems: Reviewed and Negative FOR[facility] Medical History (Updated 03/01/22 @ 15:39 by CIERRA MONTE MD) Acute respiratory failure, unspecified whether with hypoxia or hypercapnia Anemia, unspecified Anxiety Arthritis Atherosclerotic heart disease of [place] coronary artery without angina pectoris Cataract Cholesteatoma of both mastoids Chronic obstructive pulmonary disease Convulsions Diabetes mellitus Dysphagia, oropharyngeal phase Gastro-esophageal reflux disease without esophagitis Heart failure Hyperlipidemia Hypertension Hypo-osmolality and hyponatremia Hypothyroidism Kidney failure, acute Measles Mumps Muscle weakness (generalized) Peripheral neuropathy Pneumonia, unspecified organism Renal failure Repeated falls Restless legs syndrome Sensorineural hearing loss (SNHL) of both ears Sinusitis Transient ischemia Unspecified injury of head, initial encounter Varicella Social History Smoking and tobacco status: Never smoker History of recent travel: No Surgical History History of dental surgery History of joint surgery History of orthopedic surgery Mastoidectomy Status post cholecystectomy Female Reproductive History Menstrual Hx Hysterectomy: No Hx Tubal Ligation: No Physical Exam Physical Exam Appearance: Reports No pain distress and Other (Obese, chronically ill appearing, debilitated elderly female who is in NAD. She is mildly tachypneic.) Ill-appearing: Moderate Pain Distress: None Eyes: Reports Not Examined ENT: Reports Nose normal and Oropharynx normal Neck: Supple Respiratory: Reports Airway patent, Breath sounds clear and Breath sounds equal Cardiovascular: Reports RRR, No rub and No murmur GI/: Reports Soft, Nontender, No masses, Bowel sounds normal and Other (Protruberant) Musculoskeletal: Reports Other (Moderate pitting peripheral edema.) Skin: Reports Warm and Dry Neurological: Reports Alert and Oriented Psychiatric: Reports Affect appropriate and Mood appropriate Interpretation Radiology Interpretation Radiology Interpretation By: Radiologist Exam Interpreted: Portable CXR (bibasilar subsegmental atelectasis, no acute cardiopulmonary findings) EKG Interpretation Time of EKG #1: 14:47 Rate: Normal (82bpm) Rhythm: Sinus Ectopy: None [place]: NL ST Segment: Normal Interpretation: sinus rhythm with 1st degree AV block, possible old inferior and anterosept Critical Care Note Critical Care Note Total Critical Care Time (mins): 0 Course Course Hematology/Chemistry: 03/01/22 14:35 03/01/22 14:35 Orders, Labs, Meds: Lab Review 03/01/22 03/01/22 03/01/22 14:35 14:35 14:35 WBC 3.94 L RBC 3.70 L Hgb 10.5 L Hct 32.3 L MCV 87.3 MCH 28.4 MCHC 32.5 RDW Coeff of [place] 14.6 Plt Count 141 Immature Gran % (Auto) 1.0 Neut % (Auto) 48.3 Lymph % (Auto) 29.4 [place] % (Auto) 19.5 H Eos % (Auto) 1.5 Baso % (Auto) 0.3 Neut # (Auto) 1.9 L Lymph # (Auto) 1.2 [place] # (Auto) 0.8 Eos # (Auto) 0.1 Baso # (Auto) 0.0 Immature Gran # (Auto) 0.0 Puncture Site Base Excess O2 Saturation ABG pH ABG pCO2 ABG pO2 ABG HCO3 ABG Total CO2 Jimi Test Hemoglobin Oxyhemoglobin Carboxyhemoglobin Total Hemoglobin FiO2 % Sodium 128.0 L Potassium 4.76 Chloride 94.5 L Carbon Dioxide 26.0 Anion Gap 12.26 BUN 38.2 H Creatinine 1.92 H Estimated GFR (MDRD) 25.00 BUN/Creatinine Ratio 19.89 Glucose 110.2 H Calcium 8.33 L Total Bilirubin 0.47 AST 36.5 H ALT 16.4 Alkaline Phosphatase 88.4 NT-Pro-B Natriuret Pep 4750.000 H Total Protein 6.83 Albumin 4.12 Globulin 2.71 Albumin/Globulin Ratio 1.52 Urine Color Urine Clarity Urine pH Ur Specific [place] Urine Protein Urine Glucose (UA) Urine Ketones Urine Blood Urine Nitrite Urine Bilirubin Urine Urobilinogen Ur Leukocyte Esterase Influ A Molecular Assay Influ B Molecular Assay SARS CoV-2 RNA Rapid EDER 03/01/22 03/01/22 03/01/22 14:35 14:35 15:15 WBC RBC Hgb Hct MCV MCH MCHC RDW Coeff of [place] Plt Count Immature Gran % (Auto) Neut % (Auto) Lymph % (Auto) [place] % (Auto) Eos % (Auto) Baso % (Auto) Neut # (Auto) Lymph # (Auto) [place] # (Auto) Eos # (Auto) Baso # (Auto) Immature Gran # (Auto) Puncture Site Base Excess O2 Saturation ABG pH ABG pCO2 ABG pO2 ABG HCO3 ABG Total CO2 Jimi Test Hemoglobin Oxyhemoglobin Carboxyhemoglobin Total Hemoglobin FiO2 % Sodium Potassium Chloride Carbon Dioxide Anion Gap BUN Creatinine Estimated GFR (MDRD) BUN/Creatinine Ratio Glucose Calcium Total Bilirubin AST ALT Alkaline Phosphatase NT-Pro-B Natriuret Pep Total Protein Albumin Globulin Albumin/Globulin Ratio Urine Color Yellow Urine Clarity Clear Urine pH 5.5 Ur Specific [place] 1.015 Urine Protein Negative Urine Glucose (UA) Negative Urine Ketones Negative Urine Blood Negative Urine Nitrite Negative Urine Bilirubin Negative Urine Urobilinogen 0.2 Ur Leukocyte Esterase Negative Influ A Molecular Assay Negative by naat Influ B Molecular Assay Negative by naat SARS CoV-2 RNA Rapid EDER Negative 03/01/22 15:55 WBC RBC Hgb Hct MCV MCH MCHC RDW Coeff of [place] Plt Count Immature Gran % (Auto) Neut % (Auto) Lymph % (Auto) [place] % (Auto) Eos % (Auto) Baso % (Auto) Neut # (Auto) Lymph # (Auto) [place] # (Auto) Eos # (Auto) Baso # (Auto) Immature Gran # (Auto) Puncture Site Rr Base Excess -1.9 O2 Saturation 94.7 ABG pH 7.40 ABG pCO2 37.0 ABG pO2 74.0 L ABG HCO3 22.9 ABG Total CO2 24.0 Jimi Test Pos Hemoglobin 1.6 H Oxyhemoglobin 93.2 L Carboxyhemoglobin 1.5 Total Hemoglobin 10.6 L FiO2 % 21.0 Sodium Potassium Chloride Carbon Dioxide Anion Gap BUN Creatinine Estimated GFR (MDRD) BUN/Creatinine Ratio Glucose Calcium Total Bilirubin AST ALT Alkaline Phosphatase NT-Pro-B Natriuret Pep Total Protein Albumin Globulin Albumin/Globulin Ratio Urine Color Urine Clarity Urine pH Ur Specific [place] Urine Protein Urine Glucose (UA) Urine Ketones Urine Blood Urine Nitrite Urine Bilirubin Urine Urobilinogen Ur Leukocyte Esterase Influ A Molecular Assay Influ B Molecular Assay SARS CoV-2 RNA Rapid EDER Orders Category Date Time Status ABG DRAW REQUEST Stat CARDIO 03/01/22 15:39 Completed EKG-(ED ONLY) Stat CARDIO 03/01/22 14:47 Completed ABG COOX Stat LAB 03/01/22 15:55 Completed BNP [NT-PROBNP] Stat LAB 03/01/22 14:35 Completed CBC W/ AUTO DIFF Stat LAB 03/01/22 14:35 Completed CMP [COMPREHENSIVE METABOLIC PANEL] Stat LAB 03/01/22 14:35 Completed COVID [SARS COV-2 RNA RAPID EDER] Stat LAB 03/01/22 14:35 Completed FLU A & B MOLECULAR [FLU A/B MOLECULAR] Stat LAB 03/01/22 14:35 Completed THYROID PANEL WITH TSH Stat LAB 03/01/22 14:35 Received URINALYSIS C & S IF INDICATED Stat LAB 03/01/22 15:15 Completed Furosemide [Lasix] MEDS 03/01/22 15:04 Discontinued 80 mg IVP ONCE STA CXR [CHEST, 1V AP ONLY] Stat RADS 03/01/22 14:25 Completed Medications Discontinued Medications Generic Name Dose Route Start Last Admin Trade Name Shubham PRN Reason Stop Dose Admin Furosemide 80 mg 03/01/22 15:04 03/01/22 15:11 Furosemide Inj 100 Mg/10 Ml Vial IVP 03/01/22 15:05 100 mg ONCE STA Administration Vital Signs: Temp Pulse Resp BP Pulse Ox 03/01/22 14:23 98.1 F 90 20 211/105 H 98 Discharge Plan Discharge Patient Disposition: ADMITTED INPATIENT Discharge Problem: Congestive heart failure, Generalized weakness, Hyponatremia, Chronic renal insufficiency Prescriptions: No Action amiodarone 200 MG tablet 200 mg PO DAILY Qty: 30 Rx Instructions: Take one tablet daily. furosemide 40 MG tablet 40 mg PO DAILY Qty: 30 Rx Instructions: Take one tablet by mouth daily. alprazolam 0.25 MG tablet 0.25 mg PO BID Qty: 60 Rx Instructions: one by mouth twice a day for anxiety famotidine 20 MG tablet 20 mg PO DAILY Qty: 30 Rx Instructions: Give one tablet po daily for GERD ropinirole [Requip] 0.5 MG tablet 0.5 mg PO BEDTIME Mucinex 1,200 MG tablet extended release 12hr 1,200 mg PO Q12HR levothyroxine [Synthroid] 100 MCG tablet 100 mcg PO QDAC Qty: 30 0RF acetaminophen [Pain and Fever] 325 MG tablet 650 mg PO Q4HR PRN (Reason: Mild Pain) aspirin 81 MG tablet,chewable 81 mg PO DAILY budesonide-formoterol [Symbicort] 1 PUFF HFA aerosol inhaler 2 puff inhalation BID ropinirole 1 MG tablet 1 mg PO DAILY polyethylene glycol 3350 [Miralax] 17 GM powder in packet 17 g PO DAILY Entresto 1 EACH tablet 1 ea PO BID Qty: 60 0RF Januvia 25 MG tablet 25 mg PO DAILY Qty: 30 0RF guaifenesin [Tussin] 100 mg/5 mL Liquid 200 mg PO Q6H PRN (Reason: Cough) Cepacol Lozenge 1 david MUCOUS MEMBRANE Q6H PRN (Reason: Cough) menthol-zinc oxide [Calmoseptine] 0.44-20.6 % Ointment 1 applic TOPICAL BID amlodipine [Norvasc] 5 MG tablet 2.5 mg PO DAILY chlorpheniramine maleate 4 mg Tablet 4 mg PO BID hydrocodone-acetaminophen [[place]] 5-325 mg Tablet 1 tab PO DAILY hydrocodone-acetaminophen 5-325 mg tablet 1 tab PO Q12H PRN (Reason: Pain) isosorbide mononitrate 30 mg tablet extended release 24 hr 30 mg PO DAILY carbamazepine [Tegretol] 200 mg Tablet 250 mg PO BID imiquimod 5 % cream in packet 1 applic TOPICAL MOTUWETHFR Rx Instructions: to specified areas metoprolol succinate 25 mg tablet extended release 24 hr 25 mg PO DAILY cholecalciferol (vitamin D3) [Vitamin D3] 125 mcg (5,000 unit) Tablet 125 mcg PO FR Did you review [place] PATIENT ACCOUNTING REPRESENTATIVE?: Not Applicable ED Provider: CIERRA MONTE Condition: Fair Physician Progress Note: []
[2022-03-01 14:38] LABS: BASOPHILS % (AUTO) 0.3 % (0.0-3.0); EOSINOPHILS # (AUTO) 0.1 K/ul (0.0-0.7); EOSINOPHILS % (AUTO) 1.5 % (0.0-7.0); HEMATOCRIT 32.3 % (37.0-47.0); HEMOGLOBIN 10.5 g/dl (12.0-16.0); LYMPHOCYTES # (AUTO) 1.2 K/uL (0.60-3.4); LYMPHOCYTES % (AUTO) 29.4 (10.0-50.0); MEAN CORPUSCULAR HEMOGLOBIN 28.4 pg (27.0-31.0); MEAN CORPUSCULAR HGB CONC 32.5 (31.8-35.4); MEAN CORPUSCULAR VOLUME 87.3 fl (81.0-99.0); MONOCYTES # (AUTO) 0.8 K/uL (0.4-2.0); MONOCYTES % (AUTO) 19.5 (0-10); NEUTROPHILS # (AUTO) 1.9 K/ul (2.0-6.9); NEUTROPHILS % (AUTO) 48.3 % (42.2-75.2); PLATELET COUNT 141 10^3/uL (140-440); RDW COEFFICIENT OF VARIATION 14.6 % (11.6-14.8); WHITE BLOOD COUNT 3.94 K/ul (4.6-10.2)
[2022-03-01 14:50] LABS: ALANINE AMINOTRANSFERASE 16.4 U/L (0-35); ALBUMIN 4.12 g/dL (3.5-5.0); ALKALINE PHOSPHATASE 88.4 U/L (53-141); ASPARTATE AMINO TRANSFERASE 36.5 U/L (14-36); BILIRUBIN,TOTAL 0.47 mg/dL (0.2-1.3); BLOOD UREA NITROGEN 38.2 mg/dL (7-17); CALCIUM 8.33 mg/dL (8.4-10.2); CHLORIDE 94.5 mmol/L (98-107); CREATININE 1.92 mg/dL (0.60-1.30); GLUCOSE 110.2 mg/dL (74-106); POTASSIUM 4.76 mmol/L (3.5-5.1); TOTAL PROTEIN 6.83 g/dL (6.3-8.2)
[2022-03-01 15:03] LABS: MOLECULAR FLU A NEGATIVE BY NAAT (NEGATIVE); MOLECULAR FLU B NEGATIVE BY NAAT (NEGATIVE)
[2022-03-01] MEDS ORDERED: LASIX IVP STA (15:04)
--- NOTE | 2022-03-01 15:18 | DI ---
EXAM: Chest one view, frontal view only. HISTORY: Dyspnea. COMPARISON: 12/25/2020. FINDINGS: The heart size is enlarged. Atherosclerotic calcifications are present. There is no pulm onary vascular congestion. Band-like opacities both lung bases. Otherwise, the lungs are clear. No pleural effusion or pneumothorax is seen. No acute osseous abnormality is identified. Degenerative changes in the spine and shoulders. IMPRESSION: Bibasilar subsegmental atelectasis.
[2022-03-01 15:23] LABS: BILIRUBIN,URINE Negative (NEGATIVE); CLARITY,URINE Clear (CLEAR); COLOR,URINE Yellow (YELLOW); GLUCOSE, URINE (UA) Negative (NEGATIVE); KETONES,URINE Negative (NEGATIVE); LEUKOCYTE ESTERASE ,URINE Negative (NEGATIVE); NITRITE,URINE Negative (NEGATIVE); PH,URINE 5.5 (5-9); PROTEIN,URINE Negative (NEGATIVE); URINE, BLOOD Negative (NEGATIVE); UROBILINOGEN,URINE 0.2 (0.2)
[2022-03-01 16:04] LABS: ABG O2 HGB 93.2 % (95-100); BEecf -1.9 (-2.0-3.0); COHb 1.5 (0.5-1.5); HCO3 22.9 (21-28); MetHb 1.6 (0-1.5); sO2 94.7 % (94-98); tHb 10.6 g/dl (11.7-17.4)
--- NOTE | 2022-03-01 16:30 | PCM ---
Chief Complaint Chief Complaint: generalized weakness, dyspnea and peripheral edema Review of Systems Constitutional: Reports Weakness and Fatigue Eyes: Reports No symptoms Ears: Reports No symptoms Nose: Reports No symptoms Throat: Reports No symptoms Mouth: Reports No symptoms Respiratory: Reports Shortness of air Cardiovascular: Reports Edema Gastrointestinal: Reports No symptoms Neurological: Reports No symptoms Musculoskeletal: Reports No symptoms Skin: Reports No symptoms Immunology: Reports No symptoms Hematology: Reports No symptoms Endocrine: Reports No symptoms Psychiatric: Reports No symptoms Habits: Denies Tobacco use, Substance use, Alcohol use or Other Allergies Allergies Allergy/AdvReac Type Severity Reaction Status Date / Time quinine Allergy Verified 03/01/22 14:48 [facility] Medical History (Updated 03/01/22 @ 15:39 by CIERRA MONTE MD) Acute respiratory failure, unspecified whether with hypoxia or hypercapnia Anemia, unspecified Anxiety Arthritis Atherosclerotic heart disease of [place] coronary artery without angina pectoris Cataract Cholesteatoma of both mastoids Chronic obstructive pulmonary disease Convulsions Diabetes mellitus Dysphagia, oropharyngeal phase Gastro-esophageal reflux disease without esophagitis Heart failure Hyperlipidemia Hypertension Hypo-osmolality and hyponatremia Hypothyroidism Kidney failure, acute Measles Mumps Muscle weakness (generalized) Peripheral neuropathy Pneumonia, unspecified organism Renal failure Repeated falls Restless legs syndrome Sensorineural hearing loss (SNHL) of both ears Sinusitis Transient ischemia Unspecified injury of head, initial encounter Varicella Surgical History History of dental surgery History of joint surgery History of orthopedic surgery Mastoidectomy Status post cholecystectomy Social History Smoking and tobacco status: Never smoker History of recent travel: No Body Composition Height: 5 ft 4 in Weight: 96.3 kg Body Mass Index (BMI): 36.4 Vital Signs Temperature: 98.1 F Pulse Rate: 90 Respiratory Rate: 20 Blood Pressure: 211/105 O2 Sat by Pulse Oximetry: 98 Physical Examination Appearance: Reports Ill-appearing, No pain distress, Obese and Other (Obese, chronically ill appearing elderly female who is debilitated. She is mildly tachypneic.) Ill-appearing: Moderate Pain Distress: None Eyes: Reports ALEJANDRO and EOMI ENT: Reports Nose normal and Oropharynx normal Neck: Supple Respiratory: Reports Airway patent, Breath sounds clear and Breath sounds equal Cardiovascular: Reports RRR, No rub, No murmur and Other (marked peripheral pitting edema) GI/: Reports Soft, Nontender, No masses, Bowel sounds normal and No Organomegaly Musculoskeletal: Reports Limited strength and Edema Skin: Reports Warm, Dry and Normal color Neurological: Reports Motor intact, Alert and Oriented Psychiatric: Reports Affect appropriate and Mood appropriate Lab/Tests/Diagnostic Imaging Lab/Tests/Diagnostic Imaging: Lab Review 03/01/22 03/01/22 03/01/22 14:35 14:35 14:35 WBC 3.94 L RBC 3.70 L Hgb 10.5 L Hct 32.3 L MCV 87.3 MCH 28.4 MCHC 32.5 RDW Coeff of [place] 14.6 Plt Count 141 Immature Gran % (Auto) 1.0 Neut % (Auto) 48.3 Lymph % (Auto) 29.4 [place] % (Auto) 19.5 H Eos % (Auto) 1.5 Baso % (Auto) 0.3 Neut # (Auto) 1.9 L Lymph # (Auto) 1.2 [place] # (Auto) 0.8 Eos # (Auto) 0.1 Baso # (Auto) 0.0 Immature Gran # (Auto) 0.0 Puncture Site Base Excess O2 Saturation ABG pH ABG pCO2 ABG pO2 ABG HCO3 ABG Total CO2 Jimi Test Hemoglobin Oxyhemoglobin Carboxyhemoglobin Total Hemoglobin FiO2 % Sodium 128.0 L Potassium 4.76 Chloride 94.5 L Carbon Dioxide 26.0 Anion Gap 12.26 BUN 38.2 H Creatinine 1.92 H Estimated GFR (MDRD) 25.00 BUN/Creatinine Ratio 19.89 Glucose 110.2 H Calcium 8.33 L Total Bilirubin 0.47 AST 36.5 H ALT 16.4 Alkaline Phosphatase 88.4 NT-Pro-B Natriuret Pep 4750.000 H Total Protein 6.83 Albumin 4.12 Globulin 2.71 Albumin/Globulin Ratio 1.52 Urine Color Urine Clarity Urine pH Ur Specific [place] Urine Protein Urine Glucose (UA) Urine Ketones Urine Blood Urine Nitrite Urine Bilirubin Urine Urobilinogen Ur Leukocyte Esterase Influ A Molecular Assay Influ B Molecular Assay SARS CoV-2 RNA Rapid EDER 03/01/22 03/01/22 03/01/22 14:35 14:35 15:15 WBC RBC Hgb Hct MCV MCH MCHC RDW Coeff of [place] Plt Count Immature Gran % (Auto) Neut % (Auto) Lymph % (Auto) [place] % (Auto) Eos % (Auto) Baso % (Auto) Neut # (Auto) Lymph # (Auto) [place] # (Auto) Eos # (Auto) Baso # (Auto) Immature Gran # (Auto) Puncture Site Base Excess O2 Saturation ABG pH ABG pCO2 ABG pO2 ABG HCO3 ABG Total CO2 Jimi Test Hemoglobin Oxyhemoglobin Carboxyhemoglobin Total Hemoglobin FiO2 % Sodium Potassium Chloride Carbon Dioxide Anion Gap BUN Creatinine Estimated GFR (MDRD) BUN/Creatinine Ratio Glucose Calcium Total Bilirubin AST ALT Alkaline Phosphatase NT-Pro-B Natriuret Pep Total Protein Albumin Globulin Albumin/Globulin Ratio Urine Color Yellow Urine Clarity Clear Urine pH 5.5 Ur Specific [place] 1.015 Urine Protein Negative Urine Glucose (UA) Negative Urine Ketones Negative Urine Blood Negative Urine Nitrite Negative Urine Bilirubin Negative Urine Urobilinogen 0.2 Ur Leukocyte Esterase Negative Influ A Molecular Assay Negative by naat Influ B Molecular Assay Negative by naat SARS CoV-2 RNA Rapid EDER Negative 03/01/22 15:55 WBC RBC Hgb Hct MCV MCH MCHC RDW Coeff of [place] Plt Count Immature Gran % (Auto) Neut % (Auto) Lymph % (Auto) [place] % (Auto) Eos % (Auto) Baso % (Auto) Neut # (Auto) Lymph # (Auto) [place] # (Auto) Eos # (Auto) Baso # (Auto) Immature Gran # (Auto) Puncture Site Rr Base Excess -1.9 O2 Saturation 94.7 ABG pH 7.40 ABG pCO2 37.0 ABG pO2 74.0 L ABG HCO3 22.9 ABG Total CO2 24.0 Jimi Test Pos Hemoglobin 1.6 H Oxyhemoglobin 93.2 L Carboxyhemoglobin 1.5 Total Hemoglobin 10.6 L FiO2 % 21.0 Sodium Potassium Chloride Carbon Dioxide Anion Gap BUN Creatinine Estimated GFR (MDRD) BUN/Creatinine Ratio Glucose Calcium Total Bilirubin AST ALT Alkaline Phosphatase NT-Pro-B Natriuret Pep Total Protein Albumin Globulin Albumin/Globulin Ratio Urine Color Urine Clarity Urine pH Ur Specific [place] Urine Protein Urine Glucose (UA) Urine Ketones Urine Blood Urine Nitrite Urine Bilirubin Urine Urobilinogen Ur Leukocyte Esterase Influ A Molecular Assay Influ B Molecular Assay SARS CoV-2 RNA Rapid EDER Orders Category Date Time Status ADMIT PATIENT INPATIENT .TO [facility] (MONITORED BED) ADMISSION 03/01/22 16:20 Ordered ABG DRAW REQUEST Stat CARDIO 03/01/22 15:39 Completed EKG-(ED ONLY) Stat CARDIO 03/01/22 14:47 Completed OXYGEN Routine CARDIO 03/01/22 16:21 Ordered ACTIVITY .Up With Assistance CARE 03/01/22 16:20 Ordered BLOOD GLUCOSE MONITORING (MED/SURG) 0630,1100,1700,2100 CARE 03/01/22 16:23 Ordered ELEVATE AFFECTED EXTREMITY .ONCE CARE 03/01/22 16:20 Ordered GIVE HS SNACK 2100 CARE 03/01/22 16:21 Ordered INTAKE & OUTPUT Q8HR CARE 03/01/22 16:20 Ordered IP: INSERT SALINE LOCK ONCE CARE 03/01/22 16:20 Ordered REMINDER: Give Insulin if Needed 0630,1100,1700,2100 CARE 03/01/22 16:20 Ordered TELEMETRY MONITORING TELE CARE 03/01/22 16:20 Ordered VITAL SIGNS Q8HR CARE 03/01/22 16:20 Ordered ADA 1800 SUSAN. DIET DIETARY 03/01/22 Dinner Ordered HS SNACK DIETARY 03/01/22 Dinner Ordered ABG COOX Stat LAB 03/01/22 15:55 Completed BNP [NT-PROBNP] Stat LAB 03/01/22 14:35 Completed CBC W/ AUTO DIFF DAILY@0600 LAB 03/02/22 06:00 Ordered CBC W/ AUTO DIFF DAILY@0600 LAB 03/03/22 06:00 Ordered CBC W/ AUTO DIFF Stat LAB 03/01/22 14:35 Completed CMP [COMPREHENSIVE METABOLIC PANEL] Stat LAB 03/01/22 14:35 Completed COMPREHENSIVE METABOLIC PANEL DAILY@0600 LAB 03/02/22 06:00 Ordered COMPREHENSIVE METABOLIC PANEL DAILY@0600 LAB 03/03/22 06:00 Ordered COVID [SARS COV-2 RNA RAPID EDER] Stat LAB 03/01/22 14:35 Completed FLU A & B MOLECULAR [FLU A/B MOLECULAR] Stat LAB 03/01/22 14:35 Completed THYROID PANEL WITH TSH Stat LAB 03/01/22 14:35 Received URINALYSIS C & S IF INDICATED Stat LAB 03/01/22 15:15 Completed Enoxaparin Sodium [Lovenox] MEDS 03/01/22 16:30 Ordered 30 mg SUBCUT DAILY Furosemide [Lasix] MEDS 03/01/22 21:00 Ordered 80 mg IVP BID Furosemide [Lasix] MEDS 03/01/22 15:04 Discontinued 80 mg IVP ONCE STA RESUSCITATION STATUS Routine OTHERS 03/01/22 16:20 Ordered CXR [CHEST, 1V AP ONLY] Stat RADS 03/01/22 14:25 Completed Medications Discontinued Medications Generic Name Dose Route Start Last Admin Trade Name Shubham PRN Reason Stop Dose Admin Furosemide 80 mg 03/01/22 15:04 03/01/22 15:11 Furosemide Inj 100 Mg/10 Ml Vial IVP 03/01/22 15:05 100 mg ONCE STA Administration Assessment (1) Congestive heart failure: Status: Acute Code(s): I50.9 - Heart failure, unspecified SNOMED Code(s): 67573438 (2) Generalized weakness: Status: Acute Code(s): R53.1 - Weakness SNOMED Code(s): 87130221 (3) Hyponatremia: Status: Acute Code(s): E87.1 - Hypo-osmolality and hyponatremia SNOMED Code(s): 68955810 (4) Chronic renal insufficiency: Status: Acute Code(s): N18.9 - Chronic kidney disease, unspecified SNOMED Code(s): 868315500 Plan Plan: Patient will receive IV lasix and have her legs elevated while in bed. PT to see for strengthening and conditioning.
[2022-03-01 17:30] VITALS: BMI 35.3
[2022-03-01] MEDS ORDERED: ROBITUSSIN SUGAR-FREE PO PRN (17:38)
[2022-03-01] MEDS ORDERED: NORCO 5-325 PO PRN (17:38)
[2022-03-01] MEDS ORDERED: TYLENOL PO PRN (17:38)
[2022-03-01] MEDS ORDERED: VITAMIN D PO SCH (18:00)
[2022-03-01] MEDS: LOVENOX SUBCUT SCH (19:46)
[2022-03-01] MEDS: XANAX PO SCH (20:51)
[2022-03-01] MEDS: MUCINEX PO SCH (20:52)
[2022-03-01] MEDS: TEGRETOL PO SCH (20:52)
[2022-03-01] MEDS ORDERED: NON-FORMULARY MEDICATION (Chlorpheniramine Maleate 4 mg Tablet) PO SCH (21:00)
[2022-03-01] MEDS ORDERED: LASIX IVP SCH (21:00)
[2022-03-01] MEDS ORDERED: REQUIP PO SCH (21:00)
[2022-03-01] MEDS ORDERED: SACUBITRIL VALSARTAN PO SCH (21:00)
[2022-03-01] MEDS: CALMOSEPTINE OINTMENT TP SCH (21:50)
[2022-03-01] MEDS: SYMBICORT 80-4.5 MCG INHALER IH SCH (21:51)
[2022-03-02 02:17] LABS: FREE THYROXINE INDEX 3.2 (1.2-4.9); THYROXINE (T4) 10.1 ug/dL (4.5-12.0); TSH 1.52 uIU/mL (0.450-4.500)
[2022-03-02 05:07] LABS: BASOPHILS % (AUTO) 0.3 % (0.0-3.0); EOSINOPHILS % (AUTO) 0.9 % (0.0-7.0); HEMATOCRIT 30.8 % (37.0-47.0); HEMOGLOBIN 10.1 g/dl (12.0-16.0); IMMATURE GRANULOCYTE % (AUTO) 0.9 % (0.0-5.0); LYMPHOCYTES # (AUTO) 0.9 K/uL (0.60-3.4); LYMPHOCYTES % (AUTO) 27.8 (10.0-50.0); MEAN CORPUSCULAR HEMOGLOBIN 28.5 pg (27.0-31.0); MEAN CORPUSCULAR HGB CONC 32.8 (31.8-35.4); MEAN CORPUSCULAR VOLUME 86.8 fl (81.0-99.0); MONOCYTES # (AUTO) 0.5 K/uL (0.4-2.0); MONOCYTES % (AUTO) 14.8 (0-10); NEUTROPHILS # (AUTO) 1.9 K/ul (2.0-6.9); NEUTROPHILS % (AUTO) 55.3 % (42.2-75.2); PLATELET COUNT 145 10^3/uL (140-440); RDW COEFFICIENT OF VARIATION 14.4 % (11.6-14.8); RED BLOOD COUNT 3.55 10^6/ul (4.20-5.40); WHITE BLOOD COUNT 3.38 K/ul (4.6-10.2)
[2022-03-02 05:20] LABS: ALBUMIN 3.82 g/dL (3.5-5.0); ALKALINE PHOSPHATASE 87.6 U/L (53-141); ASPARTATE AMINO TRANSFERASE 33.3 U/L (14-36); BILIRUBIN,TOTAL 0.43 mg/dL (0.2-1.3); BLOOD UREA NITROGEN 36.9 mg/dL (7-17); CALCIUM 8.31 mg/dL (8.4-10.2); CARBON DIOXIDE 26.9 mmol/L (22-30.0); CHLORIDE 94.5 mmol/L (98-107); CREATININE 1.73 mg/dL (0.60-1.30); GLUCOSE 102.5 mg/dL (74-106); POTASSIUM 4.42 mmol/L (3.5-5.1); SODIUM 128.1 mmol/L (134.5-145); TOTAL PROTEIN 6.51 g/dL (6.3-8.2)
[2022-03-02] MEDS: SYNTHROID PO SCH (06:09)
[2022-03-02] MEDS: LASIX IVP SCH (06:09)
[2022-03-02] MEDS ORDERED: TYLENOL PO PRN (07:30)
[2022-03-02] MEDS ORDERED: LASIX TAB PO SCH (07:30)
[2022-03-02] MEDS: MIRALAX PO SCH (10:52)
[2022-03-02] MEDS: XANAX PO SCH ×2 (10:52→22:16)
[2022-03-02] MEDS: TOPROL XL PO SCH (10:53)
[2022-03-02] MEDS: MUCINEX PO SCH ×2 (10:53→22:16)
[2022-03-02] MEDS: TEGRETOL PO SCH ×2 (10:53→22:16)
[2022-03-02] MEDS: ENTRESTO 24 MG-26 MG TABLET PO SCH ×2 (10:53→22:15)
[2022-03-02] MEDS: LOVENOX SUBCUT SCH (10:53)
[2022-03-02] MEDS: IMDUR PO SCH (10:54)
[2022-03-02] MEDS: REQUIP PO SCH ×2 (10:54→22:16)
[2022-03-02] MEDS: JANUVIA PO SCH (10:55)
[2022-03-02] MEDS: NORCO 5-325 PO SCH (10:55)
[2022-03-02] MEDS: PEPCID PO SCH (10:56)
[2022-03-02] MEDS: CLARITIN PO SCH (10:56)
[2022-03-02] MEDS: NORVASC PO SCH (10:56)
[2022-03-02] MEDS: CORDARONE PO SCH (10:56)
[2022-03-02] MEDS: ASPIRIN CHEWABLE PO SCH (10:57)
[2022-03-02] MEDS: SYMBICORT 80-4.5 MCG INHALER IH SCH ×2 (10:57→22:22)
[2022-03-02] MEDS: CALMOSEPTINE OINTMENT TP SCH (10:57)
[2022-03-02] MEDS: KEFLEX PO SCH ×2 (13:10→22:18)
[2022-03-03] MEDS: KEFLEX PO SCH ×3 (05:12→20:21)
[2022-03-03 05:17] LABS: BASOPHILS % (AUTO) 0.2 % (0.0-3.0); EOSINOPHILS % (AUTO) 0.9 % (0.0-7.0); HEMATOCRIT 29.4 % (37.0-47.0); HEMOGLOBIN 9.7 g/dl (12.0-16.0); IMMATURE GRANULOCYTE % (AUTO) 0.5 % (0.0-5.0); LYMPHOCYTES # (AUTO) 0.9 K/uL (0.60-3.4); MEAN CORPUSCULAR HEMOGLOBIN 28.6 pg (27.0-31.0); MEAN CORPUSCULAR VOLUME 86.7 fl (81.0-99.0); MONOCYTES # (AUTO) 0.6 K/uL (0.4-2.0); MONOCYTES % (AUTO) 13.2 (0-10); NEUTROPHILS # (AUTO) 2.8 K/ul (2.0-6.9); NEUTROPHILS % (AUTO) 65.2 % (42.2-75.2); PLATELET COUNT 133 10^3/uL (140-440); RDW COEFFICIENT OF VARIATION 14.4 % (11.6-14.8); RED BLOOD COUNT 3.39 10^6/ul (4.20-5.40); WHITE BLOOD COUNT 4.31 K/ul (4.6-10.2)
[2022-03-03 05:33] LABS: ALANINE AMINOTRANSFERASE 13.6 U/L (0-35); ALBUMIN 3.54 g/dL (3.5-5.0); ALKALINE PHOSPHATASE 83.2 U/L (53-141); ASPARTATE AMINO TRANSFERASE 32.4 U/L (14-36); BILIRUBIN,TOTAL 0.48 mg/dL (0.2-1.3); BLOOD UREA NITROGEN 35.2 mg/dL (7-17); CALCIUM 7.84 mg/dL (8.4-10.2); CARBON DIOXIDE 26.1 mmol/L (22-30.0); CHLORIDE 96.2 mmol/L (98-107); CREATININE 1.69 mg/dL (0.60-1.30); GLUCOSE 92.3 mg/dL (74-106); POTASSIUM 3.88 mmol/L (3.5-5.1); SODIUM 128.7 mmol/L (134.5-145); TOTAL PROTEIN 6.22 g/dL (6.3-8.2)
[2022-03-03] MEDS: PEPCID PO SCH (05:48)
[2022-03-03] MEDS: LASIX IVP SCH (05:48)
[2022-03-03] MEDS: SYNTHROID PO SCH (05:48)
[2022-03-03] MEDS: MIRALAX PO SCH (08:29)
[2022-03-03] MEDS: NORVASC PO SCH (08:30)
[2022-03-03] MEDS: ENTRESTO 24 MG-26 MG TABLET PO SCH ×2 (08:30→20:21)
[2022-03-03] MEDS: CLARITIN PO SCH (08:30)
[2022-03-03] MEDS: MUCINEX PO SCH ×2 (08:30→20:22)
[2022-03-03] MEDS: ASPIRIN CHEWABLE PO SCH (08:30)
[2022-03-03] MEDS: XANAX PO SCH ×2 (08:30→20:21)
[2022-03-03] MEDS: NORCO 5-325 PO SCH (08:30)
[2022-03-03] MEDS: CORDARONE PO SCH (08:31)
[2022-03-03] MEDS: TOPROL XL PO SCH (08:31)
[2022-03-03] MEDS: IMDUR PO SCH (08:31)
[2022-03-03] MEDS: JANUVIA PO SCH (08:31)
[2022-03-03] MEDS: TEGRETOL PO SCH ×2 (08:31→20:23)
[2022-03-03] MEDS: LOVENOX SUBCUT SCH (08:32)
[2022-03-03] MEDS: REQUIP PO SCH ×2 (08:32→20:23)
[2022-03-03] MEDS: SYMBICORT 80-4.5 MCG INHALER IH SCH ×2 (08:32→20:20)
[2022-03-03] MEDS ORDERED: DIFLUCAN PO STA (13:27)
[2022-03-03] MEDS: NYSTOP POWDER TP SCH ×2 (15:05→20:20)
[2022-03-03] MEDS: LOTRISONE 45 GM TP SCH (20:20)
[2022-03-04] MEDS: LASIX TAB PO SCH (05:38)
[2022-03-04] MEDS: KEFLEX PO SCH ×3 (05:38→20:11)
[2022-03-04] MEDS: PEPCID PO SCH ×2 (05:39→17:59)
[2022-03-04] MEDS: SYNTHROID PO SCH (05:39)
[2022-03-04 05:40] LABS: BASOPHILS % (AUTO) 0.3 % (0.0-3.0); EOSINOPHILS % (AUTO) 1.2 % (0.0-7.0); HEMATOCRIT 27.4 % (37.0-47.0); HEMOGLOBIN 8.9 g/dl (12.0-16.0); IMMATURE GRANULOCYTE % (AUTO) 0.6 % (0.0-5.0); LYMPHOCYTES % (AUTO) 29.2 (10.0-50.0); MEAN CORPUSCULAR HEMOGLOBIN 28.3 pg (27.0-31.0); MEAN CORPUSCULAR HGB CONC 32.5 (31.8-35.4); MEAN CORPUSCULAR VOLUME 87.3 fl (81.0-99.0); MONOCYTES # (AUTO) 0.5 K/uL (0.4-2.0); MONOCYTES % (AUTO) 16.1 (0-10); NEUTROPHILS # (AUTO) 1.7 K/ul (2.0-6.9); NEUTROPHILS % (AUTO) 52.6 % (42.2-75.2); PLATELET COUNT 115 10^3/uL (140-440); RDW COEFFICIENT OF VARIATION 14.5 % (11.6-14.8); RED BLOOD COUNT 3.14 10^6/ul (4.20-5.40); WHITE BLOOD COUNT 3.29 K/ul (4.6-10.2)
[2022-03-04 05:54] LABS: ALANINE AMINOTRANSFERASE 13.3 U/L (0-35); ALBUMIN 3.53 g/dL (3.5-5.0); ALKALINE PHOSPHATASE 76.7 U/L (53-141); ASPARTATE AMINO TRANSFERASE 31.8 U/L (14-36); BILIRUBIN,TOTAL 0.44 mg/dL (0.2-1.3); BLOOD UREA NITROGEN 38.3 mg/dL (7-17); CALCIUM 7.94 mg/dL (8.4-10.2); CARBON DIOXIDE 24.5 mmol/L (22-30.0); CHLORIDE 95.7 mmol/L (98-107); CREATININE 1.91 mg/dL (0.60-1.30); GLUCOSE 83.3 mg/dL (74-106); POTASSIUM 3.63 mmol/L (3.5-5.1); SODIUM 128.7 mmol/L (134.5-145); TOTAL PROTEIN 6.15 g/dL (6.3-8.2)
[2022-03-04] MEDS: ASPIRIN CHEWABLE PO SCH (08:23)
--- NOTE | 2022-03-04 08:52 | ECHO2D ---
Date of Exam: 03/03/2022 Ordering Physician: DR. PAU WILSON Room #: 101 Reason for Echo: CHF M-Mode Normal Adult Results LV Dimensions Normal Adult Results AoV Opening excursions >1.6 >1.6 LVEDD-base- 3.5-5.8 4.2 Ao root dimensions 2.0-3.7 3.4 LVESD-base- 3.1-4.6 L. Atrium dimensions 1.9-3.8 5.7 Post. Wall thickness 0.8-1.1 1.2 IV septum (thickness) 0.7-1.2 1.2 Post. Wall excursion 0.72-1.3 NORMAL Septal motion NORMAL Systolic motion R. Ventricular cavity 1.5-2.0 3.0 LVEF 60% >60% Paradoxical septal wall motion 2-D : CALCIFIC MITRAL VALVE ANNULUS--ENLARGED LEFT ATRIAL CAVITY, NORMAL LEFT VENTRICLE CONTRACTILITY AND LEFT VENTRICLE SIZE-=-ENLARGED RIGHT VENTRICLE CAVITY, NORMAL AORTIC VALVE AND TRICUSPID VALVE--NO EFFUSION, NO THROMBUS COLOR FLOW: MILD MITRAL REGURGITATION M-MODE: MV: CALCIFIC MITRAL VALVE ANNULUS AV: CALCIFIC LEAFLETS--NO STENOSIS TV: NORMAL PV: NORMAL CHAMBER SIZE: ENLARGED LEFT ATRIAL AND RIGHT VENTRICLE CAVITIES WALL MOTION: NORMAL PERICARDIUM: NORMAL INTERPRETATION: 1. BORDERLINE LEFT VENTRICLE HYPERTROPHY WITH ENLARGED LEFT AT RIAL CAVITY (5.7 CM) 2. NORMAL LEFT VENTRICLE SIZE AND LEFT VENTRICLE CONTRACTILITY 3. HEAVILY CALCIFIED MITRAL VALVE ANNULUS 4. NO AORTIC STENOSIS/ NORMAL TRICUSPID VALVE MTDD
--- NOTE | 2022-03-04 09:00 | PCM.PROG ---
Attending Provider: ATTENDING PROVIDER: Dr. PAU WILSON This patient is seen with Kellie Harrison, Nurse Practitioner. DATE OF SERVICE: 03/04/22 SUBJECTIVE: This 86 year old /WHITE F was hospitalized 03/01/22. Shortness of breath has improved. Still area of redness on face and neck. Worse restless legs. Leg edema has improved. Hgb is down to 8.9. REVIEW OF SYSTEMS: CONSTITUTIONAL: No night sweats. No fatigue, malaise, lethargy. No fever or chills. Weakness. HEENT: Eyes: No visual changes. No eye pain. No eye discharge. ENT: No runny nose. No epistaxis. No sinus pain. No odynophagia. No congestion. RESPIRATORY: No cough, no congestion. No hemoptysis. No shortness of breath. CARDIOVASCULAR: No angina symptoms. No CHF symptoms. No atypical chest pain for CAD. No palpitations. No orthopnea.. GASTROINTESTINAL: No abdominal pain. No nausea or vomiting. No diarrhea or constipation. No hematemesis. No hematochezia. GENITOURINARY: No urgency. No frequency. No dysuria. No hematuria. No obstructive symptoms. No discharge. No pain. No significant abnormal bleeding. MUSCULOSKELETAL: No musculoskeletal pain; no joint swelling. Leg edema. Leg jerking. NEUROLOGICAL: Awake, alert, oriented to time, place and person. No headache. No neck pain. No syncope. No seizures. No dizziness. PSYCHIATRIC: Not anxious. No depression. No suicidal thoughts. No homicidal thoughts. SKIN: No rash. No lesions. No wounds. ENDOCRINE: No unexplained weight loss. No weight gain. HEMATOLOGIC/LYMPHATIC: Anemia. No purpura. No petechiae. No prolonged or excessive bleeding. No palpable lymph nodes. PHYSICAL EXAMINATION: GENERAL: The patient is awake, alert and oriented, lying in bed in no distress. VITAL SIGNS: Temperature 97.9 F, Pulse 74, Respiratory Rate 18, BP 154/69, Pulse Ox 98% HEENT: Head normocephalic, atraumatic. Eyes: Extraocular muscles are intact. Pupils are equal, round and reactive to light and accommodation. Ears: No lesions. Nose appeared normal. Throat: No exudate or erythema. NECK: Supple. No JVD, no carotid bruit. No lymphadenopathy or thyromegaly. LUNGS: Severely diminished breath sounds. Clear to auscultation. Percussion note normal. Chest symmetrical. HEART: S1, S2, no S3. No murmurs. No cyanosis or clubbing. No ascites. Pulses: Dorsalis pedis and posterior tibial pulses +1 to +2 both sides. ABDOMEN: Soft. Non-tender. Bowel sounds active. No CVA tenderness. No mass felt. EXTREMITIES: Trace bilateral leg edema. Full range of motion of all extremities, equal. NEUROLOGIC: No focal deficit. Cranial nerves II through XII are grossly intact. No headache. No double vision. SKIN: Not dry. Intact. Turgor-normal. Minimal surrounding erythema on right side of neck and sides of face. LYMPHATIC: No palpable lymph nodes/no lymphedema. MUSCULOSKELETAL: Normal joints with no swelling. Muscle tone is normal. LAB REVIEW: 03/04/22 05:00 03/04/22 05:00 03/04/22 05:00: Sodium 128.7 L, Potassium 3.63, Chloride 95.7 L, Carbon Dioxide 24.5, Anion Gap 12.13, BUN 38.3 H, Creatinine 1.91 H, Estimated GFR (MDRD) 25 .00, BUN/Creatinine Ratio 20.05, Glucose 83.3, Calcium 7.94 L, Total Bilirubin 0.44, AST 31.8, ALT 13.3, Alkaline Phosphatase 76.7, Total Protein 6.15 L, Albumin 3.53, Globulin 2.62, Albumin/Globulin Ratio 1.34 03/04/22 05:00: WBC 3.29 L, RBC 3.14 L, Hgb 8.9 L, Hct 27.4 L, MCV 87.3, MCH 28.3, MCHC 32.5, RDW Coeff of Danae 14.5, Plt Count 115 L, Immature Gran % (Auto) 0.6, Neut % (Auto) 52.6, Lymph % (Auto) 29.2, Howard % (Auto) 16.1 H, Eos % (Auto) 1.2, Baso % (Auto) 0.3, Neut # (Auto) 1.7 L, Lymph # (Auto) 1.0, Howard # (Auto) 0.5, Eos # (Auto) 0.0, Baso # (Auto) 0.0, Immature Gran # (Auto) 0.0 ASSESSMENT: Please see below. 1. Acute CHF 2. Anemia 3. Renal azotemia 4. Hyponatremia 5. Hypertension 6. Obesity PLAN: 1. Hold aspirin 2. Protonix 40mg daily 3. Pepcid 20mg BID 4. Norvasc 2.5mg at bedtime 5. Discontinue Lovenox 6. increase Requip 1.5mg at day time Plan and coordination of the patient's care discussed in the presence of Director Of Marketing and nurse. SCRIBED BY: Peyton POPE scribed while in presence of service performed by Dr. Wilson/Kellie Harrison APRN on 03/04/22 ([id number])
[2022-03-04] MEDS: XANAX PO SCH ×2 (09:16→20:11)
[2022-03-04] MEDS: REQUIP PO SCH ×2 (09:16→20:09)
[2022-03-04] MEDS: TEGRETOL PO SCH ×2 (09:16→20:10)
[2022-03-04] MEDS: MUCINEX PO SCH ×2 (09:16→20:09)
[2022-03-04] MEDS: TOPROL XL PO SCH (09:17)
[2022-03-04] MEDS: IMDUR PO SCH (09:17)
[2022-03-04] MEDS: CORDARONE PO SCH (09:17)
[2022-03-04] MEDS: MIRALAX PO SCH (09:17)
[2022-03-04] MEDS: NORCO 5-325 PO SCH (09:17)
[2022-03-04] MEDS: ENTRESTO 24 MG-26 MG TABLET PO SCH ×2 (09:17→20:09)
[2022-03-04] MEDS: CLARITIN PO SCH (09:17)
[2022-03-04] MEDS: BACTROBAN TP SCH ×2 (09:17→20:12)
[2022-03-04] MEDS: JANUVIA PO SCH (09:17)
[2022-03-04] MEDS: SYMBICORT 80-4.5 MCG INHALER IH SCH ×2 (09:18→20:12)
[2022-03-04] MEDS: LOTRISONE 45 GM TP SCH ×2 (09:18→20:13)
[2022-03-04] MEDS: NYSTOP POWDER TP SCH ×3 (09:18→20:13)
[2022-03-04] MEDS: NON-FORMULARY MEDICATION (Imiquimod 5 % cream in packet) TP SCH (09:20)
[2022-03-04] MEDS: PROTONIX PO SCH (09:51)
--- NOTE | 2022-03-04 11:31 | RS.PTINEVL ---
Subjective - Patient information Date of Evaluation: 03/04/22 Date of Arrival on Unit: 03/01/22 Admitted From:: Custodial ([facility]) Diagnosis: CHF, HTN Usual Living Arrangement: Custodial Home Environment: Level/No stairs Medical History: Hypertension, COPD, Diabetes, CHF, Arthritis Medical History Comments:: renal failure, dysphagia, neuropathy, GERD, repeated falls Surgical History: Cholecystectomy Surgical History Comments:: mastoidectomy Medications: see chart Subjective Information/ Patient Comments:: pt states she does not know if she was receiving PT at the residential. pt states she doesn't know when she walked last. - Level of function Abilities prior to this admission: pt is unsure. pt was at [facility]. Current Level of Function: Partially Dependent Current Equipment Used at Home: Wheeled Walker Pain Assessement - Location R shld Description: Aching Pain Behavior: Facial Grimacing Pain Aggravating Factors: Changing Position, Exercise/Activity Interventions - Objective Patient Orientation: Person, Place Current Interventions: Telemetry Observation: pt with wounds to face due to skin cancer treatment Range of Motion - ROM Right Upper Extremity AROM: WFL's Left Upper Extremity AROM: WFL's Right Lower Extremity AROM: WFL's Left Lower Extremity AROM: Moderate limitation Muscle Strength - Muscle Strength Right Upper Extremity Strength: Mild Weakness (grossly 4-/5) Left Upper Extremity Strength: Mild Weakness (grossly 4-/5) Right Lower Extremity Strength: Mild Weakness (Hip flex 3/5, knee flex/ext 4-/5, ankle DF/PF 4-/5) Left Lower Extremity Strength: Mild Weakness (hip flex 3+/5, knee flex/ext 3+/5, ankle limited ankle DF due to PF contracture.) Sensation - Sensation Right Upper Extremity Sensation: Intact/Normal Left Upper Extremity Sensation: Intact/Normal Right Lower Extremity Sensation: Impaired Left Lower Extremity Sensation: Impaired (neuropathy B feet/legs) Palpation Palpation Findings: None/Normal Balance - Sitting Balance and Reactions Static Sitting Balance: Fair Dynamic Sitting Balance: Poor - Standing Balance and Reactions Static Standing Balance: Poor Dynamic Standing Balance: Poor Standing Equilibrium Reactions: Delayed Left, Delayed Right Functional Mobility - Bed Mobility Comments:: pt up in bedside chair - Transfers Sit to Stand: Mod Assist, 2 person assist Stand to Sit: Min Assist, Mod Assist, 2 person assist Stand Pivot Transfers: Mod Assist, 2 person assist - Safety Awareness Safety Awareness: Poor VIN INDEX SCORE: n/a Ambulation - Ambulation Assistive Device Used: Rolling Walker Orthotic/Prosthetic Device: No Distance: 2 steps Assistance needed with Ambulation: Mod Assist, 2 person assist Gait Deviations: Forward posture Ambulation Comments: pt unable to place L foot flat on floor and amb on toes with ankle PF and knee flex Treatment time - Time with patient Length of Evaluation: 21 Total treatment time: 29 Patient Education - Education Patient Education: Activity Modification Teaching Recipient: Patient Teaching Methods: Discussion Comments: discussion regarding POC, pt with limited understanding due to very NEZ PERCE. Assessment - Assessment Problem List:: Decreased level of function, Requires training/education, Decreased safety/Risk of falls, Weakness, Pain limits previous level of function, Cognitive status limits abilities Rehab Potential: Fair Further Therapy Indicated?: Yes Candidate for Swing Bed for Therapy Services?: feel pt is not a candidate due to plans on returning to [facility]. Evaluation Complexity: HISTORY: Medium, EXAM OF BODY SYSTEMS: Medium, CLINICAL PRESENTATION: Medium, CLINICAL DECISION MAKING: Medium Patient's Goal(s): pt unable to express goals. Short Term Goals GOAL #1: Rolling and scooting in bed with min x 1 Goal to be met by: 03/06/22 GOAL #2: Transfers sup to/from sit with min x 2 Goal to be met by: 03/06/22 GOAL #3: Transfers sit to/from stand min x 2 Goal to be met by: 03/06/22 GOAL #4: pt transfer bed to/from beside chair min x 2 Goal to be met by: 03/06/22 GOAL #5: pt able to sit at side of bed unsupported x 3 mins Goal to be met by: 03/06/22 Intermediate Goals GOAL #1: Transfer sup to/from sit to/from stand min x 1 Goal to be met by: 03/08/22 GOAL #2: pt amb with rwx 25ft with min x 1 Goal to be met by: 03/08/22 GOAL #3: pt with improved strength BLE 4 to 4+/5 Goal to be met by: 07/27/17 Progress towards goal: Met Comments: See eval report Plan Plan of Care: Therapeutic EX, Therapeutic Activity Other:: gait training Frequency of Treatment: 1-2 X day, as tolerated Duration of Treatment: 5 days Anticipated Discharge Destination: Intermediate Care Facility ([facility]) Treatment Diagnosis (ICD 10 Codes): impaired balance R 26.81. difficulty walking R 26.2. weakness M62.81 Has the Physician been added for Co-signature?: Yes
--- NOTE | 2022-03-04 13:16 | RS.OTINEVL ---
Subjective - Patient information Date of Evaluation: 03/04/22 Date of Arrival on Unit: 03/01/22 Admitted From:: Emergency Dept Diagnosis: Acute CHF, weakness, hyponatremia PRECAUTIONS: 2 person transfer Usual Living Arrangement: Detention Living Arrangement Comments: [facility] Home Environment: Level/No stairs Medical History: Hypertension, Diabetes, CHF Medical History Comments:: chronic kidney disease, RLS, anemia LATEX ALLERGY?: No Surgical History: Knee Replacement, Cholecystectomy Surgical History Comments:: gall bladder, B TKA, Cholecystectomy, Tubal Medications: see chart Subjective Information/ Patient Comments:: "I need to get on the pot." - Level of function Prior to this admission, the patient could do the following:: Partially Dependent Ambulation Abilities prior to this admission: Pt reports she does not walk much but transfers with assistance of 2. Current Level of Function: Partially Dependent Current Equipment Used at Home: Wheeled Walker Pain Assessment - Pain Side: right Pain Location Body Site: Shoulder Pain Aggravating Factors: ADL's Pain Alleviating Factors: Medication, Lying Supine Interventions - Objective Patient Orientation: Person, Place, Situation Current Interventions: IV's, Oxygen Interventions - ROM Right Upper Extremity AROM: WFL's Left Upper Extremity AROM: WFL's - Strength Right Upper Extremity Strength: Mild Weakness Left Upper Extremity Strength: Mild Weakness - Sensation Right Upper Extremity Sensation: Intact/Normal Left Upper Extremity Sensation: Intact/Normal Balance - Sitting Balance Static Sitting Balance: Fair Dynamic Sitting Balance: Fair - Standing Balance Static Standing Balance: Poor Dynamic Standing Balance: Poor ADL Skills - Self Feeding Self Feeding: Set Up Only - Grooming Grooming: Min Assist, 1 person assist - Bathing Bathing UE: Min Assist Bathing LE: Max Assist - Dressing Dressing UE: Min Assist Dressing LE: Max Assist, 1 person assist - Toilet Management Toilet Hygiene: Max Assist Toilet Clothing Management: Max Assist, 2 person assist Functional Mobility - Transfers Sit to Stand: Max Assist, 2 person assist Stand to Sit: Max Assist, 2 person assist Stand Pivot Transfers: Max Assist, 2 person assist - Ambulation Weight Bearing Status: FWB Assistive Device Used: Rolling Walker Assistance needed with Ambulation: Max Assist - Safety Awareness Safety Awareness: Fair VIN INDEX SCORE: . Additional Treatment Performed - Time with patient Length of Evaluation: 20 Total treatment time: 20 Activities Would you enjoy group activities?: Yes Do you have difficulty with your vision?: Yes Patient Interests:: Watching Television, Visiting/Socializing Patient Education Patient Education: Education of diagnosis Teaching Recipient: Patient Teaching Methods: Discussion Assessment Problem List:: Decreased level of function, Decreased safety/Risk of falls, Weakness, Pain limits previous level of function Rehab Potential: Fair Further Therapy Indicated?: Yes Candidate for Swing Bed for Therapy Services?: no Evaluation Complexity: HISTORY: Medium, EXAM OF BODY SYSTEMS: Medium, CLINICAL DECISION MAKING: Medium Patient's Goal(s): To get well and go back to [place]. Short Term Goals - Goals GOAL 1: Pt to increase BUE strength to 4/5. Goal to be met by: 03/08/22 GOAL 2: Pt to increase toilet transfer to Min Assist. Goal to be met by: 03/08/22 GOAL 3: Pt to tolerate sink level ADLS for 10 minutes with rests PRN. Goal to be met by: 03/08/22 GOAL 4: Pt to don brief independently. [facility] Goals GOAL 1: Pt to increase toileting transfer to CGA. Goal to be met by: 03/12/22 GOAL 2: Pt to increase BUE strength to 4+/5. Goal to be met by: 03/12/22 GOAL 3: Pt to increase activity tolerance to 15 minutes. Goal to be met by: 03/12/22 Plan Plan of Care: Therapeutic EX, Therapeutic Activity, Self-Care/Home Management Frequency of Treatment: 1-2 X day, as tolerated Duration of Treatment: 1 Week Anticipated Discharge Destination: [facility] Treatment Diagnosis (ICD 10 Codes): Z74.1 Need for assistance with personal care, M62.81 General weakness Has the Physician been added for Co-signature?: Yes
[2022-03-04] MEDS ORDERED: NORVASC PO SCH (21:00)
[2022-03-05 05:05] VITALS: BP 154/75; TEMP 97.5
[2022-03-05] MEDS: KEFLEX PO SCH (05:21)
[2022-03-05 05:31] LABS: BASOPHILS % (AUTO) 0.3 % (0.0-3.0); EOSINOPHILS # (AUTO) 0.2 K/ul (0.0-0.7); EOSINOPHILS % (AUTO) 5.2 % (0.0-7.0); HEMATOCRIT 27.5 % (37.0-47.0); HEMOGLOBIN 9.1 g/dl (12.0-16.0); IMMATURE GRANULOCYTE % (AUTO) 0.3 % (0.0-5.0); LYMPHOCYTES # (AUTO) 0.9 K/uL (0.60-3.4); LYMPHOCYTES % (AUTO) 29.9 (10.0-50.0); MEAN CORPUSCULAR HEMOGLOBIN 28.8 pg (27.0-31.0); MEAN CORPUSCULAR HGB CONC 33.1 (31.8-35.4); MONOCYTES # (AUTO) 0.5 K/uL (0.4-2.0); MONOCYTES % (AUTO) 17.2 (0-10); NEUTROPHILS # (AUTO) 1.4 K/ul (2.0-6.9); NEUTROPHILS % (AUTO) 47.1 % (42.2-75.2); PLATELET COUNT 136 10^3/uL (140-440); RDW COEFFICIENT OF VARIATION 14.2 % (11.6-14.8); RED BLOOD COUNT 3.16 10^6/ul (4.20-5.40); WHITE BLOOD COUNT 2.91 K/ul (4.6-10.2)
[2022-03-05] MEDS: LASIX TAB PO SCH (05:32)
[2022-03-05] MEDS: SYNTHROID PO SCH (05:33)
[2022-03-05] MEDS: PROTONIX PO SCH (05:33)
[2022-03-05] MEDS: PEPCID PO SCH (05:33)
[2022-03-05 05:42] LABS: ALANINE AMINOTRANSFERASE 13.7 U/L (0-35); ALBUMIN 3.46 g/dL (3.5-5.0); ALKALINE PHOSPHATASE 75.9 U/L (53-141); ASPARTATE AMINO TRANSFERASE 31.7 U/L (14-36); BILIRUBIN,TOTAL 0.5 mg/dL (0.2-1.3); BLOOD UREA NITROGEN 37.4 mg/dL (7-17); CALCIUM 7.89 mg/dL (8.4-10.2); CARBON DIOXIDE 25.8 mmol/L (22-30.0); CHLORIDE 95.4 mmol/L (98-107); CREATININE 1.56 mg/dL (0.60-1.30); GLUCOSE 93.4 mg/dL (74-106); POTASSIUM 3.72 mmol/L (3.5-5.1); TOTAL PROTEIN 6.25 g/dL (6.3-8.2)
[2022-03-05] MEDS ORDERED: DIFLUCAN PO ONE (08:06)
[2022-03-05] MEDS: MIRALAX PO SCH (08:52)
[2022-03-05] MEDS: TOPROL XL PO SCH (08:53)
[2022-03-05] MEDS: ENTRESTO 24 MG-26 MG TABLET PO SCH (08:53)
[2022-03-05] MEDS: REQUIP PO SCH (08:53)
[2022-03-05] MEDS: XANAX PO SCH (08:53)
[2022-03-05] MEDS: NORCO 5-325 PO SCH (08:54)
[2022-03-05] MEDS: CLARITIN PO SCH (08:54)
[2022-03-05] MEDS: TEGRETOL PO SCH (08:54)
[2022-03-05] MEDS: IMDUR PO SCH (08:54)
[2022-03-05] MEDS: JANUVIA PO SCH (08:55)
[2022-03-05] MEDS: SYMBICORT 80-4.5 MCG INHALER IH SCH (08:56)
[2022-03-05] MEDS: CORDARONE PO SCH (08:56)
[2022-03-05] MEDS: ASPIRIN CHEWABLE PO SCH (08:56)
[2022-03-05] MEDS: BACTROBAN TP SCH (08:56)
[2022-03-05] MEDS: NYSTOP POWDER TP SCH (08:57)
[2022-03-05] MEDS: NON-FORMULARY MEDICATION (Imiquimod 5 % cream in packet) TP SCH (09:02)
--- NOTE | 2022-03-05 11:05 | PCM.PROG ---
Attending Provider: ATTENDING PROVIDER: Dr. PAU WILSON This patient is seen with Kellie Harrison, Nurse Practitioner. DATE OF SERVICE: 03/05/22 SUBJECTIVE: This 86 year old /WHITE F was hospitalized 03/01/22. Feels better today. Hgb improved along with renal function. The patient stable for discharge back to [place]. REVIEW OF SYSTEMS: CONSTITUTIONAL: No night sweats. No fatigue, malaise, lethargy. No fever or chills. Weakness. HEENT: Eyes: No visual changes. No eye pain. No eye discharge. ENT: No runny nose. No epistaxis. No sinus pain. No odynophagia. No congestion. RESPIRATORY: No cough, no congestion. No hemoptysis. No shortness of breath. CARDIOVASCULAR: No angina symptoms. No CHF symptoms. No atypical chest pain for CAD. No palpitations. No orthopnea.. GASTROINTESTINAL: No abdominal pain. No nausea or vomiting. No diarrhea or constipation. No hematemesis. No hematochezia. GENITOURINARY: No urgency. No frequency. No dysuria. No hematuria. No obst ructive symptoms. No discharge. No pain. No significant abnormal bleeding. MUSCULOSKELETAL: No musculoskeletal pain; no joint swelling. Trace leg edema. NEUROLOGICAL: Awake, alert, oriented to time, place and person. No headache. No neck pain. No syncope. No seizures. No dizziness. PSYCHIATRIC: Not anxious. No depression. No suicidal thoughts. No homicidal thoughts. SKIN: No rash. No lesions. No wounds. ENDOCRINE: No unexplained weight loss. No weight gain. HEMATOLOGIC/LYMPHATIC: No anemia. No purpura. No petechiae. No prolonged or excessive bleeding. No palpable lymph nodes. PHYSICAL EXAMINATION: GENERAL: The patient is awake, alert and oriented, lying in bed in no distress. VITAL SIGNS: Temperature 97.5 F, Pulse 68, Respiratory Rate 16, BP 154/75, Pulse Ox 96% HEENT: Head normocephalic, atraumatic. Eyes: Extraocular muscles are intact. Pupils are equal, round and reactive to light and accommodation. Ears: No lesions. Nose appeared normal. Throat: No exudate or erythema. NECK: Supple. No JVD, no carotid bruit. No lymphadenopathy or thyromegaly. LUNGS: Diminished breath sounds. Clear to auscultation. Percussion note normal. Chest symmetrical. HEART: S1, S2, no S3. No murmurs. No cyanosis or clubbing. No ascites. Pulses: Dorsalis pedis and posterior tibial pulses +1 to +2 both sides. ABDOMEN: Soft. Non-tender. Bowel sounds active. No CVA tenderness. No mass felt. EXTREMITIES: Trace leg edema. Full range of motion of all extremities, equal. NEUROLOGIC: No focal deficit. Cranial nerves II through XII are grossly intact. No headache. No double vision. Intermittent confusion. SKIN: Not dry. Intact. Turgor-normal. Excoriation right knee fol and in groin. Anemia. LYMPHATIC: No palpable lymph nodes/no lymphedema. MUSCULOSKELETAL: Normal joints with no swelling. Muscle tone is normal. LAB REVIEW: 03/05/22 05:01 03/05/22 05:01 03/05/22 05:01: Sodium 128.0 L, Potassium 3.72, Chloride 95.4 L, Carbon Dioxide 25.8, Anion Gap 10.52, BUN 37.4 H, Creatinine 1.56 H, Estimated GFR (MDRD) 32.00, BUN/Creatinine Ratio 23.97, Glucose 93.4, Calcium 7.89 L, Total Bilirubin 0.50, AST 31.7, ALT 13.7, Alkaline Phosphatase 75.9, Total Protein 6.25 L, Albumin 3.46 L, Globulin 2.79, Albumin/Globulin Ratio 1.24 03/05/22 05:01: WBC 2.91 L, RBC 3.16 L, Hgb 9.1 L, Hct 27.5 L, MCV 87.0, MCH 28.8, MCHC 33.1, RDW Coeff of Danae 14.2, Plt Count 136 L, Immature Gran % (Auto) 0.3, Neut % (Auto) 47.1, Lymph % (Auto) 29.9, Apache % (Auto) 17.2 H, Eos % (Auto) 5.2, Baso % (Auto) 0.3, Neut # (Auto) 1.4 L, Lymph # (Auto) 0.9, Apache # (Auto) 0.5, Eos # (Auto) 0.2, Baso # (Auto) 0.0, Immature Gran # (Auto) 0.0 03/04/22 05:00: Carbamazepine 8.8 ASSESSMENT: Please see below. 1. Acute CHF 2. 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 Generalized weakness 5. Anemia 6. Skin cancer on face PLAN: 1.Resume Aspirin 2. Discontinue Guaifenesin 3. Discharge back to [place] 4. CBC and CMP on Friday 5. Continue Bactroban BID to face and neck for one week Plan and coordination of the patient's care discussed in the presence of Hand Grinder and nurse. SCRIBED BY: Peyton POPE scribed while in presence of service performed by Dr. Wilson/Kellie Harrison APRN on 03/05/22 (0800)
--- NOTE | 2022-03-05 11:15 | DS ---
DATE OF SERVICE: 03/05/22 FINAL DIAGNOSIS: 1. Acute CHF 2. 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 Generalized weakness 5. Anemia 6. Skin cancer on face DISCHARGE INSTRUCTIONS: Discharge back to [facility]. Fall precautions. use assistive device. CBC and CMP on Friday, March 11, 2022. Dr. Bustos/Kellie Harrison NP/Kirstin Munoz NP will resume routine rounds. Appointment with Dermatology in [place] on FridayMarch 29 at 1pm. Resume all other Home/Facility Medications. MEDICATIONS AT DISCHARGE: Amiodarone 200mg Po daily Synthroid 100mcg PO QDAC Alprazolam 0.25mg PO BID Symbicort 80-4.5mcg two puff inhalation BID Aspirin 81mg PO daily Acetaminophen 650mg PO Q4 hours PRN Requip 0.5mg PO bedtime Miralax 17gram Po daily Entresto 1 each PO BID Januvia 25mg Po daily Vitamin D 125mcg PO FR Metoprolol 25mg PO daily Raymond 5-325mg PO daily Cepacol 1 david mucous membrane Q 6 hours PRN Tegretol 250mg PO BID Raymond 5-325m,g PO Q 12 hour PRN Isosorbide Mononitrate 30mg PO daily Chlorpheniramine Maleate 4mg PO BID Imiquimod 5% cream one application topical MOTUWETHFR Norvasc 2.5mg PO daily NEW PRESCRIPTIONS: BACTROBAN TWICE DAILY TO FACE AND NECK REQUIP DAYTIME DOSE WAS INCREASED TO 1.5 MG DAILY NYSTOP POWDER APPLIED TO GROIN/FOLDS TID LASIX 20MG PO DAILY PROTONIX 40MG QDAC PEPCID 20MG BIDAC DISCONTINUED MEDICATIONS: REQUIP 1MG DAILY KEFLEX TUSSIN MUCINEX LASIX 40MG DIET INSTRUCTIONS: Resume diet as prior. ACTIVITY: Resume snf activities as tolerated HOSPITAL COURSE: 86 year old who is a resident at [facility] was sent to the Er for shortness of breath and worsening leg edema. Labs showed worsening renal function. Chest x-ray indicated acute renal failure along with acute CHF. She was admitted and slowly diuresed with IV Lasix. Renal function has remained stable. Urinalysis was normal. She initially required 4 liters of O2 now on room air with saturation 96%. She has skin cancer removed about a month ago on face and neck. Some excoriation was noted and placed on Keflex and Diflucan, areas of redness has improved. She has followup with Dermatology per Gerardo. We will use Bactroban twice a day for a week and followup with her in the snf. She will have CBC and CMP on Friday. TIME SPENT: More than 60 minutes. DIANA
--- NOTE | 2022-03-06 11:23 | PN ---
DATE OF SERVICE: 03/01/22 ADMIT NOTE SUBJECTIVE: 86 year old white female hospitalized with generalized swelling and shortness of breath. The patient very likely had no PND, no orthopnea. Her lungs were clear. Chest x-ray was normal. Pulse was 80-85 per minute. I don't think that the patient was in acute CHF as stated by ER attending but the patient definitely had fluid overload status. REVIEW OF SYSTEMS: CONSTITUTIONAL: No night sweats. No fatigue, malaise, lethargy. No fever or chills. HEENT: Eyes: No visual changes. No eye pain. No eye discharge. ENT: No runny nose. No epistaxis. No sinus pain. No sore throat. No odynophagia. No congestion. RESPIRATORY: No cough, no congestion. No hemoptysis. No shortness of breath. CARDIOVASCULAR: No angina symptoms. No CHF symptoms. No atypical chest pain for CAD. No palpitations. No PND. No orthopnea. GASTROINTESTINAL: No abdominal pain. No nausea or vomiting. No diarrhea or constipation. No hematemesis. No hematochezia. GENITOURINARY: No urgency. No frequency. No dysuria. No hematuria. No obstructive symptoms. No discharge. No pain. No significant abnormal bleeding. MUSCULOSKELETAL: No musculoskeletal pain; no joint swelling. NEUROLOGICAL: No headache. No neck pain. No syncope. No seizures. No dizziness. PSYCHIATRIC: Not anxious. No depression. No suicidal thoughts. No homicidal thoughts. SKIN: No rash. No lesions. No wounds. ENDOCRINE: No unexplained weight loss. No weight gain. HEMATOLOGIC/LYMPHATIC: No anemia. No purpura. No petechiae. No prolonged or excessive bleeding. No palpable lymph nodes. PHYSICAL EXAMINATION: HEENT: Head normocephalic, atraumatic. Eyes: Extraocular muscles are intact. Pupils are equal, round and reactive to light and accommodation. Ears: No lesions. Nose appeared normal. Throat: No exudate or erythema. NECK: Supple. No JVD, no carotid bruit. No lymphadenopathy or thyromegaly. LUNGS: Clear to auscultation. Percussion note normal. Chest symmetrical. HEART: S1, S2, no S3. No murmurs. No cyanosis or clubbing. No ascites. Pulses: Dorsalis pedis and posterior tibial pulses +1 to +2 bilaterally. ABDOMEN: Soft. Nontender. Bowel sounds active. No CVA tenderness. No mass felt. EXTREMITIES: +1-+2 pitting edema. Full range of motion of all extremities, equal. NEUROLOGIC: No focal deficit. Cranial nerves II through XII are grossly intact. No headache. No double vision. SKIN: Not dry. Intact. Turgor - normal. LYMPHATIC: No palpable lymph nodes/no lymphedema. MUSCULOSKELETAL: Normal joints with no swelling. Muscle tone is normal. LABS: Arterial blood gasses, po2 74 with pCo2 37, pH 7.40 with 95% saturation on room air. PROBNP was 750 which could be combination of a lot of factors. Hgb 10.5, hct 32, WBC 3,900 normal differential, creatinine 1.9, BUN 38, potassium 4.7, sodium 128. TSH normal. Liver profile mild abnormal, AST 36 borderline high. ASSESSMENT: 1. Fluid overload status/Remote possibility of CHF 2. Renal azotemia. PLAN: 1. The patient was given IV 80mg Lasix 2. Legs elevated 3. Routine telemetry orders 4. Serial EKGs 5. Cardiac markers 6. Will do echocardiogram to evaluate LV function. TIME SPENT: More than 30 minutes. Plan and coordination of the patient's care discussed in the presence of nurse. DIANA
--- NOTE | 2022-03-06 11:32 | PN ---
DATE OF SERVICE: 03/02/22 SUBJECTIVE: 86 year old white female hospitalized with fluid retention, generalized edema along with possibility of renal azotemia with dehydration. The patient was given IV Lasix. The patient's leg edema is much less. Edema has subsided. She is feeling somewhat better. The patient also has actinic keratosis of the right face, squamous cell irritation. REVIEW OF SYSTEMS: CONSTITUTIONAL: No night sweats. No fatigue, malaise, lethargy. No fever or chills. HEENT: Eyes: No visual changes. No eye pain. No eye discharge. ENT: No runny nose. No epistaxis. No sinus pain. No sore throat. No odynophagia. No congestion. RESPIRATORY: No cough, no congestion. No hemoptysis. No shortness of breath. CARDIOVASCULAR: No angina symptoms. No CHF symptoms. No atypical chest pain for CAD. No palpitations. No PND. No orthopnea. GASTROINTESTINAL: No abdominal pain. No nausea or vomiting. No diarrhea or constipation. No hematemesis. No hematochezia. GENITOURINARY: No urgency. No frequency. No dysuria. No hematuria. No obstructive symptoms. No discharge. No pain. No significant abnormal bleeding. MUSCULOSKELETAL: No musculoskeletal pain; no joint swelling. NEUROLOGICAL: No headache. No neck pain. No syncope. No seizures. No dizziness. PSYCHIATRIC: Not anxious. No depression. No suicidal thoughts. No homicidal thoughts. SKIN: No rash. No lesions. No wounds. ENDOCRINE: No unexplained weight loss. No weight gain. HEMATOLOGIC/LYMPHATIC: No anemia. No purpura. No petechiae. No prolonged or excessive bleeding. No palpable lymph nodes. PHYSICAL EXAMINATION: . HEENT: Head normocephalic, atraumatic. Eyes: Extraocular muscles are intact. Pupils are equal, round and reactive to light and accommodation. Ears: No lesions. Nose appeared normal. Throat: No exudate or erythema. NECK: Supple. No JVD, no carotid bruit. No lymphadenopathy or thyromegaly. LUNGS: Decreased breath sounds but clear to auscultation. Percussion note normal. Chest symmetrical. HEART: S1, S2, no S3. No murmurs. No cyanosis or clubbing. No ascites. Pulses: Dorsalis pedis and posterior tibial pulses +1 to +2 bilaterally. ABDOMEN: Soft. Nontender. Bowel sounds active. No CVA tenderness. No mass felt. EXTREMITIES: Trace to +1 edema. Full range of motion of all extremities, equal. NEUROLOGIC: No focal deficit. Cranial nerves II through XII are grossly intact. No headache. No double vision. SKIN: Not dry. Intact. Turgor - normal. LYMPHATIC: No palpable lymph nodes/no lymphedema. MUSCULOSKELETAL: Normal joints with no swelling. Muscle tone is normal. LABS: Hgb 10.1, hct 30, WBC 3,300 normal differential, creatinine 1.7, BUN 36, potassium 4.4 ASSESSMENT: 1. Fluid retention status which she is being treated with IV Lasix, she is on PO Lasix which we will hold it. 2. Actinic Keratosis right face with some irritation on the neck with squamous cell PLAN: 1. Keflex 500mg TID for that daily 2. Continue [place] catheter 3. 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 Will monitor CBC and CMP 5. The patient's EKG is sinus rhythm with no acute changes. TIME SPENT: More than 30 minutes. Plan and coordination of the patient's care discussed in the presence of nurse. DIANA
--- NOTE | 2022-03-06 13:58 | PN ---
DATE OF SERVICE: 03/03/22 SUBJECTIVE: 86 year old white female hospitalized with fluid retention status. I don't think patient had CHF. The patient's condition has improved. She is breathing better and feeling better. REVIEW OF SYSTEMS: CONSTITUTIONAL: No night sweats. No fatigue, malaise, lethargy. No fever or chills. HEENT: Eyes: No visual changes. No eye pain. No eye discharge. ENT: No runny nose. No epistaxis. No sinus pain. No sore throat. No odynophagia. No congestion. RESPIRATORY: No cough, no congestion. No hemoptysis. No shortness of breath. CARDIOVASCULAR: No angina symptoms. No CHF symptoms. No atypical chest pain for CAD. No palpitations. No PND. No orthopnea. GASTROINTESTINAL: No abdominal pain. No nausea or vomiting. No diarrhea or constipation. No hematemesis. No hematochezia. Appetite seems to have improved. GENITOURINARY: No urgency. No frequency. No dysuria. No hematuria. No obstructive symptoms. No discharge. No pain. No significant abnormal bleeding. MUSCULOSKELETAL: No musculoskeletal pain; no joint swelling. NEUROLOGICAL: No headache. No neck pain. No syncope. No seizures. No dizziness. PSYCHIATRIC: Not anxious. No depression. No suicidal thoughts. No homicidal thoughts. SKIN: No rash. No lesions. No wounds. ENDOCRINE: No unexplained weight loss. No weight gain. HEMATOLOGIC/LYMPHATIC: No anemia. No purpura. No petechiae. No prolonged or excessive bleeding. No palpable lymph nodes. PHYSICAL EXAMINATION: VITAL SIGNS: Temperature 97.7, pulse 86, respiratory rate 18, blood pressure 151/95, pulse ox 97% HEENT: Head normocephalic, atraumatic. Eyes: Extraocular muscles are intact. Pupils are equal, round and reactive to light and accommodation. Ears: No lesions. Nose appeared normal. Throat: No exudate or erythema. NECK: Supple. No JVD, no carotid bruit. No lymphadenopathy or thyromegaly. LUNGS: Decreased breath sounds but clear to auscultation. Percussion note normal. Chest symmetrical. HEART: S1, S2, no S3. No murmurs. No cyanosis or clubbing. No ascites. Pulses: Dorsalis pedis and posterior tibial pulses +1 to +2 bilaterally. ABDOMEN: Soft. Nontender. Bowel sounds active. No CVA tenderness. No mass felt. EXTREMITIES: Trace edema. Full range of motion of all extremities, equal. NEUROLOGIC: No focal deficit. Cranial nerves II through XII are grossly intact. No headache. No double vision. SKIN: Not dry. Intact. Turgor - normal. LYMPHATIC: No palpable lymph nodes/no lymphedema. MUSCULOSKELETAL: Normal joints with no swelling. Muscle tone is normal. ASSESSMENT: 1. Generalized edema 2. Fungal infection of the right groin. 3. Chronic anemia 4. Lung disease 5. CHF 6. Hypertension 7. Generalized osteoarthritis 8. Coronary artery disease PLAN: 1. Continue all the medications as before 2. Continue IV Lasix, start PO Lasix 3. Lotrisone cream and Nystatin powder for the right groin for candidiasis 4. Diflucan 150mg one tablet 5. The patient had an echocardiogram done practically normal LV contractility 6. Chronic anemia persists seems to have myelodysplastic syndrome CONDITION: Stable. No evidence of CHF. TIME SPENT: More than 30 minutes. Plan and coordination of the patient's care discussed in the presence of nurse. DIANA
--- NOTE | 2022-03-07 13:43 | PN ---
DATE OF SERVICE: 03/04/22 SUBJECTIVE: 86 year old white female hospitalized with generalized swelling and possibility of CHF. The patient has dilated cardiomyopathy. She has been Entresto. She is being given Lasix. Overall status has improved. The patient was seen and examined with the Nurse Practitioner. The patient had a fall in the hgb and hct, we will monitor it. No evidence of active GI bleed. TIME SPENT: More than 30 minutes. Plan and coordination of the patient's care discussed in the presence of nurse. DIANA
[2022-03-08] MEDS ORDERED: VITAMIN D PO SCH (09:00)
== END 2022-03-05 11:05 | DRG 292 ==
LOC: ED 14:19 → MEDSURG A 16:26
PROVIDERS: ADMIT Internal Medicine; ATTEND Internal Medicine
DX: I25.10 Atherosclerotic heart disease of native coronary artery without angina pectoris; I42.0 Dilated cardiomyopathy; E78.5 Hyperlipidemia, unspecified; Z85.828 Personal history of other malignant neoplasm of skin; I50.9 Heart failure, unspecified; E86.0 Dehydration; R06.02 Shortness of breath; I11.0 Hypertensive heart disease with heart failure; R29.6 Repeated falls; M15.9 Polyosteoarthritis, unspecified; Z51.81 Encounter for therapeutic drug level monitoring; E87.70 Fluid overload, unspecified; N18.9 Chronic kidney disease, unspecified; E87.1 Hypo-osmolality and hyponatremia; E11.22 Type 2 diabetes mellitus with diabetic chronic kidney disease; R41.82 Altered mental status, unspecified; J44.9 Chronic obstructive pulmonary disease, unspecified; N18.30 Chronic kidney disease, stage 3 unspecified; Z79.899 Other long term (current) drug therapy; Z20.822 Contact with and (suspected) exposure to COVID-19; K21.9 Gastro-esophageal reflux disease without esophagitis; E03.9 Hypothyroidism, unspecified; B35.6 Tinea cruris; Z74.1 Need for assistance with personal care; D64.9 Anemia, unspecified; Z79.84 Long term (current) use of oral hypoglycemic drugs; Z99.81 Dependence on supplemental oxygen; E66.9 Obesity, unspecified; R13.10 Dysphagia, unspecified; G25.81 Restless legs syndrome; R53.1 Weakness

== ENCOUNTER 2022-03-21 15:49 | Inpatient (IN) ==
[2022-03-21] MEDS ORDERED: SODIUM CHLORIDE 500 ML IV ONE (16:13)
[2022-03-21] MEDS ORDERED: TYLENOL PO ONE (16:13)
--- NOTE | 2022-03-21 16:18 | ED.PDOC ---
General ED Provider: Dr. JOSE MURO MD Chief Complaint: Non-specific Complaint Stated Complaint: NH pt with mild to mod general weakness today, no injury, no emesis, +elevated temp, not ambulating, hx low Na, chf, dm and htn Time Seen by Provider: 03/21/22 15:52 Mode of Arrival: Ambulance Information Source: [facility] Primary Care Provider: PAU WILSON MD Nursing and Triage Documentation Reviewed and Agree: Yes Does patient meet sepsis criteria?: No System Inflammatory Response Syndrome: Not Applicable Sepsis Protocol: For patient's 13 years and over: Temp is 96.8 and below OR 101 and greater Pulse >90 BPM Resp >20/minute Acutely Altered Mental Status Are patient's symptoms suggestive of a new infection, such as: -Pneumonia -Skin, Soft Tissue -Endocarditis -UTI -Bone, Joint Infection -Implantable Device -Acute Abdominal Infection -Wound Infection -Meningitis -Blood Stream Catheter Infection -Unknown Review of Systems Review Of Systems Constitutional: Reports Malaise and Weakness Eyes: Denies Drainage Ears, Nose, Mouth, Throat: Denies Throat pain Respiratory: Denies Cough, Short of air or Wheezing Cardiac: Denies Chest pain GI: Denies Abdominal pain or Vomiting : Denies Frequency Musculoskeletal: Reports Muscle pain Skin: Denies Bruising Neurological: Denies Cognitive dysfunction All Other Systems: Other [facility] Medical History (Updated 03/21/22 @ 18:27 by JOSE MURO MD) Acute respiratory failure, unspecified whether with hypoxia or hypercapnia Anemia, unspecified Anxiety Arthritis Atherosclerotic heart disease of [place] coronary artery without angina pectoris Cataract Cholesteatoma of both mastoids Chronic obstructive pulmonary disease Convulsions Diabetes mellitus Dysphagia, oropharyngeal phase Gastro-esophageal reflux disease without esophagitis Heart failure Hyperlipidemia Hypertension Hypo-osmolality and hyponatremia Hypothyroidism Kidney failure, acute Measles Mumps Muscle weakness (generalized) Peripheral neuropathy Pneumonia, unspecified organism Renal failure Repeated falls Restless legs syndrome Sensorineural hearing loss (SNHL) of both ears Sinusitis Transient ischemia Unspecified injury of head, initial encounter Varicella Family History Other No known health problems Social History Smoking and tobacco status: Never smoker History of recent travel: No Surgical History History of dental surgery History of joint surgery History of orthopedic surgery Mastoidectomy Status post cholecystectomy Female Reproductive History Menstrual Hx Hysterectomy: No Hx Tubal Ligation: No Physical Exam Physical Exam Appearance: Reports Obese Ill-appearing: Mild Pain Distress: None Eyes: Reports ALEJANDRO, EOMI and Conjunctiva clear ENT: Reports Dry mucosa Neck: Supple Respiratory: Reports Airway patent and Breath sounds equal Cardiovascular: Reports RRR GI/: Reports Soft and Nontender Musculoskeletal: Reports Limited ROM Skin: Reports Warm and Dry Neurological: Reports Alert and Oriented Psychiatric: Reports Affect appropriate Interpretation Radiology Interpretation Radiology Interpretation By: Radiologist Exam Interpreted: CXR Xray Comments: bibasilar atelectasis Radiology Interpretation By: Radiologist Radiology Results: No acute changes Exam Interpreted: CT Scan EKG Interpretation Time of EKG #1: 18:24 Rate: Normal Rhythm: Sinus Interpretation: no stemi Critical Care Note Critical Care Note Total Critical Care Time (mins): 0 Course Course Hematology/Chemistry: 03/21/22 16:08 03/21/22 16:08 Orders, Labs, Meds: Lab Review 03/21/22 03/21/22 03/21/22 16:08 16:08 16:08 WBC 2.67 L RBC 3.05 L Hgb 8.9 L Hct 26.6 L MCV 87.2 MCH 29.2 MCHC 33.5 RDW Coeff of Danae 14.6 Plt Count 196 Immature Gran % (Auto) 0.7 Neut % (Auto) 52.6 Lymph % (Auto) 22.8 [place] % (Auto) 19.1 H Eos % (Auto) 4.1 Baso % (Auto) 0.7 Neut # (Auto) 1.4 L Lymph # (Auto) 0.6 [place] # (Auto) 0.5 Eos # (Auto) 0.1 Baso # (Auto) 0.0 Immature Gran # (Auto) 0.0 Puncture Site Base Excess O2 Saturation ABG pH ABG pCO2 ABG pO2 ABG HCO3 ABG Total CO2 Jimi Test Hemoglobin Oxyhemoglobin Carboxyhemoglobin Total Hemoglobin FiO2 % Sodium 125.4 L Potassium 4.57 Chloride 94.6 L Carbon Dioxide 24.7 Anion Gap 10.67 BUN 43.3 H Creatinine 1.88 H Estimated GFR (MDRD) 25.00 BUN/Creatinine Ratio 23.03 Glucose 100.4 Lactic Acid 0.70 Calcium 7.69 L Total Bilirubin 0.48 AST 22.0 ALT 13.3 Alkaline Phosphatase 71.9 Total Creatine Kinase 85.0 Troponin I 0.021 NT-Pro-B Natriuret Pep 4390.000 H Total Protein 5.97 L Albumin 3.43 L Globulin 2.54 Albumin/Globulin Ratio 1.35 Influ A Molecular Assay Influ B Molecular Assay SARS CoV-2 RNA Rapid EDER 03/21/22 03/21/22 03/21/22 16:50 17:14 17:30 WBC RBC Hgb Hct MCV MCH MCHC RDW Coeff of Danae Plt Count Immature Gran % (Auto) Neut % (Auto) Lymph % (Auto) [place] % (Auto) Eos % (Auto) Baso % (Auto) Neut # (Auto) Lymph # (Auto) [place] # (Auto) Eos # (Auto) Baso # (Auto) Immature Gran # (Auto) Puncture Site Rrad Base Excess -1.8 O2 Saturation 96.1 ABG pH 7.42 ABG pCO2 35.0 ABG pO2 81.0 L ABG HCO3 22.7 ABG Total CO2 23.8 Jimi Test Pos Hemoglobin 1.2 Oxyhemoglobin 95.0 Carboxyhemoglobin 1.7 H Total Hemoglobin 9.2 L FiO2 % 21.0 Sodium Potassium Chloride Carbon Dioxide Anion Gap BUN Creatinine Estimated GFR (MDRD) BUN/Creatinine Ratio Glucose Lactic Acid Calcium Total Bilirubin AST ALT Alkaline Phosphatase Total Creatine Kinase Troponin I NT-Pro-B Natriuret Pep Total Protein Albumin Globulin Albumin/Globulin Ratio Influ A Molecular Assay Negative by naat Influ B Molecular Assay Negative by naat SARS CoV-2 RNA Rapid EDER Negative Orders Category Date Time Status ABG DRAW REQUEST Stat CARDIO 03/21/22 16:13 Completed EKG-(ED ONLY) Stat CARDIO 03/21/22 16:08 Completed OXYGEN [ED APPLY O2] .ONCE EMERGENCY 03/21/22 16:13 Active ABG COOX Stat LAB 03/21/22 16:50 Completed BLOOD CULTURE Stat LAB 03/21/22 16:13 Ordered CBC W/ AUTO DIFF Stat LAB 03/21/22 16:08 Completed CMP [COMPREHENSIVE METABOLIC PANEL] Stat LAB 03/21/22 16:08 Completed CREATINE KINASE Stat LAB 03/21/22 16:08 Completed LACTIC ACID Stat LAB 03/21/22 16:08 Completed MOLECULAR FLU A & B [FLU A/B MOLECULAR] Stat LAB 03/21/22 17:14 Completed NT-PROBNP Stat LAB 03/21/22 16:08 Completed SARS COV-2 RNA RAPID EDER Stat LAB 03/21/22 17:30 Completed TROPONIN I Stat LAB 03/21/22 16:08 Completed URINALYSIS C & S IF INDICATED Stat LAB 03/21/22 16:13 Uncollected Acetaminophen [Tylenol] MEDS 03/21/22 16:13 Discontinued 650 mg PO ONCE ONE Sodium Chloride 0.9% [Sodium Chloride] 500 ml MEDS 03/21/22 16:13 Discontinued IV BOLUS CHEST, 1V AP ONLY Stat RADS 03/21/22 16:[address] HEAD W/O CONTRAST Stat RADS 03/21/22 16:13 Completed Medications Discontinued Medications Generic Name Dose Route Start Last Admin Trade Name Freq PRN Reason Stop Dose Admin Acetaminophen 650 mg 03/21/22 16:13 03/21/22 16:20 Acetaminophen 325 Mg Tablet PO 03/21/22 16:14 650 mg ONCE ONE Administration Sodium Chloride 500 mls @ 500 mls/hr 03/21/22 16:13 03/21/22 16:19 Sodium Chloride IV 03/21/22 17:12 500 mls/hr BOLUS ONE Administration Vital Signs: Temp Pulse Resp BP Pulse Ox 03/21/22 15:57 100.8 F H 96 22 H 90/49 L 97 Discharge Plan Discharge Patient Disposition: ADMITTED INPATIENT Discharge Problem: Acute renal failure, Anemia, Hyponatremia, Fever Prescriptions: No Action amiodarone 200 MG tablet 200 mg PO DAILY Qty: 30 Rx Instructions: Take one tablet daily. alprazolam 0.25 MG tablet 0.25 mg PO BID Qty: 60 Rx Instructions: one by mouth twice a day for anxiety ropinirole [Requip] 0.5 MG tablet 0.5 mg PO BEDTIME levothyroxine [Synthroid] 100 MCG tablet 100 mcg PO QDAC Qty: 30 0RF acetaminophen [Pain and Fever] 325 MG tablet 650 mg PO Q4HR PRN (Reason: Mild Pain) aspirin 81 MG tablet,chewable 81 mg PO DAILY budesonide-formoterol [Symbicort] 1 PUFF HFA aerosol inhaler 2 puff inhalation BID polyethylene glycol 3350 [Miralax] 17 GM powder in packet 17 g PO DAILY Entresto 1 EACH tablet 1 ea PO BID Qty: 60 0RF Januvia 25 MG tablet 25 mg PO DAILY Qty: 30 0RF cetylpyridinium chloride Lozenge 1 david MUCOUS MEMBRANE Q6H PRN (Reason: Cough) amlodipine [Norvasc] 5 MG tablet 2.5 mg PO DAILY chlorpheniramine maleate 4 mg Tablet 4 mg PO BID hydrocodone-acetaminophen 5-325 mg Tablet 1 tab PO DAILY hydrocodone-acetaminophen 5-325 mg tablet 1 tab PO Q12H PRN (Reason: Pain) isosorbide mononitrate 30 mg tablet extended release 24 hr 30 mg PO DAILY carbamazepine [Tegretol] 200 mg Tablet 250 mg PO BID imiquimod 5 % cream in packet 1 applic TOPICAL MOTUWETHFR Rx Instructions: to specified areas metoprolol succinate 25 mg tablet extended release 24 hr 25 mg PO DAILY cholecalciferol (vitamin D3) [Vitamin D3] 125 mcg (5,000 unit) Tablet 125 mcg PO FR ropinirole 1 mg Tablet 1.5 mg PO DAILY 0RF pantoprazole 40 mg Tablet,Delayed Release (Dr/Ec) 40 mg PO QDAC 0RF mupirocin 2 % Ointment 1 applic topical BID 0RF furosemide 20 mg Tablet 20 mg PO QDAC 0RF nystatin [Nystop] 100,000 unit/gram Powder 1 applic topical TID 0RF famotidine [Pepcid] 20 mg Tablet 20 mg PO BIDAC Qty: 60 0RF Did you review [place] CUSTOMER SUCCESS MANAGER?: Not Applicable ED Provider: JOSE MURO Condition: Fair Physician Progress Note: []treatment and admission d/w Dr Wilson
[2022-03-21 16:53] LABS: BASOPHILS % (AUTO) 0.7 % (0.0-3.0); EOSINOPHILS # (AUTO) 0.1 K/ul (0.0-0.7); EOSINOPHILS % (AUTO) 4.1 % (0.0-7.0); HEMATOCRIT 26.6 % (37.0-47.0); HEMOGLOBIN 8.9 g/dl (12.0-16.0); IMMATURE GRANULOCYTE % (AUTO) 0.7 % (0.0-5.0); LYMPHOCYTES # (AUTO) 0.6 K/uL (0.60-3.4); LYMPHOCYTES % (AUTO) 22.8 (10.0-50.0); MEAN CORPUSCULAR HEMOGLOBIN 29.2 pg (27.0-31.0); MEAN CORPUSCULAR HGB CONC 33.5 (31.8-35.4); MEAN CORPUSCULAR VOLUME 87.2 fl (81.0-99.0); MONOCYTES # (AUTO) 0.5 K/uL (0.4-2.0); MONOCYTES % (AUTO) 19.1 (0-10); NEUTROPHILS # (AUTO) 1.4 K/ul (2.0-6.9); NEUTROPHILS % (AUTO) 52.6 % (42.2-75.2); PLATELET COUNT 196 10^3/uL (140-440); RDW COEFFICIENT OF VARIATION 14.6 % (11.6-14.8); RED BLOOD COUNT 3.05 10^6/ul (4.20-5.40); WHITE BLOOD COUNT 2.67 K/ul (4.6-10.2)
[2022-03-21 16:56] LABS: ABG PH 7.42 (7.35-7.45); BEecf -1.8 (-2.0-3.0); COHb 1.7 (0.5-1.5); HCO3 22.7 (21-28); MetHb 1.2 (0-1.5); TCO2 23.8 (19-24); sO2 96.1 % (94-98); tHb 9.2 g/dl (11.7-17.4)
[2022-03-21 17:17] LABS: ALANINE AMINOTRANSFERASE 13.3 U/L (0-35); ALBUMIN 3.43 g/dL (3.5-5.0); ALKALINE PHOSPHATASE 71.9 U/L (53-141); BILIRUBIN,TOTAL 0.48 mg/dL (0.2-1.3); BLOOD UREA NITROGEN 43.3 mg/dL (7-17); CALCIUM 7.69 mg/dL (8.4-10.2); CARBON DIOXIDE 24.7 mmol/L (22-30.0); CHLORIDE 94.6 mmol/L (98-107); CREATININE 1.88 mg/dL (0.60-1.30); GLUCOSE 100.4 mg/dL (74-106); POTASSIUM 4.57 mmol/L (3.5-5.1); SODIUM 125.4 mmol/L (134.5-145); TOTAL PROTEIN 5.97 g/dL (6.3-8.2)
[2022-03-21 17:28] LABS: TROPONIN I 0.021 ng/ml (0.0000-0.120)
[2022-03-21 17:33] LABS: MOLECULAR FLU A NEGATIVE BY NAAT (NEGATIVE); MOLECULAR FLU B NEGATIVE BY NAAT (NEGATIVE)
--- NOTE | 2022-03-21 17:39 | CT ---
EXAM: CT head without contrast. HISTORY: Weak. PROCEDURE: Contiguous axial CT images of the head without contrast with coronal and sagittal reforma ts. FINDINGS: There are bilateral hearing aids with associated artifact which limits the exam. There is diffuse cerebral atrophy. The ventricles and basal cisterns are normal in size and configuration. N o evidence of mass or midline shift. No intracranial hemorrhage or evidence of large vessel infarct. No extra-axial fluid collection. There are chronic small vessel ischemic changes in the white carolyn er. There is minimal mucosal thickening in the sphenoid sinus. There are bilateral mastoidectomies. Impression: No intracranial hemorrhage or evidence of large vessel infarct. Chronic small vessel ischemic changes. Diffuse cerebral atrophy. All CT scans are performed using dose optimization techniques as appropriate to the performed exam an d include at least one of the following: Automated exposure control, adjustment of the mA and/or kV according t o size, and the use of iterative reconstruction technique.
--- NOTE | 2022-03-21 17:41 | DI ---
EXAM: AP chest. HISTORY: Weak. FINDINGS: The bones are unremarkable. The cardiac silhouette is enlarged. The pulmonary vasculature is within normal limits. The costophrenic angles are clear. There are calcified granulomas. There is trace bibasilar subsegmental atelectasis. Impression: Trace bibasilar subsegmental atelectasis. Cardiomegaly.
[2022-03-21 17:44] LABS: SARS COV-2 RNA RAPID NAAT NEGATIVE (NEGATIVE)
[2022-03-21] MEDS ORDERED: TYLENOL PO PRN (18:27)
[2022-03-21] MEDS ORDERED: LEVAQUIN 750 MG/150 ML D5W 750 MG/150 ML BAG IV ONE (18:31)
[2022-03-21] MEDS: SODIUM CHLORIDE 1,000 ML IV SCH (19:09)
[2022-03-21 19:37] LABS: BILIRUBIN,URINE Negative (NEGATIVE); CLARITY,URINE Clear (CLEAR); COLOR,URINE Yellow (YELLOW); GLUCOSE, URINE (UA) Negative (NEGATIVE); KETONES,URINE Negative (NEGATIVE); LEUKOCYTE ESTERASE ,URINE Negative (NEGATIVE); NITRITE,URINE Negative (NEGATIVE); PH,URINE 5.5 (5-9); PROTEIN,URINE Negative (NEGATIVE); URINE, BLOOD Negative (NEGATIVE); UROBILINOGEN,URINE 0.2 (0.2)
[2022-03-21] MEDS: REQUIP PO SCH (22:34)
[2022-03-21] MEDS: TEGRETOL PO SCH (22:34)
[2022-03-21] MEDS: ENTRESTO 24 MG-26 MG TABLET PO SCH (22:34)
[2022-03-21 23:10] VITALS: BMI 33.5
[2022-03-22 05:11] LABS: EOSINOPHILS # (AUTO) 0.1 K/ul (0.0-0.7); EOSINOPHILS % (AUTO) 3.7 % (0.0-7.0); HEMATOCRIT 26.1 % (37.0-47.0); HEMOGLOBIN 8.6 g/dl (12.0-16.0); LYMPHOCYTES # (AUTO) 0.8 K/uL (0.60-3.4); LYMPHOCYTES % (AUTO) 28.4 (10.0-50.0); MEAN CORPUSCULAR HEMOGLOBIN 28.8 pg (27.0-31.0); MEAN CORPUSCULAR VOLUME 87.3 fl (81.0-99.0); MONOCYTES # (AUTO) 0.5 K/uL (0.4-2.0); MONOCYTES % (AUTO) 15.9 (0-10); NEUTROPHILS # (AUTO) 1.5 K/ul (2.0-6.9); PLATELET COUNT 179 10^3/uL (140-440); RDW COEFFICIENT OF VARIATION 14.6 % (11.6-14.8); RED BLOOD COUNT 2.99 10^6/ul (4.20-5.40); WHITE BLOOD COUNT 2.96 K/ul (4.6-10.2)
[2022-03-22 05:30] LABS: ALANINE AMINOTRANSFERASE 13.3 U/L (0-35); ALBUMIN 3.14 g/dL (3.5-5.0); ALKALINE PHOSPHATASE 65.9 U/L (53-141); ASPARTATE AMINO TRANSFERASE 22.1 U/L (14-36); BILIRUBIN,TOTAL 0.43 mg/dL (0.2-1.3); BLOOD UREA NITROGEN 42.9 mg/dL (7-17); CALCIUM 7.33 mg/dL (8.4-10.2); CARBON DIOXIDE 24.7 mmol/L (22-30.0); CHLORIDE 96.5 mmol/L (98-107); CREATININE 1.86 mg/dL (0.60-1.30); GLUCOSE 91.8 mg/dL (74-106); POTASSIUM 4.63 mmol/L (3.5-5.1); SODIUM 125.9 mmol/L (134.5-145); TOTAL PROTEIN 5.57 g/dL (6.3-8.2)
[2022-03-22] MEDS ORDERED: PEPCID PO SCH (06:30)
[2022-03-22] MEDS: ENTRESTO 24 MG-26 MG TABLET PO SCH ×2 (09:37→21:03)
[2022-03-22] MEDS: ASPIRIN CHEWABLE PO SCH (09:37)
[2022-03-22] MEDS: TEGRETOL PO SCH ×2 (09:38→21:00)
[2022-03-22] MEDS: PEPCID PO SCH (09:38)
[2022-03-22] MEDS: CORDARONE PO SCH (10:11)
[2022-03-22] MEDS: SODIUM CHLORIDE 1,000 ML IV SCH ×2 (10:12→22:28)
[2022-03-22] MEDS: LASIX TAB PO SCH (15:27)
[2022-03-22] MEDS: TORADOL IVP PRN (18:53)
[2022-03-22] MEDS: REQUIP PO SCH (21:04)
[2022-03-23 05:15] LABS: BASOPHILS % (AUTO) 0.2 % (0.0-3.0); EOSINOPHILS # (AUTO) 0.1 K/ul (0.0-0.7); EOSINOPHILS % (AUTO) 1.2 % (0.0-7.0); HEMATOCRIT 26.3 % (37.0-47.0); HEMOGLOBIN 8.5 g/dl (12.0-16.0); IMMATURE GRANULOCYTE % (AUTO) 0.9 % (0.0-5.0); LYMPHOCYTES % (AUTO) 22.9 (10.0-50.0); MEAN CORPUSCULAR HEMOGLOBIN 28.5 pg (27.0-31.0); MEAN CORPUSCULAR HGB CONC 32.3 (31.8-35.4); MEAN CORPUSCULAR VOLUME 88.3 fl (81.0-99.0); MONOCYTES # (AUTO) 0.7 K/uL (0.4-2.0); NEUTROPHILS # (AUTO) 2.5 K/ul (2.0-6.9); NEUTROPHILS % (AUTO) 57.8 % (42.2-75.2); PLATELET COUNT 186 10^3/uL (140-440); RDW COEFFICIENT OF VARIATION 14.6 % (11.6-14.8); RED BLOOD COUNT 2.98 10^6/ul (4.20-5.40); WHITE BLOOD COUNT 4.24 K/ul (4.6-10.2)
[2022-03-23 05:30] LABS: ALANINE AMINOTRANSFERASE 12.2 U/L (0-35); ALKALINE PHOSPHATASE 63.6 U/L (53-141); BILIRUBIN,TOTAL 0.42 mg/dL (0.2-1.3); CALCIUM 7.62 mg/dL (8.4-10.2); CARBON DIOXIDE 22.1 mmol/L (22-30.0); CHLORIDE 102.8 mmol/L (98-107); CREATININE 1.71 mg/dL (0.60-1.30); GLUCOSE 107.7 mg/dL (74-106); POTASSIUM 4.28 mmol/L (3.5-5.1); SODIUM 129.5 mmol/L (134.5-145); TOTAL PROTEIN 5.58 g/dL (6.3-8.2)
[2022-03-23] MEDS: PEPCID PO SCH (05:35)
[2022-03-23] MEDS: SYNTHROID PO SCH (05:35)
[2022-03-23] MEDS: LASIX TAB PO SCH (05:35)
[2022-03-23] MEDS ORDERED: LEVAQUIN 750 MG/150 ML D5W 750 MG/150 ML BAG IV SCH (09:00)
[2022-03-23] MEDS: CORDARONE PO SCH (09:13)
[2022-03-23] MEDS: ASPIRIN CHEWABLE PO SCH (09:13)
[2022-03-23] MEDS: ENTRESTO 24 MG-26 MG TABLET PO SCH ×2 (09:13→21:03)
[2022-03-23] MEDS: TEGRETOL PO SCH ×2 (09:13→21:04)
[2022-03-23] MEDS: SODIUM CHLORIDE 1,000 ML IV SCH (11:55)
[2022-03-23] MEDS: TORADOL IVP PRN (16:08)
[2022-03-23] MEDS: XANAX PO SCH (21:03)
[2022-03-23] MEDS: REQUIP PO SCH (21:04)
[2022-03-24] MEDS: SODIUM CHLORIDE 1,000 ML IV SCH ×2 (01:25→13:56)
[2022-03-24] MEDS: LASIX TAB PO SCH (05:54)
[2022-03-24] MEDS: SYNTHROID PO SCH (05:55)
[2022-03-24] MEDS: PEPCID PO SCH (05:56)
[2022-03-24 06:50] LABS: BASOPHILS % (AUTO) 0.6 % (0.0-3.0); EOSINOPHILS # (AUTO) 0.1 K/ul (0.0-0.7); EOSINOPHILS % (AUTO) 2.1 % (0.0-7.0); HEMATOCRIT 28.6 % (37.0-47.0); HEMOGLOBIN 9.2 g/dl (12.0-16.0); IMMATURE GRANULOCYTE % (AUTO) 0.6 % (0.0-5.0); LYMPHOCYTES # (AUTO) 0.7 K/uL (0.60-3.4); LYMPHOCYTES % (AUTO) 21.7 (10.0-50.0); MEAN CORPUSCULAR HEMOGLOBIN 28.6 pg (27.0-31.0); MEAN CORPUSCULAR HGB CONC 32.2 (31.8-35.4); MEAN CORPUSCULAR VOLUME 88.8 fl (81.0-99.0); MONOCYTES # (AUTO) 0.6 K/uL (0.4-2.0); MONOCYTES % (AUTO) 17.2 (0-10); NEUTROPHILS % (AUTO) 57.8 % (42.2-75.2); PLATELET COUNT 206 10^3/uL (140-440); RDW COEFFICIENT OF VARIATION 14.8 % (11.6-14.8); RED BLOOD COUNT 3.22 10^6/ul (4.20-5.40); WHITE BLOOD COUNT 3.37 K/ul (4.6-10.2)
[2022-03-24 06:59] LABS: ALANINE AMINOTRANSFERASE 13.6 U/L (0-35); ALBUMIN 3.41 g/dL (3.5-5.0); BILIRUBIN,TOTAL 0.45 mg/dL (0.2-1.3); CALCIUM 8.21 mg/dL (8.4-10.2); CARBON DIOXIDE 20.3 mmol/L (22-30.0); CREATININE 1.82 mg/dL (0.60-1.30); GLUCOSE 107.8 mg/dL (74-106); POTASSIUM 3.82 mmol/L (3.5-5.1); SODIUM 133.1 mmol/L (134.5-145); TOTAL PROTEIN 6.06 g/dL (6.3-8.2)
[2022-03-24] MEDS: ENTRESTO 24 MG-26 MG TABLET PO SCH ×2 (08:40→20:00)
[2022-03-24] MEDS: ASPIRIN CHEWABLE PO SCH (08:40)
[2022-03-24] MEDS: TEGRETOL PO SCH ×2 (08:40→20:00)
[2022-03-24] MEDS: CORDARONE PO SCH (08:41)
[2022-03-24] MEDS: XANAX PO SCH ×2 (08:41→20:00)
[2022-03-24] MEDS: TORADOL IVP PRN ×2 (15:13→20:01)
[2022-03-24] MEDS: REQUIP PO SCH (20:01)
[2022-03-25] MEDS: SODIUM CHLORIDE 1,000 ML IV SCH (03:35)
[2022-03-25 05:36] LABS: BASOPHILS % (AUTO) 0.5 % (0.0-3.0); EOSINOPHILS # (AUTO) 0.1 K/ul (0.0-0.7); EOSINOPHILS % (AUTO) 2.6 % (0.0-7.0); HEMOGLOBIN 8.5 g/dl (12.0-16.0); IMMATURE GRANULOCYTE % (AUTO) 0.8 % (0.0-5.0); LYMPHOCYTES # (AUTO) 0.8 K/uL (0.60-3.4); LYMPHOCYTES % (AUTO) 20.6 (10.0-50.0); MEAN CORPUSCULAR HEMOGLOBIN 28.1 pg (27.0-31.0); MEAN CORPUSCULAR HGB CONC 31.5 (31.8-35.4); MEAN CORPUSCULAR VOLUME 89.1 fl (81.0-99.0); MONOCYTES # (AUTO) 0.6 K/uL (0.4-2.0); MONOCYTES % (AUTO) 16.1 (0-10); NEUTROPHILS # (AUTO) 2.3 K/ul (2.0-6.9); NEUTROPHILS % (AUTO) 59.4 % (42.2-75.2); PLATELET COUNT 203 10^3/uL (140-440); RDW COEFFICIENT OF VARIATION 15.3 % (11.6-14.8); RED BLOOD COUNT 3.03 10^6/ul (4.20-5.40); WHITE BLOOD COUNT 3.84 K/ul (4.6-10.2)
[2022-03-25 05:49] LABS: ALANINE AMINOTRANSFERASE 13.6 U/L (0-35); ALBUMIN 3.05 g/dL (3.5-5.0); ALKALINE PHOSPHATASE 64.5 U/L (53-141); ASPARTATE AMINO TRANSFERASE 33.3 U/L (14-36); BILIRUBIN,TOTAL 0.4 mg/dL (0.2-1.3); CALCIUM 7.83 mg/dL (8.4-10.2); CARBON DIOXIDE 20.7 mmol/L (22-30.0); CHLORIDE 108.7 mmol/L (98-107); CREATININE 1.74 mg/dL (0.60-1.30); GLUCOSE 92.9 mg/dL (74-106); POTASSIUM 3.24 mmol/L (3.5-5.1); SODIUM 136.2 mmol/L (134.5-145); TOTAL PROTEIN 5.67 g/dL (6.3-8.2)
[2022-03-25] MEDS: PEPCID PO SCH (05:57)
[2022-03-25] MEDS: LASIX TAB PO SCH (05:57)
[2022-03-25] MEDS: SYNTHROID PO SCH (05:57)
[2022-03-25] MEDS ORDERED: LASIX IVP ONE (08:55)
[2022-03-25] MEDS: SYMBICORT 80-4.5 MCG INHALER IH SCH ×2 (10:19→20:39)
--- NOTE | 2022-03-25 10:19 | PCM.PROG ---
Attending Provider: ATTENDING PROVIDER: Dr. PAU WILSON MD This patient is seen with Kellie Harrison, Nurse Practitioner. DATE OF SERVICE: 03/25/22 SUBJECTIVE: This 86 year old /WHITE F was hospitalized 03/21/22. has not been eating. bp has been labile. renal function has improved. pt is very weak. REVIEW OF SYSTEMS: CONSTITUTIONAL: No night sweats. Fatigue. No fever or chills. Weakness. HEENT: Eyes: No visual changes. No eye pain. No eye discharge. ENT: No runny n ose. No epistaxis. No sinus pain. No odynophagia. No congestion. RESPIRATORY: No cough, no congestion. No hemoptysis. Shortness of breath. CARDIOVASCULAR: No angina symptoms. No CHF symptoms. No atypical chest pain for CAD. No palpitations. No orthopnea.. GASTROINTESTINAL: No abdominal pain. No nausea or vomiting. No diarrhea or constipation. No hematemesis. No hematochezia. GENITOURINARY: No urgency. No frequency. No dysuria. No hematuria. No obstructive symptoms. No discharge. No pain. No significant abnormal bleeding. MUSCULOSKELETAL: No musculoskeletal pain; no joint swelling. Leg edema. NEUROLOGICAL: Awake, alert, oriented to time, place and person. No headache. No neck pain. No syncope. No seizures. No dizziness. PSYCHIATRIC: Not anxious. No depression. No suicidal thoughts. No homicidal thoughts. SKIN: No rash. No lesions. No wounds. ENDOCRINE: No unexplained weight loss. No weight gain. HEMATOLOGIC/LYMPHATIC: No anemia. No purpura. No petechiae. No prolonged or excessive bleeding. No palpable lymph nodes. PHYSICAL EXAMINATION: GENERAL: The patient is awake, alert and oriented, lying in bed in no distress. VITAL SIGNS: Temperature 96.8 F, Pulse 65, Respiratory Rate 18, BP 153/98, Pulse Ox 96% HEENT: Head normocephalic, atraumatic. Eyes: Extraocular muscles are intact. Pupils are equal, round and reactive to light and accommodation. Ears: No lesions. Nose appeared normal. Throat: No exudate or erythema. NECK: Supple. No JVD, no carotid bruit. No lymphadenopathy or thyromegaly. LUNGS: Severely diminished breath sounds. Clear to auscultation. Percussion note normal. Chest symmetrical. HEART: S1, S2, no S3. No murmurs. No cyanosis or clubbing. No ascites. Pulses: Dorsalis pedis and posterior tibial pulses +1 to +2 both sides. ABDOMEN: Soft. Non-tender. Bowel sounds active. No CVA tenderness. No mass felt. EXTREMITIES: Trace pedal edema. Full range of motion of all extremities, equal. NEUROLOGIC: No focal deficit. Cranial nerves II through XII are grossly intact. No headache. No double vision. SKIN: Not dry. Intact. Turgor-normal. LYMPHATIC: No palpable lymph nodes/no lymphedema. MUSCULOSKELETAL: Normal joints with no swelling. Muscle tone is normal. LAB REVIEW: 03/25/22 05:17 03/25/22 05:17 03/25/22 05:17: Sodium 136.2, Potassium 3.24 L, Chloride 108.7 H, Carbon Dioxide 20.7 L, Anion Gap 10.04, BUN 29.0 H, Creatinine 1.74 H, Estimated GFR (MDRD) 28.00, BUN/Creatinine Ratio 16.66, Glucose 92.9, Calcium 7.83 L, Total Bilirubin 0.40, AST 33.3, ALT 13.6, Alkaline Phosphatase 64.5, Total Protein 5.67 L, Albumin 3.05 L, Globulin 2.62, Albumin/Globulin Ratio 1.16 03/25/22 05:17: WBC 3.84 L, RBC 3.03 L, Hgb 8.5 L, Hct 27.0 L, MCV 89.1, MCH 28.1, MCHC 31.5 L, RDW Coeff of Danae 15.3 H, Plt Count 203, Immature Gran % (Auto) 0.8, Neut % (Auto) 59.4, Lymph % (Auto) 20.6, [place] % (Auto) 16.1 H, Eos % (Auto) 2.6, Baso % (Auto) 0.5, Neut # (Auto) 2.3, Lymph # (Auto) 0.8, [place] # (Auto) 0.6, Eos # (Auto) 0.1, Baso # (Auto) 0.0, Immature Gran # (Auto) 0.0 ASSESSMENT: Please see below. 1. Hypokalemia 2. History of CHF 3. Renal azotemia 4. Anemia PLAN: 1. Discharge Levaquin 2. Potassium 20mg BID 3. Lasix 20mg IV times one 4. Hold PO Lasix tomorrow 5. Discontinue Toradol 6. Remeron 7.5mg at night 7. Discontinue IV fluids. Plan and coordination of the patient's care discussed in the presence of Back Wedger and nurse. SCRIBED BY: Primo POPEist scribed while in presence of service performed by Dr. Wilson/Kellie Harrison APRN on 03/25/22 ([id number])
[2022-03-25] MEDS: CORDARONE PO SCH (10:20)
[2022-03-25] MEDS: ASPIRIN CHEWABLE PO SCH (10:20)
[2022-03-25] MEDS: TEGRETOL PO SCH ×2 (10:20→20:36)
[2022-03-25] MEDS: K-DUR PO SCH ×2 (10:21→16:49)
[2022-03-25] MEDS: ENTRESTO 24 MG-26 MG TABLET PO SCH ×2 (10:21→20:38)
[2022-03-25] MEDS: XANAX PO SCH ×2 (10:21→20:36)
[2022-03-25] MEDS: NORCO 5-325 PO PRN (13:08)
[2022-03-25] MEDS: REMERON PO SCH (20:37)
[2022-03-25] MEDS: REQUIP PO SCH (20:38)
[2022-03-26 05:29] LABS: BASOPHILS % (AUTO) 0.9 % (0.0-3.0); EOSINOPHILS # (AUTO) 0.2 K/ul (0.0-0.7); EOSINOPHILS % (AUTO) 3.8 % (0.0-7.0); HEMATOCRIT 28.4 % (37.0-47.0); HEMOGLOBIN 9.2 g/dl (12.0-16.0); IMMATURE GRANULOCYTE % (AUTO) 0.7 % (0.0-5.0); LYMPHOCYTES # (AUTO) 0.8 K/uL (0.60-3.4); LYMPHOCYTES % (AUTO) 17.7 (10.0-50.0); MEAN CORPUSCULAR HEMOGLOBIN 28.9 pg (27.0-31.0); MEAN CORPUSCULAR HGB CONC 32.4 (31.8-35.4); MEAN CORPUSCULAR VOLUME 89.3 fl (81.0-99.0); MONOCYTES # (AUTO) 0.7 K/uL (0.4-2.0); MONOCYTES % (AUTO) 15.2 (0-10); NEUTROPHILS # (AUTO) 2.8 K/ul (2.0-6.9); NEUTROPHILS % (AUTO) 61.7 % (42.2-75.2); PLATELET COUNT 201 10^3/uL (140-440); RDW COEFFICIENT OF VARIATION 15.4 % (11.6-14.8); RED BLOOD COUNT 3.18 10^6/ul (4.20-5.40); WHITE BLOOD COUNT 4.47 K/ul (4.6-10.2)
[2022-03-26 05:37] LABS: ALANINE AMINOTRANSFERASE 13.6 U/L (0-35); ALBUMIN 3.15 g/dL (3.5-5.0); ALKALINE PHOSPHATASE 63.6 U/L (53-141); ASPARTATE AMINO TRANSFERASE 28.9 U/L (14-36); BILIRUBIN,TOTAL 0.44 mg/dL (0.2-1.3); BLOOD UREA NITROGEN 26.7 mg/dL (7-17); CARBON DIOXIDE 21.7 mmol/L (22-30.0); CHLORIDE 108.2 mmol/L (98-107); CREATININE 1.72 mg/dL (0.60-1.30); GLUCOSE 92.1 mg/dL (74-106); POTASSIUM 3.5 mmol/L (3.5-5.1); SODIUM 136.5 mmol/L (134.5-145); TOTAL PROTEIN 5.75 g/dL (6.3-8.2)
[2022-03-26] MEDS: PEPCID PO SCH (05:47)
[2022-03-26] MEDS: SYNTHROID PO SCH (05:47)
[2022-03-26] MEDS: XANAX PO SCH ×2 (09:34→20:38)
[2022-03-26] MEDS: K-DUR PO SCH ×2 (09:34→16:52)
[2022-03-26] MEDS: ENTRESTO 24 MG-26 MG TABLET PO SCH ×2 (09:34→20:38)
[2022-03-26] MEDS: ASPIRIN CHEWABLE PO SCH (09:34)
[2022-03-26] MEDS: CORDARONE PO SCH (09:34)
[2022-03-26] MEDS: IMDUR PO SCH (09:34)
[2022-03-26] MEDS: TEGRETOL PO SCH ×2 (09:34→20:40)
[2022-03-26] MEDS: SYMBICORT 80-4.5 MCG INHALER IH SCH ×2 (09:35→21:01)
--- NOTE | 2022-03-26 09:36 | PCM.PROG ---
Attending Provider: ATTENDING PROVIDER: Dr. PAU WILSON MD This patient is seen with Kellie Harrison, Nurse Practitioner. DATE OF SERVICE: 03/26/22 SUBJECTIVE: This 86 year old /WHITE F was hospitalized 03/21/22. Still not eating. Pleasantly confused at times when responsive. IV Lasix given yesterday with not much output. I do feel that the patient has very little room for improvement. I feel that Hospice would be appropriate. Referral however will need to be discussed with family. REVIEW OF SYSTEMS: CONSTITUTIONAL: No night sweats. No fatigue, malaise, lethargy. No fever or chills. Weakness. HEENT: Eyes: No visual changes. No eye pain. No eye discharge. ENT: No runny nose. No epistaxis. No sinus pain. No odynophagia. No congestion. RESPIRATORY: No cough, no congestion. No hemoptysis. No shortness of breath. CARDIOVASCULAR: No angina symptoms. No CHF symptoms. No atypical chest pain for CAD. No palpitations. No orthopnea.. GASTROINTESTINAL: No abdominal pain. No nausea or vomiting. No diarrhea or constipation. No hematemesis. No hematochezia. Loss of appetite. GENITOURINARY: No urgency. No frequency. No dysuria. No hematuria. No obstructive symptoms. No discharge. No pain. No significant abnormal bleeding. MUSCULOSKELETAL: No musculoskeletal pain; no joint swelling. Leg edema. NEUROLOGICAL: Awake, alert, confusion. No headache. No neck pain. No syncope. No seizures. No dizziness. PSYCHIATRIC: Not anxious. No depression. No suicidal thoughts. No homicidal thoughts. SKIN: No rash. No lesions. No wounds. ENDOCRINE: No unexplained weight loss. No weight gain. HEMATOLOGIC/LYMPHATIC: No anemia. No purpura. No petechiae. No prolonged or exce ssive bleeding. No palpable lymph nodes. PHYSICAL EXAMINATION: GENERAL: The patient is awake, alert and not oriented, lying in bed in no distress. VITAL SIGNS: Temperature 97.6 F, Pulse 99, Respiratory Rate 18, BP 147/99, Pulse Ox 99% HEENT: Head normocephalic, atraumatic. Eyes: Extraocular muscles are intact. Pupils are equal, round and reactive to light and accommodation. Ears: No lesions. Nose appeared normal. Throat: No exudate or erythema. NECK: Supple. No JVD, no carotid bruit. No lymphadenopathy or thyromegaly. LUNGS: Diminished breath sounds. Clear to auscultation. Percussion note normal. Chest symmetrical. HEART: S1, S2, no S3. No murmurs. No cyanosis or clubbing. No ascites. Pulses: Dorsalis pedis and posterior tibial pulses +1 to +2 both sides. ABDOMEN: Soft. Non-tender. Bowel sounds active. No CVA tenderness. No mass felt. EXTREMITIES: Trace bilateral leg edema. Generalized edema to upper extremities. Full range of motion of all extremities, equal. NEUROLOGIC: No focal deficit. Cranial nerves II through XII are grossly intact. No headache. No double vision. SKIN: Not dry. Intact. Turgor-normal. LYMPHATIC: No palpable lymph nodes/no lymphedema. MUSCULOSKELETAL: Normal joints with no swelling. Muscle tone is normal. LAB REVIEW: 03/26/22 05:05 03/26/22 05:05 03/26/22 05:05: Sodium 136.5, Potassium 3.50, Chloride 108.2 H, Carbon Dioxide 21.7 L, Anion Gap 10.10, BUN 26.7 H, Creatinine 1.72 H, Estimated GFR (MDRD) 28.00, BUN/Creatinine Ratio 15.52, Glucose 92.1, Calcium 8.00 L, Total Bilirubin 0.44, AST 28.9, ALT 13.6, Alkaline Phosphatase 63.6, Total Protein 5.75 L, Albumin 3.15 L, Globulin 2.60, Albumin/Globulin Ratio 1.21 03/26/22 05:05: WBC 4.47 L, RBC 3.18 L, Hgb 9.2 L, Hct 28.4 L, MCV 89.3, MCH 28.9, MCHC 32.4, RDW Coeff of Danae 15.4 H, Plt Count 201, Immature Gran % (Auto) 0.7, Neut % (Auto) 61.7, Lymph % (Auto) 17.7, [place] % (Auto) 15.2 H, Eos % (Auto) 3.8, Baso % (Auto) 0.9, Neut # (Auto) 2.8, Lymph # (Auto) 0.8, [place] # (Auto) 0.7, Eos # (Auto) 0.2, Baso # (Auto) 0.0, Immature Gran # (Auto) 0.0 ASSESSMENT: Please see below. 1. Acute renal failure, improved 2. Generalized anasarca due to malnutrition 3. Failure to thrive. PLAN: 1. Hold Lasix today 2. Will discuss with family need for hospice referral. Plan and coordination of the patient's care discussed in the presence of Application Development Liaison and nurse. SCRIBED BY: CELIO FLORES Cell Technician scribed while in presence of service performed by Dr. Wilson/Kellie Harrison APRN on 03/26/22 ([id number])
[2022-03-26] MEDS: NORCO 5-325 PO PRN (10:19)
--- NOTE | 2022-03-26 13:35 | PN ---
DATE OF SERVICE: 03/23/22 SUBJECTIVE: 86 year old white female hospitalized with renal failure, hyponatremia, fever. The patient has been on antibiotics likely for urinary tract infection. She also has got a [place] Catheter because she was incontinent of urine. In any case the patient has some nausea. REVIEW OF SYSTEMS: CONSTITUTIONAL: No night sweats. No fatigue, malaise, lethargy. No fever or chills. HEENT: Eyes: No visual changes. No eye pain. No eye discharge. ENT: No runny nose. No epistaxis. No sinus pain. No sore throat. No odynophagia. No congestion. RESPIRATORY: No cough, no congestion. No hemoptysis. No shortness of breath. CARDIOVASCULAR: No angina symptoms. No CHF symptoms. No atypical chest pain for CAD. No palpitations. No PND. No orthopnea. GASTROINTESTINAL: No abdominal pain. No nausea or vomiting. No diarrhea or constipation. No hematemesis. No hematochezia. GENITOURINARY: No urgency. No frequency. No dysuria. No hematuria. No obstructive symptoms. No discharge. No pain. No significant abnormal bleeding. MUSCULOSKELETAL: No musculoskeletal pain; no joint swelling. NEUROLOGICAL: No headache. No neck pain. No syncope. No seizures. No dizziness. PSYCHIATRIC: Not anxious. No depression. No suicidal thoughts. No homicidal thoughts. SKIN: No rash. No lesions. No wounds. ENDOCRINE: No unexplained weight loss. No weight gain. HEMATOLOGIC/LYMPHATIC: No anemia. No purpura. No petechiae. No prolonged or excessive bleeding. No palpable lymph nodes. PHYSICAL EXAMINATION: VITAL SIGNS: Temperature 98, pulse 110, respiratory rate 20, blood pressure 106/54 and pulse ox 98% HEENT: Head normocephalic, atraumatic. Eyes: Extraocular muscles are intact. Pupils are equal, round and reactive to light and accommodation. Ears: No lesions. Nose appeared normal. Throat: No exudate or erythema. NECK: Supple. No JVD, no carotid bruit. No lymphadenopathy or thyromegaly. LUNGS: Decreased breath sounds but clear to auscultation. Percussion note normal. Chest symmetrical. HEART: S1, S2, no S3. No murmurs. No cyanosis or clubbing. No ascites. Pulses: Dorsalis pedis and posterior tibial pulses +1 to +2 bilaterally. ABDOMEN: Soft. Nontender. Bowel sounds active. No CVA tenderness. No mass felt. EXTREMITIES: No edema. Full range of motion of all extremities, equal. NEUROLOGIC: No focal deficit. Cranial nerves II through XII are grossly intact. No headache. No double vision. The patient is confused. SKIN: Not dry. Intact. Turgor - normal. LYMPHATIC: No palpable lymph nodes/no lymphedema. MUSCULOSKELETAL: Normal joints with no swelling. Muscle tone is normal. LABS: Hgb 8.5, hct 26, WBC 4,200 normal differential, creatinine 1.7, BUN 37, potassium 4.2, sodium close to 130. ASSESSMENT: 1. Renal failure seems to be resolving with some improvement in kidney function with hyponatremia seems to be a little bit better. CONDITION: Stable in a way that the patient has nausea, still anemia persists. No evidence of CHF. Blood pressure is coming up slowly. PLAN: 1. Reduction in some of the medications. CONDITION: Stable for now. PROGNOSIS: Guarded. TIME SPENT: More than 30 minutes. Plan and coordination of the patient's care discussed in the presence of nurse. DIANA
[2022-03-26 17:33] VITALS: BP 148/78
[2022-03-26] MEDS: REMERON PO SCH (20:38)
[2022-03-26] MEDS: REQUIP PO SCH (20:38)
[2022-03-27 05:11] LABS: BASOPHILS % (AUTO) 0.5 % (0.0-3.0); EOSINOPHILS # (AUTO) 0.2 K/ul (0.0-0.7); EOSINOPHILS % (AUTO) 3.6 % (0.0-7.0); HEMATOCRIT 26.7 % (37.0-47.0); HEMOGLOBIN 8.6 g/dl (12.0-16.0); IMMATURE GRANULOCYTE % (AUTO) 0.5 % (0.0-5.0); LYMPHOCYTES # (AUTO) 0.8 K/uL (0.60-3.4); LYMPHOCYTES % (AUTO) 18.2 (10.0-50.0); MEAN CORPUSCULAR HEMOGLOBIN 28.7 pg (27.0-31.0); MEAN CORPUSCULAR HGB CONC 32.2 (31.8-35.4); MONOCYTES # (AUTO) 0.7 K/uL (0.4-2.0); NEUTROPHILS # (AUTO) 2.5 K/ul (2.0-6.9); NEUTROPHILS % (AUTO) 61.2 % (42.2-75.2); PLATELET COUNT 177 10^3/uL (140-440); RDW COEFFICIENT OF VARIATION 15.7 % (11.6-14.8); WHITE BLOOD COUNT 4.13 K/ul (4.6-10.2)
[2022-03-27 05:26] LABS: ALANINE AMINOTRANSFERASE 14.1 U/L (0-35); ALBUMIN 2.99 g/dL (3.5-5.0); ALKALINE PHOSPHATASE 66.1 U/L (53-141); ASPARTATE AMINO TRANSFERASE 28.2 U/L (14-36); BILIRUBIN,TOTAL 0.47 mg/dL (0.2-1.3); BLOOD UREA NITROGEN 26.1 mg/dL (7-17); CALCIUM 8.08 mg/dL (8.4-10.2); CARBON DIOXIDE 23.2 mmol/L (22-30.0); CHLORIDE 110.4 mmol/L (98-107); CREATININE 1.47 mg/dL (0.60-1.30); GLUCOSE 103.2 mg/dL (74-106); POTASSIUM 3.67 mmol/L (3.5-5.1); SODIUM 138.2 mmol/L (134.5-145); TOTAL PROTEIN 5.59 g/dL (6.3-8.2)
[2022-03-27] MEDS: NORCO 5-325 PO PRN (05:30)
[2022-03-27] MEDS: PEPCID PO SCH (05:31)
[2022-03-27] MEDS: LASIX TAB PO SCH (05:31)
[2022-03-27] MEDS: SYNTHROID PO SCH (05:31)
--- NOTE | 2022-03-27 08:07 | PN ---
DATE OF SERVICE: 03/24/22 SUBJECTIVE: 86 year old white female hospitalized with renal failure, anemia, hyponatremia. The patient's condition overall has improved but she is still confused, restless. REVIEW OF SYSTEMS: CONSTITUTIONAL: No night sweats. No fatigue, malaise, lethargy. No fever or chills. HEENT: Eyes: No visual changes. No eye pain. No eye discharge. ENT: No runny nose. No epistaxis. No sinus pain. No sore throat. No odynophagia. No congestion. RESPIRATORY: No cough, no congestion. No hemoptysis. No shortness of breath. CARDIOVASCULAR: No angina symptoms. No CHF symptoms. No atypical chest pain for CAD. No palpitations. No PND. No orthopnea. GASTROINTESTINAL: No abdominal pain. No nausea or vomiting. No diarrhea or constipation. No hematemesis. No hematochezia. Oral intake a little bit better. GENITOURINARY: No urgency. No frequency. No dysuria. No hematuria. No obstructive symptoms. No discharge. No pain. No significant abnormal bleeding. MUSCULOSKELETAL: No musculoskeletal pain; no joint swelling. NEUROLOGICAL: No headache. No neck pain. No syncope. No seizures. No dizziness. PSYCHIATRIC: Not anxious. No depression. No suicidal thoughts. No homicidal thoughts. SKIN: No rash. No lesions. No wounds. ENDOCRINE: No unexplained weight loss. No weight gain. HEMATOLOGIC/LYMPHATIC: No anemia. No purpura. No petechiae. No prolonged or excessive bleeding. No palpable lymph nodes. PHYSICAL EXAMINATION: VITAL SIGNS: Temperature 96, pulse 60, respiratory rate 14, blood pressure 109/76 and pulse ox 99% HEENT: Head normocephalic, atraumatic. Eyes: Extraocular muscles are intact. Pupils are equal, round and reactive to light and accommodation. Ears: No lesions. Nose appeared normal. Throat: No exudate or erythema. NECK: Supple. No JVD, no carotid bruit. No lymphadenopathy or thyromegaly. LUNGS: Decreased breath sounds but clear to auscultation. Percussion note normal. Chest symmetrical. HEART: S1, S2, no S3. No murmurs. No cyanosis or clubbing. No ascites. Pulses: Dorsalis pedis and posterior tibial pulses +1 to +2 bilaterally. ABDOMEN: Soft. Nontender. Bowel sounds active. No CVA tenderness. No mass felt. EXTREMITIES: No edema. Full range of motion of all extremities, equal. NEUROLOGIC: No focal deficit. Cranial nerves II through XII are grossly intact. No headache. No double vision. SKIN: Not dry. Intact. Turgor - normal. LYMPHATIC: No palpable lymph nodes/no lymphedema. MUSCULOSKELETAL: Normal joints with no swelling. Muscle tone is normal. LABS: Hgb 8.5, hct 26, WBC 4,200 normal differential, creatinine 1.7, BUN 37, potassium 4.2. ASSESSMENT: 1. Dehydration with renal failure 2. Hyponatremia 3. Anemia 4. Fever PLAN: 1. Continue antibiotics Levaquin 500mg PO 2. Continue the rest of the medications 3. Kidney functions seems to be slightly better. CONDITION: Seem to be improving. TIME SPENT: More than 30 minutes. Plan and coordination of the patient's care discussed in the presence of nurse. DIANA
--- NOTE | 2022-03-27 08:49 | HP ---
DATE OF SERVICE: 03/21/22 REASON FOR HOSPITALIZATION: Dehydration, fever, renal failure HISTORY OF PRESENT ILLNESS: 86 year old white female was sent from the care home because of generalized weakness and poor appetite. In the emergency room when the patient was examined she was running a fever and had hypotension, renal failure and anemia with hgb of 8.5 with hct 26. The patient was unable to give any history. In any case the patient has dementia, multiple medical problems. 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 Restless leg syndrome Questionable TIA Dental surgery Joint surgery Orthopedic surgery Mastoidectomy Status post cholecystectomy REVIEW OF SYSTEMS: CONSTITUTIONAL: No night sweats. No fever or chills. Weakness and fatigue. HEENT: Eyes: No visual changes. No eye pain. No eye discharge. ENT: No runny nose. No epistaxis. No sinus pain. No sore throat. No odynophagia. No ear pain. No congestion. RESPIRATORY: Mild cough, no congestion. No hemoptysis. No shortness of breath. CARDIOVASCULAR: No angina symptoms. No CHF symptoms. No atypical chest pain for CAD. No palpitations. No PND. No orthopnea. GASTROINTESTINAL: No abdominal pain. Mild Nausea. No diarrhea or constipation. No hematemesis. No hematochezia. Poor appetite. GENITOURINARY: No urgency. No frequency. No dysuria. No hematuria. No obstructive symptoms. No discharge. No pain. No significant abnormal bleeding. MUSCULOSKELETAL: No musculoskeletal pain. No joint swelling. No arthritis. NEUROLOGICAL: No headache. No neck pain. No syncope. No seizures. No dizziness. PSYCHIATRIC: Not anxious. No depression. No suicidal thoughts. No homicidal thoughts. SKIN: No rash. No lesions. No wounds. ENDOCRINE: No unexplained weight loss. No weight gain. HEMATOLOGIC/LYMPHATIC: No anemia. No purpura. No petechiae. No prolonged or excessive bleeding. No palpable lymph nodes. PERSONAL/FAMILY/SOCIAL HISTORY: Never smoked. No alcohol abuse. Resident of the care home. . MEDICATIONS: Amlodipine Levothyroxine Alprazolam Aspirin Requip Entresto Sitagliptin Amlodipine Tegretol Hydrocodone Isosorbide Imiquimod Metoprolol Lasix Famotidine Pantoprazole Requip ALLERGIES: Quinine PHYSICAL EXAMINATION: GENERAL: The patient is confused but alert. VITAL SIGNS: Temperature 100.2, pulse 70, respiratory rate 15, blood pressure 90/70 and pulse ox 98% HEENT: Head normocephalic, atraumatic. Eyes: Extraocular muscles are intact. Pupils are equal, round and reactive to light and accommodation. Ears: No lesions. Nose appeared normal. Throat: No exudate or erythema. NECK: Supple. No JVD, no carotid bruit. No lymphadenopathy or thyromegaly. has right sided facial and right sided neck area of the face chronic with irritation of the skin noted. LUNGS: Decreased breath sounds but clear to auscultation. Percussion note normal. Chest symmetrical. HEART: S1, S2, no S3. I/ systolic murmur. No cyanosis or clubbing. No ascites. Pulses: Dorsalis pedis and posterior tibial pulses +1 bilaterally. ABDOMEN: Soft. Nontender. Bowel sounds active. No CVA tenderness. No mass felt. EXTREMITIES: Trace edema. Full range of motion of all extremities, equal. NEUROLOGIC: No focal deficit. Cranial nerves II through XII are grossly intact. No headache, no double vision or headache. SKIN: Dry. Intact. Turgor - normal. Mucous membrane dry. Pale. LYMPHATIC: No palpable lymph nodes/no lymphedema. MUSCULOSKELETAL: Normal joints with no swelling. Muscle tone is normal. LABS: We were unable to get, may have to get Madrid Catheter because the patient has 600-700cc by bladder scan. Hgb 8.5 with hct 26, kidney function are abnormal with GFR less than 23. COVID negative, Influenza A and B negative ASSESSMENT: 1. Dehydration with acute renal failure, etiology unknown could be from urinary tract infection 2. Fever very likely from urinary tract infection 3. Hypotension could be from septicemia but septica workup negative 4. Anemia which is chronic hgb may drop with hydration PLAN: 1. Type and cross match one unit 2. Continue IV fluids as given 75cc per hour after the initial bolus 3. Antibiotics Levaquin to be started 4. The patient is DNR 5. Continue telemetry 6. Continue daily CBC and CMP 7. Monitor oximetry PROGNOSIS: Guarded The family was made aware of all medical problems. Condition otherwise is stable. TIME SPENT: More than 70 minutes. [facility]
[2022-03-27] MEDS: XANAX PO SCH (09:02)
[2022-03-27] MEDS: K-DUR PO SCH (09:02)
[2022-03-27] MEDS: IMDUR PO SCH (09:02)
[2022-03-27] MEDS: ENTRESTO 24 MG-26 MG TABLET PO SCH (09:02)
[2022-03-27] MEDS: ASPIRIN CHEWABLE PO SCH (09:02)
[2022-03-27] MEDS: TEGRETOL PO SCH (09:03)
[2022-03-27] MEDS: SYMBICORT 80-4.5 MCG INHALER IH SCH (09:03)
[2022-03-27] MEDS: CORDARONE PO SCH (09:03)
--- NOTE | 2022-03-27 10:05 | PN ---
DATE OF SERVICE: 03/25/22 SUBJECTIVE: The patient was seen and examined with Nurse Practitioner today. The patient's condition is still fluctuating but the kidney functions are better. Hydration status seems to be better. The patient has dementia. Her CHF is under control. No evidence of coronary insufficiency. Prognosis is guarded. TIME SPENT: More than 30 minutes. Plan and coordination of the patient's care discussed in the presence of nurse. DIANA
--- NOTE | 2022-03-27 11:08 | PN ---
DATE OF SERVICE: 03/26/22 SUBJECTIVE: The patient was seen and examined with the Nurse Practitioner. The daughter has agreed to put the patient on Hospice when she is [facility]. Her condition has improved to some extent. Dementia persists otherwise condition is stable. TIME SPENT: More than 30 minutes. Plan and coordination of the patient's care discussed in the presence of nurse. DIANA
[2022-03-27 14:34] VITALS: TEMP 97.1
[2022-03-27] MEDS ORDERED: NORCO 5-325 PO STA (15:05)
--- NOTE | 2022-03-28 10:11 | PN ---
DATE OF SERVICE: 03/27/22 SUBJECTIVE: The patient was seen and examined with the Nurse Practitioner. The patient's condition is stable. She is restless, still confused. Medical problems are under control. Kidney functions are better. The patient was seen and examined with the Nurse Practitioner. ADDENDUM: Yesterday I had talked to administration Jeanmarie and was okayed to have Hospitalist cover my patient starting from today. Talked to Dr. Scott and he agreed. Talked to Dr. Headley today and he has agreed. Nursing staff has been informed about it. My patient's will be transferred over to hospitalist services. I saw the patient's this morning. All the patient have agreed to be seen by Nurse Practitioner in my absence and Hospitalist. TIME SPENT: More than 30 minutes. Plan and coordination of the patient's care discussed in the presence of nurse. DIANA
--- NOTE | 2022-03-29 08:43 | PN ---
DATE OF SERVICE: 03/22/22 SUBJECTIVE: The patient was seen and examined today. The patient's condition seems to be improving but she is still kind of confused and somewhat restless. REVIEW OF SYSTEMS: CONSTITUTIONAL: No night sweats. No fatigue, malaise, lethargy. No fever or chills. HEENT: Eyes: No visual changes. No eye pain. No eye discharge. ENT: No runny nose. No epistaxis. No sinus pain. No sore throat. No odynophagia. No congestion. RESPIRATORY: No cough, no congestion. No hemoptysis. No shortness of breath. CARDIOVASCULAR: No angina symptoms. No CHF symptoms. No atypical chest pain for CAD. No palpitations. No PND. No orthopnea. GASTROINTESTINAL: No abdominal pain. No nausea or vomiting. No diarrhea or constipation. No hematemesis. No hematochezia. GENITOURINARY: No urgency. No frequency. No dysuria. No hematuria. No obstructive symptoms. No discharge. No pain. No significant abnormal bleeding. MUSCULOSKELETAL: No musculoskeletal pain; no joint swelling. NEUROLOGICAL: No headache. No neck pain. No syncope. No seizures. No dizziness. PSYCHIATRIC: Not anxious. No depression. No suicidal thoughts. No homicidal thoughts. SKIN: No rash. No lesions. No wounds. ENDOCRINE: No unexplained weight loss. No weight gain. HEMATOLOGIC/LYMPHATIC: No anemia. No purpura. No petechiae. No prolonged or excessive bleeding. No palpable lymph nodes. PHYSICAL EXAMINATION: VITAL SIGNS: Temperature 97.2, pulse 88, blood pressure 100/66 and pulse ox 97%. HEENT: Head normocephalic, atraumatic. Eyes: Extraocular muscles are intact. Pupils are equal, round and reactive to light and accommodation. Ears: No lesions. Nose appeared normal. Throat: No exudate or erythema. NECK: Supple. No JVD, no carotid bruit. No lymphadenopathy or thyromegaly. LUNGS: Decreased breath sounds but clear to auscultation. Percussion note normal. Chest symmetrical. HEART: S1, S2, no S3. No murmurs. No cyanosis or clubbing. No ascites. Pulses: Dorsalis pedis and posterior tibial pulses +1 to +2 bilaterally. ABDOMEN: Soft. Nontender. Bowel sounds active. No CVA tenderness. No mass felt. EXTREMITIES: No edema. Full range of motion of all extremities, equal. NEUROLOGIC: No focal deficit. Cranial nerves II through XII are grossly intact. No headache. No double vision. SKIN: Not dry. Intact. Turgor - normal. LYMPHATIC: No palpable lymph nodes/no lymphedema. MUSCULOSKELETAL: Normal joints with no swelling. Muscle tone is normal. ASSESSMENT: 1. Hypotension 2. Fever, etiology unknown could be from urinary tract infection 3. Anemia 4. Renal azotemia 5. Dehydration 6. Dementia PLAN: 1. Slow IV fluids 2. Continue Entresto but give her one tablet twice a day instead of two twice a day because of borderline low blood pressure 3. continue antibiotics 4. Restart Levothyroxine and Lasix 5. Continue Foly Catheter because Madrid Catheter was inserted in the emergency room and she had 600cc of urine out. 6. The patient has no evidence of active GI bleed. We will monitor Hgb and Hct. 7. Oxygen saturation 97% on room air which seems to be stable. 8. Blood pressure has come up from yesterday. 9. Condition stable 10. Will monitor kidney function. There was no change in the kidney functions from day of admission. TIME SPENT: More than 30 minutes. Plan and coordination of the patient's care discussed in the presence of nurse. DIANA
--- NOTE | 2022-04-04 15:04 | DS ---
DATE OF SERVICE: 03/27/22 FINAL DIAGNOSIS: 1. Acute renal failure 2. Failure to thrive 3. Dementia with behavioral disturbances 4. Anemia 5. Generalized anasarca HOSPITAL COURSE: 86 year old white female who is a resident of [facility]. She was hospitalized about a month ago with CHF. Prior to that hospitalization she had the flu. Since having the flu she has steadily declined. She was brought in with increased renal function with BUN into the 50's and creatinine up to 1.9, low sodium. She was not responding. She has not eaten very well for the past two weeks and at this point she is not eating at all . She was started on IV fluids at 83 cc/hr. Renal function has improved back to baseline with creatinine today of 1.47. Hemoglobin got as low as 8.1 and is now up to 8.6. She is still not responding, mostly sleeping and has some moaning indicating pain. We have increased her [place] for pain control. Again, she refuses to eat. We discussed with the family due to multiple disease processes regarding the dementia, renal failure, failure to thrive that hospice would be the best course of action and they are in agreement. SPECIFIC ORDERS: She will be discharged back to [facility]. [facility] is going to meet them there today for continuation of her care. They have agreed that palliative care is the best option and we agree as well. TIME SPENT: More than 60 minutes. DIANA
--- NOTE | 2022-04-08 13:56 | DS ---
DATE OF SERVICE: 03/27/22 FINAL DIAGNOSIS: 1. Acute renal failure 2. Generalized anasarca due to malnutrition 3. Failure to thrive 4. CHF 5. Renal azotemia 6. Anemia HOSPITAL COURSE: This is an 86 year old white female who was admitted from [place]. She was brought into the emergency room with decreased responsiveness, increased confusion.She had recently been hospitalized with CHF a few weeks before. Since that hospitalization she has been steadily declining. She was initially started on IV antibiotics and IV fluids. Renal function slowly improved back to baseline. She does have underlying chronic kidney disease. She has still not eaten. We did stop IV fluids and discussed with the family that, given the fact that she is not responding and not wanting to eat and drinking very little, that hospice referral would be appropriate. The family is in agreement and wishes to just keep her comfortable. She at times does not respond. She has been comfortable She has not exhibited any pain, but again she has not eaten since she got here. Even with improvement in renal function with IV fluids, she still has not eaten anything. After discussing with the daughter, Yael who is the POA, she has agreed for [facility] referral. The referral has been made. Hospice has spoken with her and is going to take over her care when she arrives at [place] this afternoon. She will discharged with poor prognosis and we will continue to follow up at the skilled nursing. TIME SPENT: More than 60 minutes. DIANA
== END 2022-03-27 16:15 | DRG 683 ==
LOC: ED 15:49 → MEDSURG A 20:36
PROVIDERS: ADMIT Internal Medicine; ATTEND Internal Medicine
DX: F03.90 Unspecified dementia, unspecified severity, without behavioral disturbance, psychotic disturbance, mood disturbance, and anxiety; I50.9 Heart failure, unspecified; M62.81 Muscle weakness (generalized); E87.1 Hypo-osmolality and hyponatremia; Z79.82 Long term (current) use of aspirin; R60.1 Generalized edema; N17.9 Acute kidney failure, unspecified; D64.9 Anemia, unspecified; Z51.81 Encounter for therapeutic drug level monitoring; I11.0 Hypertensive heart disease with heart failure; E86.0 Dehydration; I25.10 Atherosclerotic heart disease of native coronary artery without angina pectoris; Z66 Do not resuscitate; I95.9 Hypotension, unspecified; Z20.822 Contact with and (suspected) exposure to COVID-19; Z96.0 Presence of urogenital implants; J44.9 Chronic obstructive pulmonary disease, unspecified; R32 Unspecified urinary incontinence; R50.9 Fever, unspecified; E78.5 Hyperlipidemia, unspecified; R62.7 Adult failure to thrive; Z79.899 Other long term (current) drug therapy